=== PATIENT | male | born 1950 | race Caucasian/White ===

== ENCOUNTER 2016-12-17 18:33 | Emergency (ER) | payer MEDICARE, OTHER ==
[2016-12-17 18:46] VITALS: BP 200/93; PULSE 87; RESP 20
--- NOTE | 2016-12-17 19:12 | ED ---
General Adult HPI - General Chief complaint: Recheck/Abnormal Lab/Rx Stated complaint: Renew pain meds Time Seen by Provider: 12/17/16 18:51 Source: patient Mode of arrival: ambulatory Limitations: no limitations - History of Present Illness Initial comments: 66-year-old male patient presented requesting refill on his narcotic pain medication. Patient states that he has been treated with [place] for chronic low back pain for the last 5 years. He states that he was seeing Dr. Weir for pain specialty however missed a couple of appointments and was dropped from their service. He states that he does have a new appointment with Dr. Debi ozuna on January 09. He states that he is unable to get in to see his primary care doctor for refill on his medication. He states that the pain is in his lower back and radiates down both legs. He states he does have some mild tingling in his feet. He denies any new symptoms however. States that his current symptoms are consistent with his chronic pain. He denies any loss of bowel or bladder control. Denies any saddle anesthesia. Patient denies any recent rash, fever, chills, shortness breath, chest pain, abdominal pain, nausea , vomiting, diarrhea, constipation, dizziness, weakness, hematuria, dysuria, urinary urgency, urinary frequency, headache, visual changes, or any other complaints. - Related Data Home Medications Medication Instructions Recorded Confirmed Albuterol Inhaler [Ventolin Hfa 1 - 2 puff INHALATION RT-Q6H PRN 12/17/16 Inhaler] Aspirin EC [Ecotrin Low Dose] 81 mg PO DAILY 12/17/16 12/17/16 Beclomethasone Dipropionate [Qvar 1 puff INHALATION RT-BID 12/17/16 12/17/16 80 mcg] Citalopram Hydrobromide [CeleXA] 20 mg PO DAILY 12/17/16 12/17/16 Enalapril [Vasotec] 20 mg PO DAILY 12/17/16 12/17/16 Gabapentin 600 mg PO TID PRN 12/17/16 12/17/16 HYDROcodone/APAP 7.5-325MG [[place] 1 tab PO DAILY PRN 12/17/16 12/17/16 7.5-325] Omeprazole [PriLOSEC] 20 mg PO DAILY 12/17/16 12/17/16 Potassium Chloride ER [K-Dur 10] 10 meq PO DAILY 12/17/16 12/17/16 Simvastatin [Zocor] 40 mg PO HS 12/17/16 12/17/16 Terazosin [Hytrin] 2 mg PO TID 12/17/16 12/17/16 Testosterone Cypionate 200 mg IM Q21D 12/17/16 12/17/16 [Depo-Testosterone] Umeclidinium [place] [Incruse 1 puff INHALATION RT-DAILY 12/17/16 12/17/16 Ellipta] metFORMIN HCL [Glucophage] 500 mg PO DAILY 12/17/16 12/17/16 Previous Rx's Medication Instructions Recorded Hydrocodone/Acetaminophen [[place] 1 tab PO Q6HR PRN #20 tab 12/17/16 5-325] Allergies Allergy/AdvReac Type Severity Reaction Status Date / Time tetracycline [Tetracycline] Allergy Swelling Verified 12/17/16 19:14 Review of Systems ROS Statement: Those systems with pertinent positive or pertinent negative responses have been documented in the HPI. ROS Other: All systems not noted in ROS Statement are negative. Past Medical History Past Medical History: Asthma, COPD, Diabetes Mellitus, Hyperlipidemia, Hypertension Additional Past Medical History / Comment(s): back pain History of Any Multi-Drug Resistant Organisms: None Reported Past Surgical History: Adenoidectomy, Orthopedic Surgery, Tonsillectomy Past Psychological History: Anxiety Smoking Status: Current every day smoker Past Alcohol Use History: None Reported Past Drug Use History: None Reported General Exam Limitations: no limitations General appearance: alert, in no apparent distress, other (Physical well- developed, well-nourished adult male patient in no acute distress. Vital signs upon presentation were pulse 87, respirations 20, blood pressure 200/93, pulse ox 95% on room air.) Eye exam: Present: normal appearance, PERRL, EOMI. Absent: scleral icterus, conjunctival injection, periorbital swelling ENT exam: Present: normal exam, normal oropharynx, mucous membranes moist Neck exam: Present: normal inspection. Absent: tenderness, meningismus, lymphadenopathy Respiratory exam: Present: normal lung sounds bilaterally. Absent: respiratory distress, wheezes, rales, rhonchi, stridor Cardiovascular Exam: Present: regular rate, normal rhythm, normal heart sounds. Absent: systolic murmur, diastolic murmur, rubs, gallop, clicks Extremities exam: Present: normal inspection, full ROM, normal capillary refill , other (Skin to the lower extremities is pink, warm, and dry. Cap refill less than 3 seconds.). Absent: tenderness, pedal edema, joint swelling, calf tenderness Back exam: Present: normal inspection. Absent: tenderness Neurological exam: Present: alert, oriented X3, CN II-XII intact Psychiatric exam: Present: normal affect, normal mood Skin exam: Present: warm, dry, intact, normal color. Absent: rash Course Vital Signs 12/17/16 18:40 Pulse Rate 87 Respiratory 20 Rate Blood Pressure 200/93 O2 Sat by Pulse 95 Oximetry Medical Decision Making - Medical Decision Making 66-year-old pleasant male patient presented for refill of his narcotic pain medication. Patient has been taking [place] 7. 5/325 for the last 5 years. Did do a MAPs report patient has received prescriptions only from his primary care physician and his pain specialist over the last 2 years. Patient has not had any previous visits to the emergency department for chronic pain issues. I did have a long discussion with the patient and informed him that we generally do not treat chronic pain in the emergency department. I did inform him that we would do a one-time prescription for [place] however any further prescriptions would have to come from his primary care physician. I told him that if his symptoms change or worsen to return here immediately. I instructed him to try to get a sooner appointment with his pain specialist. He verbalizes understanding and agrees with this plan. Disposition Clinical Impression: Chronic back pain Disposition: HOME SELF-CARE Condition: Good Instructions: Chronic Back Pain (ED) Additional Instructions: Obtain any further pain medication prescriptions from her primary care doctor. Follow-up as scheduled with the pain specialist. Return immediately for any new , worsening, or concerning symptoms. Prescriptions: Hydrocodone/Acetaminophen [[place] 5-325] 1 tab PO Q6HR PRN #20 tab PRN Reason: Pain Referrals: Humberto Martinez MD [Primary Care Provider] - 1-2 days Isiah Carrera MD [STAFF PHYSICIAN] - 1-2 days Time of Disposition: 19:12
--- NOTE | 2016-12-18 04:22 | CDI ---
Documentation Clarification OP Dear Karina LEWIS, NPC, Please add addendum for HPI ,Physical examination and MDM. Thank you, Janie. Application Development Project Manager. If you have any questions please contact fixed income portfolio manager at [phone]. MTDD
== END 2016-12-17 19:20 | disposition home or self-care (01) ==
LOC: EC 18:33
DX: G89.29 Other chronic pain (principal); M54.5 Low back pain; J44.9 Chronic obstructive pulmonary disease, unspecified; E11.9 Type 2 diabetes mellitus without complications; E78.5 Hyperlipidemia, unspecified; I10 Essential (primary) hypertension; F17.200 Nicotine dependence, unspecified, uncomplicated; Z88.1 Allergy status to other antibiotic agents; Z79.82 Long term (current) use of aspirin; Z79.51 Long term (current) use of inhaled steroids; Z79.84 Long term (current) use of oral hypoglycemic drugs; Z79.899 Other long term (current) drug therapy
CPT/HCPCS: 99281

== ENCOUNTER → 2018-08-26 | Outpatient (CLI) | payer MEDICARE, OTHER ==
--- NOTE | 2018-08-26 09:45 | US ---
EXAMINATION TYPE: US kidneys/renal and bladder DATE OF EXAM: 08/26/2018 COMPARISON: NONE CLINICAL HISTORY: R31.9 Hematuria. Hematuria EXAM MEASUREMENTS: Right Kidney: 10.7 x 5.6 x 6.1 cm Left Kidney: 11.6 x 6.0 x 5.5 cm Right Kidney: stones, largest = 1.0cm, cystic areas noted with largest = 1.1 x 1.0 x 1.1cm Left Kidney: stone mid = 0.7cm, cystic area = 1.3 x 1.4 x 1.3cm Bladder: Irregularity of the urinary bladder wall is seen diffusely Bilateral Jets seen: no There is no evidence for hydronephrosis at this point in time. No nephrolithiasis is seen. No ahmet s are identified. The urinary bladder is anechoic with irregular samaniego throughout. Bilateral ureter al jets are not seen. IMPRESSION: 1. Diffuse irregularity of the urinary bladder wall could simply relate to incomplete distention or c ystitis with neoplasm much less likely given the diffuse nature of the irregularity. 2. Bilateral nonobstructing renal calculi and bilateral small renal cysts.
== END | disposition home or self-care (01) ==
LOC: RADUSWWP 06:36
PROVIDERS: ATTEND Family Medicine
DX: N20.0 Calculus of kidney (principal); N28.1 Cyst of kidney, acquired; N32.89 Other specified disorders of bladder; R31.9 Hematuria, unspecified
CPT/HCPCS: 76770

== ENCOUNTER → 2018-10-25 | Outpatient (CLI) | payer MEDICARE, OTHER ==
[2018-10-25 16:37] LABS: African American GFR (CKD) >90 (>60 ml/min/1.73 sqM); Blood Urea Nitrogen 15 mg/dL (9-20); Non-African American GFR(CKD) 86 (>60 ml/min/1.73 sqM)
--- NOTE | 2018-10-26 08:40 | CT ---
EXAMINATION TYPE: CT urogram wo/w con DATE OF EXAM: 10/25/2018 COMPARISON: None HISTORY: Hematuria. CT DLP: 3044 mGycm CONTRAST: Performed and without and with IV Contrast, patient injected with 100ml mL of Isovue 300. CT Urography was performed with unenhanced followed by enhanced images of the kidneys, ureters and ur inary bladder. Delayed images were obtained. 3d reconstruction was performed at a separate work sta tion. FINDINGS: KIDNEYS/BLADDER: Lateral nephrolithiasis is identified. The right kidney demonstrates mid to upper po le calculus measuring 1.9 cm additional mid pole calculi measure 7.7 mm and 4.0 mm. Large lower pole calculus measures 1.1 cm. The left kidney also demonstrates multiple calcifications mid pole calculus measures 5 mm. Several additional sub-3 mm calculi noted. Largest calculus is seen at the lower pole measuring 8.1 mm. There is no evidence for hydronephrosis. Several bilateral subcentimeter renal cys ts are noted. No solid renal lesions are detected. Small dependent calculi are seen within the urinar y bladder. Urinary bladder is otherwise unremarkable. LUNG BASES-: No visible nodule. No infiltrate. LIVER/GB: No calcified gallstones. No space occupying hepatic lesion. Biliary tree is of normal ca liber. PANCREAS: No inflammation. No distinct mass. SPLEEN: No splenic enlargement. No lesion seen. ADRENALS: No nodule. No thickening. BOWEL: Normal appendix. Normal bowel caliber. No inflammation. GENITAL ORGANS: Moderate enlargement of the prostate gland. LYMPH NODES: No greater than 1cm abdominal or pelvic lymph nodes are appreciated. AORTA: No significant abnormality. OSSEOUS STRUCTURES: No significant abnormality is seen. OTHER: No significant additional abnormality is seen. IMPRESSION: 1. Nonobstructing bilateral nephrolithiasis. 2. No solid lesions are detected. Several bilateral renal cysts are noted measuring less than 1 cm. 3. Small layering calculi within the dependent portion of the urinary bladder.
== END | disposition home or self-care (01) ==
LOC: RADCTMAIN 15:53
PROVIDERS: ATTEND Urology
DX: N20.0 Calculus of kidney (principal); N28.1 Cyst of kidney, acquired; Z88.1 Allergy status to other antibiotic agents
CPT/HCPCS: 82565; 84520; 74178; 36415; 74400; Q9967

== ENCOUNTER → 2018-11-17 | Outpatient (CLI) | payer MEDICARE, OTHER ==
[2018-11-17 10:27] LABS: Anisocytosis Slight; Basophils # (A) 0.2 k/uL (0-0.2); Basophils % (A) 3 %; Eosinophils # (A) 0.3 k/uL (0-0.7); Eosinophils % (A) 3 %; HCT 52.7 % (39.0-53.0); HGB 16.7 gm/dL (13.0-17.5); Lymphocytes # (A) 1.4 k/uL (1.0-4.8); Lymphocytes % (A) 17 %; MCH 29.8 pg (25.0-35.0); MCHC 31.6 g/dL (31.0-37.0); MCV 94.1 fL (80.0-100.0); Mean Platelet Volume 8.2; Monocytes # (A) 0.8 k/uL (0-1.0); Monocytes % (A) 9 %; Neutrophils # (A) 5.4 k/uL (1.3-7.7); Neutrophils % (A) 65 %; Platelet Count 184 k/uL (150-450); RDW 16.4 % (11.5-15.5); WBC 8.3 k/uL (3.8-10.6)
[2018-11-17 10:32] LABS: Amorphous Sediment,Urine Rare /hpf; Appearance,Urine Clear (Clear); Bacteria,Urine Occasional /hpf; Bilirubin,Urine Negative (Negative); Blood,Urine Small (Negative); Color,Urine Yellow; Glucose,Urine (UA) Negative (Negative); Ketones,Urine Negative (Negative); Leukocyte Esterase,Urine Moderate (Negative); Mucus,Urine Rare /hpf; Nitrite,Urine Negative (Negative); Protein,Urine Negative (Negative); RBC,Urine 18 /hpf (0-5); Specific Gravity,Urine 1.009 (1.001-1.035); Squamous Epithelial Cell,Urine <1 /hpf (0-4); WBC,Urine 13 /hpf (0-5)
[2018-11-17 11:07] LABS: ALT 25 U/L (21-72); AST 19 U/L (17-59); African American GFR (CKD) >90 (>60 ml/min/1.73 sqM); Alkaline Phosphatase 111 U/L (38-126); Anion Gap 6 mmol/L; Blood Urea Nitrogen 16 mg/dL (9-20); Carbon Dioxide 31 mmol/L (22-30); Chloride 105 mmol/L (98-107); Glucose 87 mg/dL (74-99); Potassium 5.1 mmol/L (3.5-5.1); Sodium 142 mmol/L (137-145); Total Bilirubin 0.8 mg/dL (0.2-1.3); Total Protein 6.6 g/dL (6.3-8.2)
== END | disposition home or self-care (01) ==
LOC: LABPAT 08:59
PROVIDERS: ATTEND Urology
DX: Z01.810 Encounter for preprocedural cardiovascular examination (principal); Z01.812 Encounter for preprocedural laboratory examination; N20.0 Calculus of kidney
CPT/HCPCS: 36415; 80053; 81001; 85025; 87086; 93005

== ENCOUNTER 2018-11-23 06:54 | Observation (INO) | payer MEDICARE, OTHER ==
[2018-11-16 15:19] VITALS: BMI 37.8
--- NOTE | 2018-11-22 20:08 | P.GSHP ---
History of Present Illness H&P Date: 11/22/18 68 yo male with gross hematuria that was identified to have bilateral renal stones and has large and a large volume of renal stones on the right. He was given a variety of treatment options He comes for a right pcnl The risks and complications have been discussed. - Constitutional Constitutional: Denies chills, Denies fever - EENT Eyes: denies blurred vision, denies pain Ears, nose, mouth and throat: Denies headache, Denies sore throat - Cardiovascular Cardiovascular: Denies chest pain, Denies shortness of breath - Respiratory Respiratory: Denies cough, Denies 7 - Gastrointestinal Gastrointestinal: Denies abdominal pain, Denies diarrhea, Denies nausea, Denies vomiting - Genitourinary (Female) Genitourinary: Denies dysuria, Denies hematuria - Genitourinary (Male) Genitourinary: Denies dysuria, Denies hematuria - Musculoskeletal Musculoskeletal: Denies myalgias - Integumentary Integumentary: Denies pruritus, Denies rash - Neurological Neurological: Denies numbness, Denies weakness - Psychiatric Psychiatric: Denies anxiety, Denies depression - Endocrine Endocrine: Denies fatigue, Denies weight change Past Medical History Past Medical History: Asthma, Blood Disorder, COPD, Dementia, Diabetes Mellitus, Deep Vein Thrombosis (DVT), Hyperlipidemia, Hypertension, Pneumonia, Prostate Disorder, Pulmonary Embolus (PE), Seizure Disorder, Sleep Apnea/CPAP/BIPAP Additional Past Medical History / Comment(s): back pain, pt states experienced fall less than a week ago and broke rib, bone spurs hips wears leg brace,back brace cane, has cpap, "Factor B", last seizure 10 years ago, History of Any Multi-Drug Resistant Organisms: None Reported Past Surgical History: Adenoidectomy, Orthopedic Surgery, Tonsillectomy Additional Past Surgical History / Comment(s): pilonidal cyst, top teeth removed Past Anesthesia/Blood Transfusion Reactions: Previous Problems w/ Anesthesia Additional Past Anesthesia/Blood Transfusion Reaction / Comment(s): "I have to have extra anesthesia" Smoking Status: Current every day smoker - Past Family History Father Family Medical History: Cancer Sister(s) Family Medical History: Blood Disorder Brother(s) Family Medical History: Blood Disorder Medications and Allergies Home Medications Medication Instructions Recorded Confirmed Type Albuterol Inhaler [Ventolin Hfa 1 - 2 puff INHALATION RT-Q6H PRN 12/17/16 11/16/18 History Inhaler] Beclomethasone Dipropionate [Qvar 1 puff INHALATION RT-BID PRN 12/17/16 11/16/18 History 80 mcg] Enalapril [Vasotec] 20 mg PO DAILY 12/17/16 11/16/18 History HYDROcodone/APAP 7.5-325MG [[place] 1 tab PO TID 12/17/16 11/16/18 History 7.5-325] Umeclidinium [place] [Incruse 1 puff INHALATION RT-DAILY 12/17/16 11/16/18 History Ellipta] metFORMIN HCL [Glucophage] 500 mg PO DAILY 12/17/16 11/16/18 History DULoxetine HCL [Cymbalta] 60 mg PO HS 11/16/18 11/16/18 History Donepezil [Aricept] 10 mg PO HS 11/16/18 11/16/18 History Ferrous Sulfate [Iron] 325 mg PO DAILY 11/16/18 11/16/18 History Meloxicam 15 mg PO DAILY PRN 11/16/18 11/16/18 History Pregabalin [Lyrica] 150 mg PO BID 11/16/18 11/16/18 History Rivaroxaban [Xarelto] 20 mg PO DAILY 11/16/18 11/16/18 History tiZANidine [Zanaflex] 4 mg PO Q8HR PRN 11/16/18 11/16/18 History Allergies Allergy/AdvReac Type Severity Reaction Status Date / Time tetracycline [Tetracycline] Allergy Swelling Verified 11/16/18 14:46 Surgical - Exam - General well developed, well nourished, no distress - Eyes PERRL - ENT no hearing loss - Neck no masses - Respiratory normal expansion, normal respiratory effort - Cardiovascular Rhythm: regular - Abdomen Abdomen: soft, non tender - Genitourinary normal penis with no external lesions, testicles present - Integumentary no rash, no growths - Neurologic normal coordination, normal sensation - Musculoskeletal normal gait - Psychiatric oriented to time, oriented to person, oriented to place, speech is normal, memory intact Results - Imaging CT scan - abdomen: report reviewed, image reviewed CT scan - pelvis: report reviewed, image reviewed Assessment and Plan Assessment: Impression: RIght renal stones, large Plan: PCNL right
[~2018-11-23 06:54] MED LIST: DEXAMETHASONE SOD PHOSPHATE 10 MG/ML 1 ML VIAL IV ONE; ONDANSETRON 4 MG/2 ML VIAL IVP ONE
--- NOTE | 2018-11-23 07:27 | XR ---
EXAMINATION TYPE: XR KUB DATE OF EXAM: 11/23/2018 COMPARISON: None INDICATION: Preop right side kidney stone TECHNIQUE: Single view abdomen frontal projection FINDINGS: There is a normal bowel gas pattern. Air and fecal debris is within the colon. Psoas margins are normal. No organomegaly is present. Note is made of moderate degenerative changes at the left hip. There are multiple right-sided calcifications overlying the right renal shadow. The larger calcificat ions include a 0.9 cm calcification in the mid to inferior pole is 0.7 cm calcification at the inferi or pole and 1.4 cm calcification in the mid to superior pole. Couple smaller calcifications are also present on the right as well as on the left. On the left the largest calcification measures 0.6 cm an d is in the mid to inferior pole. Overlying the right sacroiliac joint is a 0.7 cm calcification. This could be within fecal debris or a calcification within the ureter. IMPRESSION: 1. Multiple bilateral renal stones. 2. 0.7 cm mid right ureteral stone is not excluded.
[2018-11-23] MEDS ORDERED: LIDOCAINE 1% 20 ML VIAL (10MG/ML) FOR IV START INTRADERMA ONE (07:40)
[2018-11-23] MEDS: LACTATED RINGERS 1,000 ML IV SCH (07:40)
[2018-11-23] MEDS ORDERED: fentaNYL (PF) 50 MCG/ML 2 ML AMP ONE (07:49)
[2018-11-23] MEDS ORDERED: GLYCOPYRROLATE 0.2 MG/ML 2 ML VIAL ONE (07:49)
[2018-11-23] MEDS ORDERED: LIDOCAINE 1% INJ 10MG/ML (20 ML MDV) ONE (07:49)
[2018-11-23] MEDS ORDERED: NEOSTIGMINE 1 MG/ML 10 ML VIAL ONE (07:49)
[2018-11-23] MEDS ORDERED: ROCURONIUM BROMIDE 10 MG/ML 10 ML VIAL IV ONE (07:49)
[2018-11-23] MEDS ORDERED: SUCCINYLCHOLINE CHLORIDE 100 MG/5 ML SYR IV ONE (07:49)
[2018-11-23] MEDS ORDERED: MIDAZOLAM 2 MG/2 ML VIAL ONE (07:49)
[2018-11-23] MEDS ORDERED: PROPOFOL 10 MG/ML 20 ML VIAL IV ONE (07:49)
[2018-11-23] MEDS ORDERED: HYDROmorphone (PF) 1 MG/ML ONE (07:49)
[2018-11-23 08:01] LABS: Glucose,Whole Blood 90 mg/dL (75-99)
[2018-11-23] MEDS ORDERED: IOPAMIDOL-370 50ML BTL MISCELLANE ONE (08:37)
[2018-11-23] MEDS ORDERED: LACTATED RINGERS 1,000 ML IV ONE (09:53)
[2018-11-23] MEDS ORDERED: FLUTICASONE 110 MCG INHALER INHALATION PRN (10:06)
[2018-11-23] MEDS ORDERED: tiZANidine 4 MG TAB PO PRN (10:06)
[2018-11-23] MEDS ORDERED: ACETAMINOPHEN TAB 325 MG TAB PO PRN (10:08)
[2018-11-23] MEDS ORDERED: MAG HYDROX/AL HYDROX/SIMETH 30 ML CUP PO PRN (10:08)
[2018-11-23] MEDS ORDERED: ONDANSETRON 4 MG/2 ML VIAL IVP PRN (10:08)
[2018-11-23] MEDS ORDERED: NALOXONE 0.4 MG/ML 1 ML VIAL IV PRN (10:10)
[2018-11-23] MEDS ORDERED: HYDROmorphone PCA 10 MG/50 ML BAG IV PRN (10:10)
--- NOTE | 2018-11-23 10:15 | P.OP ---
Date of Procedure: 11/23/18 Preoperative Diagnosis: Right renal stone large Postoperative Diagnosis: Same Procedure(s) Performed: Cystoscopy, placement of occluding balloon catheter right, percutaneous nephrostomy (Dr. Denton) percutaneous nephrostolithotomy with laser. 10-Canadian J nephrostomy Anesthesia: GETA Surgeon: Paul Manriquez Estimated Blood Loss (ml): 100 Pathology: other Condition: stable (Stone) Disposition: PACU Indications for Procedure: The patient is 68. Gross hematuria. Evaluation identified a large stones in the right kidney. There are multiple and a complex calyceal system. We discussed treatment options. He comes for percutaneous nephrostolithotomy. Description of Procedure: Patient brought to the operating suite. He is given a successful general endotracheal anesthesia on the transport gurney. He's placed in a frog position with a sterile prep and drape. Cystoscopy Foroblique lens and 19-Canadian sheath identifies normal urethra. The prostate is not obstructing. The right ureteral orifice is identified and intubated with a 5-Canadian occluding balloon catheter which is passed up into the renal pelvis. The cystoscope was removed. The a 16-Canadian Ramirez catheters placed and secured to the ureteral catheter The patient is placed in a prone position with care to airways and extremities. Dr. Denton of radiology performed percutaneous access to a right middle pole calyx. We then dilate the tract to 30-Canadian. I passed the rigid scope and remove clot. There is a stone in the renal pelvis which is grasped and removed. I then pass a flexible nephroscope throughout the collecting system as the stone are all in minor calyces. I passed into each calyx ,upper, middle and lower pole calyx. There are several stones that are broken that are basketed or broken with laser lithotripsy and subsequently basketed. At the end of the procedure I perform an intraoperative nephrostogram to make sure there is no remaining stone. I then identify each calyx as outlined by the nephrostogram and see no remaining stone other than debris. There are calcifications in the renal tubules that are not accessible to the nephroscope. At this point in time I elected terminate the procedure. A 10 J nephrostomy tube was placed. It is secured the skin with 2-0 silk. The patient's awake and returned recovery in good condition. Blood loss is approximately 100 mL. He tolerated procedure well and would be placed in the hospital postoperatively.
[2018-11-23] MEDS: HYDROmorphone 0.5 MG/0.5 ML SYRINGE IVP PRN ×4 (10:22→11:09)
[2018-11-23 10:37] LABS: Glucose,Whole Blood 99 mg/dL (75-99)
--- NOTE | 2018-11-23 10:41 | FL ---
EXAMINATION TYPE: FL Perc Nephrostomy New Access DATE OF EXAM: 11/23/2018 COMPARISON: CT 10/25/2018 HISTORY: Nephrolithiasis PROCEDURE: Maximal barrier technique was utilized. The skin overlying the right kidney was localized using fluo roscopy and the overlying skin prepped and draped. Skin mary was made with a scalpel. Access was gai gera under fluoroscopy, following placement of a ureteral occlusion balloon by the referring clinician and instillation of air in the renal collecting system with a 21-gauge needle to the kidney. A suit able posterior calyx was chosen. A 0.018 inch wire was advanced. The access site was dilated and s ubsequently a sheath was advanced into the renal pelvis following dilation with balloon along the tra ct. Urine returned in the hub of the catheter. The patient underwent nephrolithotomy by the referring clinician. The patient remained in stable condition without complication. The patient was dischar ged to observation. 15.12 minutes fluoroscopy time supplied, 5 intraoperative C-arm images document the procedure IMPRESSION: STATUS POST NEPHROSTOMY PLACEMENT FOR NEPHROLITHOTOMY WITH FLUOROSCOPIC GUIDANCE. THIS PROCEDURE PER FORMED BY THE UNDERSIGNED.
[2018-11-23] MEDS ORDERED: MEPERIDINE 50 MG/ML SYRINGE IVP ONE (11:20)
[2018-11-23] MEDS: hydrALAZINE HCL 20 MG/ML 1 ML VIAL IV ONE ×2 (11:31→11:40)
[2018-11-23] MEDS: SODIUM CHLORIDE 0.45% 1,000 ML IV SCH ×2 (15:34→21:19)
[2018-11-23] MEDS: HYDROcodone/APAP 7.5-325MG 1 EACH TAB PO SCH ×2 (16:19→21:18)
[2018-11-23 17:45] LABS: Glucose,Whole Blood 123 mg/dL (75-99)
[2018-11-23] MEDS ORDERED: DULoxetine HCL 60 MG CAPSULE.DR PO SCH (21:00)
[2018-11-23] MEDS ORDERED: DONEPEZIL 10 MG TAB PO SCH (21:00)
[2018-11-23] MEDS: PREGABALIN 50 MG CAP PO SCH (21:08)
[2018-11-23] MEDS: NICOTINE 21MG/24HR PATCH TRANSDERM SCH (21:08)
[2018-11-24] MEDS: LACTATED RINGERS 1,000 ML IV SCH (04:23)
[2018-11-24] MEDS: SODIUM CHLORIDE 0.45% 1,000 ML IV SCH (05:24)
--- NOTE | 2018-11-24 06:47 | P.DS ---
Providers Date of admission: 11/23/18 21:56 Attending physician: Paul Manriquez Primary care physician: [facility] Course: The patient was admitted to the hospital 11/23/2018 for a right percutaneous nephrostolithotomy. He did well with this. Postoperatively his pain was controlled with a CONTINUING EDUCATION DIRECTOR. His urine is clearing appropriately. The catheter will be removed this morning. He will ambulate. If he tolerates the catheter out and ambulation then he'll be discharged home with a nephrostomy tube. He'll follow-up in the office Wednesday for nephrostomy tube removal. He's been given a small prescription of [place]. His diet is regular his activities Limited. His condition is good. 71 given. He's been instructed to contact us with any problems. Patient Condition at Discharge: Good Plan - Discharge Summary Discharge Rx Participant: No New Discharge Prescriptions: New HYDROcodone/APAP 5-325MG [[place] 5-325] 1 tab PO Q4HR PRN #14 tab PRN Reason: Pain No Action Albuterol Inhaler [Ventolin Hfa Inhaler] 1 - 2 puff INHALATION RT-Q6H PRN PRN Reason: Shortness Of Breath Beclomethasone Dipropionate [Qvar 80 mcg] 1 puff INHALATION RT-BID PRN PRN Reason: Dyspnea metFORMIN HCL [Glucophage] 500 mg PO DAILY Umeclidinium [place] [Incruse Ellipta] 1 puff INHALATION RT-DAILY Enalapril [Vasotec] 20 mg PO DAILY HYDROcodone/APAP 7.5-325MG [[place] 7.5-325] 1 tab PO TID tiZANidine [Zanaflex] 4 mg PO Q8HR PRN PRN Reason: Pain Donepezil [Aricept] 10 mg PO HS Rivaroxaban [Xarelto] 20 mg PO DAILY Pregabalin [Lyrica] 150 mg PO BID Meloxicam 15 mg PO DAILY PRN PRN Reason: Pain Ferrous Sulfate [Iron] 325 mg PO DAILY DULoxetine HCL [Cymbalta] 60 mg PO HS Discharge Medication List Albuterol Inhaler [Ventolin Hfa Inhaler] 1 - 2 puff INHALATION RT-Q6H PRN 12/17/16 [History] Beclomethasone Dipropionate [Qvar 80 mcg] 1 puff INHALATION RT-BID PRN 12/17/16 [History] Enalapril [Vasotec] 20 mg PO DAILY 12/17/16 [History] HYDROcodone/APAP 7.5-325MG [[place] 7.5-325] 1 tab PO TID 12/17/16 [History] Umeclidinium [place] [Incruse Ellipta] 1 puff INHALATION RT-DAILY 12/17/16 [History] metFORMIN HCL [Glucophage] 500 mg PO DAILY 12/17/16 [History] DULoxetine HCL [Cymbalta] 60 mg PO HS 11/16/18 [History] Donepezil [Aricept] 10 mg PO HS 11/16/18 [History] Ferrous Sulfate [Iron] 325 mg PO DAILY 11/16/18 [History] Meloxicam 15 mg PO DAILY PRN 11/16/18 [History] Pregabalin [Lyrica] 150 mg PO BID 11/16/18 [History] Rivaroxaban [Xarelto] 20 mg PO DAILY 11/16/18 [History] tiZANidine [Zanaflex] 4 mg PO Q8HR PRN 11/16/18 [History] HYDROcodone/APAP 5-325MG [[place] 5-325] 1 tab PO Q4HR PRN #14 tab 11/24/18 [Rx] Follow up Appointment(s)/Referral(s): Paul Manriquez MD [STAFF PHYSICIAN] - 11/28/18 Discharge Disposition: HOME SELF-CARE
[2018-11-24 07:23] LABS: Glucose,Whole Blood 128 mg/dL (75-99)
[2018-11-24] MEDS ORDERED: metFORMIN 500 MG TAB PO SCH (07:30)
[2018-11-24] MEDS: NICOTINE 21MG/24HR PATCH TRANSDERM SCH (08:08)
[2018-11-24] MEDS: HYDROcodone/APAP 7.5-325MG 1 EACH TAB PO SCH (08:16)
[2018-11-24] MEDS: PREGABALIN 50 MG CAP PO SCH (08:16)
[2018-11-24 08:50] VITALS: BP 206/106; PULSE 76; RESP 16; TEMP 98.2
[2018-11-24] MEDS ORDERED: MELOXICAM 7.5 MG TAB PO PRN (09:00)
[2018-11-24] MEDS ORDERED: LISINOPRIL 20 MG TAB PO SCH (09:00)
[2018-11-24] MEDS ORDERED: IPRATROPIUM 0.5 MG/2.5 ML NEBU INHALATION SCH (16:00)
== END 2018-11-24 09:00 | disposition home or self-care (01) ==
LOC: OR 06:54 → 4SSUR 11:54 → OR 23:05
PROVIDERS: ADMIT Urology; ATTEND Urology
DX: N20.0 Calculus of kidney (principal); J44.9 Chronic obstructive pulmonary disease, unspecified; I10 Essential (primary) hypertension; F41.9 Anxiety disorder, unspecified; G47.33 Obstructive sleep apnea (adult) (pediatric); G40.909 Epilepsy, unspecified, not intractable, without status epilepticus; F03.90 Unspecified dementia, unspecified severity, without behavioral disturbance, psychotic disturbance, mood disturbance, and anxiety; E78.5 Hyperlipidemia, unspecified; E11.9 Type 2 diabetes mellitus without complications; R21 Rash and other nonspecific skin eruption; M77.9 Enthesopathy, unspecified; N42.9 Disorder of prostate, unspecified; Z99.89 Dependence on other enabling machines and devices; F17.200 Nicotine dependence, unspecified, uncomplicated; Z79.01 Long term (current) use of anticoagulants; Z79.1 Long term (current) use of non-steroidal anti-inflammatories (NSAID); Z79.84 Long term (current) use of oral hypoglycemic drugs; Z79.51 Long term (current) use of inhaled steroids; Z79.891 Long term (current) use of opiate analgesic; Z87.01 Personal history of pneumonia (recurrent); Z79.899 Other long term (current) drug therapy; Z88.1 Allergy status to other antibiotic agents; Z86.711 Personal history of pulmonary embolism; Z91.81 History of falling; Z87.81 Personal history of (healed) traumatic fracture; Z86.718 Personal history of other venous thrombosis and embolism; Z80.9 Family history of malignant neoplasm, unspecified
CPT/HCPCS: 50080; 94640; 94762; 86900; 86901; 86850; 82365; 50432; 74018; G0378 ×2; C1769 ×2; C1894; C1729; S4990; J2250; J0360; J1100; J2710; J2175; J0690; J2405; J2001; J3010; J1170 ×2; J0330; J2704; Q9967

== ENCOUNTER → 2019-07-28 | Outpatient (CLI) | payer MEDICARE, OTHER | END | disposition home or self-care (01) | LOC: LABWHC1 12:35 | PROVIDERS: ATTEND Internal Medicine Interventional Cardiology | DX: Z11.59 Encounter for screening for other viral diseases (principal) | CPT/HCPCS: 87635 ==

== ENCOUNTER 2019-08-02 09:05 | Day surgery (SDC) | payer MEDICARE, OTHER ==
[2019-08-01 12:54] VITALS: BMI 39.4
[~2019-08-02 09:05] MED LIST changes: +ALPRAZolam 0.25 MG TAB PO PRN; +ASPIRIN 325 MG TAB PO ONE; -DEXAMETHASONE SOD PHOSPHATE 10 MG/ML 1 ML VIAL IV ONE; -ONDANSETRON 4 MG/2 ML VIAL IVP ONE; +SODIUM CHLORIDE 0.9% 1,000 ML in EMPTY BAG 1 BAG IV ONE
[2019-08-02 09:38] LABS: Glucose,Whole Blood 105 mg/dL (75-99)
[2019-08-02 09:40] VITALS: RESP 18
[2019-08-02 09:54] LABS: Basophils # (A) 0.1 k/uL (0-0.2); Basophils % (A) 1 %; Eosinophils # (A) 0.3 k/uL (0-0.7); Eosinophils % (A) 3 %; HGB 12.9 gm/dL (13.0-17.5); Hypochromasia Slight; Lymphocytes # (A) 1.4 k/uL (1.0-4.8); Lymphocytes % (A) 16 %; MCH 28.9 pg (25.0-35.0); MCHC 32.2 g/dL (31.0-37.0); MCV 89.8 fL (80.0-100.0); Mean Platelet Volume 8.1; Monocytes # (A) 0.5 k/uL (0-1.0); Monocytes % (A) 6 %; Neutrophils # (A) 6.2 k/uL (1.3-7.7); Neutrophils % (A) 72 %; Platelet Count 212 k/uL (150-450); RBC 4.45 m/uL (4.30-5.90); RDW 14.3 % (11.5-15.5); WBC 8.6 k/uL (3.8-10.6)
[2019-08-02 10:03] LABS: African American GFR (CKD) >90 (>60 ml/min/1.73 sqM); Anion Gap 7 mmol/L; Blood Urea Nitrogen 14 mg/dL (9-20); Calcium 9.3 mg/dL (8.4-10.2); Carbon Dioxide 25 mmol/L (22-30); Chloride 104 mmol/L (98-107); Glucose 96 mg/dL (74-99); Non-African American GFR(CKD) >90 (>60 ml/min/1.73 sqM); Potassium 3.9 mmol/L (3.5-5.1); Sodium 136 mmol/L (137-145)
[2019-08-02] MEDS ORDERED: HYDROmorphone 1 MG/ML 1 ML SYRINGE IVP ONE (10:20)
[2019-08-02] MEDS ORDERED: MIDAZOLAM 2 MG/2 ML VIAL IVP ONE (10:20)
[2019-08-02] MEDS ORDERED: LIDOCAINE 1% INJ 10MG/ML (20 ML MDV) SQ ONE (10:21)
[2019-08-02] MEDS: MIDAZOLAM 2 MG/2 ML VIAL IVP ONE ×2 (10:27→10:35)
[2019-08-02] MEDS ORDERED: fentaNYL (PF) 50 MCG/ML 2 ML AMP IVP ONE (10:29)
[2019-08-02] MEDS: HYDROmorphone 1 MG/ML 1 ML SYRINGE IVP ONE ×2 (10:35→10:37)
[2019-08-02] MEDS ORDERED: HEPARIN SODIUM 1,000 UN/ML (10ML VL) IV ONE (10:44)
[2019-08-02] MEDS ORDERED: SODIUM CHLORIDE 0.9% 500 ML 500 ML with niCARdipine 6.25 MG, NITROGLYCERIN-D5W PMX 0.05... IV ONE ×4 (10:45)
[2019-08-02] MEDS ORDERED: CLOPIDOGREL 75 MG TAB PO ONE (10:48)
[2019-08-02] MEDS ORDERED: IOPAMIDOL-250 100ML BTL INTRAARTER ONE (11:24)
[2019-08-02] MEDS ORDERED: FLUTICASONE 110 MCG INHALER INHALATION PRN (11:29)
[2019-08-02] MEDS ORDERED: tiZANidine 4 MG TAB PO PRN (11:29)
[2019-08-02] MEDS ORDERED: MELOXICAM 7.5 MG TAB PO PRN (11:29)
[2019-08-02] MEDS ORDERED: SODIUM CHLORIDE 0.9% 1,000 ML in EMPTY BAG 1 BAG IV SCH (11:30)
--- NOTE | 2019-08-02 12:02 | AN ---
ANGIOGRAPHY REPORT DATE OF SERVICE: 08/02/2019 PERFORMING PHYSICIAN: Jatinder Nina MD. PROCEDURE PERFORMED: 1. Successful atherectomy of the right SFA using the orbital atherectomy device from [employer]. 2. Successful stenting of the right SFA using 8.0 x 100 mm Zilver PTX drug-coated stent with an excellent angiographic results. 3. Balloon angioplasty of the right SFA. 4. Intravascular ultrasound IVUS of the right SFA. 5. Selective right SFA angiogram. INDICATION: This is a 69-year-old gentleman who was experiencing severe right foot discomfort and right toe discomfort. He was diagnosed with critical limb ischemia with an angiogram was performed and revealed critical right SFA disease. He was brought today to undergo an intervention. APPROACH: Right anterior tibial artery. COMPLICATION: None. LEVEL OF SEDATION: Moderate with sedation length of 66 minutes. PROCEDURE DESCRIPTION: After obtaining an informed consent, the patient was brought to the cardiac catheter finisher and inspector. The right dorsalis pedis artery was cannulated using micropuncture technique and a micropuncture wire passed easily, then I placed 5/6 slender sheath. After that, anticoagulation was initiated using heparin and continuous infusion of heparin, verapamil and nitroglycerin was initiated. After that, I did do selective right SFA angiogram as well as intravascular ultrasound IVUS of the right SFA which revealed a diameter artery of about 6 to 7 mm. Successful atherectomy was performed using the CSI device under low, medium, and high speed. After that balloon angioplasty was performed using 6 x 80 mm balloon with inadequate angiographic results. Because of that, I decided to stent the right SFA which I deployed 8 x 100 mm Zilver PTX drug-coated stent where the stent was positioned under fluoroscopy guidance and deployed under fluoroscopy guidance. Post-dilatation was performed using 7 mm balloon. The final angiogram showed excellent angiographic results and the procedure was completed without any complication. POSTPROCEDURE MANAGEMENT: 1. Dual anti-platelet therapy. 2. Risk factors modifications. 3. Follow up with the patient. MMODL / IJN: [id number] /
[2019-08-02] MEDS: HYDROcodone/APAP 10-325MG 1 EACH TAB PO PRN ×2 (15:00→21:14)
[2019-08-02 20:51] LABS: Glucose,Whole Blood 101 mg/dL (75-99)
[2019-08-02] MEDS ORDERED: DULoxetine HCL 60 MG CAPSULE.DR PO SCH (21:00)
[2019-08-02] MEDS ORDERED: DONEPEZIL 10 MG TAB PO SCH (21:00)
[2019-08-03] MEDS: HYDROcodone/APAP 10-325MG 1 EACH TAB PO PRN ×2 (05:27→10:19)
[2019-08-03 06:51] LABS: Glucose,Whole Blood 90 mg/dL (75-99)
--- NOTE | 2019-08-03 07:38 | P.DS ---
Providers Date of admission: August [id number] Attending physician: Jatinder Nina Primary care physician: [facility] Course: This is a 69-year-old gentleman who underwent yesterday successful atherectomy, balloon angioplasty, and stenting of the right SFA. He was seen this morning. The procedure was performed from the right anterior tibial artery. The patient pain overall is better and he feels that the foot is warmer. I felt very diminished dorsalis pedis pulse. I'm going to discharge the patient on Plavix in addition to oral anticoagulation which he was receiving for hypercoagulopathy. He is intolerant to aspirin. I will follow-up with the patient next week in the office Plan - Discharge Summary Discharge Rx Participant: No New Discharge Prescriptions: New Clopidogrel Bisulfate [Plavix] 75 mg PO DAILY #90 tab Continue Albuterol Inhaler (Mhu) [Ventolin Hfa Inhaler (Mhu)] 1 - 2 puff INHALATION RT-Q6H PRN PRN Reason: Shortness Of Breath Beclomethasone Dipropionate [Qvar 80 mcg] 1 puff INHALATION RT-BID PRN PRN Reason: Dyspnea metFORMIN HCL [Glucophage] 500 mg PO DAILY Umeclidinium [place] [Incruse Ellipta] 1 puff INHALATION RT-DAILY Enalapril [Vasotec] 20 mg PO DAILY tiZANidine [Zanaflex] 4 mg PO Q8HR PRN PRN Reason: Pain Donepezil [Aricept] 10 mg PO HS Rivaroxaban [Xarelto] 20 mg PO DAILY Meloxicam 15 mg PO DAILY PRN PRN Reason: Pain DULoxetine HCL [Cymbalta] 60 mg PO HS Atorvastatin [Lipitor] 20 mg PO DAILY HYDROcodone/APAP 10-325MG [[place] 10-325] 1 tab PO Q4HR PRN PRN Reason: Pain Rosuvastatin Calcium 40 mg PO DAILY Discharge Medication List Albuterol Inhaler (Mhu) [Ventolin Hfa Inhaler (Mhu)] 1 - 2 puff INHALATION RT- Q6H PRN 12/17/16 [History] Beclomethasone Dipropionate [Qvar 80 mcg] 1 puff INHALATION RT-BID PRN 12/17/16 [History] Enalapril [Vasotec] 20 mg PO DAILY 10/12/17 [History] Umeclidinium [place] [Incruse Ellipta] 1 puff INHALATION RT-DAILY 12/17/16 [History] metFORMIN HCL [Glucophage] 500 mg PO DAILY 12/17/16 [History] DULoxetine HCL [Cymbalta] 60 mg PO HS 11/16/18 [History] Donepezil [Aricept] 10 mg PO HS 11/16/18 [History] Meloxicam 15 mg PO DAILY PRN 11/16/18 [History] Rivaroxaban [Xarelto] 20 mg PO DAILY 11/16/18 [History] tiZANidine [Zanaflex] 4 mg PO Q8HR PRN 11/16/18 [History] Atorvastatin [Lipitor] 20 mg PO DAILY 08/01/19 [History] HYDROcodone/APAP 10-325MG [[place] 10-325] 1 tab PO Q4HR PRN 08/01/19 [History] Rosuvastatin Calcium 40 mg PO DAILY 08/01/19 [History] Clopidogrel Bisulfate [Plavix] 75 mg PO DAILY #90 tab 08/03/19 [Rx] Follow up Appointment(s)/Referral(s): Jatinder Nina MD [STAFF PHYSICIAN] - 1 Week
[2019-08-03 07:57] VITALS: BP 135/78; TEMP 97.5
[2019-08-03] MEDS ORDERED: IPRATROPIUM 0.5 MG/2.5 ML NEBU INHALATION SCH (08:00)
[2019-08-03 08:37] LABS: Basophils % (A) 1 %; Eosinophils # (A) 0.3 k/uL (0-0.7); Eosinophils % (A) 4 %; HCT 38.6 % (39.0-53.0); HGB 12.6 gm/dL (13.0-17.5); Hypochromasia Moderate; Lymphocytes # (A) 1.5 k/uL (1.0-4.8); Lymphocytes % (A) 21 %; MCH 29.4 pg (25.0-35.0); MCHC 32.6 g/dL (31.0-37.0); MCV 90.2 fL (80.0-100.0); Mean Platelet Volume 8.4; Monocytes # (A) 0.4 k/uL (0-1.0); Monocytes % (A) 5 %; Neutrophils % (A) 68 %; Platelet Count 191 k/uL (150-450); RBC 4.28 m/uL (4.30-5.90); RDW 14.3 % (11.5-15.5); WBC 7.4 k/uL (3.8-10.6)
[2019-08-03 08:46] LABS: African American GFR (CKD) >90 (>60 ml/min/1.73 sqM); Anion Gap 5 mmol/L; Blood Urea Nitrogen 11 mg/dL (9-20); Calcium 8.9 mg/dL (8.4-10.2); Carbon Dioxide 28 mmol/L (22-30); Chloride 104 mmol/L (98-107); Glucose 118 mg/dL (74-99); Non-African American GFR(CKD) >90 (>60 ml/min/1.73 sqM); Potassium 4.2 mmol/L (3.5-5.1); Sodium 137 mmol/L (137-145)
[2019-08-03] MEDS ORDERED: ATORVASTATIN 20 MG TAB PO SCH (09:00)
[2019-08-03] MEDS ORDERED: LISINOPRIL 20 MG TAB PO SCH (09:00)
[2019-08-03] MEDS ORDERED: ATORVASTATIN 80 MG TAB PO SCH (09:00)
[2019-08-03 10:51] VITALS: PULSE 78
--- NOTE | 2019-08-03 12:02 | IR ---
Fluoroscopy HISTORY: Peripheral vascular disease 10.8 minutes fluoroscopy time supplied to the referring clinician. 273 intraoperative C-arm images d ocument the procedure. See dictated report from cardiology.
== END 2019-08-03 10:47 | disposition home or self-care (01) ==
LOC: CATHCVL 09:05 → 4SSUR 11:24 → CATHCVL 08-03 10:47
PROVIDERS: ATTEND Internal Medicine Interventional Cardiology
DX: I70.201 Unspecified atherosclerosis of native arteries of extremities, right leg (principal); I10 Essential (primary) hypertension; E78.5 Hyperlipidemia, unspecified; E11.51 Type 2 diabetes mellitus with diabetic peripheral angiopathy without gangrene; J44.9 Chronic obstructive pulmonary disease, unspecified; F17.210 Nicotine dependence, cigarettes, uncomplicated; Z79.01 Long term (current) use of anticoagulants; Z79.84 Long term (current) use of oral hypoglycemic drugs; Z79.899 Other long term (current) drug therapy; Z88.1 Allergy status to other antibiotic agents; D68.59 Other primary thrombophilia
CPT/HCPCS: 94640; 37227; 85347; 37252; 80048 ×2; 85025 ×2; C1894; C1714; C1769 ×5; C1753; C1874; C1725; J2250; J1644 ×2; J2001; J3010; J1170; Q9966

== ENCOUNTER → 2019-08-17 | Outpatient (CLI) | payer MEDICARE, OTHER ==
--- NOTE | 2019-08-17 20:45 | XR ---
EXAMINATION TYPE: XR toes RT DATE OF EXAM: 08/17/2019 COMPARISON: 05/25/2019 HISTORY: 69-year-old male cutaneous abscess of right foot TECHNIQUE: 3 views coned-down right great toe FINDINGS: Soft tissue swelling of the great toe. No focal osteal lysis or periostitis. Degenerative spurring an d mild joint space narrowing at the first MTP joint. IMPRESSION: Soft tissue swelling. No osseous destruction to suggest osteomyelitis.
== END | disposition home or self-care (01) ==
LOC: RADXRMAIN 16:34
PROVIDERS: ATTEND Nurse Practitioner Family
DX: M79.89 Other specified soft tissue disorders (principal); E11.621 Type 2 diabetes mellitus with foot ulcer

== ENCOUNTER 2019-09-05 17:27 | Inpatient (IN) | payer MEDICARE, OTHER ==
[2019-09-05 18:47] LABS: Basophils # (A) 0.1 k/uL (0-0.2); Basophils % (A) 1 %; Eosinophils # (A) 0.3 k/uL (0-0.7); Eosinophils % (A) 3 %; HCT 37.2 % (39.0-53.0); Hypochromasia Moderate; Lymphocytes # (A) 1.5 k/uL (1.0-4.8); Lymphocytes % (A) 14 %; MCH 28.7 pg (25.0-35.0); MCHC 32.3 g/dL (31.0-37.0); MCV 88.9 fL (80.0-100.0); Mean Platelet Volume 8.4; Monocytes # (A) 0.7 k/uL (0-1.0); Monocytes % (A) 6 %; Neutrophils # (A) 8.3 k/uL (1.3-7.7); Neutrophils % (A) 76 %; Platelet Count 210 k/uL (150-450); RBC 4.18 m/uL (4.30-5.90); RDW 15.5 % (11.5-15.5)
[2019-09-05 18:57] LABS: INR 1.3 (<1.2); Partial Thromboplastin Time 35.3 sec (22.0-30.0); Prothrombin Time 13.4 sec (9.0-12.0)
--- NOTE | 2019-09-05 19:07 | XR ---
EXAMINATION TYPE: XR foot complete RT DATE OF EXAM: 09/05/2019 COMPARISON: NONE HISTORY: Big toe infection TECHNIQUE: 3 views FINDINGS: Metatarsals are intact. I see no fracture nor dislocation. Joint spaces are fairly normal. There is minor spurring at the first MP joint. There is plantar calcaneal spurring. IMPRESSION: Mild spurring. No fracture. No evidence of osteomyelitis of the big toe.
--- NOTE | 2019-09-05 19:09 | XR ---
EXAMINATION TYPE: XR KUB DATE OF EXAM: 09/05/2019 COMPARISON: 11/23/2018 HISTORY: Preop TECHNIQUE: 2 views FINDINGS: 2 views supine show no sign of intestinal obstruction or pneumoperitoneum. Fecal pattern is normal. There are large calcifications over the lower pole right kidney. There is 6 mm calculus over lower pole left kidney. IMPRESSION: Nonacute abdomen. Bilateral renal calculi similar to old exam.
[2019-09-05] MEDS ORDERED: HYDROcodone/APAP 7.5-325MG 1 EACH TAB PO ONE (19:16)
--- NOTE | 2019-09-05 19:18 | ED ---
General Adult HPI - General Chief complaint: Urogenital Stated complaint: withdrawals Time Seen by Provider: 09/05/19 17:38 Source: patient Mode of arrival: ambulatory Limitations: no limitations - History of Present Illness Initial comments: The patient is a 69-year-old male with past history of peripheral vascular disease, chronic pain with opiate dependence and chronic right foot wound who presents to the emergency department with reported opiate withdrawal. The patient states he has had intractable nausea and diarrhea secondary to not being on his [place]. States he's been out for approximately 1 week. He was in a pain contract. He was hospitalized and had surgery approximately one month ago by Dr. Boucher to put a graft in his right lower extremity. States that during his hospitalization he was given narcotic pain medication. His pain contract doctor found that he had fentanyl in his system and stopped giving him [place]. Patient also reports that his foot wound appears to be getting worse. Yesterday the patient also started having dark clotted blood in his urine. States it previously happened before with his previous kidney stones. He does admit to some generalized abdominal pain. Patient is on Xarelto and plavix. Patient d enies any fevers or chills. There are no other alleviating, precipitating or modifying factors - Related Data Home Medications Medication Instructions Recorded Confirmed Enalapril [Vasotec] 20 mg PO DAILY 12/17/16 09/05/19 Umeclidinium [place] [Incruse 1 puff INHALATION RT-DAILY 12/17/16 09/05/19 Ellipta] metFORMIN HCL [Glucophage] 500 mg PO W/BRKFST 12/17/16 09/05/19 DULoxetine HCL [Cymbalta] 60 mg PO HS 11/16/18 09/05/19 Donepezil [Aricept] 10 mg PO HS 11/16/18 09/05/19 Rivaroxaban [Xarelto] 20 mg PO DAILY 11/16/18 09/05/19 Rosuvastatin Calcium 40 mg PO DAILY 08/01/19 09/05/19 Albuterol Sulfate [Ventolin HFA] 2 puff INHALATION RT-Q4H PRN 09/05/19 09/05/19 Aspirin 81 mg PO DAILY 09/05/19 09/05/19 Pregabalin [Lyrica] 150 mg PO BID 09/05/19 09/05/19 Tamsulosin HCl [Flomax] 0.4 mg PO BID 09/05/19 09/05/19 amLODIPine [Norvasc] 5 mg PO DAILY 09/05/19 09/05/19 Previous Rx's Medication Instructions Recorded Clopidogrel Bisulfate [Plavix] 75 mg PO DAILY #90 tab 08/03/19 Budesonide-Formot 160-4.5 Mcg 2 puff INHALATION RT-BID #1 puff 09/08/19 [Symbicort 160-4.5 Mcg Inhaler] Ipratropium-Albuterol Nebulize 3 ml INHALATION RT-QID PRN #120 ml 09/08/19 [Duoneb 0.5 mg-3 mg/3 ml Soln] Nicotine 14Mg/24Hr Patch [Habitrol] 1 patch TRANSDERM DAILY #30 patch 09/08/19 Sulfamethoxazole/Trimethoprim 1 each PO PC-BID 7 Days #14 tablet 09/08/19 [Bactrim DS 800-160 mg] Allergies Allergy/AdvReac Type Severity Reaction Status Date / Time tetracycline [Tetracycline] Allergy Swelling Verified 09/05/19 21:38 Review of Systems ROS Statement: Those systems with pertinent positive or pertinent negative responses have been documented in the HPI. ROS Other: All systems not noted in ROS Statement are negative. Past Medical History Past Medical History: Asthma, Coronary Artery Disease (CAD), COPD, Dementia, Diabetes Mellitus, Hyperlipidemia, Hypertension Additional Past Medical History / Comment(s): back pain, DDD, LT GREAT TOE WOUND History of Any Multi-Drug Resistant Organisms: None Reported Past Surgical History: Adenoidectomy, Orthopedic Surgery, Tonsillectomy Additional Past Surgical History / Comment(s): pilonidal cyst, top teeth removed Past Anesthesia/Blood Transfusion Reactions: Previous Problems w/ Anesthesia Additional Past Anesthesia/Blood Transfusion Reaction / Comment(s): "I have to have extra anesthesia" Past Psychological History: Anxiety Smoking Status: Current every day smoker Past Alcohol Use History: None Reported Past Drug Use History: None Reported - Past Family History Father Family Medical History: Cancer Sister(s) Family Medical History: Blood Disorder Brother(s) Family Medical History: Blood Disorder General Exam Limitations: no limitations General appearance: alert, in no apparent distress Head exam: Present: atraumatic, normocephalic, normal inspection Eye exam: Present: normal appearance, PERRL, EOMI. Absent: scleral icterus, conjunctival injection, periorbital swelling ENT exam: Present: normal exam, mucous membranes moist Neck exam: Present: normal inspection. Absent: tenderness, meningismus, lymphadenopathy Respiratory exam: Present: wheezes, decreased breath sounds. Absent: respiratory distress, rales, rhonchi, stridor Cardiovascular Exam: Present: regular rate, normal rhythm, normal heart sounds. Absent: systolic murmur, diastolic murmur, rubs, gallop, clicks GI/Abdominal exam: Present: soft, tenderness (suprapubic), normal bowel sounds. Absent: distended, guarding, rebound, rigid Extremities exam: Present: full ROM, normal capillary refill, other (2+ DP and PT pulses. great toe ulceration measuring 2.0 x 1.5 cm with some surrounding erythema. No pustular drainage). Absent: tenderness, pedal edema, joint swelling, calf tenderness Back exam: Present: normal inspection Neurological exam: Present: alert, oriented X3, CN II-XII intact Psychiatric exam: Present: normal affect, normal mood Skin exam: Present: warm, dry, intact, normal color. Absent: rash Course Vital Signs 09/05/19 09/05/19 17:28 20:51 Temperature 98.0 F 98.1 F Pulse Rate 85 74 Respiratory 18 18 Rate Blood Pressure 99/66 107/68 O2 Sat by Pulse 98 98 Oximetry Medical Decision Making - Medical Decision Making Upon arrival the patient is placed into room 12. A thorough history and physical exam was performed. I did perform an x-ray of the patient's great toe which does not demonstrate any signs ostium myelitis. The patient is failing outpatient therapy and therefore I did recommend laboratory studies. White blood cell count is 11. Lipase 89. Urinalysis is positive for large blood, greater than 182 red blood cells, greater than 182 white blood cells and many white blood cell clumps. The patient was given [place] for pain. Cultures were obtained and the patient was started on Rocephin and Vanco for his urinary tract infection and cellulitis which is failing outpatient therapy. I did recommend hospital admission. Patient does make comment to the nurse that he was so hopeless at home without his pain medication that he didn't want to live any longer. Because of this I will admit the patient to [facility] with psychiatryvand wound care consult. Patient agreed to this. I discussed the case with Dr. Ochoa - Lab Data Result diagrams: 09/06/19 08:05 09/08/19 08:19 Lab Results 09/05/19 09/05/19 09/05/19 Range/Units 18:33 18:33 18:33 WBC 11.0 H (3.8-10.6) k/uL RBC 4.18 L (4.30-5.90) m/uL Hgb 12.0 L (13.0-17.5) gm/dL Hct 37.2 L (39.0-53.0) % MCV 88.9 (80.0-100.0) fL MCH 28.7 (25.0-35.0) pg MCHC 32.3 (31.0-37.0) g/dL RDW 15.5 (11.5-15.5) % Plt Count 210 (150-450) k/uL Neutrophils % 76 % Lymphocytes % 14 % Monocytes % 6 % Eosinophils % 3 % Basophils % 1 % Neutrophils # 8.3 H (1.3-7.7) k/uL Lymphocytes # 1.5 (1.0-4.8) k/uL Monocytes # 0.7 (0-1.0) k/uL Eosinophils # 0.3 (0-0.7) k/uL Basophils # 0.1 (0-0.2) k/uL Hypochromasia Moderate ESR 11 (0-15) mm/hr PT 13.4 H (9.0-12.0) sec INR 1.3 H (<1.2) APTT 35.3 H (22.0-30.0) sec Sodium 137 (137-145) mmol/L Potassium 4.2 (3.5-5.1) mmol/L Chloride 106 (98-107) mmol/L Carbon Dioxide 24 (22-30) mmol/L Anion Gap 7 mmol/L BUN 19 (9-20) mg/dL Creatinine 0.72 (0.66-1.25) mg/dL Est GFR (CKD-EPI)AfAm >90 (>60 ml/min/1.73 sqM) Est GFR (CKD-EPI)NonAf >90 (>60 ml/min/1.73 sqM) Glucose 111 H (74-99) mg/dL Plasma Lactic Acid Jose (0.7-2.0) mmol/L Calcium 9.6 (8.4-10.2) mg/dL Total Bilirubin 0.5 (0.2-1.3) mg/dL AST 22 (17-59) U/L ALT 20 (4-49) U/L Alkaline Phosphatase 71 (38-126) U/L C-Reactive Protein <5.0 (<10.0) mg/L Total Protein 6.1 L (6.3-8.2) g/dL Albumin 3.7 (3.5-5.0) g/dL Lipase 889 H (23-300) U/L Urine Color Urine Appearance (Clear) Urine pH (5.0-8.0) Ur Specific [place] (1.001-1.035) Urine Protein (Negative) Urine Glucose (UA) (Negative) Urine Ketones (Negative) Urine Blood (Negative) Urine Nitrite (Negative) Urine Bilirubin (Negative) Urine Urobilinogen (<2.0) mg/dL Ur Leukocyte Esterase (Negative) Urine RBC (0-5) /hpf Urine WBC (0-5) /hpf Urine WBC Clumps (None) /hpf Urine Opiates Screen (NotDetected) Ur Oxycodone Screen (NotDetected) Urine Methadone Screen (NotDetected) Ur Propoxyphene Screen (NotDetected) Ur Barbiturates Screen (NotDetected) U Tricyclic Antidepress (NotDetected) Ur Phencyclidine Scrn (NotDetected) Ur Amphetamines Screen (NotDetected) U Methamphetamines Scrn (NotDetected) U Benzodiazepines Scrn (NotDetected) Urine Cocaine Screen (NotDetected) U Marijuana (THC) Screen (NotDetected) 09/05/19 09/05/19 Range/Units 18:33 19:11 WBC (3.8-10.6) k/uL RBC (4.30-5.90) m/uL Hgb (13.0-17.5) gm/dL Hct (39.0-53.0) % MCV (80.0-100.0) fL MCH (25.0-35.0) pg MCHC (31.0-37.0) g/dL RDW (11.5-15.5) % Plt Count (150-450) k/uL Neutrophils % % Lymphocytes % % Monocytes % % Eosinophils % % Basophils % % Neutrophils # (1.3-7.7) k/uL Lymphocytes # (1.0-4.8) k/uL Monocytes # (0-1.0) k/uL Eosinophils # (0-0.7) k/uL Basophils # (0-0.2) k/uL Hypochromasia ESR (0-15) mm/hr PT (9.0-12.0) sec INR (<1.2) APTT (22.0-30.0) sec Sodium (137-145) mmol/L Potassium (3.5-5.1) mmol/L Chloride (98-107) mmol/L Carbon Dioxide (22-30) mmol/L Anion Gap mmol/L BUN (9-20) mg/dL Creatinine (0.66-1.25) mg/dL Est GFR (CKD-EPI)AfAm (>60 ml/min/1.73 sqM) Est GFR (CKD-EPI)NonAf (>60 ml/min/1.73 sqM) Glucose (74-99) mg/dL Plasma Lactic Acid Jose 2.0 (0.7-2.0) mmol/L Calcium (8.4-10.2) mg/dL Total Bilirubin (0.2-1.3) mg/dL AST (17-59) U/L ALT (4-49) U/L Alkaline Phosphatase (38-126) U/L C-Reactive Protein (<10.0) mg/L Total Protein (6.3-8.2) g/dL Albumin (3.5-5.0) g/dL Lipase (23-300) U/L Urine Color Dark Red Urine Appearance Turbid (Clear) Urine pH 6.0 (5.0-8.0) Ur Specific [place] 1.017 (1.001-1.035) Urine Protein 2+ H (Negative) Urine Glucose (UA) Negative (Negative) Urine Ketones Trace H (Negative) Urine Blood Large H (Negative) Urine Nitrite Negative (Negative) Urine Bilirubin Negative (Negative) Urine Urobilinogen <2.0 (<2.0) mg/dL Ur Leukocyte Esterase Moderate H (Negative) Urine RBC >182 H (0-5) /hpf Urine WBC >182 H (0-5) /hpf Urine WBC Clumps Many H (None) /hpf Urine Opiates Screen Not Detected (NotDetected) Ur Oxycodone Screen Not Detected (NotDetected) Urine Methadone Screen Not Detected (NotDetected) Ur Propoxyphene Screen Not Detected (NotDetected) Ur Barbiturates Screen Not Detected (NotDetected) U Tricyclic Antidepress Not Detected (NotDetected) Ur Phencyclidine Scrn Not Detected (NotDetected) Ur Amphetamines Screen Not Detected (NotDetected) U Methamphetamines Scrn Not Detected (NotDetected) U Benzodiazepines Scrn Not Detected (NotDetected) Urine Cocaine Screen Not Detected (NotDetected) U Marijuana (THC) Screen Not Detected (NotDetected) Disposition Clinical Impression: Cellulitis of great toe, right, Nausea and vomiting, Hematuria, Urinary tract infection, Depression, Opiate withdrawal Disposition: ADMITTED IP TO THIS [facility] Condition: Stable Is patient prescribed a controlled substance at d/c from ED?: No Decision to Admit Reason: Admit from EC Decision Date: 09/05/19 Decision Time: 20:25
[2019-09-05 19:32] LABS: Appearance,Urine Turbid (Clear); Bilirubin,Urine Negative (Negative); Blood,Urine Large (Negative); Color,Urine Dark Red; Glucose,Urine (UA) Negative (Negative); Ketones,Urine Trace (Negative); Leukocyte Esterase,Urine Moderate (Negative); Nitrite,Urine Negative (Negative); Protein,Urine 2+ (Negative); RBC,Urine >182 /hpf (0-5); Urobilinogen,Urine <2.0 mg/dL (<2.0); WBC,Urine >182 /hpf (0-5)
[2019-09-05 19:34] LABS: Specific Gravity,Urine 1.017 (1.001-1.035)
[2019-09-05 19:37] LABS: Erythrocyte Sedimentation Rate 11 mm/hr (0-15)
[2019-09-05 19:39] LABS: ALT 20 U/L (4-49); AST 22 U/L (17-59); African American GFR (CKD) >90 (>60 ml/min/1.73 sqM); Albumin 3.7 g/dL (3.5-5.0); Alkaline Phosphatase 71 U/L (38-126); Anion Gap 7 mmol/L; Blood Urea Nitrogen 19 mg/dL (9-20); C Reactive Protein <5.0 mg/L (<10.0); Calcium 9.6 mg/dL (8.4-10.2); Carbon Dioxide 24 mmol/L (22-30); Chloride 106 mmol/L (98-107); Glucose 111 mg/dL (74-99); Non-African American GFR(CKD) >90 (>60 ml/min/1.73 sqM); Potassium 4.2 mmol/L (3.5-5.1); Sodium 137 mmol/L (137-145); Total Bilirubin 0.5 mg/dL (0.2-1.3); Total Protein 6.1 g/dL (6.3-8.2)
[2019-09-05 19:39] LABS: Amphetamine Screen,Urine Not Detected (NotDetected); Barbiturate Screen,Urine Not Detected (NotDetected); Benzodiazepines Screen,Urine Not Detected (NotDetected); Cocaine Screen,Urine Not Detected (NotDetected); Methadone Screen, Urine Not Detected (NotDetected); Opiate Screen,Urine Not Detected (NotDetected); Oxycodone Screen, Urine Not Detected (NotDetected); Phencyclidine Screen,Urine Not Detected (NotDetected); Tricyclic Antidepressant,Urine Not Detected (NotDetected); Urn Cannabinoid Scrn Not Detected (NotDetected)
[2019-09-05] MEDS ORDERED: VANCOMYCIN IV PER PHARMACY 1 EACH MISC MISCELLANE PRN (19:54)
[2019-09-05] MEDS ORDERED: VANCOMYCIN 1,750 MG in SODIUM CHLORIDE 0.9% 500 ML 500 ML IVPB ONE (20:15)
[2019-09-05] MEDS ORDERED: LIDOCAINE 4% CREAM 5 GM TUBE TOPICAL ONE (20:23)
[2019-09-05] MEDS ORDERED: NALOXONE 0.4 MG/ML 1 ML VIAL IV PRN (20:32)
[2019-09-05 22:25] LABS: Glucose,Whole Blood 94 mg/dL (75-99)
[2019-09-06] MEDS: NICOTINE 14MG/24HR PATCH TRANSDERM SCH ×2 (01:39→08:12)
[2019-09-06] MEDS: HYDROcodone/APAP 5-325MG 1 EACH TAB PO PRN ×5 (01:39→20:45)
[2019-09-06 07:21] LABS: Glucose,Whole Blood 86 mg/dL (75-99)
[2019-09-06] MEDS: amLODIPine 5 MG TAB PO SCH ×2 (08:11→08:14)
[2019-09-06] MEDS: metFORMIN 500 MG TAB PO SCH (08:11)
[2019-09-06] MEDS: TAMSULOSIN 0.4 MG CAP.ER.24H PO SCH ×2 (08:11→19:45)
[2019-09-06] MEDS: lisinopriL 20 MG TAB PO SCH ×2 (08:11→08:14)
[2019-09-06] MEDS: ASPIRIN 81 MG PO SCH (08:11)
[2019-09-06] MEDS: ATORVASTATIN 80 MG TAB PO SCH (08:11)
[2019-09-06] MEDS: VANCOMYCIN 1,500 MG in SODIUM CHLORIDE 0.9% 250 ML IVPB SCH ×2 (08:11→19:44)
[2019-09-06] MEDS: PREGABALIN 75 MG CAP PO SCH ×2 (08:11→19:45)
[2019-09-06] MEDS ORDERED: ALBUTEROL HFA INHALER INHALATION PRN ×2 (08:13→08:16)
[2019-09-06 08:21] LABS: Basophils % (A) 1 %; Eosinophils # (A) 0.4 k/uL (0-0.7); Eosinophils % (A) 5 %; HCT 36.5 % (39.0-53.0); HGB 11.6 gm/dL (13.0-17.5); Hypochromasia Marked; Lymphocytes # (A) 1.9 k/uL (1.0-4.8); Lymphocytes % (A) 24 %; MCH 28.7 pg (25.0-35.0); MCHC 31.7 g/dL (31.0-37.0); MCV 90.5 fL (80.0-100.0); Mean Platelet Volume 8.1; Monocytes # (A) 0.5 k/uL (0-1.0); Monocytes % (A) 6 %; Neutrophils # (A) 4.9 k/uL (1.3-7.7); Neutrophils % (A) 62 %; Platelet Count 209 k/uL (150-450); RBC 4.03 m/uL (4.30-5.90); RDW 15.3 % (11.5-15.5); WBC 7.9 k/uL (3.8-10.6)
[2019-09-06 08:36] LABS: African American GFR (CKD) >90 (>60 ml/min/1.73 sqM); Anion Gap 6 mmol/L; Blood Urea Nitrogen 18 mg/dL (9-20); Calcium 8.8 mg/dL (8.4-10.2); Carbon Dioxide 25 mmol/L (22-30); Chloride 106 mmol/L (98-107); Glucose 132 mg/dL (74-99); Non-African American GFR(CKD) >90 (>60 ml/min/1.73 sqM); Potassium 4.2 mmol/L (3.5-5.1); Sodium 137 mmol/L (137-145)
[2019-09-06] MEDS: IPRATROPIUM-ALBUTEROL 3 ML NEB INHALATION PRN ×3 (08:51→19:09)
--- NOTE | 2019-09-06 11:21 | P.CONS ---
History of Present Illness - Reason for Consult Consult date: 09/06/19 Wound care - History of Present Illness This is a 69-year-old gentleman who is known to the wound care center with a nonhealing ulceration to the right great toe dorsal aspect. Patient had a surgical procedure done by physiatry resulting in avulsion of the nail to the right great toe. Patient developed an ulcer post intervention. He has been treated with honey alginate which causes discomfort. Patient has been utilizing triad and foam. Patient does not consistently come to the wound care center. And oftentimes does not follow recommendations for wound care. Review of Systems Review Of Systems: Constitutional: No fever, no chills, no night sweats. No weight change. No weakness, fatigue or lethargy. No daytime sleepiness. Integumentary:reports wounds, no lesions. No rash or pruritus. No unusual bruising. No change in hair or nails. Past Medical History Past Medical History: Asthma, Coronary Artery Disease (CAD), COPD, Dementia, Diabetes Mellitus, Hyperlipidemia, Hypertension Additional Past Medical History / Comment(s): back pain, DDD, LT GREAT TOE WOUND History of Any Multi-Drug Resistant Organisms: None Reported Past Surgical History: Adenoidectomy, Orthopedic Surgery, Tonsillectomy Additional Past Surgical History / Comment(s): pilonidal cyst, top teeth removed Past Anesthesia/Blood Transfusion Reactions: Previous Problems w/ Anesthesia Additional Past Anesthesia/Blood Transfusion Reaction / Comm: "I have to have extra anesthesia" Past Psychological History: Anxiety Smoking Status: Current every day smoker Past Alcohol Use History: None Reported Past Drug Use History: None Reported - Past Family History Father Family Medical History: Cancer Sister(s) Family Medical History: Blood Disorder Brother(s) Family Medical History: Blood Disorder Medications and Allergies Home Medications Medication Instructions Recorded Confirmed Type Enalapril [Vasotec] 20 mg PO DAILY 12/17/16 09/05/19 History Umeclidinium [place] [Incruse 1 puff INHALATION RT-DAILY 12/17/16 09/05/19 History Ellipta] metFORMIN HCL [Glucophage] 500 mg PO W/BRKFST 12/17/16 09/05/19 History DULoxetine HCL [Cymbalta] 60 mg PO HS 11/16/18 09/05/19 History Donepezil [Aricept] 10 mg PO HS 11/16/18 09/05/19 History Rivaroxaban [Xarelto] 20 mg PO DAILY 11/16/18 09/05/19 History Rosuvastatin Calcium 40 mg PO DAILY 08/01/19 09/05/19 History Clopidogrel Bisulfate [Plavix] 75 mg PO DAILY #90 tab 08/03/19 09/05/19 Rx Albuterol Sulfate [Ventolin HFA] 2 puff INHALATION RT-Q4H PRN 09/05/19 09/05/19 History Aspirin 81 mg PO DAILY 09/05/19 09/05/19 History Levofloxacin [Levaquin] 500 mg PO DAILY 09/05/19 09/05/19 History Pregabalin [Lyrica] 150 mg PO BID 09/05/19 09/05/19 History Tamsulosin HCl [Flomax] 0.4 mg PO BID 09/05/19 09/05/19 History amLODIPine [Norvasc] 5 mg PO DAILY 09/05/19 09/05/19 History Allergies Allergy/AdvReac Type Severity Reaction Status Date / Time tetracycline [Tetracycline] Allergy Swelling Verified 09/05/19 21:38 Physical Exam Vitals: Vital Signs Temp Pulse Pulse Resp BP BP Pulse Ox 09/06/19 09:06 76 09/06/19 08:52 72 09/06/19 07:18 98.1 F 73 17 106/70 93 L 09/06/19 01:50 99.0 F 65 14 117/73 96 09/05/19 22:15 98.3 F 66 11 L 103/70 97 09/05/19 20:51 98.1 F 74 18 107/68 98 09/05/19 17:28 98.0 F 85 18 99/66 98 Intake and Output 09/05/19 09/06/19 09/06/19 22:59 06:59 14:59 Intake Total 300 Output Total 250 Balance 50 Intake: Oral 300 Output: Urine 250 Other: Voiding Method Toilet # Voids 1 2 Weight 99.79 kg Physical exam: General Appearance: Alert, cooperative, no distress, appears stated age. Skin: Grade 2 diabetic foot ulcer to the right great toe dorsal aspect measuring approximately 0.9 x 1.7 x 0.2 cm fat layer exposed. There is no tunneling or undermining. Immediate amount of serous drainage noted. Wound margins are distinct is not visible. There is no granulation within the wound bed. There is a large amount of necrotic tissue including eschar and slough. The periwound Exhibits callus scarring or maceration. all other Skin color, texture, tugor normal, no rashes or lesions. Neurologic: Alert oriented x3 Results CBC & Chem 7: 09/06/19 08:05 09/06/19 08:05 Labs: Abnormal Lab Results - Last 24 Hours (Table) 09/05/19 09/05/19 09/05/19 Range/Units 18:33 18:33 18:33 WBC 11.0 H (3.8-10.6) k/uL RBC 4.18 L (4.30-5.90) m/uL Hgb 12.0 L (13.0-17.5) gm/dL Hct 37.2 L (39.0-53.0) % Neutrophils # 8.3 H (1.3-7.7) k/uL PT 13.4 H (9.0-12.0) sec INR 1.3 H (<1.2) APTT 35.3 H (22.0-30.0) sec Glucose 111 H (74-99) mg/dL Total Protein 6.1 L (6.3-8.2) g/dL Lipase 889 H (23-300) U/L Urine Protein (Negative) Urine Ketones (Negative) Urine Blood (Negative) Ur Leukocyte Esterase (Negative) Urine RBC (0-5) /hpf Urine WBC (0-5) /hpf Urine WBC Clumps (None) /hpf 09/05/19 09/06/19 09/06/19 Range/Units 19:11 08:05 08:05 WBC (3.8-10.6) k/uL RBC 4.03 L (4.30-5.90) m/uL Hgb 11.6 L (13.0-17.5) gm/dL Hct 36.5 L (39.0-53.0) % Neutrophils # (1.3-7.7) k/uL PT (9.0-12.0) sec INR (<1.2) APTT (22.0-30.0) sec Glucose 132 H (74-99) mg/dL Total Protein (6.3-8.2) g/dL Lipase (23-300) U/L Urine Protein 2+ H (Negative) Urine Ketones Trace H (Negative) Urine Blood Large H (Negative) Ur Leukocyte Esterase Moderate H (Negative) Urine RBC >182 H (0-5) /hpf Urine WBC >182 H (0-5) /hpf Urine WBC Clumps Many H (None) /hpf Microbiology - Last 24 Hours (Table) 09/05/19 19:11 Urine Culture - Preliminary Urine,Voided Assessment and Plan (1) Type 2 diabetes mellitus with foot ulcer Current Visit: Yes Status: Acute Code(s): E11.621 - TYPE 2 DIABETES MELLITUS WITH FOOT ULCER; L97.509 - NON-PRESSURE CHRONIC ULCER OTH PRT UNSP FOOT W UNSP SEVERITY SNOMED Code(s): 413684362 (2) Non-healing ulcer of right foot with fat layer exposed Current Visit: Yes Status: Acute Code(s): L97.512 - NON-PRS CHRONIC ULCER OTH PRT RIGHT FOOT W FAT LAYER EXPOSED SNOMED Code(s): 072739176 Plan: Apply Santyl, saline moistened gauze, foam, rolled gauze and secured paper tape. Change daily. Patient is discharged please call the wound care center to set up an appointment for next for wound care visit. Patient will utilize triad and foam dressing at home. Thank you for the consultation any questions please contact the wound care center DNP note has been reviewed and discussed with Dr. Araujo and the impression and plan of care has been directed as dictated.
[2019-09-06 11:41] LABS: Glucose,Whole Blood 112 mg/dL (75-99)
[2019-09-06] MEDS: COLLAGENASE 250 UNIT/GM OINTMENT 30 GM TUBE TOPICAL SCH ×2 (11:41→19:46)
--- NOTE | 2019-09-06 13:13 | P.HPIM ---
History of Present Illness 69-year-old male with history of cerebrovascular disease came in with the complaints of right foot wound secondary to intervention from previous surgery and possible cellulitis of that area. Patient was also complaining of hematuri a, patient did anticoagulation probably secondary to pleurisy or professor disease as well as amount Plavix and patient is comparing of hematuria. Patient has multiple kidney stones in the past. Patient diarrhea denied any dysuria this time. Patient has degenerative joint disease in multiple joints. Patient had issues with shipyard painter because of which she is unable to get any prescriptions for his pain. Please refer to ER physician's documentation regarding that. Patient evidently complained that he wants to try to commit suicide to control his pain because of which patient is a sitter and psychiatry was consulted Review of Systems REVIEW OF SYSTEMS: CONSTITUTIONAL: No fever, no malaise, no fatigue. HEENT: No recent visual problems or hearing problems. Denied any sore throat. CARDIOVASCULAR: No chest pain, orthopnea, PND, no palpitations, no syncope. PULMONARY: No shortness of breath, no cough, no hemoptysis. GASTROINTESTINAL: No diarrhea, no nausea, no vomiting, no abdominal pain. NEUROLOGICAL: No headaches, no weakness, no numbness. HEMATOLOGICAL: Denies any bleeding or petechiae. GENITOURINARY: As mentioned in HPI MUSCULOSKELETAL/RHEUMATOLOGICAL: As mentioned in HPI ENDOCRINE: Denies any polyuria or polydipsia. The rest of the 14-point review of systems is negative. Past Medical History Past Medical History: Asthma, Coronary Artery Disease (CAD), COPD, Dementia, Diabetes Mellitus, Hyperlipidemia, Hypertension Additional Past Medical History / Comment(s): back pain, DDD, LT GREAT TOE WOUND History of Any Multi-Drug Resistant Organisms: None Reported Past Surgical History: Adenoidectomy, Orthopedic Surgery, Tonsillectomy Additional Past Surgical History / Comment(s): pilonidal cyst, top teeth removed Past Anesthesia/Blood Transfusion Reactions: Previous Problems w/ Anesthesia Additional Past Anesthesia/Blood Transfusion Reaction / Comment(s): "I have to have extra anesthesia" Past Psychological History: Anxiety Smoking Status: Current every day smoker Past Alcohol Use History: None Reported Past Drug Use History: None Reported - Past Family History Father Family Medical History: Cancer Sister(s) Family Medical History: Blood Disorder Brother(s) Family Medical History: Blood Disorder Medications and Allergies Home Medications Medication Instructions Recorded Confirmed Type Enalapril [Vasotec] 20 mg PO DAILY 12/17/16 09/05/19 History Umeclidinium Aldie [Incruse 1 puff INHALATION RT-DAILY 12/17/16 09/05/19 History Ellipta] metFORMIN HCL [Glucophage] 500 mg PO W/BRKFST 12/17/16 09/05/19 History DULoxetine HCL [Cymbalta] 60 mg PO HS 11/16/18 09/05/19 History Donepezil [Aricept] 10 mg PO HS 11/16/18 09/05/19 History Rivaroxaban [Xarelto] 20 mg PO DAILY 11/16/18 09/05/19 History Rosuvastatin Calcium 40 mg PO DAILY 08/01/19 09/05/19 History Clopidogrel Bisulfate [Plavix] 75 mg PO DAILY #90 tab 08/03/19 09/05/19 Rx Albuterol Sulfate [Ventolin HFA] 2 puff INHALATION RT-Q4H PRN 09/05/19 09/05/19 History Aspirin 81 mg PO DAILY 09/05/19 09/05/19 History Levofloxacin [Levaquin] 500 mg PO DAILY 09/05/19 09/05/19 History Pregabalin [Lyrica] 150 mg PO BID 09/05/19 09/05/19 History Tamsulosin HCl [Flomax] 0.4 mg PO BID 09/05/19 09/05/19 History amLODIPine [Norvasc] 5 mg PO DAILY 09/05/19 09/05/19 History Allergies Allergy/AdvReac Type Severity Reaction Status Date / Time tetracycline [Tetracycline] Allergy Swelling Verified 09/05/19 21:38 Physical Exam Vitals: Vital Signs Temp Pulse Pulse Resp BP BP Pulse Ox 09/06/19 09:06 76 09/06/19 08:52 72 09/06/19 07:18 98.1 F 73 17 106/70 93 L 09/06/19 01:50 99.0 F 65 14 117/73 96 09/05/19 22:15 98.3 F 66 11 L 103/70 97 09/05/19 20:51 98.1 F 74 18 107/68 98 09/05/19 17:28 98.0 F 85 18 99/66 98 Intake and Output 09/05/19 09/06/19 09/06/19 22:59 06:59 14:59 Intake Total 300 Output Total 250 Balance 50 Intake: Oral 300 Output: Urine 250 Other: Voiding Method Toilet # Voids 1 2 Weight 99.79 kg PHYSICAL EXAMINATION: GENERAL: The patient is alert and oriented x3, not in any acute distress. Well developed, well nourished. HEENT: Pupils are round and equally reacting to light. EOMI. No scleral icterus. No conjunctival pallor. Normocephalic, atraumatic. No pharyngeal erythema. No thyromegaly. CARDIOVASCULAR: S1 and S2 present. No murmurs, rubs, or gallops. PULMONARY: Mild expiratory wheezing on exam ABDOMEN: Soft, nontender, nondistended, normoactive bowel sounds. No palpable organomegaly. MUSCULOSKELETAL: No joint swelling or deformity. EXTREMITIES: No cyanosis, clubbing, or pedal edema. NEUROLOGICAL: Gross neurological examination did not reveal any focal deficits. SKIN: Patient has an avulsion of the right great toe nail with some redness and they're possible infection Results CBC & Chem 7: 09/06/19 08:05 09/06/19 08:05 Labs: Abnormal Lab Results - Last 24 Hours (Table) 09/05/19 09/05/19 09/05/19 Range/Units 18:33 18:33 18:33 WBC 11.0 H (3.8-10.6) k/uL RBC 4.18 L (4.30-5.90) m/uL Hgb 12.0 L (13.0-17.5) gm/dL Hct 37.2 L (39.0-53.0) % Neutrophils # 8.3 H (1.3-7.7) k/uL PT 13.4 H (9.0-12.0) sec INR 1.3 H (<1.2) APTT 35.3 H (22.0-30.0) sec Glucose 111 H (74-99) mg/dL POC Glucose (mg/dL) (75-99) mg/dL Total Protein 6.1 L (6.3-8.2) g/dL Lipase 889 H (23-300) U/L Urine Protein (Negative) Urine Ketones (Negative) Urine Blood (Negative) Ur Leukocyte Esterase (Negative) Urine RBC (0-5) /hpf Urine WBC (0-5) /hpf Urine WBC Clumps (None) /hpf 09/05/19 09/06/19 09/06/19 Range/Units 19:11 08:05 08:05 WBC (3.8-10.6) k/uL RBC 4.03 L (4.30-5.90) m/uL Hgb 11.6 L (13.0-17.5) gm/dL Hct 36.5 L (39.0-53.0) % Neutrophils # (1.3-7.7) k/uL PT (9.0-12.0) sec INR (<1.2) APTT (22.0-30.0) sec Glucose 132 H (74-99) mg/dL POC Glucose (mg/dL) (75-99) mg/dL Total Protein (6.3-8.2) g/dL Lipase (23-300) U/L Urine Protein 2+ H (Negative) Urine Ketones Trace H (Negative) Urine Blood Large H (Negative) Ur Leukocyte Esterase Moderate H (Negative) Urine RBC >182 H (0-5) /hpf Urine WBC >182 H (0-5) /hpf Urine WBC Clumps Many H (None) /hpf 09/06/19 Range/Units 11:39 WBC (3.8-10.6) k/uL RBC (4.30-5.90) m/uL Hgb (13.0-17.5) gm/dL Hct (39.0-53.0) % Neutrophils # (1.3-7.7) k/uL PT (9.0-12.0) sec INR (<1.2) APTT (22.0-30.0) sec Glucose (74-99) mg/dL POC Glucose (mg/dL) 112 H (75-99) mg/dL Total Protein (6.3-8.2) g/dL Lipase (23-300) U/L Urine Protein (Negative) Urine Ketones (Negative) Urine Blood (Negative) Ur Leukocyte Esterase (Negative) Urine RBC (0-5) /hpf Urine WBC (0-5) /hpf Urine WBC Clumps (None) /hpf Microbiology - Last 24 Hours (Table) 09/05/19 19:11 Urine Culture - Preliminary Urine,Voided Thrombosis Risk Factor Assmnt - Choose All That Apply Each Factor Represents 1 point: Obesity (BMI >25) Each Risk Factor Represents 2 Points: Age 61-74 years Thrombosis Risk Factor Assessment Total Risk Factor Score: 3 Thrombosis Risk Factor Assessment Level: Moderate Risk Assessment and Plan Plan: Possible right toe infection: Patient on vancomycin I consulted infectious disease. Patient need local wound care -Hematuria secondary to antiplatelet therapy in the is also visible with tempora l he held and if it continues to have hematuria then urology will be consulted. -COPD with mild acute exacerbation, patient can use to smoke at this time in spite of extensive counseling patient is not willing to quit smoking -Severe professor disease with stents in the right lower limb. -Type 2 diabetes mellitus patient is on metformin well-controlled blood sugars -Hyperlipidemia -Hypertension #Coronary artery disease next and-severe peripheral vascular disease -Continued nicotine use next and-degenerative joint disease -Depression
--- NOTE | 2019-09-06 13:37 | P.CN ---
Psychiatric Consult - . Consult date: 09/06/19 Consult:: IDENTIFYING DATA: He is a 69-year-old male admitted to medicine for evaluation and treatment of opiate withdrawal, hematuria and increased foot pain. HISTORY OF PRESENT ILLNESS: I reviewed the medical record and interviewed the patient. During the suicide risk assessment in the ED he told the nurse that he would rather "shoot himself" then continue to experience his current level of pain. After I introduced myself he stated that he knew "why you're here." He regrets making the above statement. He alleged that he felt overwhelmed by his pain and withdrawal from Gustavus. H described a level of distress that he could not tolerate. He complained that his pain specialists abruptly discharged him from clinic 2 weeks ago because his urine drug screen was positive for fentanyl. He was surprised by the decision because he alleged he told the pecialists knew that a surgeon had prescribed a fentanyl after the stenting of the right superficial femoral artery. He described signs and symptoms of opiate with drawal including increasing depression, nausea and vomiting, muscle aches, diarrhea and insomnia. He also complained of increasing pain from the chronic nonhealing wound of his right foot. He denied a history of suicide attempts, suicide gestures or wishes. He alleged that he was "doing well" while he was prescribed Gustavus to control his pain. He denied that he abused pain medications although over the years that he has required increasing doses of opiate pain medications suggesting increased tolerance. Level his distress has diminished with decreasing pain since the hospital restarted [facility]. His current dose is 5-325 every 4 hours when necessary. He denies current opiate withdrawal symptoms or opiate craving. He continues to complain of foot pain and talked quite extensively about the impairment in functioning that the foot pain has caused him. He denied feeling depressed and denied symptoms of depression including hopelessness, helplessness or worthlessness. He denied experiencing persistent uncontrolled anxiety. He denied panic attacks, obsessions or compulsions. He denied use of alcohol or drugs. His UDS was negative for drugs of abuse including opiates. PAST PSYCHIATRIC HISTORY: He denied a history of psychiatric hospitalizations. He denied a history of suicide attempts or gestures. He met with a psychologist through the pain clinic. He also talked about beginning with a counselor throughout elementary and high school. His primary care provider prescribes Aricept 10 mg at bedtime and Cymbalta 60 mg at bedtime we will treatment diagnoses of pain, depression and dementia. PAST MEDICAL HISTORY: He has a complicated medical history with a diagnosis of asthma, coronary artery disease, COPD, diabetes mellitus, hyperlipidemia, hypertension, degenerative joint disease, chronic infection of his great toe and the dementia. ALLERGIES: Tetracycline SUBSTANCE USE HISTORY: He denied history of alcohol or drug use with the exception of marijuana. He is never participated in a substance abuse treatment program FAMILY PSYCHIATRIC/SUBSTANCE USE HISTORY: He is unaware of family history of mental illness SOCIAL HISTORY: Is and twice. He graduated high school and is a few credits short of a associates degree. 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 He is been twice and is currently living with his second and her . He alleged that he only receives approximately $225 per month from his Social Security disability. MENTAL STATUS EXAM: He presented as a casually groomed elderly male who is laying comfortably in bed. He made eye contact and attended the interview. He had no distinguishing features or prominent physical abnormalities. He had a blunted but bright facial expression. He is alert and oriented to person, place and time. He has slight psychomotor retardation deviation but no abnormal involuntary movements. His affect was blunted but stable and appropriate. He denied suicidal ideation and wishes. Homicidal ideation. He denied feeling hopeless, helpless or worthless. He ruminated about pain, his medical problems and the treatment of his pain complaints. He did not express ideas reference, paranoid ideation or delusions. His thinking was abstract and associations were coherent and logical. He denied hallucinations and responding to internal stimuli. IMPRESSIONS: He is a 69-year-old male who presented to the [facility] with complaints of increasing pain, gross hematuria and opiate withdrawal symptoms. He has a history of chronic back pain as well as peripheral vascular disease for which she has been treated chronically with oral opiate pain medications. His pain specialist discharge from the clinic after he violated the terms of the narcotic treatment agreement. He alleged that the discharge was unfair because the patient specialists was aware that he been prescribed fentanyl after stenting procedure of his leg. He described classic symptoms of opiate withdrawal as well as increasing pain. The pain symptoms have diminished since he was restarted on Gustavus. He remains concerned about his physical disability and medical problems. He admitted to the suicidal statement but denied intent, plan or history of wishes. DIAGNOSIS: Opiate withdrawal, chronic pain disorder RECOMMENDATION: There is no indication for transfer the psychiatric unit. Discontinue one-to-one. Continue current dose of duloxetine and Aricept. Thank you for this consult. Psychiatry will sign off the case. 09/06/19 09:59 09/06/19 13:22
[2019-09-06 17:24] LABS: Glucose,Whole Blood 120 mg/dL (75-99)
[2019-09-06] MEDS: SYMBICORT 160-4.5 MCG INHALER INHALATION SCH (19:08)
[2019-09-06] MEDS: DONEPEZIL 10 MG TAB PO SCH (19:45)
[2019-09-06] MEDS: DULoxetine HCL 60 MG CAPSULE.DR PO SCH (19:45)
[2019-09-06 21:55] LABS: Glucose,Whole Blood 104 mg/dL (75-99)
[2019-09-07] MEDS: HYDROcodone/APAP 5-325MG 1 EACH TAB PO PRN ×6 (02:30→22:30)
[2019-09-07 06:45] LABS: Glucose,Whole Blood 98 mg/dL (75-99)
[2019-09-07] MEDS: ASPIRIN 81 MG PO SCH (07:41)
[2019-09-07] MEDS: metFORMIN 500 MG TAB PO SCH (07:42)
[2019-09-07] MEDS: ATORVASTATIN 80 MG TAB PO SCH (07:42)
[2019-09-07] MEDS: PREGABALIN 75 MG CAP PO SCH ×2 (07:42→21:49)
[2019-09-07] MEDS: TAMSULOSIN 0.4 MG CAP.ER.24H PO SCH ×2 (07:42→21:49)
[2019-09-07] MEDS: lisinopriL 10 MG TAB PO SCH (07:42)
--- NOTE | 2019-09-07 07:42 | P.CONS ---
History of Present Illness - Reason for Consult Consult date: 09/06/19 Right big toe wound and cellulitis Requesting physician: Shivam Barrientos - Chief Complaint Right big toe wound nonhealing and redness x few days - History of Present Illness Patient is a 69-year-old male with a past medical history significant for chronic pain syndrome on chronic narcotic in the outpatient setting apparently recently has been fired by his pain specialist as the patient was noticed to have fentanyl in his system with the patient attributed receiving pain medication and the hospital when he did have a right leg intervention by Dr. Boucher, patient to be complaining of feeling nauseated and vomiting and concern for opiate withdrawal could not be saved his pain medication also been complaining of dark concentrated urine he did have a chronic nonhealing wound to his right big toe after his toenail was removed by inside steward/stewardess and apparently the patient been following at [facility]. The patient has been treated with the medahoney patient be complaining of pain into the right big toe more of a dull aching pain 5 to 6 out of 10 and no radiation denies any foul- smelling drainage, patient has been afebrile on presentation to the hospital his white count has been normal he did have x-rays of the right foot which did not show any bony changes patient was started on vancomycin and infectious disease was consulted for further management of antibiotic therapy Review of Systems Positive point has been mentioned in the HPI rest of the systems are negative Past Medical History Past Medical History: Asthma, Coronary Artery Disease (CAD), COPD, Dementia, Di abetes Mellitus, Hyperlipidemia, Hypertension Additional Past Medical History / Comment(s): back pain, DDD, LT GREAT TOE WOUND History of Any Multi-Drug Resistant Organisms: None Reported Past Surgical History: Adenoidectomy, Orthopedic Surgery, Tonsillectomy Additional Past Surgical History / Comment(s): pilonidal cyst, top teeth removed Past Anesthesia/Blood Transfusion Reactions: Previous Problems w/ Anesthesia Additional Past Anesthesia/Blood Transfusion Reaction / Comm: "I have to have extra anesthesia" Past Psychological History: Anxiety Smoking Status: Current every day smoker Past Alcohol Use History: None Reported Past Drug Use History: None Reported - Past Family History Father Family Medical History: Cancer Sister(s) Family Medical History: Blood Disorder Brother(s) Family Medical History: Blood Disorder Medications and Allergies Home Medications Medication Instructions Recorded Confirmed Type Enalapril [Vasotec] 20 mg PO DAILY 12/17/16 09/05/19 History Umeclidinium Varney [Incruse 1 puff INHALATION RT-DAILY 12/17/16 09/05/19 History Ellipta] metFORMIN HCL [Glucophage] 500 mg PO W/BRKFST 12/17/16 09/05/19 History DULoxetine HCL [Cymbalta] 60 mg PO HS 11/16/18 09/05/19 History Donepezil [Aricept] 10 mg PO HS 11/16/18 09/05/19 History Rivaroxaban [Xarelto] 20 mg PO DAILY 11/16/18 09/05/19 History Rosuvastatin Calcium 40 mg PO DAILY 08/01/19 09/05/19 History Clopidogrel Bisulfate [Plavix] 75 mg PO DAILY #90 tab 08/03/19 09/05/19 Rx Albuterol Sulfate [Ventolin HFA] 2 puff INHALATION RT-Q4H PRN 09/05/19 09/05/19 History Aspirin 81 mg PO DAILY 09/05/19 09/05/19 History Levofloxacin [Levaquin] 500 mg PO DAILY 09/05/19 09/05/19 History Pregabalin [Lyrica] 150 mg PO BID 09/05/19 09/05/19 History Tamsulosin HCl [Flomax] 0.4 mg PO BID 09/05/19 09/05/19 History amLODIPine [Norvasc] 5 mg PO DAILY 09/05/19 09/05/19 History Allergies Allergy/AdvReac Type Severity Reaction Status Date / Time tetracycline [Tetracycline] Allergy Swelling Verified 09/05/19 21:38 Physical Exam Vitals: Vital Signs Temp Pulse Pulse Resp BP BP Pulse Ox 09/06/19 09:06 76 09/06/19 08:52 72 09/06/19 07:18 98.1 F 73 17 106/70 93 L 09/06/19 01:50 99.0 F 65 14 117/73 96 09/05/19 22:15 98.3 F 66 11 L 103/70 97 09/05/19 20:51 98.1 F 74 18 107/68 98 09/05/19 17:28 98.0 F 85 18 99/66 98 Intake and Output 09/05/19 09/06/19 09/06/19 22:59 06:59 14:59 Intake Total 300 Output Total 250 Balance 50 Intake: Oral 300 Output: Urine 250 Other: Voiding Method Toilet # Voids 1 2 2 Weight 99.79 kg GENERAL DESCRIPTION: An elderly male lying in bed, no distress. No tachypnea or accessory muscle of respiration use. HEENT: Shows Pallor , no scleral icterus. Oral mucous membrane is dry. No pharyngeal erythema or thrush NECK: Trachea central, no thyromegaly. LUNGS: Unlabored breathing. Clear to auscultation anteriorly. No wheeze or crackle. HEART: S1, S2, regular rate and rhythm. No loud murmur ABDOMEN: Soft, no tenderness , guarding or rigidity, no organomegaly EXTREMITIES: No edema of feet. Right big toe wound on the dorsum with minimal slough tissue minimal surrounding redness no foul-smelling drainage SKIN: No rash, no masses palpable. NEUROLOGICAL: The patient is awake, alert, oriented x3, mood and affect normal. Results CBC & Chem 7: 09/06/19 08:05 09/06/19 08:05 Labs: Abnormal Lab Results - Last 24 Hours (Table) 09/05/19 09/05/19 09/05/19 Range/Units 18:33 18:33 18:33 WBC 11.0 H (3.8-10.6) k/uL RBC 4.18 L (4.30-5.90) m/uL Hgb 12.0 L (13.0-17.5) gm/dL Hct 37.2 L (39.0-53.0) % Neutrophils # 8.3 H (1.3-7.7) k/uL PT 13.4 H (9.0-12.0) sec INR 1.3 H (<1.2) APTT 35.3 H (22.0-30.0) sec Glucose 111 H (74-99) mg/dL POC Glucose (mg/dL) (75-99) mg/dL Total Protein 6.1 L (6.3-8.2) g/dL Lipase 889 H (23-300) U/L Urine Protein (Negative) Urine Ketones (Negative) Urine Blood (Negative) Ur Leukocyte Esterase (Negative) Urine RBC (0-5) /hpf Urine WBC (0-5) /hpf Urine WBC Clumps (None) /hpf 09/05/19 09/06/19 09/06/19 Range/Units 19:11 08:05 08:05 WBC (3.8-10.6) k/uL RBC 4.03 L (4.30-5.90) m/uL Hgb 11.6 L (13.0-17.5) gm/dL Hct 36.5 L (39.0-53.0) % Neutrophils # (1.3-7.7) k/uL PT (9.0-12.0) sec INR (<1.2) APTT (22.0-30.0) sec Glucose 132 H (74-99) mg/dL POC Glucose (mg/dL) (75-99) mg/dL Total Protein (6.3-8.2) g/dL Lipase (23-300) U/L Urine Protein 2+ H (Negative) Urine Ketones Trace H (Negative) Urine Blood Large H (Negative) Ur Leukocyte Esterase Moderate H (Negative) Urine RBC >182 H (0-5) /hpf Urine WBC >182 H (0-5) /hpf Urine WBC Clumps Many H (None) /hpf 09/06/19 Range/Units 11:39 WBC (3.8-10.6) k/uL RBC (4.30-5.90) m/uL Hgb (13.0-17.5) gm/dL Hct (39.0-53.0) % Neutrophils # (1.3-7.7) k/uL PT (9.0-12.0) sec INR (<1.2) APTT (22.0-30.0) sec Glucose (74-99) mg/dL POC Glucose (mg/dL) 112 H (75-99) mg/dL Total Protein (6.3-8.2) g/dL Lipase (23-300) U/L Urine Protein (Negative) Urine Ketones (Negative) Urine Blood (Negative) Ur Leukocyte Esterase (Negative) Urine RBC (0-5) /hpf Urine WBC (0-5) /hpf Urine WBC Clumps (None) /hpf Microbiology - Last 24 Hours (Table) 09/05/19 19:11 Urine Culture - Preliminary Urine,Voided Assessment and Plan Assessment: 1- patient with her right big toe wound after removal of his toenails and inside steward/stewardess the subsequent nonhealing wound this wound for couple of weeks now and this patient admitted hospital predominantly with pain and possible opiate withdrawal in this patient who did have any fever or elevated white count x-rays were negative for any bony changes possible mild cellulitis of the right big toe from gram-positive skin marija (1) Cellulitis of great toe, right Current Visit: Yes Status: Acute Code(s): L03.031 - CELLULITIS OF RIGHT TOE SNOMED Code(s): 38284204 Plan: 1-local wound cultures to guide antibiotic therapy 2-Vancomycin pharmacy to dose target trough of 15 while watching his kidney function and Vanco trough closely 3-local wound care to continue per the wound care team We will follow on clinical condition and cultures to further adjust medication if needed Thank you for this consultation will follow this patient with you Time with Patient: Greater than 30
[2019-09-07] MEDS: NICOTINE 14MG/24HR PATCH TRANSDERM SCH (07:43)
[2019-09-07] MEDS: VANCOMYCIN 1,500 MG in SODIUM CHLORIDE 0.9% 250 ML IVPB SCH ×2 (07:43→22:32)
[2019-09-07] MEDS: SYMBICORT 160-4.5 MCG INHALER INHALATION SCH ×2 (08:29→21:17)
[2019-09-07] MEDS: IPRATROPIUM-ALBUTEROL 3 ML NEB INHALATION PRN ×4 (08:29→21:14)
[2019-09-07] MEDS: IPRATROPIUM 0.5 MG/2.5 ML NEBU INHALATION SCH ×4 (08:29→21:13)
[2019-09-07 09:09] LABS: African American GFR (CKD) >90 (>60 ml/min/1.73 sqM); C Reactive Protein <5.0 mg/L (<10.0); Non-African American GFR(CKD) >90 (>60 ml/min/1.73 sqM)
[2019-09-07 11:21] LABS: Glucose,Whole Blood 135 mg/dL (75-99)
--- NOTE | 2019-09-07 12:23 | P.PN ---
Subjective Progress Note Date: 09/07/19 Principal diagnosis: 69-year-old male with history of peripheral vascular disease came in with the complaints of right foot wound secondary to intervention from previous surgery and possible cellulitis of that area. Patient was also complaining of hematuria, patient did anticoagulation probably secondary to coronary artery disease as well as amount Plavix and patient is complaining of hematuria. Patient has multiple kidney stones in the past. Patient denies diarrhea and de nied any dysuria this time. Patient has degenerative joint disease in multiple joints. 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 Please refer to ER physician's documentation regarding that. Patient evidently complained that he wants to try to commit suicide to control his pain because of which patient is a sitter and psychiatry was consulted. 09/07/2019 Patient is seen and evaluated in follow-up today and continues to have right great toe pain and is being closely monitored. Patient does have some redness and swelling noted in nursing staff obtaining cultures at this time. Patient remains on vancomycin and will continue at this time. Infectious disease is following. Patient was having some hematuria although denies at this time and denies any dysuria retention at this time. Currently no reports of chest pain, shortness of breath, or palpitations. Patient is afebrile. No reports of nausea or vomiting and patient is tolerating diet. Patient was seen and evaluated by psychiatry as well after making some comments about wanting to commit suicide although denies any suicidal ideations and states he is just upset about the situation of his toe being infected and states that podiatry that he saw in [place] caused all of this. Patient states he has been dealing with this for over 8 weeks and is very frustrated and his pain is not being controlled. Objective - Vital Signs Vital signs: Vital Signs Temp 98.4 F 09/07/19 07:00 Pulse 76 09/07/19 12:08 Resp 16 09/07/19 07:00 BP 145/75 09/07/19 07:00 Pulse Ox 96 09/07/19 07:00 Intake & Output 09/06/19 09/07/19 09/07/19 18:59 06:59 18:59 Intake Total 240 Balance 240 Intake: Oral 240 Other: Voiding Method Toilet # Voids 2 2 - Exam GENERAL: The patient is alert and oriented x3, not in any acute distress. Well developed, well nourished. HEENT: Pupils are round and equally reacting to light. EOMI. No scleral icterus. No conjunctival pallor. Normocephalic, atraumatic. No pharyngeal erythema. No thyromegaly. CARDIOVASCULAR: S1 and S2 present. No murmurs, rubs, or gallops. PULMONARY: Diminished breath sounds at the bases with mild expiratory wheezing noted on exam ABDOMEN: Soft, nontender, nondistended, normoactive bowel sounds. No palpable organomegaly. MUSCULOSKELETAL: No joint swelling or deformity. EXTREMITIES: No cyanosis, clubbing, or pedal edema. NEUROLOGICAL: Gross neurological examination did not reveal any focal deficits. SKIN: Patient has an avulsion of the right great toe nail with some redness and possible mild surrounding cellulitis noted with extreme tenderness upon palpation - Labs CBC & Chem 7: 09/06/19 08:05 09/07/19 08:27 Labs: Abnormal Lab Results - Last 24 Hours (Table) 09/06/19 09/06/19 09/07/19 Range/Units 17:22 21:54 08:27 Creatinine 0.64 L (0.66-1.25) mg/dL POC Glucose (mg/dL) 120 H 104 H (75-99) mg/dL 09/07/19 Range/Units 11:20 Creatinine (0.66-1.25) mg/dL POC Glucose (mg/dL) 135 H (75-99) mg/dL Microbiology - Last 24 Hours (Table) 09/05/19 19:11 Urine Culture - Final Urine,Voided 09/05/19 20:04 Blood Culture - Preliminary Blood No Growth after 24 hours Assessment and Plan Assessment: -Possible right great toe infection: Infectious disease is following. Patient is maintained on IV vancomycin while awaiting wound cultures. Continue with local wound care -Hematuria secondary to antiplatelet therapy, Xarelto and Plavix currently on hold, improved -COPD with mild acute exacerbation, patient continues to smoke at this time, nicotine patch provided. Continue with breathing inhalational treatments -Severe peripheral vascular disease with stents in the right lower limb. -Type 2 diabetes mellitus patient is on metformin well-controlled blood sugars -Hyperlipidemia -Hypertension -Coronary artery disease -Continued nicotine use -degenerative joint disease -Depression Plan: Continue with current medications, management, and symptomatic treatment. awaiting wound cultures and will continue on IV vancomycin at this time. Infectious disease is following. Antiplatelet and anticoagulant currently on hold as patient was stating he was having some hematuria yesterday. Denies hematuria today. Will likely resume Xarelto and Plavix tomorrow. Will repeat a.m. labs. Continue to monitor blood sugars and treat accordingly with sliding scale as needed. Further recommendations to follow.
[2019-09-07] MEDS: RIVAROXABAN 20 MG TAB PO SCH (15:27)
[2019-09-07 17:01] LABS: Glucose,Whole Blood 125 mg/dL (75-99)
[2019-09-07] MEDS ORDERED: VANCOMYCIN TROUGH DUE 1 EACH MISC MISCELLANE ONE (20:00)
[2019-09-07] MEDS ORDERED: VANCOMYCIN 1,500 MG in SODIUM CHLORIDE 0.9% 250 ML IVPB SCH (21:00)
[2019-09-07 21:07] LABS: Glucose,Whole Blood 135 mg/dL (75-99)
[2019-09-07] MEDS: DULoxetine HCL 60 MG CAPSULE.DR PO SCH (21:49)
[2019-09-07] MEDS: DONEPEZIL 10 MG TAB PO SCH (21:49)
[2019-09-07] MEDS: COLLAGENASE 250 UNIT/GM OINTMENT 30 GM TUBE TOPICAL SCH (21:50)
[2019-09-08] MEDS: VANCOMYCIN 1,500 MG in SODIUM CHLORIDE 0.9% 250 ML IVPB SCH ×2 (00:25→05:22)
[2019-09-08 01:20] VITALS: RESP 16
[2019-09-08] MEDS: HYDROcodone/APAP 5-325MG 1 EACH TAB PO PRN ×3 (03:32→13:19)
--- NOTE | 2019-09-08 06:33 | PN ---
PROGRESS NOTE DATE OF SERVICE: 09/07/2019 REASON FOR FOLLOW UP: Right big toe wound and cellulitis. INTERVAL HISTORY: Patient is currently afebrile, has been breathing comfortably. The patient is currently complaining of pain in his back area. No chest pain, no shortness of breath or cough. No diarrhea. PHYSICAL EXAMINATION: Blood pressure 124/76, pulse of 74, temperature 98.2. He is 95% on room air. General description is an elderly male lying in bed in no distress. Respiratory system: Unlabored breathing, clear to auscultation anteriorly. Heart: S1, S2. Regular rate and rhythm. Abdomen soft, no tenderness. Right big toe is dressed, no obvious drainage on the dressing. LABS: Creatinine 0.64. CRP is normal. Sedimentation rate is normal as well. DIAGNOSTIC IMPRESSION AND PLAN: Patient with right big toe wound with concern for secondary cellulitis. Culture so far negative and no significant acute inflammatory markers. He is on vancomycin with discharge med depending upon the cultures, more likely oral. Continue supportive care. MMODL / IJN: [id number] /
[2019-09-08 07:52] LABS: Glucose,Whole Blood 91 mg/dL (75-99)
[2019-09-08] MEDS: IPRATROPIUM-ALBUTEROL 3 ML NEB INHALATION PRN ×2 (08:43→12:00)
[2019-09-08] MEDS: IPRATROPIUM 0.5 MG/2.5 ML NEBU INHALATION SCH ×2 (08:43→12:01)
[2019-09-08] MEDS: SYMBICORT 160-4.5 MCG INHALER INHALATION SCH (08:43)
[2019-09-08 08:45] VITALS: BP 107/82; TEMP 98
[2019-09-08] MEDS: ASPIRIN 81 MG PO SCH (08:50)
[2019-09-08] MEDS: NICOTINE 14MG/24HR PATCH TRANSDERM SCH (08:50)
[2019-09-08] MEDS: ATORVASTATIN 80 MG TAB PO SCH (08:50)
[2019-09-08] MEDS: PREGABALIN 75 MG CAP PO SCH (08:50)
[2019-09-08] MEDS: TAMSULOSIN 0.4 MG CAP.ER.24H PO SCH (08:50)
[2019-09-08] MEDS: metFORMIN 500 MG TAB PO SCH (08:50)
[2019-09-08 09:30] LABS: African American GFR (CKD) >90 (>60 ml/min/1.73 sqM); Anion Gap 8 mmol/L; Blood Urea Nitrogen 14 mg/dL (9-20); Calcium 9.3 mg/dL (8.4-10.2); Carbon Dioxide 23 mmol/L (22-30); Chloride 103 mmol/L (98-107); Glucose 112 mg/dL (74-99); Non-African American GFR(CKD) >90 (>60 ml/min/1.73 sqM); Potassium 4.6 mmol/L (3.5-5.1); Sodium 134 mmol/L (137-145)
[2019-09-08] MEDS: RIVAROXABAN 20 MG TAB PO SCH (10:47)
[2019-09-08] MEDS: lisinopriL 10 MG TAB PO SCH (10:49)
[2019-09-08 11:34] LABS: Glucose,Whole Blood 92 mg/dL (75-99)
[2019-09-08 12:14] VITALS: PULSE 72
--- NOTE | 2019-09-08 12:40 | P.DS ---
Providers Date of admission: 09/05/19 20:32 Expected date of discharge: 09/08/19 Attending physician: Shivam Barrientos Consults: 09/05/19 23:37 Consult Physician Urgent Consulting Provider: Lex Roldan Consult Reason/Comments: suicidal statements Do you want consulting provider notified?: Yes, Notify in am 09/06/19 13:02 Consult Physician Routine Consulting Provider: Malik Ryan Consult Reason/Comments: toe infection Do you want consulting provider notified?: Yes Primary care physician: Mayela Mckeon [facility] Course: Final diagnosis -Possible right great toe infection with possible mild cellulitis secondary to recent treatment at the podiatry clinic with removal of some of the toenail and surrounding skin, failure of outpatient therapy -Hematuria secondary to antiplatelet therapy, improved -COPD with mild acute exacerbation -Severe peripheral vascular disease with stents in the right lower limb. -Type 2 diabetes mellitus patient -Hyperlipidemia -Hypertension -Coronary artery disease -Continued nicotine use -degenerative joint disease -Depression Discharge disposition Patient is being discharged in a stable condition with guarded prognosis to [facility]. Patient will follow-up with Dr. Mayela Mckeon upon discharge. Patient will continue with a short course of oral antibiotics in the form of Bactrim DS twice daily for the next 7 days. Patient also instructed to follow-up with urology in the outpatient setting along with the wound care center in 1-2 weeks. Total time taken is 35 minutes. History of present illness This is an 69-year-old male who was recently admitted with right great toe infection with surrounding mild cellulitis and was being closely monitored. Patient was evaluated by infectious disease and initiated on vancomycin. Cultures were obtained and are currently pending. Patient will continue on oral antibiotics in the form of Bactrim DS twice daily for the next 7 days. Patient instructed to follow-up with primary care provider along with the wound center in the outpatient setting. Patient was also having some mild hematuria and is currently on Xarelto and Plavix. Patient does follow-up with urology in the outpatient setting for history of stones although denies any dysuria or retention at this time. Patient will follow-up with urology in the outpatient setting upon discharge. Currently no reports of chest pain, shortness of breath, or palpitations. Patient is afebrile. No reports of nausea or vomiting and patient is tolerating diet. On exam vital signs are stable. Temp is 98.7F, pulse is 77, respirations are 16, blood pressure is 110/58, oxygen saturation is 100% on room air. Cardio S1, S2 are present. Respiratory shows clear to auscultation. Abdomen is soft and non-tender. Nervous system shows no focal deficits. Please refer to medication reconciliation sheet for a list of medications. Patient Condition at Discharge: Stable Plan - Discharge Summary Discharge Rx Participant: No New Discharge Prescriptions: New Ipratropium-Albuterol Nebulize [Duoneb 0.5 mg-3 mg/3 ml Soln] 3 ml INHALATION RT-QID PRN #120 ml PRN Reason: Shortness Of Breath Or Wheezing Nicotine 14Mg/24Hr Patch [Habitrol] 1 patch TRANSDERM DAILY #30 patch Budesonide-Formot 160-4.5 Mcg [Symbicort 160-4.5 Mcg Inhaler] 2 puff INHALATION RT-BID #1 puff Sulfamethoxazole/Trimethoprim [Bactrim DS 800-160 mg] 1 each PO PC-BID 7 Days #14 tablet Continue metFORMIN HCL [Glucophage] 500 mg PO W/BRKFST Umeclidinium Mena [Incruse Ellipta] 1 puff INHALATION RT-DAILY Enalapril [Vasotec] 20 mg PO DAILY Donepezil [Aricept] 10 mg PO HS Rivaroxaban [Xarelto] 20 mg PO DAILY DULoxetine HCL [Cymbalta] 60 mg PO HS Rosuvastatin Calcium 40 mg PO DAILY Clopidogrel Bisulfate [Plavix] 75 mg PO DAILY #90 tab Albuterol Sulfate [Ventolin HFA] 2 puff INHALATION RT-Q4H PRN PRN Reason: Shortness Of Breath amLODIPine [Norvasc] 5 mg PO DAILY Aspirin 81 mg PO DAILY Pregabalin [Lyrica] 150 mg PO BID Tamsulosin HCl [Flomax] 0.4 mg PO BID Discontinued Levofloxacin [Levaquin] 500 mg PO DAILY Discharge Medication List Enalapril [Vasotec] 20 mg PO DAILY 12/17/16 [History] Umeclidinium Mena [Incruse Ellipta] 1 puff INHALATION RT-DAILY 12/17/16 [History] metFORMIN HCL [Glucophage] 500 mg PO W/BRKFST 10/12/17 [History] DULoxetine HCL [Cymbalta] 60 mg PO HS 11/16/18 [History] Donepezil [Aricept] 10 mg PO HS 11/16/18 [History] Rivaroxaban [Xarelto] 20 mg PO DAILY 11/16/18 [History] Rosuvastatin Calcium 40 mg PO DAILY 08/01/19 [History] Clopidogrel Bisulfate [Plavix] 75 mg PO DAILY #90 tab 08/03/19 [Rx] Albuterol Sulfate [Ventolin HFA] 2 puff INHALATION RT-Q4H PRN 09/05/19 [History] Aspirin 81 mg PO DAILY 09/05/19 [History] Pregabalin [Lyrica] 150 mg PO BID 09/05/19 [History] Tamsulosin HCl [Flomax] 0.4 mg PO BID 09/05/19 [History] amLODIPine [Norvasc] 5 mg PO DAILY 09/05/19 [History] Budesonide-Formot 160-4.5 Mcg [Symbicort 160-4.5 Mcg Inhaler] 2 puff INHALATION RT-BID #1 puff 09/08/19 [Rx] Ipratropium-Albuterol Nebulize [Duoneb 0.5 mg-3 mg/3 ml Soln] 3 ml INHALATION RT-QID PRN #120 ml 09/08/19 [Rx] Nicotine 14Mg/24Hr Patch [Habitrol] 1 patch TRANSDERM DAILY #30 patch 09/08/19 [Rx] Sulfamethoxazole/Trimethoprim [Bactrim DS 800-160 mg] 1 each PO PC-BID 7 Days #14 tablet 09/08/19 [Rx] Follow up Appointment(s)/Referral(s): Mayela Mckeon MD [Primary Care Provider] - 1-2 days (Office closed at time of discharge please call WednesdaySeptember 10 to set up a follow up appointment) Malik Ryan MD [STAFF PHYSICIAN] - 10 Days Activity/Diet/Wound Care/Special Instructions: Activity Limited until follow-up Follow-up with primary care provider upon discharge Continue with antibiotics until finished Follow-up with wound center in the outpatient setting Continue to keep the area clean and dry and elevate while at rest Discharge Disposition: HOME SELF-CARE
--- NOTE | 2019-09-08 16:36 | PN ---
PROGRESS NOTE DATE OF SERVICE: 09/08/2019 REASON FOR FOLLOWUP: Right big toe infection. INTERVAL HISTORY: Patient is currently afebrile. Patient is breathing comfortably. Patient denies having any chest pain. No shortness of breath or cough. No nausea, vomiting. No abdominal pain. Pain to the right big toe. The patient wants to go home. He has to feed his katty. On examination, blood pressure 107/82 with a pulse of 72, temperature 98. He is 95% on room air. General description is an elderly male up in the chair in no distress. Respiratory system: Unlabored breathing, clear to auscultation anteriorly. Heart S1, S2. Regular rate and rhythm, abdomen soft, no tenderness. Right big toe is currently dressed up. No obvious drainage on the dressing. LABS: Creatinine 0.62. Wound culture pending. Blood culture so far negative. DIAGNOSTIC IMPRESSION AND PLAN: Patient with right big toe wound with secondary cellulitis. Plan at this time is to finish the oral Bactrim DS one twice a day for about 7 days. Local wound care to continue per the wound care team. Discussed with the nurse practitioner working on discharge. MMODL / IJN: [id number] /
[2019-09-09] MEDS ORDERED: VANCOMYCIN TROUGH DUE 1 EACH MISC MISCELLANE ONE (04:00)
== END 2019-09-08 14:22 | disposition home or self-care (01) | DRG 863 ==
LOC: EC 17:27 → 4SSUR 20:32
PROVIDERS: ADMIT Internal Medicine; ATTEND Internal Medicine
DX: T81.49XA Infection following a procedure, other surgical site, initial encounter (principal); J44.1 Chronic obstructive pulmonary disease with (acute) exacerbation; F11.23 Opioid dependence with withdrawal; N39.0 Urinary tract infection, site not specified; L97.512 Non-pressure chronic ulcer of other part of right foot with fat layer exposed; E11.621 Type 2 diabetes mellitus with foot ulcer; E11.51 Type 2 diabetes mellitus with diabetic peripheral angiopathy without gangrene; L03.031 Cellulitis of right toe; F03.90 Unspecified dementia, unspecified severity, without behavioral disturbance, psychotic disturbance, mood disturbance, and anxiety; Z11.59 Encounter for screening for other viral diseases; R31.0 Gross hematuria; G89.4 Chronic pain syndrome; M54.9 Dorsalgia, unspecified; F32.9 Major depressive disorder, single episode, unspecified; I67.9 Cerebrovascular disease, unspecified; I10 Essential (primary) hypertension; E78.5 Hyperlipidemia, unspecified; I25.10 Atherosclerotic heart disease of native coronary artery without angina pectoris; F41.9 Anxiety disorder, unspecified; M19.90 Unspecified osteoarthritis, unspecified site; F17.210 Nicotine dependence, cigarettes, uncomplicated; Z71.6 Tobacco abuse counseling; Z79.82 Long term (current) use of aspirin; Z79.02 Long term (current) use of antithrombotics/antiplatelets; Z79.84 Long term (current) use of oral hypoglycemic drugs; Z79.01 Long term (current) use of anticoagulants; Z79.899 Other long term (current) drug therapy; Z95.820 Peripheral vascular angioplasty status with implants and grafts; Z87.442 Personal history of urinary calculi; Z90.89 Acquired absence of other organs; Z98.890 Other specified postprocedural states; Z98.818 Other dental procedure status; Z88.1 Allergy status to other antibiotic agents; Z80.9 Family history of malignant neoplasm, unspecified; Z83.2 Family history of diseases of the blood and blood-forming organs and certain disorders involving the immune mechanism
CPT/HCPCS: 36415; 74018; 80048; 80053; 80202; 80306; 81001; 82075; 82565; 83605; 83690; 85025; 85610; 85652; 85730; 86140; 87040; 87070; 87075; 87086; 87205; 94640; 94660; 96365; 96367; 99285

== ENCOUNTER 2019-09-11 14:35 | Emergency (ER) | payer MEDICARE, OTHER ==
[2019-09-11 14:56] VITALS: BP 109/63; PULSE 89; TEMP 99.1
--- NOTE | 2019-09-11 15:20 | ED ---
General Adult HPI - General Chief complaint: Recheck/Abnormal Lab/Rx Stated complaint: Revisit Withdrawal Time Seen by Provider: 09/11/19 15:01 Source: patient Mode of arrival: wheelchair Limitations: no limitations - History of Present Illness Initial comments: Patient is 69-year-old male presenting to emergency Department with multiple chief complaints. Patient states he signed out AMA after he was admitted for IV antibiotics. Patient states now he would like to return back to the hospital. Patient states the infection is still is still persistent and has not been able to take his outpatient antibiotics. Patient states that he is also withdrawing from narcotic medication.the spine center is not giving him any refills of the [place] because he tested positive for narcotic's after having a fentanyl patch placed in the ED following a vascular procedure in the right lower extremity. Patient denies any skin discoloration in the right lower extremity, whenever the infection and the big toe is still persistent. Patient denies any ulcerations. Patient is also complaining of diarrhea secondary to opiate withdrawal. Denies any night sweats or chills. - Related Data Home Medications Medication Instructions Recorded Confirmed Enalapril [Vasotec] 20 mg PO DAILY 12/17/16 09/05/19 Umeclidinium [place] [Incruse 1 puff INHALATION RT-DAILY 12/17/16 09/05/19 Ellipta] metFORMIN HCL [Glucophage] 500 mg PO W/BRKFST 12/17/16 09/05/19 DULoxetine HCL [Cymbalta] 60 mg PO HS 11/16/18 09/05/19 Donepezil [Aricept] 10 mg PO HS 11/16/18 09/05/19 Rivaroxaban [Xarelto] 20 mg PO DAILY 11/16/18 09/05/19 Rosuvastatin Calcium 40 mg PO DAILY 08/01/19 09/05/19 Albuterol Sulfate [Ventolin HFA] 2 puff INHALATION RT-Q4H PRN 09/05/19 09/05/19 Aspirin 81 mg PO DAILY 09/05/19 09/05/19 Pregabalin [Lyrica] 150 mg PO BID 09/05/19 09/05/19 Tamsulosin HCl [Flomax] 0.4 mg PO BID 09/05/19 09/05/19 amLODIPine [Norvasc] 5 mg PO DAILY 09/05/19 09/05/19 Previous Rx's Medication Instructions Recorded Clopidogrel Bisulfate [Plavix] 75 mg PO DAILY #90 tab 08/03/19 Budesonide-Formot 160-4.5 Mcg 2 puff INHALATION RT-BID #1 puff 09/08/19 [Symbicort 160-4.5 Mcg Inhaler] Ipratropium-Albuterol Nebulize 3 ml INHALATION RT-QID PRN #120 ml 09/08/19 [Duoneb 0.5 mg-3 mg/3 ml Soln] Nicotine 14Mg/24Hr Patch [Habitrol] 1 patch TRANSDERM DAILY #30 patch 09/08/19 Sulfamethoxazole/Trimethoprim 1 each PO PC-BID 7 Days #14 tablet 09/08/19 [Bactrim DS 800-160 mg] Sulfamethox-Tmp 800-160Mg [Bactrim 1 each PO Q12HR #20 tab 09/11/19 Ds] Allergies Allergy/AdvReac Type Severity Reaction Status Date / Time tetracycline [Tetracycline] Allergy Swelling Verified 09/11/19 14:53 Review of Systems ROS Statement: Those systems with pertinent positive or pertinent negative responses have been documented in the HPI. ROS Other: All systems not noted in ROS Statement are negative. Past Medical History Past Medical History: Asthma, Coronary Artery Disease (CAD), COPD, Dementia, Diabetes Mellitus, Hyperlipidemia, Hypertension Additional Past Medical History / Comment(s): back pain, DDD, LT GREAT TOE WOUND History of Any Multi-Drug Resistant Organisms: None Reported Past Surgical History: Adenoidectomy, Orthopedic Surgery, Tonsillectomy Additional Past Surgical History / Comment(s): pilonidal cyst, top teeth removed Past Anesthesia/Blood Transfusion Reactions: Previous Problems w/ Anesthesia Additional Past Anesthesia/Blood Transfusion Reaction / Comment(s): "I have to have extra anesthesia" Past Psychological History: Anxiety Smoking Status: Current every day smoker Past Alcohol Use History: None Reported Past Drug Use History: None Reported - Past Family History Father Family Medical History: Cancer Sister(s) Family Medical History: Blood Disorder Brother(s) Family Medical History: Blood Disorder General Exam Limitations: no limitations General appearance: alert, in no apparent distress, obese Head exam: Present: atraumatic, normocephalic, normal inspection Eye exam: Present: normal appearance, PERRL, EOMI Pupils: Present: normal accommodation ENT exam: Present: normal exam, normal oropharynx, mucous membranes moist, TM's normal bilaterally Neck exam: Present: normal inspection, full ROM Respiratory exam: Present: normal lung sounds bilaterally. Absent: respiratory distress Cardiovascular Exam: Present: regular rate, normal rhythm, normal heart sounds Extremities exam: Present: full ROM, tenderness (+2 dorsalis pedis and posterior tibialis bilaterally.), normal capillary refill, other. Absent: normal inspection (Small region of cellulitis noted on the right big toe. The nail on her right big toe is partially removed. No signs of an abscess. No warmth co mpared to the other leg.), pedal edema, joint swelling, calf tenderness Back exam: Present: normal inspection, full ROM. Absent: tenderness Neurological exam: Present: alert, oriented X3, normal gait Psychiatric exam: Present: normal affect, normal mood Skin exam: Present: warm, dry, intact, normal color Course Vital Signs 09/11/19 09/11/19 09/11/19 14:53 16:06 17:14 Temperature 99.1 F Pulse Rate 89 Respiratory 16 18 16 Rate Blood Pressure 109/63 O2 Sat by Pulse 95 Oximetry Medical Decision Making - Medical Decision Making Patient is 69-year-old male presenting to the emergency department with a multiple chief complaints. On exam patient appears to have some cellulitis in the right toe with no signs of an abscess or ulceration at this time. X-ray reveals no signs of osteomyelitis. CBC reveals no leukocytosis. Patient does not appear to be septic. Patient was given analgesia in the ED. Patient discharged with a Tylenol 3 starter pack. Patient also started on Bactrim in the emergency department and will be discharged with a 10 day course of Bactrim. Patient was concerned for urinary tract infection which will be covered with the Bactrim. Return parameters were thoroughly discussed the patient was in a standing and agreeable. Case discussed with physician. - Lab Data Result diagrams: 09/11/19 15:55 09/11/19 15:58 Lab Results 09/11/19 09/11/19 09/11/19 Range/Units 15:55 15:58 15:58 WBC 9.4 (3.8-10.6) k/uL RBC 4.07 L (4.30-5.90) m/uL Hgb 11.4 L (13.0-17.5) gm/dL Hct 36.4 L (39.0-53.0) % MCV 89.4 (80.0-100.0) fL MCH 28.0 (25.0-35.0) pg MCHC 31.3 (31.0-37.0) g/dL RDW 15.4 (11.5-15.5) % Plt Count 203 (150-450) k/uL Neutrophils % 69 % Lymphocytes % 17 % Monocytes % 6 % Eosinophils % 4 % Basophils % 1 % Neutrophils # 6.6 (1.3-7.7) k/uL Lymphocytes # 1.6 (1.0-4.8) k/uL Monocytes # 0.6 (0-1.0) k/uL Eosinophils # 0.4 (0-0.7) k/uL Basophils # 0.1 (0-0.2) k/uL Hypochromasia Moderate PT 14.7 H (9.0-12.0) sec INR 1.5 H (<1.2) APTT 37.1 H (22.0-30.0) sec Sodium 137 (137-145) mmol/L Potassium 4.7 (3.5-5.1) mmol/L Chloride 105 (98-107) mmol/L Carbon Dioxide 24 (22-30) mmol/L Anion Gap 8 mmol/L BUN 16 (9-20) mg/dL Creatinine 0.57 L (0.66-1.25) mg/dL Est GFR (CKD-EPI)AfAm >90 (>60 ml/min/1.73 sqM) Est GFR (CKD-EPI)NonAf >90 (>60 ml/min/1.73 sqM) Glucose 95 (74-99) mg/dL Calcium 9.2 (8.4-10.2) mg/dL Total Bilirubin 0.6 (0.2-1.3) mg/dL AST 26 (17-59) U/L ALT 20 (4-49) U/L Alkaline Phosphatase 75 (38-126) U/L Total Protein 6.1 L (6.3-8.2) g/dL Albumin 3.9 (3.5-5.0) g/dL Disposition Clinical Impression: Toe infection, Toe pain, right, Diarrhea Disposition: HOME SELF-CARE Condition: Stable Additional Instructions: Take prescribed medication as directed. Follow with primary care. Return to emergency department if symptoms worsen. Follow with wound care. Prescriptions: Sulfamethox-Tmp 800-160Mg [Bactrim Ds] 1 each PO Q12HR #20 tab Is patient prescribed a controlled substance at d/c from ED?: No Referrals: Mayela Mckeon MD [Primary Care Provider] - 1-2 days Time of Disposition: 17:35
[2019-09-11] MEDS ORDERED: HYDROcodone/APAP 5-325MG 1 EACH TAB PO STA (15:28)
[2019-09-11 16:12] LABS: Basophils # (A) 0.1 k/uL (0-0.2); Basophils % (A) 1 %; Eosinophils # (A) 0.4 k/uL (0-0.7); Eosinophils % (A) 4 %; HCT 36.4 % (39.0-53.0); HGB 11.4 gm/dL (13.0-17.5); Hypochromasia Moderate; Lymphocytes # (A) 1.6 k/uL (1.0-4.8); Lymphocytes % (A) 17 %; MCHC 31.3 g/dL (31.0-37.0); MCV 89.4 fL (80.0-100.0); Mean Platelet Volume 8.4; Monocytes # (A) 0.6 k/uL (0-1.0); Monocytes % (A) 6 %; Neutrophils # (A) 6.6 k/uL (1.3-7.7); Neutrophils % (A) 69 %; Platelet Count 203 k/uL (150-450); RBC 4.07 m/uL (4.30-5.90); RDW 15.4 % (11.5-15.5); WBC 9.4 k/uL (3.8-10.6)
--- NOTE | 2019-09-11 16:18 | XR ---
Right foot HISTORY: Right toe infection great toe infection 2 views of the right foot, correlation prior exam 09/05/2019 First digit shows soft tissue swelling. Degenerative change at the metatarsophalangeal joint is stabl e. There is no radio opaque foreign body. No fracture or dislocation. There is a plantar calcaneal sp ur. Some spurring present at the tibiotalar joint. Bony excrescence at the dorsum of the foot is stab le. IMPRESSION: Soft tissue swelling. Additional findings above.
[2019-09-11 16:21] LABS: ALT 20 U/L (4-49); AST 26 U/L (17-59); African American GFR (CKD) >90 (>60 ml/min/1.73 sqM); Albumin 3.9 g/dL (3.5-5.0); Alkaline Phosphatase 75 U/L (38-126); Anion Gap 8 mmol/L; Blood Urea Nitrogen 16 mg/dL (9-20); Calcium 9.2 mg/dL (8.4-10.2); Carbon Dioxide 24 mmol/L (22-30); Chloride 105 mmol/L (98-107); Glucose 95 mg/dL (74-99); INR 1.5 (<1.2); Non-African American GFR(CKD) >90 (>60 ml/min/1.73 sqM); Partial Thromboplastin Time 37.1 sec (22.0-30.0); Potassium 4.7 mmol/L (3.5-5.1); Prothrombin Time 14.7 sec (9.0-12.0); Sodium 137 mmol/L (137-145); Total Bilirubin 0.6 mg/dL (0.2-1.3); Total Protein 6.1 g/dL (6.3-8.2)
[2019-09-11 17:15] VITALS: RESP 16
[2019-09-11] MEDS ORDERED: SULFAMETH-TMP DS STARTER PACK 2 TAB BTL PO STA (17:30)
[2019-09-11] MEDS ORDERED: ACET/COD 300 MG/30 MG STARTER PACK 6 TAB BTL PO STA (17:30)
[2019-09-11] MEDS ORDERED: HYDROcodone/APAP 10-325MG 1 EACH TAB PO ONE (17:30)
== END 2019-09-11 18:20 | disposition home or self-care (01) ==
LOC: EC 14:35
DX: L03.031 Cellulitis of right toe (principal); R19.7 Diarrhea, unspecified; J44.9 Chronic obstructive pulmonary disease, unspecified; E11.9 Type 2 diabetes mellitus without complications; I10 Essential (primary) hypertension; F41.9 Anxiety disorder, unspecified; F03.90 Unspecified dementia, unspecified severity, without behavioral disturbance, psychotic disturbance, mood disturbance, and anxiety; I25.10 Atherosclerotic heart disease of native coronary artery without angina pectoris; F17.200 Nicotine dependence, unspecified, uncomplicated; Z79.01 Long term (current) use of anticoagulants; Z79.82 Long term (current) use of aspirin; Z79.84 Long term (current) use of oral hypoglycemic drugs; Z79.899 Other long term (current) drug therapy; Z88.1 Allergy status to other antibiotic agents
CPT/HCPCS: 36415; 80053; 85025; 85610; 85730; 99283

== ENCOUNTER → 2019-11-03 | Outpatient (CLI) | payer MEDICARE, OTHER ==
--- NOTE | 2019-11-03 16:52 | US ---
EXAMINATION TYPE: US venous doppler duplex UE LT DATE OF EXAM: 11/03/2019 COMPARISON: NONE CLINICAL HISTORY: I82.629 Acute embolism and thrombosis of deep vein,D68.51. Patient has PICC line, u nable to put in medication. Patient is taking blood thinners SIDE PERFORMED: Left Left Arm: Positive for non-occluding DVT left axillary vein and brachial vein around the PICC line. Office called and left message as they did not answer the phone. IMPRESSION: 1. Deep venous thrombosis within the left upper extremity axillary vein and brachial vein adjacent to the PICC line. A [place] critical message alert has been initiated for Malik Ryan MD via the [employer] Critical Results System on 11/03/2019 4:49 PM. This message alert has been sent to Malik Ryan MD v ia the preferences provided by the clinician for the receipt of Radiology Critical Findings. Message ID [id number].
== END | disposition home or self-care (01) ==
LOC: RADUSWWP 15:49
PROVIDERS: ATTEND Internal Medicine Infectious Disease
DX: I82.622 Acute embolism and thrombosis of deep veins of left upper extremity (principal)

== ENCOUNTER 2019-11-05 16:10 | Inpatient (IN) | payer MEDICARE, OTHER ==
[2019-11-05] MEDS ORDERED: SODIUM CHLORIDE 0.9% 1,000 ML IV STA (16:42)
[2019-11-05] MEDS ORDERED: SODIUM CHLORIDE 0.9% 500 ML 500 ML IV STA (16:42)
[2019-11-05] MEDS ORDERED: ACETAMINOPHEN TAB 500 MG TAB PO STA (16:42)
[2019-11-05] MEDS ORDERED: MORPHINE SULFATE 4 MG/ML SYRINGE IVP STA (16:43)
[2019-11-05] MEDS ORDERED: PIPERACILLIN-TAZOBACTAM 3.375 GM in SODIUM CHLORIDE 0.9% 100 ML IVPB STA (17:07)
[2019-11-05] MEDS ORDERED: VANCOMYCIN IV PER PHARMACY 1 EACH MISC MISCELLANE PRN (17:07)
[2019-11-05 17:14] LABS: Anisocytosis Slight; Basophils # (A) 0.1 k/uL (0-0.2); Basophils % (A) 1 %; Eosinophils # (A) 0.1 k/uL (0-0.7); Eosinophils % (A) 1 %; HCT 34.9 % (39.0-53.0); HGB 10.8 gm/dL (13.0-17.5); Hypochromasia Marked; Lymphocytes # (A) 0.3 k/uL (1.0-4.8); Lymphocytes % (A) 4 %; MCHC 30.9 g/dL (31.0-37.0); MCV 80.8 fL (80.0-100.0); Mean Platelet Volume 8.1; Monocytes # (A) 0.2 k/uL (0-1.0); Monocytes % (A) 3 %; Neutrophils # (A) 7.2 k/uL (1.3-7.7); Neutrophils % (A) 91 %; Platelet Count 201 k/uL (150-450); Poikilocytosis Slight; RBC 4.32 m/uL (4.30-5.90); RDW 16.6 % (11.5-15.5); WBC 7.9 k/uL (3.8-10.6)
--- NOTE | 2019-11-05 17:25 | ED ---
General Adult HPI - General Chief complaint: Extremity Problem,Nontraumatic Stated complaint: rt foot pain Time Seen by Provider: 11/05/19 16:33 Source: patient, family, RN notes reviewed, old records reviewed Mode of arrival: wheelchair Limitations: no limitations - History of Present Illness Initial comments: 61-year-old male history of infected right great toe currently on antibiotics through a left upper extremity PICC line has presented for evaluation of worsening pain, fever and chills. He is uncertain what antibiotic he is currently on. He states he did have a dose this morning. He was discharged from outside facility within the past one week. He was seen by the infectious disease and had a debridement of the right great toe. - Related Data Home Medications Medication Instructions Recorded Confirmed Enalapril [Vasotec] 20 mg PO DAILY 12/17/16 09/05/19 Umeclidinium [place] [Incruse 1 puff INHALATION RT-DAILY 12/17/16 09/05/19 Ellipta] metFORMIN HCL [Glucophage] 500 mg PO W/BRKFST 12/17/16 09/05/19 DULoxetine HCL [Cymbalta] 60 mg PO HS 11/16/18 09/05/19 Donepezil [Aricept] 10 mg PO HS 11/16/18 09/05/19 Rivaroxaban [Xarelto] 20 mg PO DAILY 11/16/18 09/05/19 Rosuvastatin Calcium 40 mg PO DAILY 08/01/19 09/05/19 Albuterol Sulfate [Ventolin HFA] 2 puff INHALATION RT-Q4H PRN 09/05/19 09/05/19 Aspirin 81 mg PO DAILY 09/05/19 09/05/19 Pregabalin [Lyrica] 150 mg PO BID 09/05/19 09/05/19 Tamsulosin HCl [Flomax] 0.4 mg PO BID 09/05/19 09/05/19 amLODIPine [Norvasc] 5 mg PO DAILY 09/05/19 09/05/19 Previous Rx's Medication Instructions Recorded Clopidogrel Bisulfate [Plavix] 75 mg PO DAILY #90 tab 08/03/19 Budesonide-Formot 160-4.5 Mcg 2 puff INHALATION RT-BID #1 puff 09/08/19 [Symbicort 160-4.5 Mcg Inhaler] Ipratropium-Albuterol Nebulize 3 ml INHALATION RT-QID PRN #120 ml 09/08/19 [Duoneb 0.5 mg-3 mg/3 ml Soln] Nicotine 14Mg/24Hr Patch [Habitrol] 1 patch TRANSDERM DAILY #30 patch 09/08/19 Sulfamethoxazole/Trimethoprim 1 each PO PC-BID 7 Days #14 tablet 09/08/19 [Bactrim DS 800-160 mg] Sulfamethox-Tmp 800-160Mg [Bactrim 1 each PO Q12HR #20 tab 09/11/19 Ds] Allergies Allergy/AdvReac Type Severity Reaction Status Date / Time tetracycline [Tetracycline] Allergy Swelling Verified 11/05/19 16:18 Review of Systems ROS Statement: Those systems with pertinent positive or pertinent negative responses have been documented in the HPI. ROS Other: All systems not noted in ROS Statement are negative. Past Medical History Past Medical History: Asthma, Coronary Artery Disease (CAD), COPD, Dementia, Diabetes Mellitus, Hyperlipidemia, Hypertension Additional Past Medical History / Comment(s): back pain, DDD, LT GREAT TOE WOUND History of Any Multi-Drug Resistant Organisms: None Reported Past Surgical History: Adenoidectomy, Orthopedic Surgery, Tonsillectomy Additional Past Surgical History / Comment(s): pilonidal cyst, top teeth removed Past Anesthesia/Blood Transfusion Reactions: Previous Problems w/ Anesthesia Additional Past Anesthesia/Blood Transfusion Reaction / Comment(s): "I have to have extra anesthesia" Past Psychological History: Anxiety Past Alcohol Use History: None Reported Past Drug Use History: None Reported - Past Family History Father Family Medical History: Cancer Sister(s) Family Medical History: Blood Disorder Brother(s) Family Medical History: Blood Disorder General Exam Limitations: no limitations General appearance: alert, in no apparent distress Head exam: Present: atraumatic, normocephalic Eye exam: Present: normal appearance, PERRL ENT exam: Present: normal exam Neck exam: Present: normal inspection. Absent: tenderness, meningismus Respiratory exam: Present: normal lung sounds bilaterally Cardiovascular Exam: Present: normal rhythm, tachycardia GI/Abdominal exam: Present: soft. Absent: distended, tenderness, guarding Extremities exam: Present: other (Right great toe soft tissue swelling, erythema, Drainage.) Neurological exam: Present: alert, oriented X3, CN II-XII intact Skin exam: Present: warm, dry Course Vital Signs 11/05/19 11/05/19 16:11 17:36 Temperature 101.9 F H Pulse Rate 122 H 112 H Respiratory 20 Rate Blood Pressure 141/97 O2 Sat by Pulse 97 Oximetry Medical Decision Making - Medical Decision Making 69-year-old male presenting with infected great toe, fever, on antibiotics through left upper extremity PICC line. Laboratory testing reveals normal CBC, he has an elevated lactic acid at 2.5, he's given IV hydration, started on vancomycin and Zosyn. He will be admitted for continuous IV antibiotics. Case discussed with Dr. France who will admit, infectious disease will be placed on consult. - Lab Data Result diagrams: 11/05/19 16:51 11/05/19 16:51 Lab Results 11/05/19 11/05/19 11/05/19 Range/Units 16:51 16:51 16:51 WBC 7.9 (3.8-10.6) k/uL RBC 4.32 (4.30-5.90) m/uL Hgb 10.8 L (13.0-17.5) gm/dL Hct 34.9 L (39.0-53.0) % MCV 80.8 (80.0-100.0) fL MCH 25.0 (25.0-35.0) pg MCHC 30.9 L (31.0-37.0) g/dL RDW 16.6 H (11.5-15.5) % Plt Count 201 (150-450) k/uL Neutrophils % 91 % Lymphocytes % 4 % Monocytes % 3 % Eosinophils % 1 % Basophils % 1 % Neutrophils # 7.2 (1.3-7.7) k/uL Lymphocytes # 0.3 L (1.0-4.8) k/uL Monocytes # 0.2 (0-1.0) k/uL Eosinophils # 0.1 (0-0.7) k/uL Basophils # 0.1 (0-0.2) k/uL Hypochromasia Marked Poikilocytosis Slight Anisocytosis Slight Sodium 137 (137-145) mmol/L Potassium 4.2 (3.5-5.1) mmol/L Chloride 107 (98-107) mmol/L Carbon Dioxide 22 (22-30) mmol/L Anion Gap 8 mmol/L BUN 17 (9-20) mg/dL Creatinine 0.66 (0.66-1.25) mg/dL Est GFR (CKD-EPI)AfAm >90 (>60 ml/min/1.73 sqM) Est GFR (CKD-EPI)NonAf >90 (>60 ml/min/1.73 sqM) Glucose 98 (74-99) mg/dL Plasma Lactic Acid Jose 2.5 H* (0.7-2.0) mmol/L Calcium 9.5 (8.4-10.2) mg/dL Total Bilirubin 0.7 (0.2-1.3) mg/dL AST 27 (17-59) U/L ALT 19 (4-49) U/L Alkaline Phosphatase 88 (38-126) U/L C-Reactive Protein 44.4 H (<10.0) mg/L Total Protein 6.5 (6.3-8.2) g/dL Albumin 4.2 (3.5-5.0) g/dL Disposition Clinical Impression: Non-healing ulcer of right foot with fat layer exposed, Cellulitis of great toe, right, Sepsis Disposition: ADMITTED IP TO THIS [facility] Condition: Stable Is patient prescribed a controlled substance at d/c from ED?: No Referrals: Mayela Mckeon MD [Primary Care Provider] - 1-2 days Decision to Admit Reason: Admit from EC Decision Date: 11/05/19 Decision Time: 17:52
[2019-11-05 17:27] LABS: ALT 19 U/L (4-49); AST 27 U/L (17-59); African American GFR (CKD) >90 (>60 ml/min/1.73 sqM); Albumin 4.2 g/dL (3.5-5.0); Alkaline Phosphatase 88 U/L (38-126); Anion Gap 8 mmol/L; Blood Urea Nitrogen 17 mg/dL (9-20); C Reactive Protein 44.4 mg/L (<10.0); Calcium 9.5 mg/dL (8.4-10.2); Carbon Dioxide 22 mmol/L (22-30); Chloride 107 mmol/L (98-107); Glucose 98 mg/dL (74-99); Non-African American GFR(CKD) >90 (>60 ml/min/1.73 sqM); Potassium 4.2 mmol/L (3.5-5.1); Sodium 137 mmol/L (137-145); Total Bilirubin 0.7 mg/dL (0.2-1.3); Total Protein 6.5 g/dL (6.3-8.2)
[2019-11-05] MEDS ORDERED: IPRATROPIUM-ALBUTEROL 3 ML NEB INHALATION STA (17:29)
[2019-11-05] MEDS ORDERED: VANCOMYCIN 1,500 MG in SODIUM CHLORIDE 0.9% 250 ML IVPB ONE (17:30)
[2019-11-05] MEDS ORDERED: MORPHINE SULFATE 4 MG/ML SYRINGE IV PRN (17:52)
[2019-11-05] MEDS ORDERED: NALOXONE 0.4 MG/ML 1 ML VIAL IV PRN (17:52)
[2019-11-05] MEDS ORDERED: ALPRAZolam 0.25 MG TAB PO PRN (18:08)
[2019-11-05] MEDS ORDERED: TEMAZEPAM 15 MG CAP PO PRN (18:08)
[2019-11-05] MEDS ORDERED: HYDROcodone/APAP 5-325MG 1 EACH TAB PO PRN (18:08)
[2019-11-05] MEDS: KETOROLAC 15 MG/ML 1 ML VIAL IVP PRN (20:24)
[2019-11-05 20:25] LABS: Glucose,Whole Blood 121 mg/dL (75-99)
[2019-11-05] MEDS ORDERED: ALBUTEROL NEBULIZED 2.5 MG/3 ML INHALATION PRN (20:33)
[2019-11-05] MEDS ORDERED: ONDANSETRON 4 MG/2 ML VIAL IVP PRN (20:37)
[2019-11-05] MEDS: INSULIN ASPART (NovoLOG) 100 UNIT/ML VIAL SQ SCH (20:40)
[2019-11-05] MEDS ORDERED: HEPARIN SODIUM,PORCINE 5,000 UNIT/ML 1 ML VIAL SQ SCH (21:00)
[2019-11-05] MEDS: PREGABALIN 50 MG CAP PO SCH (21:03)
[2019-11-05] MEDS: DONEPEZIL 10 MG TAB PO SCH (21:03)
[2019-11-05] MEDS: DULoxetine HCL 60 MG CAPSULE.DR PO SCH (21:04)
[2019-11-05] MEDS: TAMSULOSIN 0.4 MG CAP.ER.24H PO SCH (21:04)
[2019-11-06] MEDS: PIPERACILLIN-TAZOBACTAM 3.375 GM in SODIUM CHLORIDE 0.9% 100 ML IVPB SCH ×3 (00:15→17:47)
--- NOTE | 2019-11-06 01:49 | HP ---
HISTORY AND PHYSICAL DATE OF SERVICE: 11/05/2019 CHIEF COMPLAINT: Pain and swelling of the right great toe. HISTORY OF PRESENT ILLNESS: This 69-year-old gentleman with a past medical history of asthma, CAD, COPD, dementia, diabetes, hypertension, hyperlipidemia, being followed by Dr. Mayela Mckeon in the outpatient setting is having right great toe infection for several weeks at this time. The patient initially had cellulitis after treatment from podiatry clinic and subsequently patient had antibiotics. Most recently the patient was admitted to [facility]. The detailed reports are not available. Coagulase-negative Staph was apparently grown. Patient had a PICC line on the left arm and the patient was given antibiotic daptomycin, vancomycin. The patient apparently had a blood clot in the left axillary area a few days ago which was tPA'd possibly. Currently the patient had significant weakness, shaking chills and fever up to 101 and the patient came to [facility] and was admitted with further evaluation and possible sepsis. Patient had elevated WBC and elevated lactic acid indicative of sepsis also. There is no history of headache, loss of consciousness. No history of chest pain, palpitations, hematochezia or melena at this time. The patient also had generalized joint pains also. PAST MEDICAL HISTORY: History of asthma, CAD, COPD, dementia, diabetes mellitus, hypertension, hyperlipidemia, history of back pain, DJD. MEDICATIONS: Medications prior to admission include home medications are: 1. Glucophage 500 mg with breakfast. 2. Norvasc. 3. Incruse Ellipta. 4. Flomax. 5. Bactrim. 6. Crestor. 7. Xarelto. 8. Lyrica. 9. Habitrol. 10.DuoNeb. 11.Vasotec. 12.Aricept. 13.Cymbalta. 14.Plavix. 15.Symbicort. 16.Aspirin. 17.Ventolin. Doses were reviewed. ALLERGIES: TETRACYCLINE. FAMILY HISTORY: History of cancer in the family. SOCIAL HISTORY: History of smoking. History of THC. REVIEW OF SYSTEMS: ENT: Diminished hearing and diminished vision. CARDIOVASCULAR SYSTEM: No angina. RESPIRATORY SYSTEM: As mentioned earlier. GI: No nausea. : No dysuria. NERVOUS SYSTEM: No numbness or weakness. ALLERGY/IMMUNOLOGY: Asthma. MUSCULOSKELETAL. As mentioned earlier. HEMATOLOGY: As mentioned earlier. ENDOCRINE: As mentioned earlier. CONSTITUTIONAL: As mentioned earlier. DERMATOLOGY: As mentioned earlier. RHEUMATOLOGY: Negative. PSYCHIATRY: As mentioned earlier. PHYSICAL EXAMINATION: The patient is alert and oriented x3. Pulse 122, blood pressure 141/97, respiration 20, temperature is 101.9, pulse ox 97% on room air. HEENT: Conjunctivae normal. Oral mucosa moist. NECK: No jugular venous distention. No carotid bruit. No lymph node enlargement. CARDIOVASCULAR: S1, S2 muffled. Tachycardia. No S3, no S4. RESPIRATORY: Breath sounds diminished at the bases. A few scattered rhonchi. No crackles. ABDOMEN: Soft, obese, nontender. No mass palpable. LEGS: Pulses are diminished. Otherwise, right great toe infection, severe, tender erythema, tenderness present. LYMPHATICS: No lymphadenopathy of the neck, axillae or groin. JOINTS: No active deforming arthropathy. LABS: WBC 7.9, hemoglobin 10.8. Plasma lactic acid 2.5. ASSESSMENT: 1. Right great toe infection with possible cellulitis, possible osteomyelitis with failure of outpatient treatment with sepsis, present on admission. 2. History of recent hospital admission with Staph epi. 3. Status post PICC line insertion recently on the left arm and as well as blockage and possible tPA. 4. Elevated lactic acid secondary to sepsis. 5. Anemia, normocytic anemia of chronic disease. 6. Continued ongoing nicotine dependence. 7. History of asthma, chronic obstructive pulmonary disease. 8. History of coronary artery disease. 9. Dementia. 10.History of diabetes mellitus type 2. 11.Hypertension. 12.Hyperlipidemia. 13.History of back pain. 14.History of degenerative joint disease. 15.History of anxiety. 16.FULL CODE. RECOMMENDATIONS AND DISCUSSION: This 69-year-old gentleman who presented with multiple complex medical issues, we will monitor the patient closely. Continue the current medications, continues symptomatic treatment. Will initiate broad-spectrum IV antibiotics, vancomycin and Zosyn will be initiated empirically. We will obtain the cultures from the toes and blood cultures. Consult Infectious Disease, Vascular Surgery. Otherwise, guarded prognosis because of the multiple complex medical issues. Further recommendations to follow. A copy of dictation forwarded to Dr. Mayela Mckeon, who is the primary physician. MMODL / IJN: [id number] /
[2019-11-06] MEDS: HYDROmorphone 0.5 MG/0.5 ML SYRINGE IVP PRN ×2 (02:51→05:06)
[2019-11-06] MEDS: IPRATROPIUM-ALBUTEROL 3 ML NEB INHALATION PRN ×2 (03:17→17:00)
[2019-11-06] MEDS: VANCOMYCIN 1,500 MG in SODIUM CHLORIDE 0.9% 250 ML IVPB SCH ×2 (05:07→17:53)
[2019-11-06] MEDS: IPRATROPIUM 0.5 MG/2.5 ML NEBU INHALATION SCH ×4 (07:51→21:10)
[2019-11-06] MEDS: SYMBICORT 160-4.5 MCG INHALER INHALATION SCH ×2 (07:51→21:10)
[2019-11-06] MEDS: metFORMIN 500 MG TAB PO SCH (08:32)
[2019-11-06] MEDS: INSULIN ASPART (NovoLOG) 100 UNIT/ML VIAL SQ SCH ×4 (08:42→22:08)
[2019-11-06] MEDS: PREGABALIN 50 MG CAP PO SCH ×2 (08:43→22:07)
[2019-11-06] MEDS: lisinopriL 20 MG TAB PO SCH (08:43)
[2019-11-06] MEDS: ASPIRIN 81 MG PO SCH (08:43)
[2019-11-06] MEDS: CLOPIDOGREL 75 MG TAB PO SCH (08:44)
[2019-11-06] MEDS: TAMSULOSIN 0.4 MG CAP.ER.24H PO SCH ×2 (08:44→22:07)
[2019-11-06] MEDS: ATORVASTATIN 40 MG TAB PO SCH (08:44)
[2019-11-06] MEDS: amLODIPine 5 MG TAB PO SCH (08:44)
[2019-11-06] MEDS: NICOTINE 14MG/24HR PATCH TRANSDERM SCH (08:44)
[2019-11-06] MEDS: PANTOPRAZOLE 40 MG TABLET PO SCH (08:44)
[2019-11-06] MEDS: RIVAROXABAN 20 MG TAB PO SCH (08:44)
[2019-11-06 10:54] VITALS: BMI 36.6
[2019-11-06 11:31] LABS: Glucose,Whole Blood 111 mg/dL (75-99)
[2019-11-06 12:33] LABS: African American GFR (CKD) >90 (>60 ml/min/1.73 sqM); Anion Gap 6 mmol/L; Blood Urea Nitrogen 13 mg/dL (9-20); Calcium 8.9 mg/dL (8.4-10.2); Carbon Dioxide 21 mmol/L (22-30); Chloride 108 mmol/L (98-107); Glucose 92 mg/dL (74-99); Non-African American GFR(CKD) >90 (>60 ml/min/1.73 sqM); Potassium 4.9 mmol/L (3.5-5.1); Sodium 135 mmol/L (137-145)
[2019-11-06 12:35] LABS: Anisocytosis Slight; Basophils % (A) 1 %; Eosinophils # (A) 0.1 k/uL (0-0.7); Eosinophils % (A) 2 %; HCT 32.7 % (39.0-53.0); HGB 9.7 gm/dL (13.0-17.5); Hypochromasia Marked; Lymphocytes # (A) 0.7 k/uL (1.0-4.8); Lymphocytes % (A) 13 %; MCH 25.3 pg (25.0-35.0); MCHC 29.8 g/dL (31.0-37.0); MCV 84.9 fL (80.0-100.0); Mean Platelet Volume 7.7; Monocytes # (A) 0.6 k/uL (0-1.0); Monocytes % (A) 11 %; Neutrophils # (A) 3.6 k/uL (1.3-7.7); Neutrophils % (A) 70 %; Platelet Count 156 k/uL (150-450); Poikilocytosis Slight; RBC 3.85 m/uL (4.30-5.90); WBC 5.2 k/uL (3.8-10.6)
[2019-11-06] MEDS ORDERED: FLUTICASONE 50MCG/SPRAY NASAL 16GM EA NOSTRIL PRN (12:49)
[2019-11-06] MEDS ORDERED: tiZANidine 4 MG TAB PO PRN (12:49)
--- NOTE | 2019-11-06 13:05 | P.GSHP ---
History of Present Illness 69-year-old diabetic male has been admitted to [facility] with the right foot big toe wound with history of fever and chills has been admitted patient is known to me from the past this patient has history of peripheral vascular disease patient had a intervention by Dr. Boucher in the past for peripheral vascular disease patient also has a popliteal artery aneurysm. On examination neck supple no bruit appreciated Chest clear first and second sound normal Abdomen soft nontender Vascular femorals are 1+ bilateral patient has a PTDP by the Doppler right foot big toe nail has been removed by mobile product manager and there is scab formation noted at this and the nailbed with mild redness of the big toe Plan is debridement of the right big toe and continue with IV antibiotic follow with you Past Medical History Past Medical History: Asthma, Coronary Artery Disease (CAD), COPD, Dementia, Diabetes Mellitus, Hyperlipidemia, Hypertension Additional Past Medical History / Comment(s): back pain, DDD, LT GREAT TOE WOUND History of Any Multi-Drug Resistant Organisms: None Reported Past Surgical History: Adenoidectomy, Orthopedic Surgery, Tonsillectomy Additional Past Surgical History / Comment(s): pilonidal cyst, top teeth removed Past Anesthesia/Blood Transfusion Reactions: Previous Problems w/ Anesthesia Additional Past Anesthesia/Blood Transfusion Reaction / Comment(s): "I have to have extra anesthesia" Past Psychological History: Anxiety Smoking Status: Current every day smoker Past Alcohol Use History: None Reported Additional Past Alcohol Use History / Comment(s): smoker since age 14; 1-2 ppd Past Drug Use History: None Reported Additional Drug Use History / Comment(s): hemp oil,cbd, procannibis,cdx,karma- advised not to use 24 hours prior to procedure - Past Family History Father Family Medical History: Cancer Sister(s) Family Medical History: Blood Disorder Brother(s) Family Medical History: Blood Disorder Medications and Allergies Home Medications Medication Instructions Recorded Confirmed Type Enalapril [Vasotec] 20 mg PO DAILY 12/17/16 11/06/19 History Umeclidinium [place] [Incruse 1 puff INHALATION RT-DAILY 12/17/16 11/06/19 History Ellipta] metFORMIN HCL [Glucophage] 500 mg PO W/BRKFST 12/17/16 11/06/19 History Donepezil [Aricept] 10 mg PO HS 11/16/18 11/06/19 History Rosuvastatin Calcium 40 mg PO DAILY 08/01/19 11/06/19 History Clopidogrel Bisulfate [Plavix] 75 mg PO DAILY #90 tab 08/03/19 11/06/19 Rx Albuterol Sulfate [Ventolin HFA] 2 puff INHALATION RT-Q4H PRN 09/05/19 11/06/19 History Aspirin 81 mg PO DAILY 09/05/19 11/06/19 History Tamsulosin HCl [Flomax] 0.4 mg PO BID 09/05/19 11/06/19 History amLODIPine [Norvasc] 5 mg PO DAILY 09/05/19 11/06/19 History Budesonide-Formot 160-4.5 Mcg 2 puff INHALATION RT-BID #1 puff 09/08/19 11/06/19 Rx [Symbicort 160-4.5 Mcg Inhaler] Atorvastatin Calcium [Lipitor] 20 mg PO HS 11/06/19 11/06/19 History Fluticasone Nasal [place] [Flonase 1 - 2 spr EA NOSTRIL DAILY PRN 11/06/19 11/06/19 History Nasal [place]] tiZANidine HCL [Zanaflex] 4 mg PO TID PRN 11/06/19 11/06/19 History Allergies Allergy/AdvReac Type Severity Reaction Status Date / Time tetracycline [Tetracycline] Allergy Swelling Verified 11/06/19 11:07 Surgical - Exam Vital Signs Temp Pulse Resp BP Pulse Ox 101.9 F H 122 H 20 141/97 97 11/05/19 16:11 11/05/19 16:11 11/05/19 16:11 11/05/19 16:11 11/05/19 16:11 Results - Labs 11/06/19 11:45 11/06/19 11:45 Abnormal Lab Results - Last 24 Hours (Table) 11/05/19 11/05/19 11/05/19 Range/Units 16:51 16:51 16:51 RBC (4.30-5.90) m/uL Hgb 10.8 L (13.0-17.5) gm/dL Hct 34.9 L (39.0-53.0) % MCHC 30.9 L (31.0-37.0) g/dL RDW 16.6 H (11.5-15.5) % Lymphocytes # 0.3 L (1.0-4.8) k/uL Sodium (137-145) mmol/L Chloride (98-107) mmol/L Carbon Dioxide (22-30) mmol/L Creatinine (0.66-1.25) mg/dL POC Glucose (mg/dL) (75-99) mg/dL Plasma Lactic Acid Jose 2.5 H* (0.7-2.0) mmol/L C-Reactive Protein 44.4 H (<10.0) mg/L 11/05/19 11/05/19 11/06/19 Range/Units 19:56 20:24 11:30 RBC (4.30-5.90) m/uL Hgb (13.0-17.5) gm/dL Hct (39.0-53.0) % MCHC (31.0-37.0) g/dL RDW (11.5-15.5) % Lymphocytes # (1.0-4.8) k/uL Sodium (137-145) mmol/L Chloride (98-107) mmol/L Carbon Dioxide (22-30) mmol/L Creatinine (0.66-1.25) mg/dL POC Glucose (mg/dL) 121 H 111 H (75-99) mg/dL Plasma Lactic Acid Jose 3.3 H* (0.7-2.0) mmol/L C-Reactive Protein (<10.0) mg/L 11/06/19 11/06/19 Range/Units 11:45 11:45 RBC 3.85 L (4.30-5.90) m/uL Hgb 9.7 L (13.0-17.5) gm/dL Hct 32.7 L (39.0-53.0) % MCHC 29.8 L (31.0-37.0) g/dL RDW 16.0 H (11.5-15.5) % Lymphocytes # 0.7 L (1.0-4.8) k/uL Sodium 135 L (137-145) mmol/L Chloride 108 H (98-107) mmol/L Carbon Dioxide 21 L (22-30) mmol/L Creatinine 0.61 L (0.66-1.25) mg/dL POC Glucose (mg/dL) (75-99) mg/dL Plasma Lactic Acid Jose (0.7-2.0) mmol/L C-Reactive Protein (<10.0) mg/L Microbiology - Last 24 Hours (Table) 11/06/19 04:00 Urine Culture - Preliminary Urine,Clean Catch 11/05/19 18:29 Gram Stain - Preliminary Foot - Right Wound Culture - Preliminary Diabetes panel 11/05/19 11/06/19 Range/Units 16:51 11:45 Sodium 137 135 L (137-145) mmol/L Potassium 4.2 4.9 (3.5-5.1) mmol/L Chloride 107 108 H (98-107) mmol/L Carbon Dioxide 22 21 L (22-30) mmol/L BUN 17 13 (9-20) mg/dL Creatinine 0.66 0.61 L (0.66-1.25) mg/dL Glucose 98 92 (74-99) mg/dL Calcium 9.5 8.9 (8.4-10.2) mg/dL AST 27 (17-59) U/L ALT 19 (4-49) U/L Alkaline Phosphatase 88 (38-126) U/L Total Protein 6.5 (6.3-8.2) g/dL Albumin 4.2 (3.5-5.0) g/dL Calcium panel 11/05/19 11/06/19 Range/Units 16:51 11:45 Calcium 9.5 8.9 (8.4-10.2) mg/dL Albumin 4.2 (3.5-5.0) g/dL Pituitary panel 11/05/19 11/06/19 Range/Units 16:51 11:45 Sodium 137 135 L (137-145) mmol/L Potassium 4.2 4.9 (3.5-5.1) mmol/L Chloride 107 108 H (98-107) mmol/L Carbon Dioxide 22 21 L (22-30) mmol/L BUN 17 13 (9-20) mg/dL Creatinine 0.66 0.61 L (0.66-1.25) mg/dL Glucose 98 92 (74-99) mg/dL Calcium 9.5 8.9 (8.4-10.2) mg/dL Adrenal panel 11/05/19 11/06/19 Range/Units 16:51 11:45 Sodium 137 135 L (137-145) mmol/L Potassium 4.2 4.9 (3.5-5.1) mmol/L Chloride 107 108 H (98-107) mmol/L Carbon Dioxide 22 21 L (22-30) mmol/L BUN 17 13 (9-20) mg/dL Creatinine 0.66 0.61 L (0.66-1.25) mg/dL Glucose 98 92 (74-99) mg/dL Calcium 9.5 8.9 (8.4-10.2) mg/dL Total Bilirubin 0.7 (0.2-1.3) mg/dL AST 27 (17-59) U/L ALT 19 (4-49) U/L Alkaline Phosphatase 88 (38-126) U/L Total Protein 6.5 (6.3-8.2) g/dL Albumin 4.2 (3.5-5.0) g/dL
--- NOTE | 2019-11-06 13:22 | XR ---
EXAMINATION TYPE: XR chest 1V portable DATE OF EXAM: 11/06/2019 COMPARISON: None INDICATION: Pneumonia TECHNIQUE: Single frontal view of the chest is obtained. FINDINGS: The heart size is normal. The pulmonary vasculature is normal. The lungs are clear. IMPRESSION: 1. No acute pulmonary process.
--- NOTE | 2019-11-06 15:55 | PN ---
PROGRESS NOTE DATE OF SERVICE: 11/06/2019 This is a 69-year-old gentleman who was admitted with pain and swelling of the right great toe. He is on empiric antibiotics. The patient is receiving outpatient antibiotics. Cultures are negative so far. Bone scan is noted to rule out possible osteomyelitis. PAST MEDICAL HISTORY: Reviewed. REVIEW OF SYSTEMS: CARDIOVASCULAR SYSTEM: No angina, palpitation. RESPIRATORY: As mentioned earlier. GI: As mentioned earlier. : No dysuria. CURRENT MEDICATIONS: Reviewed and include: 1. [place] 10 mg q.6 p.r.n. 2. Ventolin. 3. DuoNeb. 4. Xanax. 5. Norvasc. 6. Aspirin. 7. Lipitor. 8. Symbicort. 9. Plavix. 10.Aricept. 11.Dilaudid. 12.NovoLog. 13.Glucophage. 14.Narcan. 15.Zofran. 16.Zosyn. 17.Lyrica. 18.Xarelto. 19.Flomax. 20.Restoril. 21.Vancomycin. PHYSICAL EXAM: Patient is alert and oriented times 3, pulse is 76 blood, pressure 102/60, respiration 18, temperature 98.4, pulse ox 97% on room air. HEENT: Conjunctivae normal. NECK: No jugular venous distension. CARDIOVASCULAR SYSTEM: S1, S2, muffled. RESPIRATORY: Breath sounds diminished at the bases, a few scattered rhonchi, no crackles. ABDOMEN: Soft, nontender. LEGS: Right foot significant pain and swelling of the right great toe present. Some minimal discharge. Severely erythematous and tender. SKIN: No ulcers, rash. JOINTS: No active deformity. LABS: WBC is 5.1, hemoglobin is 9.7, sodium 135. ASSESSMENT: 1. Right great toe infection with possible cellulitis, possible osteomyelitis with failure of outpatient treatment, sepsis, present on admission, on empiric antibiotics. 2. History of recent hospital admission with Staph epi. 3. Status post PICC line insertion, recently on the left arm and as well as blockage and possible tPA recently. 4. Elevated lactic acid secondary to sepsis. 5. Anemia, normocytic anemia of chronic disease. 6. Continued ongoing nicotine dependence. 7. History of asthma, chronic obstructive pulmonary disease. 8. History of coronary artery disease. 9. Dementia. 10.History of diabetes type 2. 11.Hypertension. 12.Hyperlipidemia. 13.History of back pain. 14.History of degenerative joint disease. 15.History of anxiety. 16.FULL CODE: RECOMMENDATION: Recommend to continue current management and symptomatic treatment. Otherwise, bone scan has been ordered. I would also recommend a sed rate and CRP, serum uric acid and CT scan of the foot, also. Guarded prognosis. Further recommendation to follow. Portable chest x-ray and blood cultures. MMODL / IJN: [id number] /
[2019-11-06 16:47] LABS: Glucose,Whole Blood 109 mg/dL (75-99)
--- NOTE | 2019-11-06 17:02 | CT ---
EXAMINATION TYPE: CT foot RT wo con DATE OF EXAM: 11/06/2019 COMPARISON: Right foot limited radiograph 09/11/2019 HISTORY: Right foot pain and recent great toe surgery. CT DLP: 180.6 mGycm Automated exposure control for dose reduction was used. 3-dimensional images were generated and utilized on a separate workstation. FINDINGS: There is been interval amputation of the tuft of the great toe distal phalanx. There are tiny osseous fragments seen at the amputation site, likely postsurgical, and unlikely to be related to osseous er osion. There is no evidence of focal rim-enhancing fluid collection of the great toe. No evidence of acute fracture or dislocation. There is degenerative change of the midfoot and and hindfoot articulat ions. Plantar spur. Three-dimensional images consistent with the above findings. IMPRESSION: AMPUTATION OF THE GREAT TOE DISTAL PHALANGEAL TUFT. NO ABSCESS SEEN.
[2019-11-06] MEDS: HYDROcodone/APAP 10-325MG 1 EACH TAB PO PRN ×2 (17:46→23:49)
[2019-11-06] MEDS: COLLAGENASE 250 UNIT/GM OINTMENT 30 GM TUBE TOPICAL SCH (18:04)
[2019-11-06 21:52] LABS: Glucose,Whole Blood 167 mg/dL (75-99)
[2019-11-06] MEDS: DONEPEZIL 10 MG TAB PO SCH (22:07)
[2019-11-06] MEDS: DULoxetine HCL 60 MG CAPSULE.DR PO SCH (22:07)
--- NOTE | 2019-11-06 22:29 | P.CONS ---
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, patient previously has been admitted at [facility] and the patient did have debridement of the distal phalanx of the right big toe wound culture positive for staph epi and the patient has been treated with daptomycin in the outpatient setting through the left arm PICC line patient was noticed to have some swelling of the PICC line for the patient did have ultrasound done on Wednesday with evidence of nonoccluding DVT however the patient was already on Xer alto because of his factor V Leiden deficiency patient did have Cathflow to the PICC line and subsequently the patient PICC line was working patient presented to [facility] ER with fever that apparently started the day he presented to the hospital patient complaining of pain to his right big toe tip more of a throbbing dull aching almost 7-8 out of 10 and no radiation did have some swelling but no significant redness or any drainage from it denies having any headache no chest pain shortness with accompanying nausea no vomiting no abdominal pain or any diarrhea, patient undoubtedly had did have a fever of 101F however the patient did have normal white count no chest x-ray has been do ne, patient has been admitted to the hospital he was started on vancomycin and Zosyn infectious disease was consulted for further management of antibiotic therapy Review of Systems Positive point has been mentioned in the HPI rest of the systems are negative Past Medical History Past Medical History: Asthma, Coronary Artery Disease (CAD), COPD, Dementia, Diabetes Mellitus, Hyperlipidemia, Hypertension Additional Past Medical History / Comment(s): back pain, DDD, LT GREAT TOE WOUND History of Any Multi-Drug Resistant Organisms: None Reported Past Surgical History: Adenoidectomy, Orthopedic Surgery, Tonsillectomy Additional Past Surgical History / Comment(s): pilonidal cyst, top teeth removed Past Anesthesia/Blood Transfusion Reactions: Previous Problems w/ Anesthesia Additional Past Anesthesia/Blood Transfusion Reaction / Comm: "I have to have extra anesthesia" Past Psychological History: Anxiety Smoking Status: Current every day smoker Past Alcohol Use History: None Reported Additional Past Alcohol Use History / Comment(s): smoker since age 14; 1-2 ppd Past Drug Use History: None Reported Additional Drug Use History / Comment(s): hemp oil,cbd, procannibis,cdx,karma- advised not to use 24 hours prior to procedure - Past Family History Father Family Medical History: Cancer Sister(s) Family Medical History: Blood Disorder Brother(s) Family Medical History: Blood Disorder Medications and Allergies Home Medications Medication Instructions Recorded Confirmed Type Enalapril [Vasotec] 20 mg PO DAILY 12/17/16 11/06/19 History Umeclidinium [place] [Incruse 1 puff INHALATION RT-DAILY 12/17/16 11/06/19 History Ellipta] metFORMIN HCL [Glucophage] 500 mg PO W/BRKFST 12/17/16 11/06/19 History Donepezil [Aricept] 10 mg PO HS 11/16/18 11/06/19 History Rosuvastatin Calcium 40 mg PO DAILY 08/01/19 11/06/19 History Clopidogrel Bisulfate [Plavix] 75 mg PO DAILY #90 tab 08/03/19 11/06/19 Rx Albuterol Sulfate [Ventolin HFA] 2 puff INHALATION RT-Q4H PRN 09/05/19 11/06/19 History Aspirin 81 mg PO DAILY 09/05/19 11/06/19 History Tamsulosin HCl [Flomax] 0.4 mg PO BID 09/05/19 11/06/19 History amLODIPine [Norvasc] 5 mg PO DAILY 09/05/19 11/06/19 History Budesonide-Formot 160-4.5 Mcg 2 puff INHALATION RT-BID #1 puff 09/08/19 11/06/19 Rx [Symbicort 160-4.5 Mcg Inhaler] Atorvastatin Calcium [Lipitor] 20 mg PO HS 11/06/19 11/06/19 History Fluticasone Nasal [place] [Flonase 1 - 2 spr EA NOSTRIL DAILY PRN 11/06/19 History Nasal [place]] tiZANidine HCL [Zanaflex] 4 mg PO TID PRN 11/06/19 11/06/19 History Allergies Allergy/AdvReac Type Severity Reaction Status Date / Time tetracycline [Tetracycline] Allergy Swelling Verified 11/06/19 11:07 Physical Exam Vitals: Vital Signs Temp Pulse Pulse Resp BP Pulse Ox 11/06/19 21:11 80 11/06/19 17:11 76 11/06/19 17:00 76 11/06/19 14:58 97.9 F 62 18 101/63 97 11/06/19 11:43 80 11/06/19 11:29 76 11/06/19 08:03 80 11/06/19 07:51 80 11/06/19 07:00 98.5 F 76 18 103/64 97 11/06/19 03:31 80 11/06/19 03:17 76 11/06/19 00:00 74 18 Intake and Output 11/06/19 11/06/19 11/06/19 06:59 14:59 22:59 Intake Total 1390 Output Total 800 Balance 590 Intake: Intake, IV Titration 1390 Amount Piperacillin-Tazobactam 3 100 .375 gm In Sodium Chloride 0.9% 100 ml @ 200 mls/hr IVPB ONCE STA Rx#:[id number] Sodium Chloride 0.9% 1, 1040 000 ml @ 130 mls/hr IV . Q7H42M ST[facility] Rx#:[id number] Vancomycin 1,500 mg In 250 Sodium Chloride 0.9% 250 ml @ 125 mls/hr IVPB Q12H [facility] Rx#:[id number] Output: Urine 800 Other: Voiding Method Toilet Urinal # Voids 1 5 Weight 96.615 kg GENERAL DESCRIPTION: An elderly male lying in bed, no distress. No tachypnea or accessory muscle of respiration use. HEENT: Shows Pallor , no scleral icterus. Oral mucous membrane is dry. No pharyngeal erythema or thrush NECK: Trachea central, no thyromegaly. LUNGS: Unlabored breathing. Clear to auscultation anteriorly. No wheeze or crackle. HEART: S1, S2, regular rate and rhythm. No loud murmur ABDOMEN: Soft, no tenderness , guarding or rigidity, no organomegaly EXTREMITIES: No edema of feet. Right big toe tip did have some callus and dried up blood , minimal swelling no significant redness or any drainage SKIN: No rash, no masses palpable. NEUROLOGICAL: The patient is awake, alert, oriented x3, mood and affect normal. Results CBC & Chem 7: 11/06/19 11:45 11/06/19 11:45 Labs: Abnormal Lab Results - Last 24 Hours (Table) 11/06/19 11/06/19 11/06/19 Range/Units 11:30 11:45 11:45 RBC 3.85 L (4.30-5.90) m/uL Hgb 9.7 L (13.0-17.5) gm/dL Hct 32.7 L (39.0-53.0) % MCHC 29.8 L (31.0-37.0) g/dL RDW 16.0 H (11.5-15.5) % Lymphocytes # 0.7 L (1.0-4.8) k/uL Sodium 135 L (137-145) mmol/L Chloride 108 H (98-107) mmol/L Carbon Dioxide 21 L (22-30) mmol/L Creatinine 0.61 L (0.66-1.25) mg/dL POC Glucose (mg/dL) 111 H (75-99) mg/dL C-Reactive Protein (<10.0) mg/L 11/06/19 11/06/19 11/06/19 Range/Units 11:45 16:46 21:46 RBC (4.30-5.90) m/uL Hgb (13.0-17.5) gm/dL Hct (39.0-53.0) % MCHC (31.0-37.0) g/dL RDW (11.5-15.5) % Lymphocytes # (1.0-4.8) k/uL Sodium (137-145) mmol/L Chloride (98-107) mmol/L Carbon Dioxide (22-30) mmol/L Creatinine (0.66-1.25) mg/dL POC Glucose (mg/dL) 109 H 167 H (75-99) mg/dL C-Reactive Protein 68.5 H (<10.0) mg/L Microbiology - Last 24 Hours (Table) 11/05/19 16:51 Blood Culture - Preliminary Blood No Growth after 24 hours 11/05/19 18:29 Gram Stain - Preliminary Foot - Right Wound Culture - Preliminary 11/06/19 04:00 Urine Culture - Preliminary Urine,Clean Catch Assessment and Plan Assessment: 1- patient presented to hospital with fever which could be more likely to the left arm DVT from his PICC line currently the patient was noticed to have the PICC line slightly kinked Versus a PICC line infection though his right big toe tip that that have significant inflammatory changes clinically doubt any worsening infection of the right big toe and no evidence of infection at any other site of the body (1) Fever Current Visit: Yes Status: Acute Code(s): R50.9 - FEVER, UNSPECIFIED SNOMED Code(s): 629468947 (2) Cellulitis of great toe, right Current Visit: Yes Status: Acute Code(s): L03.031 - CELLULITIS OF RIGHT TOE SNOMED Code(s): 37226908 Plan: 1- PICC line will be discontinued and tip sent for the culture 2- Vancomycin pharmacy to dose target trough of 15 while watching his kidney function and Vanco trough closely 3- discontinue Zosyn 4- vascular surgery evaluation for possible debridement of the right big toe tip We will follow on clinical condition and cultures to further adjust medication if needed Thank you for this consultation will follow this patient with you Time with Patient: Greater than 30
[2019-11-07] MEDS ORDERED: VANCOMYCIN TROUGH DUE 1 EACH MISC MISCELLANE ONE (05:00)
[2019-11-07 06:05] LABS: African American GFR (CKD) >90 (>60 ml/min/1.73 sqM); Anion Gap 5 mmol/L; Blood Urea Nitrogen 10 mg/dL (9-20); Calcium 8.8 mg/dL (8.4-10.2); Carbon Dioxide 24 mmol/L (22-30); Chloride 106 mmol/L (98-107); Glucose 100 mg/dL (74-99); Non-African American GFR(CKD) >90 (>60 ml/min/1.73 sqM); Potassium 3.8 mmol/L (3.5-5.1); Sodium 135 mmol/L (137-145)
[2019-11-07] MEDS: HYDROcodone/APAP 10-325MG 1 EACH TAB PO PRN ×3 (06:07→19:58)
[2019-11-07] MEDS: VANCOMYCIN 1,500 MG in SODIUM CHLORIDE 0.9% 250 ML IVPB SCH (06:26)
[2019-11-07 06:35] LABS: Anisocytosis Slight; Basophils % (A) 1 %; Eosinophils # (A) 0.2 k/uL (0-0.7); Eosinophils % (A) 5 %; HCT 32.5 % (39.0-53.0); HGB 9.4 gm/dL (13.0-17.5); Hypochromasia Marked; Lymphocytes # (A) 1.1 k/uL (1.0-4.8); Lymphocytes % (A) 24 %; MCH 24.4 pg (25.0-35.0); MCHC 29.1 g/dL (31.0-37.0); MCV 83.9 fL (80.0-100.0); Mean Platelet Volume 7.9; Monocytes # (A) 0.4 k/uL (0-1.0); Monocytes % (A) 8 %; Neutrophils # (A) 2.8 k/uL (1.3-7.7); Neutrophils % (A) 59 %; Platelet Count 133 k/uL (150-450); Poikilocytosis Slight; RBC 3.87 m/uL (4.30-5.90); WBC 4.7 k/uL (3.8-10.6)
[2019-11-07] MEDS: INSULIN ASPART (NovoLOG) 100 UNIT/ML VIAL SQ SCH ×4 (07:49→22:05)
[2019-11-07] MEDS: ASPIRIN 81 MG PO SCH (08:01)
[2019-11-07] MEDS: amLODIPine 5 MG TAB PO SCH (08:01)
[2019-11-07] MEDS: PANTOPRAZOLE 40 MG TABLET PO SCH (08:01)
[2019-11-07] MEDS: ATORVASTATIN 40 MG TAB PO SCH (08:01)
[2019-11-07] MEDS: PREGABALIN 50 MG CAP PO SCH ×2 (08:01→22:05)
[2019-11-07] MEDS: CLOPIDOGREL 75 MG TAB PO SCH (08:01)
[2019-11-07] MEDS: NICOTINE 14MG/24HR PATCH TRANSDERM SCH (08:01)
[2019-11-07] MEDS: lisinopriL 20 MG TAB PO SCH (08:02)
[2019-11-07] MEDS: RIVAROXABAN 20 MG TAB PO SCH (08:02)
[2019-11-07] MEDS: COLLAGENASE 250 UNIT/GM OINTMENT 30 GM TUBE TOPICAL SCH (08:02)
[2019-11-07] MEDS: metFORMIN 500 MG TAB PO SCH (08:02)
[2019-11-07] MEDS: TAMSULOSIN 0.4 MG CAP.ER.24H PO SCH ×2 (08:02→22:05)
[2019-11-07 08:04] LABS: Glucose,Whole Blood 102 mg/dL (75-99)
[2019-11-07] MEDS: KETOROLAC 15 MG/ML 1 ML VIAL IVP PRN ×2 (08:06→14:20)
[2019-11-07] MEDS: SYMBICORT 160-4.5 MCG INHALER INHALATION SCH ×2 (09:17→20:15)
[2019-11-07] MEDS: IPRATROPIUM-ALBUTEROL 3 ML NEB INHALATION PRN ×4 (09:17→20:15)
[2019-11-07] MEDS: IPRATROPIUM 0.5 MG/2.5 ML NEBU INHALATION SCH ×4 (09:18→20:15)
[2019-11-07 12:09] LABS: Glucose,Whole Blood 100 mg/dL (75-99)
--- NOTE | 2019-11-07 13:43 | NM ---
EXAMINATION TYPE: NM bone 3 phase DATE OF EXAM: 11/07/2019 COMPARISON: CT right foot November 06, 2019. Right foot x-ray September 11, 2019. HISTORY: Recent first toe surgery with pain. Triple phase bone scintigraphy was performed following the injection of 22.7 mCi Tc 99m MDP. Immedia te images and 3.5 hours post injection images acquired. Imaging is performed of the bilateral ankles and feet. FINDINGS: Dynamic arterial and soft tissue phase images show no increased radiotracer uptake to the right ankle or foot with particular attention to first toe versus opposite left foot. Delayed phase images show no suspicious increased radiotracer uptake at this level. IMPRESSION: No scintigraphic evidence of abnormal radiotracer uptake to suggest acute soft tissue infection or os teomyelitis at area of clinical concern right first toe.
--- NOTE | 2019-11-07 15:05 | PN ---
PROGRESS NOTE DATE OF SERVICE: 11/07/2019 This is a 69-year-old gentleman with pain and swelling of the right great toe and significant infection. Bone scan is pending at this time. The CT scan showed no evidence of abscess. The patient apparently reports also significantly deplorable home condition including bedbugs and such as well. The bone scan showed no evidence of any osteomyelitis. PAST MEDICAL HISTORY: Reviewed. REVIEW OF SYSTEMS: CARDIOVASCULAR SYSTEM: No angina or palpitation RESPIRATORY: As mentioned earlier. GI: As mentioned earlier. : As mentioned earlier. NERVOUS SYSTEMS: No focal deficits. CURRENT MEDICATIONS: Reviewed and include: 1. [place]. 2. Ventolin. 3. Xanax. 4. Norvasc. 5. Aspirin. 6. Lipitor. 7. Symbicort. 8. Plavix. 9. Aricept. 10.Cymbalta. 11.Flonase. 12.Dilaudid. 13.NovoLog. 14.Ativan. 15.Zestril. 16.Glucophage. 17.Narcan. 18.Zofran. 19.Protonix. 20.Lyrica. 21.Xarelto. 22.Flomax. 23.Restoril. 24.Zanaflex. 25.Vancomycin. PHYSICAL EXAMINATION: Patient is alert, oriented x3. The pulse is 67, blood pressure 116/70, respirations 16, temperature 98.2, pulse ox 97% on room air. HEENT: Conjunctivae normal. NECK: No jugular venous distension. CARDIOVASCULAR SYSTEM: S1, S2, muffled. RESPIRATORY: Breath sounds diminished at the bases, a few scattered rhonchi, no crackles. ABDOMEN: Soft, obese, nontender. LEGS: Right big toe infection. NERVOUS SYSTEM: No focal deficits. LABS: WBC is 12.2, hemoglobin is 9.4, platelets 133. Sodium is 135. ASSESSMENT: 1. Right great toe infection with possible cellulitis, osteomyelitis ruled out with failure of outpatient treatment, sepsis, present on admission, on empiric antibiotics. 2. History of recent hospital admission with Staph epi. 3. Status post PICC line insertion recently of the left arm as well as blockage and tPA recently. 4. Elevated lactic acid secondary to sepsis presently. 5. Anemia, normocytic anemia of chronic disease. 6. Continued ongoing nicotine dependence. 7. History of asthma, COPD. 8. History of coronary artery disease. 9. Dementia. 10.Diabetes mellitus type 2. 11.Hypertension. 12.Uuxrjmnm2ermfap. 13.History of back pain. 14.History of DJD. 15.History of anxiety. 16.FULL CODE. RECOMMENDATION: Recommend to continue current management and symptomatic treatment. Otherwise at this time, I would recommend to continue the empiric antibiotics. Closely follow with Vascular Surgery and as well as Infectious Disease. Guarded prognosis. Further recommendations to follow. MMODL / IJN: [id number] /
[2019-11-07] MEDS: VANCOMYCIN 1,750 MG in SODIUM CHLORIDE 0.9% 500 ML 500 ML IVPB SCH (16:01)
[2019-11-07 17:05] LABS: Glucose,Whole Blood 141 mg/dL (75-99)
--- NOTE | 2019-11-07 18:02 | PN ---
PROGRESS NOTE DATE OF SERVICE: 11/07/2019 REASON FOR FOLLOWUP: 1. Right big toe cellulitis with concern for underlying osteomyelitis. 2. Fever, possibly PICC line-related. INTERVAL HISTORY: The patient is currently afebrile. The patient is breathing comfortably. He still complains of significant pain to the right big toe. Apparently it has been debrided by Surgery yesterday. Culture has been drawn which is currently pending. The patient denies having any chest pain or shortness of breath or cough. Has been complaining of infrequency of his pain medication and wants it to be every 4 hours instead of every 6 hours. PHYSICAL EXAMINATION: Blood pressure 98/60 with a pulse of 69, temperature 98.4. General description is an elderly male up in the chair in no distress. RESPIRATORY SYSTEM: Unlabored breathing. Clear to auscultation anteriorly. HEART: S1, S2. Regular rate and rhythm. ABDOMEN: Soft. No tenderness. LABS: Hemoglobin 9.4, white count 4.7. Vancomycin level is 7.7. Creatinine 0.58. Cultures so far negative. DIAGNOSTIC IMPRESSION AND PLAN: Patient admitted to hospital with fever with concern for possible left arm PICC line site infection versus a deep venous thrombosis. Also has a chronic nonhealing wound to the right big toe and cellulitis. The patient is covered with vancomycin. Fever resolved. To continue while waiting for the culture to finalize. Continue with supportive care. MMODL / IJN: [id number] /
[2019-11-07 20:52] LABS: Glucose,Whole Blood 116 mg/dL (75-99)
[2019-11-07] MEDS: DONEPEZIL 10 MG TAB PO SCH (22:05)
[2019-11-07] MEDS: DULoxetine HCL 60 MG CAPSULE.DR PO SCH (22:05)
[2019-11-08] MEDS: KETOROLAC 15 MG/ML 1 ML VIAL IVP PRN ×2 (00:35→11:32)
[2019-11-08] MEDS: VANCOMYCIN 1,750 MG in SODIUM CHLORIDE 0.9% 500 ML 500 ML IVPB SCH ×3 (02:09→22:18)
[2019-11-08] MEDS: HYDROcodone/APAP 10-325MG 1 EACH TAB PO PRN ×4 (02:10→22:19)
[2019-11-08 06:47] LABS: Glucose,Whole Blood 98 mg/dL (75-99)
[2019-11-08] MEDS: INSULIN ASPART (NovoLOG) 100 UNIT/ML VIAL SQ SCH ×4 (07:00→21:11)
[2019-11-08] MEDS: NICOTINE 14MG/24HR PATCH TRANSDERM SCH (07:45)
[2019-11-08] MEDS: PREGABALIN 50 MG CAP PO SCH ×2 (07:46→21:12)
[2019-11-08] MEDS: TAMSULOSIN 0.4 MG CAP.ER.24H PO SCH ×2 (07:46→21:12)
[2019-11-08] MEDS: lisinopriL 20 MG TAB PO SCH (07:46)
[2019-11-08] MEDS: PANTOPRAZOLE 40 MG TABLET PO SCH (07:46)
[2019-11-08] MEDS: RIVAROXABAN 20 MG TAB PO SCH (07:47)
[2019-11-08] MEDS: metFORMIN 500 MG TAB PO SCH (07:47)
[2019-11-08] MEDS: ASPIRIN 81 MG PO SCH (07:47)
[2019-11-08] MEDS: amLODIPine 5 MG TAB PO SCH (07:47)
[2019-11-08] MEDS: CLOPIDOGREL 75 MG TAB PO SCH (07:47)
[2019-11-08] MEDS: ATORVASTATIN 40 MG TAB PO SCH (07:47)
[2019-11-08] MEDS: IPRATROPIUM-ALBUTEROL 3 ML NEB INHALATION PRN ×3 (07:56→20:41)
[2019-11-08] MEDS: SYMBICORT 160-4.5 MCG INHALER INHALATION SCH ×2 (07:59→20:41)
[2019-11-08] MEDS: IPRATROPIUM 0.5 MG/2.5 ML NEBU INHALATION SCH ×4 (07:59→20:40)
[2019-11-08 10:23] LABS: African American GFR (CKD) >90 (>60 ml/min/1.73 sqM); Anion Gap 4 mmol/L; Blood Urea Nitrogen 13 mg/dL (9-20); Carbon Dioxide 26 mmol/L (22-30); Chloride 107 mmol/L (98-107); Glucose 99 mg/dL (74-99); Non-African American GFR(CKD) >90 (>60 ml/min/1.73 sqM); Potassium 4.2 mmol/L (3.5-5.1); Sodium 137 mmol/L (137-145); Uric Acid 3.4 mg/dL (3.5-8.5)
[2019-11-08 10:35] LABS: Anisocytosis Slight; Basophils % (A) 1 %; Eosinophils # (A) 0.4 k/uL (0-0.7); Eosinophils % (A) 7 %; HCT 29.3 % (39.0-53.0); HGB 8.8 gm/dL (13.0-17.5); Hypochromasia Marked; Lymphocytes # (A) 1.1 k/uL (1.0-4.8); Lymphocytes % (A) 24 %; MCH 24.6 pg (25.0-35.0); MCV 81.7 fL (80.0-100.0); Monocytes # (A) 0.3 k/uL (0-1.0); Monocytes % (A) 6 %; Neutrophils # (A) 2.8 k/uL (1.3-7.7); Neutrophils % (A) 58 %; Platelet Count 154 k/uL (150-450); Poikilocytosis Slight; RBC 3.59 m/uL (4.30-5.90); RDW 16.5 % (11.5-15.5); WBC 4.8 k/uL (3.8-10.6)
[2019-11-08 11:25] LABS: Glucose,Whole Blood 116 mg/dL (75-99)
[2019-11-08] MEDS: COLLAGENASE 250 UNIT/GM OINTMENT 30 GM TUBE TOPICAL SCH (11:30)
--- NOTE | 2019-11-08 15:24 | P.PN ---
Subjective Progress Note Date: 11/08/19 Principal diagnosis: This is a 69-year-old male who was recently admitted with pain and swelling of the right great toe with possible cellulitis and is being closely monitored. Co mputed tomography scan showed no evidence of any abscess. Patient underwent bone scan of the right lower extremity showing no evidence of osteomyelitis. Infectious disease and vascular surgery following closely. Patient is maintained on IV antibiotics in the form of vancomycin and will continue at this time. Wound, blood, and urine cultures have been negative. Patient had a recent PICC line removal and preliminary culture showing gram-negative bacilli isolated and will watch for finalization. Currently no reports of chest pain, shortness of breath, or palpitations. Patient is afebrile. No reports of nausea or vomiting and patient is tolerating diet. Objective - Vital Signs Vital signs: Vital Signs Temp 98.0 F 11/08/19 07:00 Pulse 79 11/08/19 11:02 Resp 18 11/08/19 08:00 BP 139/89 11/08/19 07:00 Pulse Ox 97 11/08/19 07:00 Intake & Output 11/07/19 11/08/19 11/08/19 18:59 06:59 18:59 Intake Total 520 500 Balance 520 500 Intake: Intake, IV Titration 500 Amount Vancomycin 1,750 mg In 500 Sodium Chloride 0.9% 500 ml 500 ml @ 166.667 mls/ hr IVPB Q10H [facility] Rx#: [id number] Oral 520 Other: Voiding Method Toilet Toilet Toilet # Voids 3 - Exam Gen: This is a 69-year-old male currently lying in bed, awake, alert and oriented 3, well-developed, well-nourished. HEENT: Head is atraumatic, normocephalic. Pupils equal, round. Sclerae is anicteric. NECK: Supple. No JVD. No lymphadenopathy. No thyromegaly. LUNGS: Sounds diminished bilaterally with a few scattered rhonchi noted. No intercostal retractions. HEART: S1, S2 are muffled ABDOMEN: Soft. Bowel sounds are present. No masses. No tenderness. EXTREMITIES: No pedal edema. No calf tenderness. Right big toe redness and sloughing of skin noted NEUROLOGICAL: Patient is awake, alert and oriented x3. Cranial nerves 2 through 12 are grossly intact. - Labs CBC & Chem 7: 11/08/19 09:51 11/08/19 09:51 Labs: Abnormal Lab Results - Last 24 Hours (Table) 11/07/19 11/07/19 11/08/19 Range/Units 17:00 20:50 09:51 RBC 3.59 L (4.30-5.90) m/uL Hgb 8.8 L (13.0-17.5) gm/dL Hct 29.3 L (39.0-53.0) % MCH 24.6 L (25.0-35.0) pg MCHC 30.0 L (31.0-37.0) g/dL RDW 16.5 H (11.5-15.5) % Creatinine (0.66-1.25) mg/dL POC Glucose (mg/dL) 141 H 116 H (75-99) mg/dL Uric Acid (3.5-8.5) mg/dL 11/08/19 11/08/19 Range/Units 09:51 11:24 RBC (4.30-5.90) m/uL Hgb (13.0-17.5) gm/dL Hct (39.0-53.0) % MCH (25.0-35.0) pg MCHC (31.0-37.0) g/dL RDW (11.5-15.5) % Creatinine 0.63 L (0.66-1.25) mg/dL POC Glucose (mg/dL) 116 H (75-99) mg/dL Uric Acid 3.4 L (3.5-8.5) mg/dL Microbiology - Last 24 Hours (Table) 11/06/19 16:50 Catheter Tip Culture - Preliminary Picc Line 11/05/19 16:51 Blood Culture - Preliminary Blood No Growth after 48 hours 11/05/19 18:29 Gram Stain - Final Foot - Right Wound Culture - Final 11/06/19 04:00 Urine Culture - Final Urine,Clean Catch Assessment and Plan Assessment: Right great toe infection with possible cellulitis, osteomyelitis ruled out with failure of outpatient treatment, sepsis, present on admission, on empiric antibiotics History of recent hospital admission with staph epidermidis Status post PICC line insertion recently of the left arm as well as blockage and TPA recently Elevated lactic acid secondary to sepsis presently Anemia, normocytic anemia of chronic disease Continued ongoing nicotine dependence History of coronary artery disease Dementia Diabetes mellitus type 2 Hypertension Hyperlipidemia history of back pain History of DJD history of anxiety Bedbug infestation Full code Plan: Continue current medications, management, and symptomatic treatment. Patient is maintained on IV antibiotics in the form of vancomycin and will continue at this time. Infectious disease and vascular surgery following. Guarded prognosis. Further recommendations to follow.
[2019-11-08 16:25] LABS: Glucose,Whole Blood 138 mg/dL (75-99)
--- NOTE | 2019-11-08 17:11 | PN ---
PROGRESS NOTE DATE OF SERVICE: 11/08/2019 REASON FOR FOLLOWUP: Right big toe wound and a question of osteomyelitis. INTERVAL HISTORY: The patient is currently afebrile. The patient is breathing comfortably. Denies having any chest pain or shortness of breath or cough. No nausea or vomiting. No abdominal pain or any worsening pain in the right big toe. PHYSICAL EXAMINATION: Blood pressure is 139/89 with a pulse of 58, temperature 98. He is 97% on room air. General description is an elderly male up in the chair in no distress. RESPIRATORY SYSTEM: Unlabored breathing. Clear to auscultation anteriorly. HEART: S1, S2. Regular rate and rhythm. ABDOMEN: Soft. No tenderness. Right big toe is currently dressed up. No obvious drainage on the dressing. LABS: Hemoglobin 8.8, white count 4.8. Sedimentation rate is 10. Creatinine 0.58. Blood culture negative. Catheter tip culture negative. DIAGNOSTIC IMPRESSION AND PLAN: Patient with right big toe wound debridement and has received a few weeks of IV antibiotic therapy, admitted to hospital with a fever with concern for possible PICC line-related, which has been discontinued. Catheter tip cultures are currently pending. Will keep the patient on vancomycin for now. However, if the culture remains negative, plan on oral antibiotic. Hence recommend no further PICC line insertion at this point. Continue with supportive care. MMODL / IJN: [id number] /
[2019-11-08 20:39] LABS: Glucose,Whole Blood 135 mg/dL (75-99)
[2019-11-08] MEDS: DONEPEZIL 10 MG TAB PO SCH (21:12)
[2019-11-08] MEDS: DULoxetine HCL 60 MG CAPSULE.DR PO SCH (21:12)
[2019-11-09] MEDS: HYDROcodone/APAP 10-325MG 1 EACH TAB PO PRN ×3 (03:48→20:40)
[2019-11-09] MEDS ORDERED: VANCOMYCIN TROUGH DUE 1 EACH MISC MISCELLANE ONE (07:00)
[2019-11-09 07:31] LABS: Glucose,Whole Blood 98 mg/dL (75-99)
[2019-11-09] MEDS: INSULIN ASPART (NovoLOG) 100 UNIT/ML VIAL SQ SCH ×4 (07:40→20:40)
[2019-11-09] MEDS: PANTOPRAZOLE 40 MG TABLET PO SCH (07:45)
[2019-11-09] MEDS: ATORVASTATIN 40 MG TAB PO SCH (07:45)
[2019-11-09] MEDS: metFORMIN 500 MG TAB PO SCH (07:45)
[2019-11-09] MEDS: CLOPIDOGREL 75 MG TAB PO SCH (07:46)
[2019-11-09] MEDS: amLODIPine 5 MG TAB PO SCH (07:46)
[2019-11-09] MEDS: TAMSULOSIN 0.4 MG CAP.ER.24H PO SCH ×2 (07:46→20:40)
[2019-11-09] MEDS: PREGABALIN 50 MG CAP PO SCH ×2 (07:46→20:40)
[2019-11-09] MEDS: lisinopriL 20 MG TAB PO SCH (07:46)
[2019-11-09] MEDS: ASPIRIN 81 MG PO SCH (07:47)
[2019-11-09] MEDS: VANCOMYCIN 1,750 MG in SODIUM CHLORIDE 0.9% 500 ML 500 ML IVPB SCH ×2 (07:47→20:40)
[2019-11-09] MEDS: NICOTINE 14MG/24HR PATCH TRANSDERM SCH (07:52)
[2019-11-09] MEDS: IPRATROPIUM-ALBUTEROL 3 ML NEB INHALATION PRN ×2 (08:00→11:14)
[2019-11-09] MEDS: IPRATROPIUM 0.5 MG/2.5 ML NEBU INHALATION SCH ×3 (08:00→20:47)
[2019-11-09] MEDS: SYMBICORT 160-4.5 MCG INHALER INHALATION SCH ×2 (08:01→20:46)
[2019-11-09] MEDS: RIVAROXABAN 20 MG TAB PO SCH (08:37)
[2019-11-09 11:55] LABS: Glucose,Whole Blood 103 mg/dL (75-99)
[2019-11-09] MEDS: COLLAGENASE 250 UNIT/GM OINTMENT 30 GM TUBE TOPICAL SCH (12:00)
--- NOTE | 2019-11-09 12:42 | P.PN ---
Subjective Progress Note Date: 11/09/19 Principal diagnosis: This is a 69-year-old male who was recently admitted with pain and swelling of the right great toe with possible cellulitis and is being closely monitored. Co mputed tomography scan showed no evidence of any abscess. Patient underwent bone scan of the right lower extremity showing no evidence of osteomyelitis. Infectious disease and vascular surgery following closely. Patient is maintained on IV antibiotics in the form of vancomycin and will continue at this time. Wound, blood, and urine cultures have been negative. Patient had a recent PICC line removal and preliminary culture showing gram-negative bacilli isolated and will watch for finalization. Currently no reports of chest pain, shortness of breath, or palpitations. Patient is afebrile. No reports of nausea or vomiting and patient is tolerating diet. 11/09/2019 Patient is seen and evaluated in follow-up currently sleeping but easily arousable. Patient continues to have some generalized pain and requesting an increase in pain medications. Infectious disease is following and patient is currently maintained on IV antibiotics in the form of vancomycin and will continue while awaiting for PICC line tip cultures to finalized. Wound, blood, and urine cultures have been negative. No acute overnight issues. Review of systems: Constitutional: No reports of fatigue, fever, or chills Cardiovascular: No reports of chest pain or palpitations Respiratory: No reports of shortness of breath or cough GI: No reports of nausea, vomiting, or diarrhea : No reports of dysuria or retention Neurovascular: No reports of weakness or numbness All medications have been reviewed Objective - Vital Signs Vital signs: Vital Signs Temp 97.9 F 11/09/19 07:00 Pulse 68 11/09/19 11:24 Resp 16 11/09/19 07:15 BP 113/62 11/09/19 07:00 Pulse Ox 97 11/09/19 07:00 Intake & Output 11/08/19 11/09/19 11/09/19 18:59 06:59 18:59 Intake Total 400 Balance 400 Intake: Oral 400 Other: Voiding Method Toilet Toilet Toilet # Voids 3 - Exam Gen: This is a 69-year-old male currently lying in bed, sleeping but easily arousable, alert and oriented 3, well-developed, well-nourished. HEENT: Head is atraumatic, normocephalic. Pupils equal, round. Sclerae is anicteric. NECK: Supple. No JVD. No lymphadenopathy. No thyromegaly. LUNGS: Sounds diminished bilaterally with a few scattered rhonchi noted. No intercostal retractions. HEART: S1, S2 are muffled ABDOMEN: Soft. Bowel sounds are present. No masses. No tenderness. EXTREMITIES: No pedal edema. No calf tenderness. Right big toe redness and sloughing of skin noted NEUROLOGICAL: Patient is awake, alert and oriented x3. Cranial nerves 2 through 12 are grossly intact. - Labs CBC & Chem 7: 11/08/19 09:51 11/08/19 09:51 Labs: Abnormal Lab Results - Last 24 Hours (Table) 11/08/19 11/08/19 11/09/19 Range/Units 16:24 20:37 11:54 POC Glucose (mg/dL) 138 H 135 H 103 H (75-99) mg/dL Microbiology - Last 24 Hours (Table) 11/05/19 16:51 Blood Culture - Preliminary Blood No Growth after 72 hours Assessment and Plan Assessment: Right great toe infection with possible cellulitis, osteomyelitis ruled out with failure of outpatient treatment, sepsis, present on admission, on empiric antibiotics History of recent hospital admission with staph epidermidis Status post PICC line insertion recently of the left arm as well as blockage and TPA recently Elevated lactic acid secondary to sepsis presently Anemia, normocytic anemia of chronic disease Continued ongoing nicotine dependence History of coronary artery disease Dementia Gait dysfunction Diabetes mellitus type 2 Hypertension Hyperlipidemia history of back pain History of DJD history of anxiety Bedbug infestation Full code Plan: Continue current medications, management, and symptomatic treatment. Patient is maintained on IV antibiotics in the form of vancomycin and will continue at this time. Awaiting for PICC line tip culture finalization to determine outpatient antibiotic coverage. Infectious disease and vascular surgery following. Guarded prognosis. Case management and social work following as patient would like to go to rehab as he is having some gait dysfunction and weakness along with very poor living conditions with reported bedbug infestation in the home. Further recommendations to follow.
[2019-11-09 17:31] LABS: Glucose,Whole Blood 113 mg/dL (75-99)
--- NOTE | 2019-11-09 17:34 | PN ---
PROGRESS NOTE DATE OF SERVICE: 11/09/2019 REASON FOR FOLLOWUP: 1. Right big toe diabetic foot infection. 2. Fever with a question of PICC line infection. INTERVAL HISTORY: The patient is currently afebrile. The patient is breathing comfortably. The patient denies having any chest pain or cough. No nausea or vomiting. No abdominal pain or pain to the right big toe. PHYSICAL EXAMINATION: Blood pressure 140/80 with a pulse of 90, temperature 98. He is 95% on room air. General description is an elderly male lying in bed in no distress. RESPIRATORY SYSTEM: Unlabored breathing. Clear to auscultation anteriorly. HEART: S1, S2. Regular rate and rhythm. ABDOMEN: Soft. No tenderness. Right big toe is currently dressed up. No drainage on the dressing. LABS: Vancomycin trough is 19. Blood culture negative. Catheter tip culture currently pending. Wound culture has been negative. DIAGNOSTIC IMPRESSION AND PLAN: Patient with a chronic nonhealing wound to the right big toe, for which the patient received more than 6 weeks of IV antibiotic therapy, admitted to the hospital with fever with concern for possible PICC line infection. That has been discontinued. PICC line tip culture is currently pending. Blood culture is negative. If the catheter tip cultures come back negative, plan to finish therapy with oral Bactrim DS one b.i.d. for about a week. Local care to continue per Vascular Surgery. Continue with supportive care. MMROSIOL / IJN: [id number] /
[2019-11-09 20:23] LABS: Glucose,Whole Blood 136 mg/dL (75-99)
[2019-11-09] MEDS: DULoxetine HCL 60 MG CAPSULE.DR PO SCH (20:40)
[2019-11-09] MEDS: DONEPEZIL 10 MG TAB PO SCH (20:40)
[2019-11-10] MEDS: HYDROcodone/APAP 10-325MG 1 EACH TAB PO PRN ×2 (05:54→13:44)
[2019-11-10 06:44] LABS: Glucose,Whole Blood 94 mg/dL (75-99)
[2019-11-10] MEDS: INSULIN ASPART (NovoLOG) 100 UNIT/ML VIAL SQ SCH ×2 (06:47→11:45)
[2019-11-10 06:59] VITALS: BP 138/82; RESP 17; TEMP 97.9
[2019-11-10] MEDS: PREGABALIN 50 MG CAP PO SCH (07:00)
[2019-11-10] MEDS: TAMSULOSIN 0.4 MG CAP.ER.24H PO SCH (07:00)
[2019-11-10] MEDS: metFORMIN 500 MG TAB PO SCH (07:01)
[2019-11-10] MEDS: ATORVASTATIN 40 MG TAB PO SCH (07:01)
[2019-11-10] MEDS: amLODIPine 5 MG TAB PO SCH (07:01)
[2019-11-10] MEDS: lisinopriL 20 MG TAB PO SCH (07:01)
[2019-11-10] MEDS: PANTOPRAZOLE 40 MG TABLET PO SCH (07:01)
[2019-11-10] MEDS: CLOPIDOGREL 75 MG TAB PO SCH (07:01)
[2019-11-10] MEDS: RIVAROXABAN 20 MG TAB PO SCH (07:02)
[2019-11-10] MEDS: ASPIRIN 81 MG PO SCH (07:02)
[2019-11-10] MEDS: HYDROmorphone 0.5 MG/0.5 ML SYRINGE IVP PRN (07:07)
[2019-11-10] MEDS: NICOTINE 14MG/24HR PATCH TRANSDERM SCH (07:07)
[2019-11-10] MEDS: COLLAGENASE 250 UNIT/GM OINTMENT 30 GM TUBE TOPICAL SCH (07:08)
[2019-11-10] MEDS: VANCOMYCIN 1,750 MG in SODIUM CHLORIDE 0.9% 500 ML 500 ML IVPB SCH (07:08)
[2019-11-10] MEDS: IPRATROPIUM 0.5 MG/2.5 ML NEBU INHALATION SCH ×2 (07:10→10:45)
[2019-11-10] MEDS: IPRATROPIUM-ALBUTEROL 3 ML NEB INHALATION PRN ×2 (07:10→10:45)
[2019-11-10] MEDS: SYMBICORT 160-4.5 MCG INHALER INHALATION SCH (07:11)
[2019-11-10 10:20] LABS: African American GFR (CKD) >90 (>60 ml/min/1.73 sqM); Non-African American GFR(CKD) >90 (>60 ml/min/1.73 sqM)
[2019-11-10 10:58] VITALS: PULSE 84
[2019-11-10 11:25] LABS: Glucose,Whole Blood 118 mg/dL (75-99)
--- NOTE | 2019-11-10 15:37 | PN ---
PROGRESS NOTE DATE OF SERVICE: 11/10/2019 REASON FOR FOLLOWUP: 1. Right big toe wound and cellulitis. 2. Positive catheter tip culture with a Gram-negative. INTERVAL HISTORY: The patient is currently afebrile, has been breathing comfortably. Denies having any chest pain or cough. No nausea. No vomiting or abdominal pain. Overall pain to the big toe is currently controlled. PHYSICAL EXAMINATION: Blood pressure 138/82 with a pulse of 64, temperature 97.9. He is 97% on room air. General description is an elderly male up in the room in no distress. RESPIRATORY SYSTEM: Unlabored breathing. Clear to auscultation anteriorly. HEART: S1, S2. Regular rate and rhythm. ABDOMEN: Soft. No tenderness. Right big toe is currently dressed. No obvious drainage on the dressing. LABS: Creatinine 0.73. Catheter tip positive culture with a Gram-negative. Blood cultures were negative, though. Local wound culture negative. CT was negative for any abscess and bone scan negative. DIAGNOSTIC IMPRESSION AND PLAN: 1. Patient with right big toe diabetic foot infection, previous culture positive for Staphylococcus epidermidis, for which the patient received more than 6 weeks of IV antibiotic therapy. Vancomycin will be discontinued. He will be given a short course of oral Bactrim DS. 2. Positive catheter tip culture with a Gram-negative. That has been discontinued. Blood cultures were negative. Clinically no evidence of any bacteremia or residual infection. Bactrim DS one b.i.d. for a week and close outpatient followup. MMODL / IJN: [id number] /
--- NOTE | 2019-11-13 09:00 | P.DS ---
Providers Date of admission: 11/05/19 17:53 Expected date of discharge: 11/10/19 Attending physician: Connie France Consults: 11/05/19 17:52 Consult Physician Routine Consulting Provider: Malik Ryan Consult Reason/Comments: Foot infection Do you want consulting provider notified?: Yes 11/06/19 11:25 Consult Physician Routine Consulting Provider: Pepe Baez Consult Reason/Comments: possible debridement of right foot great toe. Do you want consulting provider notified?: Yes [facility] Course: Final diagnosis Right great toe infection with possible cellulitis, osteomyelitis ruled out with failure of outpatient treatment, sepsis, present on admission, on empiric antibiotics History of recent hospital admission with staph epidermidis Status post PICC line insertion recently of the left arm as well as blockage and TPA recently Elevated lactic acid secondary to sepsis presently Anemia, normocytic anemia of chronic disease Continued ongoing nicotine dependence History of coronary artery disease Dementia Gait dysfunction Diabetes mellitus type 2 Hypertension Hyperlipidemia history of back pain History of DJD history of anxiety Bedbug infestation Full code Discharge disposition Patient is being discharged in a stable condition with guarded prognosis to home. Patient will continue with home care in the outpatient setting. Patient will follow-up with Dr. Mckeon along with vascular surgery Dr. Baez in the outpatient setting upon discharge. Patient is to continue with a short course of oral antibiotics in the form of Bactrim DS twice daily for the next 7 days to complete the course. Patient will also continue with local wound care of the right foot. Total time taken is greater than 35 minutes. History of present illness This is a 69-year-old male who was recently admitted with pain and swelling of the right great toe with possible cellulitis and was being closely monitored. Patient was being followed by infectious disease along with vascular surgery as he underwent debridement of the right great toe. Patient was initiated on IV antibiotics in the form of vancomycin. Patient recently had a PICC line with failure of outpatient therapy. PICC line was ultimately removed and cultures finalized showing Cedecea neteri which is sensitive to Bactrim and will continue with oral antibiotics in the form of Bactrim DS twice daily for the next one week to complete the course. Patient will follow-up with vascular surgery in one week to 10 days in the outpatient setting. Patient will continue with local wound care to the area and will be continuing with home care in the outpatient setting. Currently no reports of chest pain, shortness of breath, or palpitations. Patient is afebrile. No reports of nausea or vomiting and patient is tolerating diet. Patient will be discharged home today. Guarded prognosis. On exam vital signs are stable. Temp is 97.9F, pulse is 64, respirations are 17, blood pressure is 138/82, oxygen saturation is 96% on room air. Cardio S1, S2 are muffled. Respiratory system shows diminished breath sounds at the bases with no wheezing or rhonchi noted. Abdomen is soft and nontender. Nervous system shows no focal deficits. Please refer to medication reconciliation sheet for a list of medications. Patient Condition at Discharge: Stable Plan - Discharge Summary Discharge Rx Participant: Yes New Discharge Prescriptions: New Sulfamethox-Tmp 800-160Mg [Bactrim DS 800-160 mg] 1 tab PO Q12HR 7 Days #14 tab DULoxetine HCL [Cymbalta] 60 mg PO HS 30 Days #30 capsule. Pregabalin [Lyrica] 150 mg PO BID #30 cap HYDROcodone/APAP 10-325MG [[place] 10-325] 1 each PO Q6H PRN #12 tab PRN Reason: Pain Collagenase [Santyl] 1 applic TOPICAL DAILY 30 Days #1 applic Rivaroxaban [Xarelto] 20 mg PO DAILY 30 Days #30 tab Continue metFORMIN HCL [Glucophage] 500 mg PO W/BRKFST Umeclidinium [place] [Incruse Ellipta] 1 puff INHALATION RT-DAILY Enalapril [Vasotec] 20 mg PO DAILY Donepezil [Aricept] 10 mg PO HS Rosuvastatin Calcium 40 mg PO DAILY Clopidogrel Bisulfate [Plavix] 75 mg PO DAILY #90 tab Albuterol Sulfate [Ventolin HFA] 2 puff INHALATION RT-Q4H PRN PRN Reason: Shortness Of Breath amLODIPine [Norvasc] 5 mg PO DAILY Aspirin 81 mg PO DAILY Tamsulosin HCl [Flomax] 0.4 mg PO BID Budesonide-Formot 160-4.5 Mcg [Symbicort 160-4.5 Mcg Inhaler] 2 puff INHALATION RT-BID #1 puff tiZANidine HCL [Zanaflex] 4 mg PO TID PRN PRN Reason: Muscle Pain Fluticasone Nasal [place] [Flonase Nasal [place]] 1 - 2 spr EA NOSTRIL DAILY PRN PRN Reason: Allergy Symptoms Atorvastatin Calcium [Lipitor] 20 mg PO HS Discharge Medication List Enalapril [Vasotec] 20 mg PO DAILY 12/17/16 [History] Umeclidinium [place] [Incruse Ellipta] 1 puff INHALATION RT-DAILY 12/17/16 [History] metFORMIN HCL [Glucophage] 500 mg PO W/BRKFST 12/17/16 [History] Donepezil [Aricept] 10 mg PO HS 11/16/18 [History] Rosuvastatin Calcium 40 mg PO DAILY 08/01/19 [History] Clopidogrel Bisulfate [Plavix] 75 mg PO DAILY #90 tab 08/03/19 [Rx] Albuterol Sulfate [Ventolin HFA] 2 puff INHALATION RT-Q4H PRN 09/05/19 [History] Aspirin 81 mg PO DAILY 09/05/19 [History] Tamsulosin HCl [Flomax] 0.4 mg PO BID 09/05/19 [History] amLODIPine [Norvasc] 5 mg PO DAILY 09/05/19 [History] Budesonide-Formot 160-4.5 Mcg [Symbicort 160-4.5 Mcg Inhaler] 2 puff INHALATION RT-BID #1 puff 09/08/19 [Rx] Atorvastatin Calcium [Lipitor] 20 mg PO HS 11/06/19 [History] Fluticasone Nasal [place] [Flonase Nasal [place]] 1 - 2 spr EA NOSTRIL DAILY PRN 11/06/19 [History] tiZANidine HCL [Zanaflex] 4 mg PO TID PRN 11/06/19 [History] Collagenase [Santyl] 1 applic TOPICAL DAILY 30 Days #1 applic 11/10/19 [Rx] DULoxetine HCL [Cymbalta] 60 mg PO HS 30 Days #30 keri. 11/10/19 [Rx] HYDROcodone/APAP 10-325MG [[place] 10-325] 1 each PO Q6H PRN #12 tab 11/10/19 [Rx] Pregabalin [Lyrica] 150 mg PO BID #30 cap 11/10/19 [Rx] Rivaroxaban [Xarelto] 20 mg PO DAILY 30 Days #30 tab 11/10/19 [Rx] Sulfamethox-Tmp 800-160Mg [Bactrim DS 800-160 mg] 1 tab PO Q12HR 7 Days #14 tab 11/10/19 [Rx] Follow up Appointment(s)/Referral(s): Mayela Mckeon MD [Primary Care Provider] - 11/21/19 2:30 pm () Pepe Baez MD [STAFF PHYSICIAN] - 11/16/19 10:30 am [facility] Visiting Nurse, [NON-STAFF] - Patient Instructions/Handouts: Sepsis (GEN) Activity/Diet/Wound Care/Special Instructions: Activity Limited until follow-up Follow-up with primary care provider upon discharge Continue with antibiotics twice daily for the next 1 week until finished Continue with local wound care Follow up with Dr. Baez at the wound care center Continue current diet Continue with home care in the outpatient setting Discharge Disposition: HOME WITH HOME HEALTH SERVICES
--- NOTE | 2019-11-14 06:40 | CDI ---
Documentation Clarification Form Date: 11/14/19 From: Demi De La Torre Phone: If you have a question about this query, please contact Zamzam Joe, Insurance Agent at [phone] between 8am and 5pm. Admit Date: 11/05/19 Discharge Date: 11/10/19 Patient Name: ALMA TUBBS Visit Number: [id number] ATTENTION: The Clinical Documentation Specialists (CDI) and [facility] Coding Staff appreciate your assistance in clarifying documentation. Please respond to the clarification below the line at the bottom and electronically sign. The CDI & [facility] Coding staff will review the response and follow-up if needed. Please note: Queries are made part of the Legal Health Record. If you have any questions, please contact the author of this message via ITS. Dear Dr. Jh Kasper, The patient presented with right great toe infection, cellulitis. Elevated lactic acid secondary to sepsis. Currently with left PICC line. History/Risk Factors: Type 2 DM with PVD, cellulitis, foot ulcer, dementia, COPD, CAD, HTN, HLD Clinical Indicators: Neutrophils-91, Lactic AC Sepsis Rflx-Y, CRP-44.4 WBC; 7.9 Lactic acid: 2.5/3.3 PICC Blood cultures: Cedecea neteri-many Vitals signs on admission: T-101.9, P-122, R-20, BP-141/97, O2-97 ID Consult: DC PICC line and culture, change from Zosyn to Vanco Antibiotics: IV Zosyn to IV Vanco, IV Bolus: Y In your professional opinion, please clarify if these findings signify one of the following conditions, whether the condition is POA, and cause, if known: Condition Sepsis due to PICC line infection due to Cedecea neteri Sepsis due to right great toe cellulitis Severe Sepsis Septic Shock Other, please specify Unable to determine Sepsis due to right great toe cellulitis MTDD
--- NOTE | 2019-11-14 06:44 | CDI ---
Documentation Clarification Form Date: 11/14/19 From: Demi De La Torre Phone: If you have a question about this query, please contact Zamzam Joe, Coil Cutter at [phone] between 8am and 5pm. Admit Date: 11/05/19 Discharge Date: 11/10/19 Patient Name: ALMA TUBBS Visit Number: [id number] ATTENTION: The Clinical Documentation Specialists (CDI) and [facility] Coding Staff appreciate your assistance in clarifying documentation. Please respond to the clarification below the line at the bottom and electronically sign. The CDI & [facility] Coding staff will review the response and follow-up if needed. Please note: Queries are made part of the Legal Health Record. If you have any questions, please contact the author of this message via ITS. Dear Dr. Jh Kasper, Documentation states: Elevated lactic acid secondary to sepsis History/Risk Factors: sepsis, right great toe infection, cellulitisType 2 DM with PVD, cellulitis, foot ulcer, dementia, COPD, CAD, HTN, HLD Clinical indicators: lactic acid: 2.5/3.3/1.7 Treatment: sepsis treated with antibiotics Clinical significance of diagnostic testing and treatment CANNOT be assumed or coded without physician documentation of significance if any. Please clarify what abnormal laboratory signifies: Lactic acidosis Abnormal Lab Value Unable to determine Other, please specify Lactic acidosis MTDD
== END 2019-11-10 14:31 | disposition home health service (06) | DRG 872 ==
LOC: EC 16:10 → 4SSUR 17:53
PROVIDERS: ADMIT Hospitalist; ATTEND Hospitalist
DX: A41.9 Sepsis, unspecified organism (principal); I82.622 Acute embolism and thrombosis of deep veins of left upper extremity; E87.2 Acidosis; D68.51 Activated protein C resistance; D63.8 Anemia in other chronic diseases classified elsewhere; L97.512 Non-pressure chronic ulcer of other part of right foot with fat layer exposed; E11.51 Type 2 diabetes mellitus with diabetic peripheral angiopathy without gangrene; E11.628 Type 2 diabetes mellitus with other skin complications; E11.621 Type 2 diabetes mellitus with foot ulcer; F03.90 Unspecified dementia, unspecified severity, without behavioral disturbance, psychotic disturbance, mood disturbance, and anxiety; J44.9 Chronic obstructive pulmonary disease, unspecified; B88.8 Other specified infestations; I72.4 Aneurysm of artery of lower extremity; I25.10 Atherosclerotic heart disease of native coronary artery without angina pectoris; L03.031 Cellulitis of right toe; R26.9 Unspecified abnormalities of gait and mobility; E78.5 Hyperlipidemia, unspecified; I10 Essential (primary) hypertension; F41.9 Anxiety disorder, unspecified; H91.90 Unspecified hearing loss, unspecified ear; M54.9 Dorsalgia, unspecified; M19.90 Unspecified osteoarthritis, unspecified site; F17.210 Nicotine dependence, cigarettes, uncomplicated; Z71.6 Tobacco abuse counseling; Z79.82 Long term (current) use of aspirin; Z79.51 Long term (current) use of inhaled steroids; Z79.84 Long term (current) use of oral hypoglycemic drugs; Z79.02 Long term (current) use of antithrombotics/antiplatelets; Z79.01 Long term (current) use of anticoagulants; Z79.899 Other long term (current) drug therapy; Z90.89 Acquired absence of other organs; Z87.19 Personal history of other diseases of the digestive system; Z98.818 Other dental procedure status; Z98.890 Other specified postprocedural states; Z88.1 Allergy status to other antibiotic agents; Z80.9 Family history of malignant neoplasm, unspecified; Z83.2 Family history of diseases of the blood and blood-forming organs and certain disorders involving the immune mechanism
CPT/HCPCS: 36415; 71045; 78315; 80048; 80053; 80202; 82565; 83036; 83605; 84550; 85025; 85652; 86140; 87040; 87070; 87077; 87086; 87186; 87205; 94640; 94660; 96365; 96367; 96375; 99284

== ENCOUNTER 2019-11-15 18:14 | Emergency (ER) | payer MEDICARE, OTHER ==
[2019-11-15 18:28] VITALS: BP 144/72; PULSE 63; RESP 18; TEMP 98.1
[2019-11-15] MEDS ORDERED: SULFAMETH-TMP DS STARTER PACK 2 TAB BTL PO STA (19:31)
[2019-11-15] MEDS ORDERED: ACET/COD 300 MG/30 MG STARTER PACK 6 TAB BTL PO STA (19:31)
--- NOTE | 2019-11-15 19:40 | ED ---
General Adult HPI - General Chief complaint: Recheck/Abnormal Lab/Rx Stated complaint: Out of meds Time Seen by Provider: 11/15/19 19:01 Source: patient, RN notes reviewed, old records reviewed Mode of arrival: ambulatory Limitations: no limitations - History of Present Illness Initial comments: Patient is a 69-year-old male presents today with chief complaint of chronic back pain as well as pain in his right great toe. He was treated for infection and had consults infectious disease and vascular. Patient was treated with IV antibiotics and was discharged on oral Bactrim. He states he is not able to go to the pharmacy to get his antibiotic for the past week. Patient states that his redness around his toe is improving since when he was first admitted to the hospital. He states that he is here for stroke leg pain med refill and again his antibiotics. Patient reports that he lives at home for people also states that he has a known and the station bedbugs. He did not make nursing staff aware. - Related Data Home Medications Medication Instructions Recorded Confirmed Enalapril [Vasotec] 20 mg PO DAILY 12/17/16 11/06/19 Umeclidinium [place] [Incruse 1 puff INHALATION RT-DAILY 12/17/16 11/06/19 Ellipta] metFORMIN HCL [Glucophage] 500 mg PO W/BRKFST 12/17/16 11/06/19 Donepezil [Aricept] 10 mg PO HS 11/16/18 11/06/19 Rosuvastatin Calcium 40 mg PO DAILY 08/01/19 11/06/19 Albuterol Sulfate [Ventolin HFA] 2 puff INHALATION RT-Q4H PRN 09/05/19 11/06/19 Aspirin 81 mg PO DAILY 09/05/19 11/06/19 Tamsulosin HCl [Flomax] 0.4 mg PO BID 09/05/19 11/06/19 amLODIPine [Norvasc] 5 mg PO DAILY 09/05/19 11/06/19 Atorvastatin Calcium [Lipitor] 20 mg PO HS 11/06/19 11/06/19 Fluticasone Nasal [place] [Flonase 1 - 2 spr EA NOSTRIL DAILY PRN 11/06/19 11/06/19 Nasal [place]] tiZANidine HCL [Zanaflex] 4 mg PO TID PRN 11/06/19 11/06/19 Previous Rx's Medication Instructions Recorded Clopidogrel Bisulfate [Plavix] 75 mg PO DAILY #90 tab 08/03/19 Budesonide-Formot 160-4.5 Mcg 2 puff INHALATION RT-BID #1 puff 09/08/19 [Symbicort 160-4.5 Mcg Inhaler] Collagenase [Santyl] 1 applic TOPICAL DAILY 30 Days #1 11/10/19 applic DULoxetine HCL [Cymbalta] 60 mg PO HS 30 Days #30 capsule.dr 11/10/19 HYDROcodone/APAP 10-325MG [[place] 1 each PO Q6H PRN #12 tab 11/10/19 10-325] Pregabalin [Lyrica] 150 mg PO BID #30 cap 11/10/19 Rivaroxaban [Xarelto] 20 mg PO DAILY 30 Days #30 tab 11/10/19 Sulfamethox-Tmp 800-160Mg [Bactrim 1 tab PO Q12HR 7 Days #14 tab 11/10/19 DS 800-160 mg] Allergies Allergy/AdvReac Type Severity Reaction Status Date / Time tetracycline [Tetracycline] Allergy Swelling Verified 11/15/19 18:23 Review of Systems ROS Statement: Those systems with pertinent positive or pertinent negative responses have been documented in the HPI. ROS Other: All systems not noted in ROS Statement are negative. Past Medical History Past Medical History: Asthma, Coronary Artery Disease (CAD), COPD, Dementia, Diabetes Mellitus, Hyperlipidemia, Hypertension Additional Past Medical History / Comment(s): back pain, DDD, LT GREAT TOE WOUND History of Any Multi-Drug Resistant Organisms: None Reported Past Surgical History: Adenoidectomy, Orthopedic Surgery, Tonsillectomy Additional Past Surgical History / Comment(s): pilonidal cyst, top teeth removed, R great toe bone resection Past Anesthesia/Blood Transfusion Reactions: Previous Problems w/ Anesthesia Additional Past Anesthesia/Blood Transfusion Reaction / Comment(s): "I have to have extra anesthesia" Past Psychological History: Anxiety Smoking Status: Current every day smoker Past Alcohol Use History: None Reported Past Drug Use History: None Reported - Past Family History Father Family Medical History: Cancer Sister(s) Family Medical History: Blood Disorder Brother(s) Family Medical History: Blood Disorder General Exam - General Exam Comments Initial Comments: 69 year old male. Alert, oriented, no acute distress. Limitations: no limitations General appearance: alert, in no apparent distress Head exam: Present: atraumatic, normocephalic, normal inspection Eye exam: Present: normal appearance, PERRL, EOMI. Absent: scleral icterus, conjunctival injection, periorbital swelling ENT exam: Present: normal exam, mucous membranes moist Neck exam: Present: normal inspection. Absent: tenderness, meningismus, lymphadenopathy Respiratory exam: Present: normal lung sounds bilaterally. Absent: respiratory distress, wheezes, rales, rhonchi, stridor Cardiovascular Exam: Present: regular rate, normal rhythm, normal heart sounds. Absent: systolic murmur, diastolic murmur, rubs, gallop, clicks GI/Abdominal exam: Present: soft, normal bowel sounds. Absent: distended, tenderness, guarding, rebound, rigid Extremities exam: Present: normal inspection, full ROM, normal capillary refill, other (Patient has erythematous on over the right great toe. Patient has normal pulse.On Doppler. Patient reports pain with this is chronic. He also states his chronic back pain.). Absent: tenderness, pedal edema, joint swelling, calf tenderness Back exam: Present: normal inspection Neurological exam: Present: alert, oriented X3, CN II-XII intact Psychiatric exam: Present: normal affect, normal mood Course Vital Signs 11/15/19 18:23 Temperature 98.1 F Pulse Rate 63 Respiratory 18 Rate Blood Pressure 144/72 O2 Sat by Pulse 99 Oximetry Medical Decision Making - Medical Decision Making ACL male requests a refill of his [place] 12/08/2024's for chronic back pain and foot pain. 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 He has an appointment on November 20. He was given a starter pack for pain. Patient was also given a dose of the oral Bactrim that he is supposed to be on but has not been able to go to the pharmacy. His toe is improving as far as the redness and cellulitis goes. He states that he is not having drainage. Patient also was found have bedbugs and room and Patient were treated. Advised Patient to follow up with orthopedic and primary care physician for further pain medication and to finish his course of antibiotics. Disposition Clinical Impression: Chronic back pain, Medication refill, Foot infection, Infestation by bed bug Disposition: HOME SELF-CARE Condition: Good Instructions (If sedation given, give patient instructions): Chronic Back Pain (DC), Wound Infection (ED), Chronic Wound Care (ED) Additional Instructions: Patient advised to follow-up with primary care physician and home health. Return to emergency department if any alarming signs symptoms occur. Follow up with PCP in orthopedic for further pain med prescriptions. Take the antibiotics as prescribed. Is patient prescribed a controlled substance at d/c from ED?: No Referrals: Mayela Mckeon MD [Primary Care Provider] - 1-2 days Time of Disposition: 19:38
== END 2019-11-15 19:51 | disposition home or self-care (01) ==
LOC: EC 18:14
DX: G89.29 Other chronic pain (principal); M54.9 Dorsalgia, unspecified; Z76.0 Encounter for issue of repeat prescription; L08.9 Local infection of the skin and subcutaneous tissue, unspecified; B88.8 Other specified infestations
CPT/HCPCS: 99283

== ENCOUNTER → 2020-02-06 | Outpatient (CLI) | payer MEDICARE, OTHER ==
--- NOTE | 2020-02-07 07:23 | XR ---
EXAMINATION TYPE: XR chest 2V DATE OF EXAM: 02/06/2020 COMPARISON: Prior chest x-ray 11/06/2019 HISTORY: J 44.9, shortness of breath history of COPD TECHNIQUE: Frontal and lateral views of the chest are obtained. FINDINGS: There is no focal air space opacity, pleural effusion, or pneumothorax seen. The cardiac silhouette size is within normal limits. The osseous structures are intact, old healed anterior rib fractures suspected on the right. The aorta is dense. There are prominent lung volumes. IMPRESSION: No acute cardiopulmonary process.
== END | disposition home or self-care (01) ==
LOC: RAD 16:48
PROVIDERS: ATTEND Nurse Practitioner
DX: J44.9 Chronic obstructive pulmonary disease, unspecified (principal)
CPT/HCPCS: 71046

== ENCOUNTER 2020-02-08 17:52 | Observation (INO) | payer MEDICARE, OTHER ==
[2020-02-08] MEDS ORDERED: IPRATROPIUM-ALBUTEROL 3 ML NEB INHALATION STA (18:24)
[2020-02-08 19:08] LABS: INR 1.3 (<1.2); Partial Thromboplastin Time 31.2 sec (22.0-30.0); Prothrombin Time 13.2 sec (9.0-12.0)
[2020-02-08 19:15] LABS: ALT 20 U/L (4-49); AST 20 U/L (17-59); African American GFR (CKD) >90 (>60 ml/min/1.73 sqM); Albumin 4.1 g/dL (3.5-5.0); Alkaline Phosphatase 72 U/L (38-126); Anion Gap 8 mmol/L; Blood Urea Nitrogen 20 mg/dL (9-20); Calcium 9.4 mg/dL (8.4-10.2); Carbon Dioxide 20 mmol/L (22-30); Chloride 112 mmol/L (98-107); Glucose 144 mg/dL (74-99); Magnesium 1.8 mg/dL (1.6-2.3); Non-African American GFR(CKD) >90 (>60 ml/min/1.73 sqM); Potassium 3.8 mmol/L (3.5-5.1); Sodium 140 mmol/L (137-145); Total Bilirubin 0.5 mg/dL (0.2-1.3); Total Protein 6.7 g/dL (6.3-8.2)
[2020-02-08 19:19] LABS: Anisocytosis Slight; Basophils % (A) 0 %; Eosinophils % (A) 0 %; HCT 28.3 % (39.0-53.0); HGB 8.1 gm/dL (13.0-17.5); Hypochromasia Marked; Lymphocytes # (A) 1.2 k/uL (1.0-4.8); Lymphocytes % (A) 13 %; MCH 21.2 pg (25.0-35.0); MCHC 28.6 g/dL (31.0-37.0); MCV 73.9 fL (80.0-100.0); Mean Platelet Volume 8.3; Microcytosis Moderate; Monocytes # (A) 0.5 k/uL (0-1.0); Monocytes % (A) 5 %; Neutrophils # (A) 7.7 k/uL (1.3-7.7); Neutrophils % (A) 81 %; Platelet Count 170 k/uL (150-450); Poikilocytosis Slight; RBC 3.83 m/uL (4.30-5.90); RDW 18.3 % (11.5-15.5); WBC 9.5 k/uL (3.8-10.6)
--- NOTE | 2020-02-08 19:40 | XR ---
EXAMINATION TYPE: XR chest 2V DATE OF EXAM: 02/08/2020 COMPARISON: 02/06/2020 HISTORY: Chest pain There is no heart failure nor confluent pneumonic infiltrate. Costophrenic angles are clear. There is slight increased interstitial markings. Thoracic aorta is atheromatous. There are chest leads. Bony thorax is intact. IMPRESSION: Slight increased lung markings suggestive of mild pulmonary fibrosis. No heart failure. L jose markings increased compared to old exam.
--- NOTE | 2020-02-08 19:54 | ED ---
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 Patient states his doctor sent him in because his blood level was low and he is been feeling very short of breath especially with exertion. Patient denies any obvious loss of blood. Patient denies any black or bloody stools. Patient states his doctor just did a rectal exam prior to coming over here and he did not find any blood on the exam. Patient denies any abdominal pain. Patient denies chest pain difficult breathing shortness breath per patient denies any lightheadedness or dizziness. - Related Data Home Medications Medication Instructions Recorded Confirmed Enalapril [Vasotec] 20 mg PO DAILY 12/17/16 02/08/20 Umeclidinium [place] [Incruse 1 puff INHALATION RT-DAILY 12/17/16 02/08/20 Ellipta] metFORMIN HCL [Glucophage] 500 mg PO AC-BRKFST 12/17/16 02/08/20 Donepezil [Aricept] 10 mg PO DAILY 11/16/18 02/08/20 Rosuvastatin Calcium 40 mg PO DAILY 08/01/19 02/08/20 Albuterol Sulfate [Ventolin HFA] 2 puff INHALATION RT-Q4H PRN 09/05/19 02/08/20 Tamsulosin HCl [Flomax] 0.8 mg PO DAILY 09/05/19 02/08/20 Azithromycin [Zithromax Z-pack (6 See Taper PO DAILY 02/08/20 02/08/20 tabs)] Meloxicam 15 mg PO DAILY PRN 02/08/20 02/08/20 methylPREDNISolone Dose Pack See Taper PO DIRECTED 02/08/20 02/08/20 [Medrol Dose Pack] Previous Rx's Medication Instructions Recorded Clopidogrel Bisulfate [Plavix] 75 mg PO DAILY #90 tab 08/03/19 Rivaroxaban [Xarelto] 20 mg PO DAILY 30 Days #30 tab 11/10/19 Allergies Allergy/AdvReac Type Severity Reaction Status Date / Time tetracycline [Tetracycline] Allergy Swelling Verified 02/08/20 18:01 Review of Systems ROS Statement: Those systems with pertinent positive or pertinent negative responses have been documented in the HPI. ROS Other: All systems not noted in ROS Statement are negative. Past Medical History Past Medical History: Asthma, Coronary Artery Disease (CAD), COPD, Dementia, Diabetes Mellitus, Hyperlipidemia, Hypertension Additional Past Medical History / Comment(s): back pain, DDD, LT GREAT TOE WOUND History of Any Multi-Drug Resistant Organisms: None Reported Past Surgical History: Adenoidectomy, Orthopedic Surgery, Tonsillectomy Additional Past Surgical History / Comment(s): pilonidal cyst, top teeth removed, R great toe bone resection Past Anesthesia/Blood Transfusion Reactions: Previous Problems w/ Anesthesia Additional Past Anesthesia/Blood Transfusion Reaction / Comment(s): "I have to have extra anesthesia" Past Psychological History: Anxiety Smoking Status: Current every day smoker Past Alcohol Use History: None Reported Past Drug Use History: Marijuana - Past Family History Father Family Medical History: Cancer Sister(s) Family Medical History: Blood Disorder Brother(s) Family Medical History: Blood Disorder General Exam - General Exam Comments Initial Comments: GENERAL: Patient is well-developed and well-nourished. Patient is nontoxic and well- hydrated and is in mild distress. ENT: Neck is soft and supple. No significant lymphadenopathy is noted. Oropharynx is clear. Moist mucous membranes. Neck has full range of motion without eliciting any pain. EYES: The sclera were anicteric and conjunctiva were pink and moist. Extraocular mo vements were intact and pupils were equal round and reactive to light. Eyelids were unremarkable. PULMONARY: Unlabored respirations. Good breath sounds bilaterally. No audible rales rhonchi or wheezing was noted. CARDIOVASCULAR: There is a regular rate and rhythm without any murmurs gallops or rubs. ABDOMEN: Soft and nontender with normal bowel sounds. SKIN: Skin is clear with no lesions or rashes and otherwise unremarkable. NEUROLOGIC: Patient is alert and oriented x3. Cranial nerves II through XII are grossly intact. Motor and sensory are also intact. Normal speech, volume and content. Symmetrical smile. MUSCULOSKELETAL: Normal extremities with adequate strength and full range of motion. LYMPHATICS: No significant lymphadenopathy is noted PSYCHIATRIC: Normal psychiatric evaluation. Limitations: no limitations Course Vital Signs 02/08/20 02/08/20 02/08/20 17:57 19:42 19:51 Temperature 98.4 F Pulse Rate 84 56 L 60 Respiratory 18 Rate Blood Pressure 172/95 O2 Sat by Pulse 100 Oximetry Medical Decision Making - Medical Decision Making Patient's chest x-ray shows no acute abnormality. Patient got a breathing treatment but continued to wheeze I started the patient on steroids and admitted him for COPD exacerbation as well as anemia. I spoke with the [facility] hospitalist and they agreed to admit the patient. - Lab Data Result diagrams: 02/08/20 18:31 02/08/20 18:31 Lab Results 02/08/20 02/08/20 02/08/20 Range/Units 18:31 18:31 18:31 WBC 9.5 (3.8-10.6) k/uL RBC 3.83 L (4.30-5.90) m/uL Hgb 8.1 L (13.0-17.5) gm/dL Hct 28.3 L (39.0-53.0) % MCV 73.9 L (80.0-100.0) fL MCH 21.2 L (25.0-35.0) pg MCHC 28.6 L (31.0-37.0) g/dL RDW 18.3 H (11.5-15.5) % Plt Count 170 (150-450) k/uL MPV 8.3 Neutrophils % 81 % Lymphocytes % 13 % Monocytes % 5 % Eosinophils % 0 % Basophils % 0 % Neutrophils # 7.7 (1.3-7.7) k/uL Lymphocytes # 1.2 (1.0-4.8) k/uL Monocytes # 0.5 (0-1.0) k/uL Eosinophils # 0.0 (0-0.7) k/uL Basophils # 0.0 (0-0.2) k/uL Hypochromasia Marked Poikilocytosis Slight Anisocytosis Slight Microcytosis Moderate PT 13.2 H (9.0-12.0) sec INR 1.3 H (<1.2) APTT 31.2 H (22.0-30.0) sec Sodium 140 (137-145) mmol/L Potassium 3.8 (3.5-5.1) mmol/L Chloride 112 H (98-107) mmol/L Carbon Dioxide 20 L (22-30) mmol/L Anion Gap 8 mmol/L BUN 20 (9-20) mg/dL Creatinine 0.74 (0.66-1.25) mg/dL Est GFR (CKD-EPI)AfAm >90 (>60 ml/min/1.73 sqM) Est GFR (CKD-EPI)NonAf >90 (>60 ml/min/1.73 sqM) Glucose 144 H (74-99) mg/dL Calcium 9.4 (8.4-10.2) mg/dL Magnesium 1.8 (1.6-2.3) mg/dL Total Bilirubin 0.5 (0.2-1.3) mg/dL AST 20 (17-59) U/L ALT 20 (4-49) U/L Alkaline Phosphatase 72 (38-126) U/L Troponin I (0.000-0.034) ng/mL Total Protein 6.7 (6.3-8.2) g/dL Albumin 4.1 (3.5-5.0) g/dL Blood Type Blood Type Recheck Bld Type Recheck Status Antibody Screen Spec Expiration Date 02/08/20 02/08/20 Range/Units 18:31 18:31 WBC (3.8-10.6) k/uL RBC (4.30-5.90) m/uL Hgb (13.0-17.5) gm/dL Hct (39.0-53.0) % MCV (80.0-100.0) fL MCH (25.0-35.0) pg MCHC (31.0-37.0) g/dL RDW (11.5-15.5) % Plt Count (150-450) k/uL MPV Neutrophils % % Lymphocytes % % Monocytes % % Eosinophils % % Basophils % % Neutrophils # (1.3-7.7) k/uL Lymphocytes # (1.0-4.8) k/uL Monocytes # (0-1.0) k/uL Eosinophils # (0-0.7) k/uL Basophils # (0-0.2) k/uL Hypochromasia Poikilocytosis Anisocytosis Microcytosis PT (9.0-12.0) sec INR (<1.2) APTT (22.0-30.0) sec Sodium (137-145) mmol/L Potassium (3.5-5.1) mmol/L Chloride (98-107) mmol/L Carbon Dioxide (22-30) mmol/L Anion Gap mmol/L BUN (9-20) mg/dL Creatinine (0.66-1.25) mg/dL Est GFR (CKD-EPI)AfAm (>60 ml/min/1.73 sqM) Est GFR (CKD-EPI)NonAf (>60 ml/min/1.73 sqM) Glucose (74-99) mg/dL Calcium (8.4-10.2) mg/dL Magnesium (1.6-2.3) mg/dL Total Bilirubin (0.2-1.3) mg/dL AST (17-59) U/L ALT (4-49) U/L Alkaline Phosphatase (38-126) U/L Troponin I <0.012 (0.000-0.034) ng/mL Total Protein (6.3-8.2) g/dL Albumin (3.5-5.0) g/dL Blood Type O Negative Blood Type Recheck O Neg Bld Type Recheck Status No Antibody Screen NEGATIVE Spec Expiration Date 02/11/20202330 Disposition Clinical Impression: Anemia, Acute exacerbation of chronic obstructive pulmonary disease (COPD) Disposition: ADMITTED IP TO THIS HOSP Referrals: Jhonatan Melvin MD [Primary Care Provider] - 1-2 days Time of Disposition: 20:16
[2020-02-08] MEDS ORDERED: methylPREDNISolone SOD SUCCI 125 MG/2 ML VIAL IV STA (20:22)
[2020-02-08 23:25] LABS: Glucose,Whole Blood 126 mg/dL (75-99)
[2020-02-09] MEDS: methylPREDNISolone SOD SUCCI 125 MG/2 ML VIAL IV SCH ×4 (00:06→18:21)
[2020-02-09 01:26] LABS: Anisocytosis Slight; HCT 27.6 % (39.0-53.0); Hypochromasia Marked; MCH 21.3 pg (25.0-35.0); MCHC 28.9 g/dL (31.0-37.0); MCV 73.7 fL (80.0-100.0); Mean Platelet Volume 8.2; Microcytosis Moderate; Platelet Count 156 k/uL (150-450); Poikilocytosis Slight; RBC 3.74 m/uL (4.30-5.90); RDW 18.3 % (11.5-15.5); WBC 6.4 k/uL (3.8-10.6)
[2020-02-09 01:47] LABS: Large Platelets Present; Lymphocytes # (M) 0.51 k/uL (1.0-4.8); Monocytes # (M) 0.06 k/uL (0-1.0); Neutrophils # (M) 5.82 k/uL (1.3-7.7); Neutrophils % (M) 91 %; Nucleated Red Blood Cells 0 /100 WBC (0-0); Polychromasia Present; Total Cells Counted 100
[2020-02-09 06:13] LABS: Anisocytosis Slight; HCT 28.4 % (39.0-53.0); HGB 8.1 gm/dL (13.0-17.5); Hypochromasia Marked; MCH 21.4 pg (25.0-35.0); MCHC 28.7 g/dL (31.0-37.0); MCV 74.3 fL (80.0-100.0); Mean Platelet Volume 8.3; Microcytosis Moderate; Platelet Count 159 k/uL (150-450); Poikilocytosis Slight; RBC 3.81 m/uL (4.30-5.90); RDW 18.2 % (11.5-15.5); WBC 6.5 k/uL (3.8-10.6)
[2020-02-09] MEDS ORDERED: ALBUTEROL HFA INHALER INHALATION PRN (06:16)
[2020-02-09] MEDS ORDERED: ACETAMINOPHEN TAB 325 MG TAB PO PRN (06:28)
[2020-02-09 06:44] LABS: Large Platelets Present; Lymphocytes # (M) 0.39 k/uL (1.0-4.8); Neutrophils # (M) 6.11 k/uL (1.3-7.7); Neutrophils % (M) 94 %; Nucleated Red Blood Cells 0 /100 WBC (0-0); Total Cells Counted 100
[2020-02-09 06:45] LABS: Polychromasia Present
[2020-02-09 07:18] LABS: Glucose,Whole Blood 169 mg/dL (75-99)
[2020-02-09] MEDS ORDERED: metFORMIN 500 MG TAB PO SCH (07:30)
[2020-02-09] MEDS: IPRATROPIUM 0.5 MG/2.5 ML NEBU INHALATION SCH ×4 (07:38→19:56)
[2020-02-09] MEDS: INSULIN ASPART (NovoLOG) 100 UNIT/ML VIAL SQ SCH ×4 (08:34→21:33)
[2020-02-09 08:59] LABS: Reticulocyte % 2.8 % (0.5-2.0)
[2020-02-09] MEDS: TAMSULOSIN 0.4 MG CAP.ER.24H PO SCH (09:00)
[2020-02-09] MEDS: lisinopriL 20 MG TAB PO SCH (09:00)
[2020-02-09] MEDS: ATORVASTATIN 80 MG TAB PO SCH (09:00)
[2020-02-09] MEDS: DONEPEZIL 10 MG TAB PO SCH (09:00)
[2020-02-09] MEDS: HYDROmorphone 0.5 MG/0.5 ML SYRINGE IVP PRN ×3 (09:00→21:38)
--- NOTE | 2020-02-09 09:57 | P.HPIM ---
History of Present Illness H&P Date: 02/09/20 Chief Complaint: COPD exacerbation, anemia This 69 year old male is new to the practice, he presented to the office to establish with complaints of overall not feeling well, after assessment and lab values reviewed, he was brought back to the office for a hemoglobin of 7.7, hemoccult negative in the office, he had shortness, orthopnea, history of nicotine dependence with current use, Factor V with anticoagulation therapy, due to shortness of breath and low hemoglobin, he was sent to the hospital for an evaluation. He was admitted to the hospital with anemia and COPD exacerbation, medications reviewed. Review of Systems Constitutional: Reports as per HPI, Reports chronic pain (Back pain), Reports weakness Cardiovascular: Reports dyspnea on exertion, Reports orthopnea Respiratory: Reports dyspnea Endocrine: Reports fatigue Past Medical History Past Medical History: Asthma, Coronary Artery Disease (CAD), COPD, Dementia, Diabetes Mellitus, Hyperlipidemia, Hypertension Additional Past Medical History / Comment(s): back pain, DDD, LT GREAT TOE WOUND History of Any Multi-Drug Resistant Organisms: None Reported Past Surgical History: Adenoidectomy, Orthopedic Surgery, Tonsillectomy Additional Past Surgical History / Comment(s): pilonidal cyst, top teeth removed, R great toe bone resection Past Anesthesia/Blood Transfusion Reactions: Previous Problems w/ Anesthesia Additional Past Anesthesia/Blood Transfusion Reaction / Comment(s): "I have to have extra anesthesia" Past Psychological History: Anxiety Smoking Status: Current every day smoker Past Alcohol Use History: None Reported Additional Past Alcohol Use History / Comment(s): smoker since age 14; 1-2 ppd Past Drug Use History: Marijuana Additional Drug Use History / Comment(s): hemp oil,cbd, procannibis,cdx,karma- advised not to use 24 hours prior to procedure - Past Family History Father Family Medical History: Cancer Sister(s) Family Medical History: Blood Disorder Brother(s) Family Medical History: Blood Disorder Medications and Allergies Home Medications Medication Instructions Recorded Confirmed Type Enalapril [Vasotec] 20 mg PO DAILY 12/17/16 02/08/20 History Umeclidinium [place] [Incruse 1 puff INHALATION RT-DAILY 12/17/16 02/08/20 History Ellipta] metFORMIN HCL [Glucophage] 500 mg PO AC-BRKFST 12/17/16 02/08/20 History Donepezil [Aricept] 10 mg PO DAILY 11/16/18 02/08/20 History Rosuvastatin Calcium 40 mg PO DAILY 08/01/19 02/08/20 History Clopidogrel Bisulfate [Plavix] 75 mg PO DAILY #90 tab 08/03/19 02/08/20 Rx Albuterol Sulfate [Ventolin HFA] 2 puff INHALATION RT-Q4H PRN 09/05/19 02/08/20 History Tamsulosin HCl [Flomax] 0.8 mg PO DAILY 09/05/19 02/08/20 History Rivaroxaban [Xarelto] 20 mg PO DAILY 30 Days #30 tab 11/10/19 02/08/20 Rx Azithromycin [Zithromax Z-pack (6 See Taper PO DAILY 02/08/20 02/08/20 History tabs)] Meloxicam 15 mg PO DAILY PRN 02/08/20 02/08/20 History methylPREDNISolone Dose Pack See Taper PO DIRECTED 02/08/20 02/08/20 History [Medrol Dose Pack] Allergies Allergy/AdvReac Type Severity Reaction Status Date / Time tetracycline [Tetracycline] Allergy Swelling Verified 02/08/20 18:01 Physical Exam Vitals: Vital Signs Temp Pulse Pulse Resp BP BP Pulse Ox 02/09/20 08:00 97.8 F 45 L 17 182/94 100 02/09/20 07:47 60 02/09/20 07:38 60 02/09/20 01:12 98.1 F 76 18 126/69 98 02/08/20 23:30 19 02/08/20 22:55 98.1 F 49 L 19 144/74 100 02/08/20 22:16 57 L 20 129/87 97 02/08/20 20:45 58 L 18 100/57 100 02/08/20 19:51 60 02/08/20 19:42 56 L 02/08/20 17:57 98.4 F 84 18 172/95 100 Intake and Output 02/08/20 02/09/20 02/09/20 22:59 06:59 14:59 Other: Weight 101.151 kg - Constitutional General appearance: mild distress, obese - EENT ENT: hearing grossly normal Ears: bilateral: normal - Neck Neck: normal ROM - Respiratory Respiratory: bilateral: diminished, wheezing (end expiratory wheezing ) - Cardiovascular Rhythm: regular Heart sounds: normal: S1, S2 - Gastrointestinal General gastrointestinal: normal bowel sounds - Neurologic Neurologic: CNII-XII intact - Psychiatric Psychiatric: A&O x's 3, appropriate affect, intact judgment & insight Results CBC & Chem 7: 02/09/20 05:49 02/08/20 18:31 Labs: Abnormal Lab Results - Last 24 Hours (Table) 02/08/20 02/08/20 02/08/20 Range/Units 18:31 18:31 18:31 RBC 3.83 L (4.30-5.90) m/uL Hgb 8.1 L (13.0-17.5) gm/dL Hct 28.3 L (39.0-53.0) % MCV 73.9 L (80.0-100.0) fL MCH 21.2 L (25.0-35.0) pg MCHC 28.6 L (31.0-37.0) g/dL RDW 18.3 H (11.5-15.5) % Lymphocytes # (Manual) (1.0-4.8) k/uL Retic Count (0.5-2.0) % PT 13.2 H (9.0-12.0) sec INR 1.3 H (<1.2) APTT 31.2 H (22.0-30.0) sec Chloride 112 H (98-107) mmol/L Carbon Dioxide 20 L (22-30) mmol/L Glucose 144 H (74-99) mg/dL POC Glucose (mg/dL) (75-99) mg/dL 02/08/20 02/09/20 02/09/20 Range/Units 23:24 00:51 05:49 RBC 3.74 L 3.81 L (4.30-5.90) m/uL Hgb 8.0 L 8.1 L (13.0-17.5) gm/dL Hct 27.6 L 28.4 L (39.0-53.0) % MCV 73.7 L 74.3 L (80.0-100.0) fL MCH 21.3 L 21.4 L (25.0-35.0) pg MCHC 28.9 L 28.7 L (31.0-37.0) g/dL RDW 18.3 H 18.2 H (11.5-15.5) % Lymphocytes # (Manual) 0.51 L 0.39 L (1.0-4.8) k/uL Retic Count (0.5-2.0) % PT (9.0-12.0) sec INR (<1.2) APTT (22.0-30.0) sec Chloride (98-107) mmol/L Carbon Dioxide (22-30) mmol/L Glucose (74-99) mg/dL POC Glucose (mg/dL) 126 H (75-99) mg/dL 02/09/20 02/09/20 Range/Units 05:49 07:17 RBC (4.30-5.90) m/uL Hgb (13.0-17.5) gm/dL Hct (39.0-53.0) % MCV (80.0-100.0) fL MCH (25.0-35.0) pg MCHC (31.0-37.0) g/dL RDW (11.5-15.5) % Lymphocytes # (Manual) (1.0-4.8) k/uL Retic Count 2.8 H (0.5-2.0) % PT (9.0-12.0) sec INR (<1.2) APTT (22.0-30.0) sec Chloride (98-107) mmol/L Carbon Dioxide (22-30) mmol/L Glucose (74-99) mg/dL POC Glucose (mg/dL) 169 H (75-99) mg/dL Abdominal x-ray: report reviewed Thrombosis Risk Factor Assmnt - Choose All That Apply Any of the Below Risk Factors Present?: Yes Each Factor Represents 1 point: Abnormal pulmonary function (COPD), Obesity (BMI >25), Swollen legs (current) Each Risk Factor Represents 2 Points: Age 61-74 years Each Risk Factor Represents 3 Points: Positive Factor V Leiden Thrombosis Risk Factor Assessment Total Risk Factor Score: 8 Thrombosis Risk Factor Assessment Level: High Risk Assessment and Plan Assessment: COPD exacerbation Iron deficiency anemia Hypertension Hyperlipidemia Diabetes Mellitus Type II History of blood clotting disorder Factor V with anticoagulation therapy History of chronic back pain (1) Acute exacerbation of chronic obstructive pulmonary disease (COPD) Narrative/Plan: Continue Solumedrol 60mg IVP q 6 hours Continue nebulized treatments Current Visit: Yes Status: Acute Code(s): J44.1 - CHRONIC OBSTRUCTIVE PULMONARY DISEASE W (ACUTE) EXACERBATION SNOMED Code(s): 973637995 (2) Anemia Narrative/Plan: Consultation for GI for recommendations and treatment plan Start iron 325mg PO BID Current Visit: Yes Status: Acute Code(s): D64.9 - ANEMIA, UNSPECIFIED SNOMED Code(s): 761080185 Plan: GI consultation for recommendations and treatment plan NPO until GI consult Hematology consultation for recommendations and treatment plan Start iron supplementation twice daily Continue Solumedrol 60mg IVP q 6 hours
[2020-02-09 11:29] LABS: Glucose,Whole Blood 137 mg/dL (75-99)
[2020-02-09] MEDS: NICOTINE 21MG/24HR PATCH TRANSDERM SCH (11:41)
--- NOTE | 2020-02-09 16:06 | P.CONS ---
History of Present Illness - Reason for Consult Consult date: 02/09/20 Anemia on AC threapy/?Factor V leiden Requesting physician: Dennis Merchant - Chief Complaint weakness - History of Present Illness Mr. Paulino is a pleasant male patient who was diagonosed with bilateral massive Pulmonary embolism in apr 2016 after he presented to [facility] with SOB and chest pain. CTA revealed bilateral extensive PE. He was placed on Xarelto. Thrombolytic therapy was considered but was not given. PE unprovoked, although there is question of Factor V Leiden gene mutation per patient. Since lifetime anticoagulation was advised at the time of diagnosis a hypercoagulable work-up was not indicated as it would not change treatment plan. The patient stated his sister had "Blood clots" in her 60s and claim to personally have factor V leiden gene mutation. He now presents with new onset anemia. Prior to admission he takes melaxicam, plavix, and xarelto. These are currently on hold. Hemoglobin at time of evaluation is 8.1, Ferritin 4.5, Saturation 2%. It appears he hasobvious signs of iron deficiency anemia secondary to blood loss anemia, likely GI. Dr. Salomon has been consulted to further evaluate. Review of Systems All systems: negative Constitutional: Reports as per HPI Past Medical History Past Medical History: Asthma, Coronary Artery Disease (CAD), COPD, Dementia, Diabetes Mellitus, Hyperlipidemia, Hypertension Additional Past Medical History / Comment(s): back pain, DDD, LT GREAT TOE WOUND History of Any Multi-Drug Resistant Organisms: None Reported Past Surgical History: Adenoidectomy, Orthopedic Surgery, Tonsillectomy Additional Past Surgical History / Comment(s): pilonidal cyst, top teeth removed, R great toe bone resection Past Anesthesia/Blood Transfusion Reactions: Previous Problems w/ Anesthesia Additional Past Anesthesia/Blood Transfusion Reaction / Comm: "I have to have extra anesthesia" Past Psychological History: Anxiety Smoking Status: Current every day smoker Past Alcohol Use History: None Reported Additional Past Alcohol Use History / Comment(s): smoker since age 14; 1-2 ppd Past Drug Use History: Marijuana Additional Drug Use History / Comment(s): hemp oil,cbd, procannibis,cdx,karma- advised not to use 24 hours prior to procedure - Past Family History Father Family Medical History: Cancer Sister(s) Family Medical History: Blood Disorder Brother(s) Family Medical History: Blood Disorder Medications and Allergies Home Medications Medication Instructions Recorded Confirmed Type Enalapril [Vasotec] 20 mg PO DAILY 12/17/16 02/08/20 History Umeclidinium [place] [Incruse 1 puff INHALATION RT-DAILY 12/17/16 02/08/20 History Ellipta] metFORMIN HCL [Glucophage] 500 mg PO AC-BRKFST 12/17/16 02/08/20 History Donepezil [Aricept] 10 mg PO DAILY 11/16/18 02/08/20 History Rosuvastatin Calcium 40 mg PO DAILY 08/01/19 02/08/20 History Clopidogrel Bisulfate [Plavix] 75 mg PO DAILY #90 tab 08/03/19 02/08/20 Rx Albuterol Sulfate [Ventolin HFA] 2 puff INHALATION RT-Q4H PRN 09/05/19 02/08/20 History Tamsulosin HCl [Flomax] 0.8 mg PO DAILY 09/05/19 02/08/20 History Rivaroxaban [Xarelto] 20 mg PO DAILY 30 Days #30 tab 11/10/19 02/08/20 Rx Azithromycin [Zithromax Z-pack (6 See Taper PO DAILY 02/08/20 02/08/20 History tabs)] Meloxicam 15 mg PO DAILY PRN 02/08/20 02/08/20 History methylPREDNISolone Dose Pack See Taper PO DIRECTED 02/08/20 02/08/20 History [Medrol Dose Pack] Allergies Allergy/AdvReac Type Severity Reaction Status Date / Time tetracycline [Tetracycline] Allergy Swelling Verified 02/08/20 18:01 Physical Exam Vitals: Vital Signs Temp Pulse Pulse Resp BP BP Pulse Ox 02/09/20 14:00 98.1 F 80 20 153/80 98 02/09/20 13:29 62 02/09/20 13:18 60 02/09/20 08:00 97.8 F 45 L 17 182/94 100 02/09/20 07:47 60 02/09/20 07:38 60 02/09/20 01:12 98.1 F 76 18 126/69 98 02/08/20 23:30 19 02/08/20 22:55 98.1 F 49 L 19 144/74 100 02/08/20 22:16 57 L 20 129/87 97 02/08/20 20:45 58 L 18 100/57 100 02/08/20 19:51 60 02/08/20 19:42 56 L 02/08/20 17:57 98.4 F 84 18 172/95 100 - Constitutional General appearance: cooperative, no acute distress - EENT Eyes: EOMI, PERRLA ENT: NA/AT, normal oropharynx - Neck Neck: normal ROM - Respiratory Respiratory: bilateral: CTA, diminished - Cardiovascular Rhythm: regular - Gastrointestinal General gastrointestinal: normal bowel sounds, soft, tenderness - Integumentary Integumentary: pale - Neurologic Neurologic: CNII-XII intact - Musculoskeletal Musculoskeletal: generalized weakness, strength equal bilaterally - Psychiatric Psychiatric: A&O x's 3, appropriate affect, intact judgment & insight Results CBC & Chem 7: 02/09/20 05:49 02/08/20 18:31 Labs: Abnormal Lab Results - Last 24 Hours (Table) 02/08/20 02/08/20 02/08/20 Range/Units 18:31 18:31 18:31 RBC 3.83 L (4.30-5.90) m/uL Hgb 8.1 L (13.0-17.5) gm/dL Hct 28.3 L (39.0-53.0) % MCV 73.9 L (80.0-100.0) fL MCH 21.2 L (25.0-35.0) pg MCHC 28.6 L (31.0-37.0) g/dL RDW 18.3 H (11.5-15.5) % Lymphocytes # (Manual) (1.0-4.8) k/uL Retic Count (0.5-2.0) % PT 13.2 H (9.0-12.0) sec INR 1.3 H (<1.2) APTT 31.2 H (22.0-30.0) sec Chloride 112 H (98-107) mmol/L Carbon Dioxide 20 L (22-30) mmol/L Glucose 144 H (74-99) mg/dL POC Glucose (mg/dL) (75-99) mg/dL 02/08/20 02/09/20 02/09/20 Range/Units 23:24 00:51 05:49 RBC 3.74 L 3.81 L (4.30-5.90) m/uL Hgb 8.0 L 8.1 L (13.0-17.5) gm/dL Hct 27.6 L 28.4 L (39.0-53.0) % MCV 73.7 L 74.3 L (80.0-100.0) fL MCH 21.3 L 21.4 L (25.0-35.0) pg MCHC 28.9 L 28.7 L (31.0-37.0) g/dL RDW 18.3 H 18.2 H (11.5-15.5) % Lymphocytes # (Manual) 0.51 L 0.39 L (1.0-4.8) k/uL Retic Count (0.5-2.0) % PT (9.0-12.0) sec INR (<1.2) APTT (22.0-30.0) sec Chloride (98-107) mmol/L Carbon Dioxide (22-30) mmol/L Glucose (74-99) mg/dL POC Glucose (mg/dL) 126 H (75-99) mg/dL 02/09/20 02/09/20 02/09/20 Range/Units 05:49 07:17 11:28 RBC (4.30-5.90) m/uL Hgb (13.0-17.5) gm/dL Hct (39.0-53.0) % MCV (80.0-100.0) fL MCH (25.0-35.0) pg MCHC (31.0-37.0) g/dL RDW (11.5-15.5) % Lymphocytes # (Manual) (1.0-4.8) k/uL Retic Count 2.8 H (0.5-2.0) % PT (9.0-12.0) sec INR (<1.2) APTT (22.0-30.0) sec Chloride (98-107) mmol/L Carbon Dioxide (22-30) mmol/L Glucose (74-99) mg/dL POC Glucose (mg/dL) 169 H 137 H (75-99) mg/dL Chest x-ray: report reviewed Assessment and Plan (1) Microcytic anemia Current Visit: Yes Status: Acute Code(s): D50.9 - IRON DEFICIENCY ANEMIA, UNSPECIFIED SNOMED Code(s): 899472246 (2) History of pulmonary embolism Current Visit: Yes Status: Acute Code(s): Z86.711 - PERSONAL HISTORY OF PULMONARY EMBOLISM SNOMED Code(s): 375181847 Plan: Assessment and Recommendations: Microcytic Anemia: - COmponent of Iron Deficiency, likely GI blood loss while on anti-platelet and Anti-coagulation - Await full GI evaluation, Dr. Salomon is on consultation - Will order parental Iron as no signs of sepsis - Continue to hold Anticoagulation at this time - Transfuse less than 7 - Daily CBC HX: PE: - Will present options for ongoing anticoagulation after results of GI Eval Plan: - Await GI Evalu (planned for am, NPO after midnight) - Monitor serial CBC - Parental Iron Ordered Physician attest: I have completed full history and physical and agree with above dictation, dictated as a scribe
[2020-02-09 16:11] LABS: Glucose,Whole Blood 207 mg/dL (75-99)
[2020-02-09] MEDS: SODIUM FERRIC GLUCONAT-SUCROSE 125 MG in SODIUM CHLORIDE 0.9% 100 ML IVPB SCH (16:47)
[2020-02-09 17:13] LABS: % Iron Saturation 0.46 (15.00-50.00); Ferritin 39.1 ng/mL (22.0-322.0); Folate, Serum 14.3 ng/mL
[2020-02-09] MEDS: IPRATROPIUM-ALBUTEROL 3 ML NEB INHALATION PRN (19:56)
--- NOTE | 2020-02-09 20:50 | CONS ---
CONSULTATION DATE OF DICTATION: 02/09/2020 REASON FOR CONSULTATION: Microcytic hypochromic anemia. HISTORY OF PRESENT ILLNESS: The patient is a 69-year-old pleasant white male admitted to the hospital with not feeling well, some shortness of breath for the last few days' duration. He was subsequently diagnosed with exacerbation of COPD. While in the hospital he was noted to have a hemoglobin of 7.7 and decreased MCV consistent with microcytic anemia, possibly related to iron deficiency. The patient, however, denies any abdominal pain. No nausea, no vomiting. No rectal bleeding or melena. He was diagnosed with factor V Leiden deficiency when he was diagnosed with DVTs and PEs two years ago and has been on anticoagulation with Xarelto since then. He recalls having a colonoscopy about a year ago at [facility] and he was told he had 3 small polyps. Xarelto presently has been held for the last 2 days. PAST MEDICAL HISTORY: His past medical history is significant for coronary artery disease, DVT/PE, diabetes mellitus, hypertension, hyperlipidemia. PAST SURGICAL HISTORY: Adenoidectomy, tonsillectomy. Colonoscopy a year ago. SOCIAL HISTORY: Chronic smoker. No alcohol use. FAMILY HISTORY: Unremarkable. MEDICATIONS: Medications at home include Vasotec, Ellipta, Glucophage, Aricept, Plavix, Ventolin, Flomax, Xarelto, Zithromax, meloxicam and methylprednisone. ALLERGIES: TETRACYCLINE. REVIEW OF SYSTEMS: CARDIOPULMONARY: Some shortness of breath, but much better. No chest pain. NEUROLOGY: Unremarkable. PSYCHIATRY: Unremarkable. ENT/VISION: Unremarkable. CONSTITUTIONAL: No recent weight loss. No fever, chills, night sweats. HEMATOLOGY: Unremarkable other than microcytic anemia since July of this year. Hemoglobin in July was 12. PHYSICAL EXAMINATION: He appears comfortable. No apparent distress. Vital signs are stable. Blood pressure 182/94, pulse rate 45, temperature 97.8. HEENT EXAMINATION: Unremarkable. Conjunctivae pink. Sclerae anicteric. Oral cavity no lesions. NECK: No JVD or lymph node enlargement. CHEST: Clear to auscultation. HEART: Regular rate and rhythm. ABDOMEN: Soft. Bowel sounds are positive. No organomegaly. EXTREMITIES: No pedal edema. NEUROLOGIC: He is alert and oriented x3. No focal deficits. LABS: WBC 9.5, hemoglobin 7.7, MCV 73, platelets normal. Basic metabolic panel is within normal limits. PT/INR is 1.3. BUN and creatinine are 20 and 0.74, respectively. Iron studies are still pending. IMPRESSION: 1. Microcytic hypochromic anemia with a hemoglobin of 7.7 consistent with iron deficiency. Hemoglobin in July of this year was 12.0. Most likely we are dealing with occult GI blood loss. He states that he had a colonoscopy a year ago at [facility] and was noted to have 3 small polyps. The patient is presently taking meloxicam, and the possibility of peptic ulcer disease needs to be considered. Clinically no active bleeding. 2. Exacerbation of chronic obstructive pulmonary disease, gradually improving. 3. History of deep venous thrombosis/pulmonary embolism secondary to factor V Leiden deficiency, on Xarelto, currently on hold. RECOMMENDATIONS: 1. Hold Xarelto and Plavix. 2. Await iron studies. 3. Will proceed with an upper endoscopy tomorrow, and if negative proceed with small bowel capsule endoscopy also to evaluate for microcytic hypochromic anemia. The plan was discussed with the patient. He is agreeable to it. Thank you for this consultation. MMODL / IJN: [id number] /
[2020-02-09 21:01] LABS: Glucose,Whole Blood 175 mg/dL (75-99)
[2020-02-10] MEDS: methylPREDNISolone SOD SUCCI 125 MG/2 ML VIAL IV SCH ×4 (00:05→17:22)
[2020-02-10 06:52] LABS: Glucose,Whole Blood 152 mg/dL (75-99)
[2020-02-10] MEDS: IPRATROPIUM 0.5 MG/2.5 ML NEBU INHALATION SCH ×4 (07:19→19:01)
[2020-02-10] MEDS: INSULIN ASPART (NovoLOG) 100 UNIT/ML VIAL SQ SCH ×4 (07:43→21:49)
[2020-02-10] MEDS ORDERED: LIDOCAINE 1% INJ 10MG/ML (20 ML MDV) ONE (08:04)
[2020-02-10] MEDS ORDERED: PROPOFOL 10 MG/ML 20 ML VIAL IV ONE (08:04)
[2020-02-10] MEDS ORDERED: IV FLUID CONTINUATION 1,000 ML IV ONE (08:05)
--- NOTE | 2020-02-10 08:16 | P.PCN ---
Date of Procedure: 02/10/20 Procedure(s) Performed: BRIEF HISTORY: Patient is a 61-year-old, pleasant, male scheduled for an upper endoscopy as a part of evaluation of microcytic hyperchromic anemia. Deficiency. He denies any GI symptoms. He had a colonoscopy a year ago that showed small colon polyps and constipation. He scheduled for an upper endoscopy and if negative proceed with a small bowel capsule endoscopy today.. She has been on Plavix and Xarelto for history of DVT and the patient is currently on hold. PROCEDURE PERFORMED: Esophagogastroduodenoscopy with biopsy. PREOPERATIVE DIAGNOSIS: Microcytic hyperchromic anemia. IV sedation per anesthesia. PROCEDURE: After informed consent was obtained, the patient was brought into the endoscopy unit. IV sedation was administered by Anesthesia under continuous monitoring. Initially the Olympus GIF-140 video endoscope was inserted into the mouth. Esophagus intubated without any difficulty. It was gradually advanced into the stomach and duodenum and carefully examined. The bulb and the second part of the duodenum appeared normal. Biopsies were done from the duodenum to rule out celiac disease. The scope at this time was withdrawn to the stomach, adequately insufflated with air, and upon careful examination, mucosa of the antrum, body, cardia and the fundus appeared normal. The scope was then withdrawn into the esophagus. The GE junction was located at 39 cm from the incisors. The esophagus appeared normal. There were no erosions or ulcerations seen and the patient tolerated the procedure well. IMPRESSION: 1. Normal-appearing duodenum status post biopsy to rule out celiac disease. 2. No evidence of esophagitis, peptic ulcer disease or angiectasia. RECOMMENDATIONS: The findings of this examination were discussed with the patient . Await biopsy results. He will be scheduled for small bowel Endoscopy Today..
[2020-02-10 09:30] LABS: Anisocytosis Slight; HCT 27.6 % (39.0-53.0); HGB 7.9 gm/dL (13.0-17.5); Hypochromasia Marked; MCH 21.1 pg (25.0-35.0); MCHC 28.6 g/dL (31.0-37.0); MCV 73.7 fL (80.0-100.0); Mean Platelet Volume 8.2; Microcytosis Moderate; Platelet Count 158 k/uL (150-450); Poikilocytosis Slight; RBC 3.74 m/uL (4.30-5.90); RDW 18.3 % (11.5-15.5); WBC 8.6 k/uL (3.8-10.6)
[2020-02-10] MEDS ORDERED: SIMETHICONE 40 MG/0.6 ML DROPS 2,000 MG/30 ML BOTTLE PO ONE (10:01)
[2020-02-10] MEDS: SODIUM FERRIC GLUCONAT-SUCROSE 125 MG in SODIUM CHLORIDE 0.9% 100 ML IVPB SCH (10:11)
[2020-02-10] MEDS: NICOTINE 21MG/24HR PATCH TRANSDERM SCH (10:12)
[2020-02-10 10:21] LABS: Lymphocytes # (M) 0.77 k/uL (1.0-4.8); Monocytes # (M) 0.09 k/uL (0-1.0); Neutrophils # (M) 7.74 k/uL (1.3-7.7); Neutrophils % (M) 90 %; Nucleated Red Blood Cells 0 /100 WBC (0-0); Total Cells Counted 100
[2020-02-10 10:22] LABS: Polychromasia Present; Target Cells Present
[2020-02-10] MEDS: IPRATROPIUM-ALBUTEROL 3 ML NEB INHALATION PRN ×4 (11:45→19:01)
[2020-02-10 12:09] LABS: Glucose,Whole Blood 124 mg/dL (75-99)
[2020-02-10] MEDS: ATORVASTATIN 80 MG TAB PO SCH (13:19)
[2020-02-10] MEDS: DONEPEZIL 10 MG TAB PO SCH (13:20)
[2020-02-10] MEDS: HYDROmorphone 0.5 MG/0.5 ML SYRINGE IVP PRN ×3 (13:41→22:42)
[2020-02-10] MEDS: TAMSULOSIN 0.4 MG CAP.ER.24H PO SCH (13:47)
[2020-02-10] MEDS: lisinopriL 20 MG TAB PO SCH (13:48)
--- NOTE | 2020-02-10 15:05 | P.PN ---
Subjective Progress Note Date: 02/10/20 The patient is clinically stable. No obvious bleeding or change in bowel habits. No fever or chills. He completed EGD today. He is currently undergoing capsule endoscopy. Objective - Vital Signs Vital signs: Vital Signs Temp 98 F 02/10/20 04:59 Pulse 64 02/10/20 12:45 Resp 16 02/10/20 11:57 BP 160/67 02/10/20 12:45 Pulse Ox 100 02/10/20 08:39 Intake & Output 02/09/20 02/10/20 02/10/20 18:59 06:59 18:59 Intake Total 2620 100 Balance 2620 100 Intake: IV 100 Intake, IV Titration 100 Amount Sodium Ferric Gluconat- 100 Sucrose 125 mg In Sodium Chloride 0.9% 100 ml @ 100 mls/hr IVPB DAILY KEI Rx#:[id number] Oral 2520 Other: # Voids 3 - Constitutional General appearance: Present: no acute distress - EENT Eyes: Present: EOMI ENT: Present: hearing grossly normal, normal oropharynx - Respiratory Respiratory: bilateral: CTA - Cardiovascular Rhythm: regular Heart sounds: normal: S1, S2 - Gastrointestinal General gastrointestinal: Present: normal bowel sounds, soft - Integumentary Integumentary: Present: normal - Neurologic Neurologic: Present: CNII-XII intact - Musculoskeletal Musculoskeletal: Present: strength equal bilaterally - Psychiatric Psychiatric: Present: A&O x's 3, appropriate affect - Labs CBC & Chem 7: 02/10/20 09:04 02/08/20 18:31 Labs: Abnormal Lab Results - Last 24 Hours (Table) 02/09/20 02/09/20 02/09/20 Range/Units 05:49 16:09 21:00 RBC (4.30-5.90) m/uL Hgb (13.0-17.5) gm/dL Hct (39.0-53.0) % MCV (80.0-100.0) fL MCH (25.0-35.0) pg MCHC (31.0-37.0) g/dL RDW (11.5-15.5) % Neutrophils # (Manual) (1.3-7.7) k/uL Lymphocytes # (Manual) (1.0-4.8) k/uL POC Glucose (mg/dL) 207 H 175 H (75-99) mg/dL Iron 2 L (65-175) ug/dL % Saturation 0.46 L (15.00-50.00) Vitamin B12 189.0 L (200.0-944.0) pg/mL 02/10/20 02/10/20 02/10/20 Range/Units 06:51 09:04 12:07 RBC 3.74 L (4.30-5.90) m/uL Hgb 7.9 L (13.0-17.5) gm/dL Hct 27.6 L (39.0-53.0) % MCV 73.7 L (80.0-100.0) fL MCH 21.1 L (25.0-35.0) pg MCHC 28.6 L (31.0-37.0) g/dL RDW 18.3 H (11.5-15.5) % Neutrophils # (Manual) 7.74 H (1.3-7.7) k/uL Lymphocytes # (Manual) 0.77 L (1.0-4.8) k/uL POC Glucose (mg/dL) 152 H 124 H (75-99) mg/dL Iron (65-175) ug/dL % Saturation (15.00-50.00) Vitamin B12 (200.0-944.0) pg/mL Assessment and Plan (1) Anemia Narrative/Plan: Labs are consistent with iron deficiency. Therefore the patient most likely has anemia due to chronic low-volume blood loss. - Hemoglobin is currently stable - EGD report reviewed. No specific and apparently was found. Colonoscopy was also negative. He is currently undergoing capsule endoscopy. - The patient was advised that he most likely has low-volume, intermittent chronic losses from small bowel AVMs. This would be the diagnosis of exclusion even if capsule endoscopy were negative. - He was advised that in this situation the mainstay of treatment is essentially monitoring and iron supplementation - He is currently receiving IV iron. Additional IV iron will be ordered as an outpatient. He will then be placed on a regular follow-up and supplementation schedule. Current Visit: Yes Status: Acute Code(s): D64.9 - ANEMIA, UNSPECIFIED SNOMED Code(s): 835384229 (2) History of pulmonary embolism Narrative/Plan: The patient had a known history of major venous thromboembolism that was u nprovoked. He is also factor V Leiden positive according to him. Therefore for him, lifelong anticoagulation would be recommended. - He was advised that from our standpoint the plan would be to resume anticoagulation once capsule endoscopy is completed. As long as we are able to maintain his hemoglobin in an acceptable range with monitoring and iron supplementation, the plan would be to continue anticoagulation. - Risk-benefit aspect of this decision-making was discussed with him. He was in agreement. Current Visit: Yes Status: Acute Code(s): Z86.711 - PERSONAL HISTORY OF PULMONARY EMBOLISM SNOMED Code(s): 863271516
[2020-02-10 17:03] LABS: Glucose,Whole Blood 224 mg/dL (75-99)
[2020-02-10 20:30] LABS: Glucose,Whole Blood 168 mg/dL (75-99)
[2020-02-11] MEDS: methylPREDNISolone SOD SUCCI 125 MG/2 ML VIAL IV SCH ×2 (00:01→05:30)
[2020-02-11] MEDS: HYDROmorphone 0.5 MG/0.5 ML SYRINGE IVP PRN ×2 (05:37→17:12)
[2020-02-11 06:34] LABS: Anisocytosis Slight; HCT 28.9 % (39.0-53.0); HGB 8.1 gm/dL (13.0-17.5); Hypochromasia Marked; MCH 21.1 pg (25.0-35.0); MCV 75.2 fL (80.0-100.0); Mean Platelet Volume 9.6; Microcytosis Moderate; Platelet Count 166 k/uL (150-450); Poikilocytosis Slight; RBC 3.84 m/uL (4.30-5.90); RDW 18.6 % (11.5-15.5)
[2020-02-11 06:59] LABS: Band Neutrophils % 3 %; Lymphocytes # (M) 0.97 k/uL (1.0-4.8); Monocytes # (M) 0.32 k/uL (0-1.0); Myelocytes # (M) 0.11 k/uL (0); Myelocytes % 1 %; Neutrophils % (M) 85 %; Nucleated Red Blood Cells 3 /100 WBC (0-0); Total Cells Counted 200; WBC 10.8 k/uL (3.8-10.6)
[2020-02-11 07:00] LABS: Large Platelets Present; Polychromasia Present
[2020-02-11 07:03] LABS: Glucose,Whole Blood 152 mg/dL (75-99)
[2020-02-11] MEDS: IPRATROPIUM 0.5 MG/2.5 ML NEBU INHALATION SCH ×3 (07:11→16:18)
[2020-02-11 07:57] VITALS: RESP 18
[2020-02-11] MEDS: INSULIN ASPART (NovoLOG) 100 UNIT/ML VIAL SQ SCH ×3 (08:10→17:14)
[2020-02-11] MEDS: lisinopriL 20 MG TAB PO SCH (08:11)
[2020-02-11] MEDS: SODIUM FERRIC GLUCONAT-SUCROSE 125 MG in SODIUM CHLORIDE 0.9% 100 ML IVPB SCH (08:11)
[2020-02-11] MEDS: NICOTINE 21MG/24HR PATCH TRANSDERM SCH (08:11)
[2020-02-11] MEDS: TAMSULOSIN 0.4 MG CAP.ER.24H PO SCH (08:11)
[2020-02-11] MEDS: ATORVASTATIN 80 MG TAB PO SCH (08:11)
[2020-02-11] MEDS: DONEPEZIL 10 MG TAB PO SCH (08:11)
[2020-02-11 10:18] LABS: African American GFR (CKD) 112.4 (60.0-200.0); Anion Gap 6.7 mmol/L (4.00-12.00); Carbon Dioxide 22.3 mmol/L (21.6-31.8); Potassium 4.4 mmol/L (3.5-5.5)
--- NOTE | 2020-02-11 10:27 | PN ---
PROGRESS NOTE DATE OF SERVICE: 02/11/2020 Patient is a 69-year-old pleasant white male admitted to the hospital with exacerbation of COPD and severe symptomatic anemia and iron indices consistent with iron deficiency anemia. He underwent an upper endoscopy yesterday that was normal and subsequently a small bowel capsule endoscopy was performed. Results of which are not available at the time of this dictation. The patient is doing well. He denies any abdominal pain. No nausea, vomiting. No rectal bleeding or melena. PHYSICAL EXAMINATION: He appears comfortable. No apparent distress. Vital signs stable. Blood pressure is 163/84, pulse rate 52, temperature 98.4. HEENT examination unremarkable. Conjunctivae pink. Sclerae anicteric. Oral cavity no lesions. Neck no JVD or lymph node enlargement. CHEST was clear to auscultation. HEART: Regular rate and rhythm. ABDOMEN: Soft. Bowel sounds are positive. No organomegaly. EXTREMITIES: No pedal edema. NEURO: He is alert and oriented x3. No focal deficits. LABS: From today WBC 10.8, hemoglobin 8.1, platelets normal. IMPRESSION: 1. Iron deficiency anemia secondary to occult gastrointestinal blood loss. Clinically no active bleeding, status post EGD yesterday that was normal. Colonoscopy done a year ago according to the patient showed small polyps. He is status post small bowel capsule endoscopy yesterday, results of which are still pending at the time of this dictation. Clinically no active bleeding. 2. History of chronic obstructive pulmonary disease, improving. 3. History of factor 5 Leiden deficiency with prior history of deep vein thrombosis and pulmonary embolism on Plavix and Xarelto, currently on hold. RECOMMENDATIONS: 1. Since the patient has no further episodes of bleeding, anticoagulation can be resumed. 2. He can be discharged home today. He was advised to follow up in the office in a week from now and will discuss the small bowel capsule endoscopy results with him. Thank you for this consultation. MMODL / IJN: [id number] /
[2020-02-11] MEDS ORDERED: predniSONE 20 MG TAB PO SCH (11:45)
[2020-02-11] MEDS ORDERED: CLOPIDOGREL 75 MG TAB PO SCH (11:45)
[2020-02-11] MEDS ORDERED: RIVAROXABAN 20 MG TAB PO SCH (11:45)
[2020-02-11 12:08] LABS: Glucose,Whole Blood 149 mg/dL (75-99)
[2020-02-11 15:13] VITALS: BP 147/81; TEMP 97.9
[2020-02-11] MEDS: IPRATROPIUM-ALBUTEROL 3 ML NEB INHALATION PRN (16:17)
[2020-02-11 16:25] VITALS: PULSE 64
[2020-02-11 16:42] LABS: Glucose,Whole Blood 117 mg/dL (75-99)
== END 2020-02-11 19:29 | disposition left against medical advice (07) ==
LOC: EC 17:52 → 5NMEDONC 20:26
PROVIDERS: ADMIT Family Medicine; ATTEND Family Medicine
DX: D50.0 Iron deficiency anemia secondary to blood loss (chronic) (principal); J44.1 Chronic obstructive pulmonary disease with (acute) exacerbation; D68.51 Activated protein C resistance; I25.10 Atherosclerotic heart disease of native coronary artery without angina pectoris; I10 Essential (primary) hypertension; F03.90 Unspecified dementia, unspecified severity, without behavioral disturbance, psychotic disturbance, mood disturbance, and anxiety; F17.210 Nicotine dependence, cigarettes, uncomplicated; E11.9 Type 2 diabetes mellitus without complications; E78.5 Hyperlipidemia, unspecified; G89.29 Other chronic pain; M54.9 Dorsalgia, unspecified; Z98.890 Other specified postprocedural states; F41.9 Anxiety disorder, unspecified; Z86.711 Personal history of pulmonary embolism; Z86.718 Personal history of other venous thrombosis and embolism; Z80.9 Family history of malignant neoplasm, unspecified; Z83.2 Family history of diseases of the blood and blood-forming organs and certain disorders involving the immune mechanism; Z79.01 Long term (current) use of anticoagulants; Z79.1 Long term (current) use of non-steroidal anti-inflammatories (NSAID); Z79.02 Long term (current) use of antithrombotics/antiplatelets; Z79.84 Long term (current) use of oral hypoglycemic drugs; Z79.899 Other long term (current) drug therapy; Z88.1 Allergy status to other antibiotic agents; Z86.010 Personal history of colon polyps
CPT/HCPCS: 96376; 96375; 96374; 99285; 36415; 94640 ×6; 94760; 86900; 86901; 88305; 80053; 80048; 82607; 82728; 82746; 83540; 83550; 83735; 84484; 85025 ×4; 85610; 85045; 85730; 86850; 71046; 43239; 91110; G0378 ×4; S4990 ×3; J2930 ×4; J2001; J2916 ×3; J2704; J7512; J1170 ×3

== ENCOUNTER → 2020-02-26 | Outpatient (CLI) | payer MEDICARE, OTHER ==
[2020-02-27 00:40] LABS: T4, Free (Free Thyroxine) 1.2 ng/dL (0.80-1.80)
== END | disposition home or self-care (01) ==
LOC: LABWHC1 14:02
PROVIDERS: ATTEND Psychiatry & Neurology Neurology
DX: R41.3 Other amnesia (principal)
CPT/HCPCS: 36415; 82607; 84439; 84443; 84481

== ENCOUNTER 2020-03-20 06:51 | Day surgery (SDC) | payer MEDICARE, OTHER ==
[2020-02-28 15:54] VITALS: BMI 37.8
[~2020-03-20 06:51] MED LIST changes: -ALPRAZolam 0.25 MG TAB PO PRN; -ASPIRIN 325 MG TAB PO ONE; +LACTATED RINGERS 1,000 ML IV SCH; -SODIUM CHLORIDE 0.9% 1,000 ML in EMPTY BAG 1 BAG IV ONE
[2020-03-20 07:39] VITALS: RESP 16; TEMP 97.6
[2020-03-20] MEDS ORDERED: LIDOCAINE 1% (10MG/ML) FOR IV START INTRADERMA ONE (07:39)
[2020-03-20 07:47] LABS: Glucose,Whole Blood 99 mg/dL (75-99)
--- NOTE | 2020-03-20 08:02 | P.GSHP ---
History of Present Illness H&P Date: 03/20/20 CHIEF COMPLAINT: Colon screen HISTORY OF PRESENT ILLNESS: The patient is a 69-year-old male who presents for colon screen. Lower endoscopy was offered for further evaluation and management. PAST MEDICAL HISTORY: Please see list. PAST SURGICAL HISTORY: Please see list. MEDICATIONS: Please see list. ALLERGIES: Please see list. SOCIAL HISTORY: No illicit drug use FAMILY HISTORY: No reports of Crohn disease or ulcerative colitis. REVIEW OF ORGAN SYSTEMS: CONSTITUTIONAL: No reports of fevers or chills. PHYSICAL EXAM: VITAL SIGNS: Stable GENERAL: Well-developed pleasant in no acute distress. HEENT: No scleral icterus. Extraocular movements grossly intact. Moist buccal mucosa. NECK: Supple without lymphadenopathy. CHEST: Unlabored respirations. Equal bilateral excursions. CARDIOVASCULAR: Regular rate and rhythm. Distal 2+ pulses. ABDOMEN: Soft, nontender, nondistended. MUSCULOSKELETAL: No clubbing, cyanosis, or edema. ASSESSMENT: 1. Colon screen. PLAN: 1. Recommend proceeding with a lower endoscopy Past Medical History Past Medical History: Asthma, Blood Disorder, Coronary Artery Disease (CAD), COPD, Dementia, Diabetes Mellitus, Deep Vein Thrombosis (DVT), Hyperlipidemia, Hypertension, Memory Impairment, Pulmonary Embolus (PE) Additional Past Medical History / Comment(s): back pain, DDD, LT GREAT TOE WOUND. 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 and has had multipe blood clots to legs,lungs and arms History of Any Multi-Drug Resistant Organisms: None Reported Past Surgical History: Adenoidectomy, Orthopedic Surgery, Tonsillectomy Additional Past Surgical History / Comment(s): pilonidal cyst, top teeth removed, R great toe bone resection Past Anesthesia/Blood Transfusion Reactions: Previous Problems w/ Anesthesia Additional Past Anesthesia/Blood Transfusion Reaction / Comment(s): "I have to have extra anesthesia" Smoking Status: Current every day smoker - Past Family History Father Family Medical History: Cancer Sister(s) Family Medical History: Blood Disorder Brother(s) Family Medical History: Blood Disorder Medications and Allergies Home Medications Medication Instructions Recorded Confirmed Type Umeclidinium [place] [Incruse 1 puff INHALATION RT-DAILY 12/17/16 03/18/20 History Ellipta] metFORMIN HCL [Glucophage] 500 mg PO AC-BRKFST 12/17/16 03/18/20 History Donepezil [Aricept] 10 mg PO DAILY 11/16/18 03/18/20 History Clopidogrel Bisulfate [Plavix] 75 mg PO DAILY #90 tab 08/03/19 03/18/20 Rx Albuterol Sulfate [Ventolin HFA] 2 puff INHALATION RT-Q4H PRN 09/05/19 03/18/20 History Tamsulosin HCl [Flomax] 0.8 mg PO DAILY 09/05/19 03/18/20 History Rivaroxaban [Xarelto] 20 mg PO DAILY 30 Days #30 tab 11/10/19 03/18/20 Rx Cannabidiol (Cbd) [Epidiolex] 1 dose PO DAILY PRN 02/28/20 03/18/20 History Allergies Allergy/AdvReac Type Severity Reaction Status Date / Time tetracycline [Tetracycline] Allergy Swelling Verified 03/20/20 07:28 Surgical - Exam Vital Signs Temp Pulse Resp BP Pulse Ox 97.6 F 88 16 153/87 98 03/20/20 07:38 03/20/20 07:38 03/20/20 07:38 03/20/20 07:38 03/20/20 07:38
[2020-03-20] MEDS ORDERED: LIDOCAINE 1% INJ 10MG/ML (20 ML MDV) ONE (08:10)
[2020-03-20] MEDS ORDERED: PROPOFOL 10 MG/ML 20 ML VIAL IV ONE (08:10)
--- NOTE | 2020-03-20 08:30 | P.PCN ---
Date of Procedure: 03/20/20 Description of Procedure: PREOPERATIVE DIAGNOSIS: Personal history colon polyps POSTOPERATIVE DIAGNOSIS: Personal history colon polyps Poor prep OPERATION: Colonoscopy to the cecum SURGEON: Shawnee Bauer MD. ANESTHESIA: MAC. INDICATIONS: The patient is a 69-year-old male who presents for colonoscopy screening. Last colonoscopy 5 years ago. Benefits and risks were described and informed consent was obtained. DESCRIPTION OF PROCEDURE: The patient had undergone Suprep. He had been brought into the operating room and laid in the left lateral decubitus position. After adequate intravenous sedation, the rectum was examined with 2% lidocaine jelly. The prostate was full. No external hemorrhoids were encountered. The rectal tone was within normal limits. No lesions were palpated in the rectal vault. An Olympus colonoscope was advanced to the cecum. The prep was poor obscuring the mucosal view of the ascending colon, cecum, sigmoid colon. No large diverticulosis was encountered. No large colonic polyps were found. No evidence of focal colitis was found. Retroflexion of the scope demonstrated grade 2 internal hemorrhoids without active bleeding or inflammation. The colon was desufflated. The patient had tolerated the procedure well. Withdrawal time was over 6 minutes. FINDINGS: Aronchick preparation quality scale 3 (1-5) Internal hemorrhoids, grade 1 No external prolapsed hemorrhoids. No arteriovenous malformations. No large adenomatous polyps. No focal colitis. RECOMMENDATIONS: Lower endoscopy in 2 years, 2022. Recommend bowel prep at least 2 days Plan - Discharge Summary Discharge Rx Participant: No New Discharge Prescriptions: Continue metFORMIN HCL [Glucophage] 500 mg PO AC-BRKFST Umeclidinium [place] [Incruse Ellipta] 1 puff INHALATION RT-DAILY Donepezil [Aricept] 10 mg PO DAILY Clopidogrel Bisulfate [Plavix] 75 mg PO DAILY #90 tab Albuterol Sulfate [Ventolin HFA] 2 puff INHALATION RT-Q4H PRN PRN Reason: Shortness Of Breath Tamsulosin HCl [Flomax] 0.8 mg PO DAILY Rivaroxaban [Xarelto] 20 mg PO DAILY 30 Days #30 tab Cannabidiol (Cbd) [Epidiolex] 1 dose PO DAILY PRN PRN Reason: Pain Discharge Medication List Umeclidinium [place] [Incruse Ellipta] 1 puff INHALATION RT-DAILY 12/17/16 [History] metFORMIN HCL [Glucophage] 500 mg PO AC-BRKFST 12/17/16 [History] Donepezil [Aricept] 10 mg PO DAILY 11/16/18 [History] Clopidogrel Bisulfate [Plavix] 75 mg PO DAILY #90 tab 08/03/19 [Rx] Albuterol Sulfate [Ventolin HFA] 2 puff INHALATION RT-Q4H PRN 09/05/19 [History] Tamsulosin HCl [Flomax] 0.8 mg PO DAILY 09/05/19 [History] Rivaroxaban [Xarelto] 20 mg PO DAILY 30 Days #30 tab 11/10/19 [Rx] Cannabidiol (Cbd) [Epidiolex] 1 dose PO DAILY PRN 02/28/20 [History] Follow up Appointment(s)/Referral(s): Shawnee Bauer MD [STAFF PHYSICIAN] - As Needed Patient Instructions/Handouts: Constipation (DC), Colonoscopy (DC) Activity/Diet/Wound Care/Special Instructions: Repeat colonoscopy 2 years, 2022. We'll need two day bowel prep Discharge Disposition: HOME SELF-CARE
[2020-03-20 09:36] VITALS: BP 149/84; PULSE 74
== END 2020-03-20 10:25 | disposition home or self-care (01) ==
LOC: ORWHC2ENDO 06:51
PROVIDERS: ATTEND Surgery Plastic and Reconstructive Surgery
DX: Z12.11 Encounter for screening for malignant neoplasm of colon (principal); K64.1 Second degree hemorrhoids; Z86.010 Personal history of colon polyps; I25.10 Atherosclerotic heart disease of native coronary artery without angina pectoris; I11.0 Hypertensive heart disease with heart failure; I50.9 Heart failure, unspecified; E78.5 Hyperlipidemia, unspecified; I73.9 Peripheral vascular disease, unspecified; J44.9 Chronic obstructive pulmonary disease, unspecified; R41.3 Other amnesia; E11.9 Type 2 diabetes mellitus without complications; F03.90 Unspecified dementia, unspecified severity, without behavioral disturbance, psychotic disturbance, mood disturbance, and anxiety; Z79.84 Long term (current) use of oral hypoglycemic drugs; Z79.01 Long term (current) use of anticoagulants; Z79.02 Long term (current) use of antithrombotics/antiplatelets; Z79.899 Other long term (current) drug therapy; Z88.1 Allergy status to other antibiotic agents; Z90.89 Acquired absence of other organs; Z98.890 Other specified postprocedural states; Z86.718 Personal history of other venous thrombosis and embolism; Z86.711 Personal history of pulmonary embolism; F17.200 Nicotine dependence, unspecified, uncomplicated
CPT/HCPCS: G0105; J2001; J2704; 45378

== ENCOUNTER 2020-06-28 16:27 | Emergency (ER) | payer MEDICARE, OTHER ==
[2020-06-28 16:32] VITALS: TEMP 97.5
[2020-06-28 17:31] LABS: Anisocytosis Slight; Basophils # (A) 0.1 k/uL (0-0.2); Basophils % (A) 1 %; Eosinophils # (A) 0.2 k/uL (0-0.7); Eosinophils % (A) 2 %; HCT 28.3 % (39.0-53.0); HGB 8.6 gm/dL (13.0-17.5); Hypochromasia Marked; Lymphocytes # (A) 0.9 k/uL (1.0-4.8); Lymphocytes % (A) 10 %; MCH 21.7 pg (25.0-35.0); MCHC 30.4 g/dL (31.0-37.0); MCV 71.3 fL (80.0-100.0); Mean Platelet Volume 7.5; Microcytosis Marked; Monocytes # (A) 0.6 k/uL (0-1.0); Monocytes % (A) 6 %; Neutrophils # (A) 7.2 k/uL (1.3-7.7); Neutrophils % (A) 80 %; Platelet Count 159 k/uL (150-450); Poikilocytosis Slight; RBC 3.96 m/uL (4.30-5.90); RDW 17.9 % (11.5-15.5); WBC 9.1 k/uL (3.8-10.6)
[2020-06-28 17:42] LABS: ALT 12 U/L (4-49); AST 22 U/L (17-59); African American GFR (CKD) >90 (>60 ml/min/1.73 sqM); Alkaline Phosphatase 81 U/L (38-126); Anion Gap 8 mmol/L; Blood Urea Nitrogen 12 mg/dL (9-20); Calcium 9.2 mg/dL (8.4-10.2); Carbon Dioxide 24 mmol/L (22-30); Chloride 105 mmol/L (98-107); Glucose 86 mg/dL (74-99); Non-African American GFR(CKD) >90 (>60 ml/min/1.73 sqM); Sodium 137 mmol/L (137-145); Total Bilirubin 0.9 mg/dL (0.2-1.3); Total Protein 6.3 g/dL (6.3-8.2)
--- NOTE | 2020-06-28 17:53 | XR ---
EXAMINATION TYPE: XR chest 2V DATE OF EXAM: 06/28/2020 CLINICAL HISTORY: difficulty breathing. Shortness of breath and cough for 3 days. TECHNIQUE: Frontal and lateral view of the chest. COMPARISON: 02/08/2020. FINDINGS: Redemonstrated cardiomegaly. Pulmonary vasculature is normal. There is right mid and basila r lung mild patchy interstitial opacities. No pleural effusion. No pneumothorax seen. No acute displ aced osseous fracture. IMPRESSION: Increased patchy interstitial opacities of the right lung versus 02/08/2020. Findings may represent in creased chronic interstitial change versus acute atypical pneumonitis including Covid 19.
[2020-06-28 18:02] LABS: D-Dimer 0.4 mg/L FEU (<0.60); INR 1.3 (<1.2); Partial Thromboplastin Time 28.9 sec (22.0-30.0); Prothrombin Time 13.1 sec (9.0-12.0)
[2020-06-28] MEDS ORDERED: LEVOFLOXACIN 750 MG TAB PO STA (18:47)
[2020-06-28] MEDS ORDERED: methylPREDNISolone SOD SUCCI 125 MG/2 ML VIAL IV STA (18:50)
--- NOTE | 2020-06-28 18:53 | ED ---
General Adult HPI - General Chief complaint: Shortness of Breath Stated complaint: a fib sob Source: patient Mode of arrival: wheelchair Limitations: no limitations - History of Present Illness Initial comments: 61-year-old male past medical history of COPD, diabetes, DVT/PE presents emergency room with reported shortness of breath. Patient was sent in by Dr. Melvin for persistent cough and concern for pneumonia after treatment with antibiotic. Patient states he's been on a Z-Amanuel at home and he has one dose of his antibiotic left the taking continues to have shortness of breath. States he has a mildly been improving. He saw Dr. Melvin in office today and was found to be in new-onset A. fib. Patient is hard anticoagulated due to his history of DVT and PE. Heart rate was controlled however due to the persistent shortness of breath the primary recommended he come into the emergency room for evaluation. He denies any fevers or chills. No sick contacts. Nonproductive cough. No chest pain. Denies previous history of cardiac disease. 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 - Related Data Home Medications Medication Instructions Recorded Confirmed metFORMIN HCL [Glucophage] 500 mg PO BID 12/17/16 06/28/20 Albuterol Sulfate [Ventolin HFA] 2 puff INHALATION RT-Q4H PRN 09/05/19 06/28/20 Tamsulosin HCl [Flomax] 0.4 mg PO DAILY 09/05/19 06/28/20 Azithromycin [Zithromax Z-pack (6 See Taper PO DAILY 06/28/20 06/28/20 tabs)] Cefdinir 300 mg PO Q12H 06/28/20 06/28/20 HYDROcodone/APAP 7.5-325MG [[place] 1 tab PO TID PRN 06/28/20 06/28/20 7.5-325] Nitroglycerin Sl Tabs [Nitrostat] 0.4 mg SL Q5M PRN 06/28/20 06/28/20 Pregabalin [Lyrica] 150 mg PO BID 06/28/20 06/28/20 Sertraline [Zoloft] 50 mg PO DAILY 06/28/20 06/28/20 Umeclidinium Brm/Vilanterol Tr 1 puff INHALATION RT-DAILY 06/28/20 06/28/20 [Anoro Ellipta 62.5-25 Mcg INH] Previous Rx's Medication Instructions Recorded Clopidogrel Bisulfate [Plavix] 75 mg PO DAILY #90 tab 08/03/19 Rivaroxaban [Xarelto] 20 mg PO DAILY 30 Days #30 tab 11/10/19 Levofloxacin [Levaquin] 750 mg PO DAILY 1 Days #5 tab 06/28/20 predniSONE [Deltasone] 20 mg PO BID #10 tab 06/28/20 Allergies Allergy/AdvReac Type Severity Reaction Status Date / Time tetracycline [Tetracycline] Allergy Swelling Verified 06/28/20 18:30 Review of Systems ROS Statement: Those systems with pertinent positive or pertinent negative responses have been documented in the HPI. ROS Other: All systems not noted in ROS Statement are negative. Past Medical History Past Medical History: Asthma, Blood Disorder, Coronary Artery Disease (CAD), COPD, Dementia, Diabetes Mellitus, Deep Vein Thrombosis (DVT), Hyperlipidemia, Hypertension, Memory Impairment, Pulmonary Embolus (PE) Additional Past Medical History / Comment(s): back pain, DDD, LT GREAT TOE WOUND. 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 and has had multipe blood clots to legs,lungs and arms History of Any Multi-Drug Resistant Organisms: None Reported Past Surgical History: Adenoidectomy, Orthopedic Surgery, Tonsillectomy Additional Past Surgical History / Comment(s): pilonidal cyst, top teeth removed, R great toe bone resection Past Anesthesia/Blood Transfusion Reactions: Previous Problems w/ Anesthesia Additional Past Anesthesia/Blood Transfusion Reaction / Comment(s): "I have to h ave extra anesthesia" Past Psychological History: Anxiety Smoking Status: Current every day smoker Past Alcohol Use History: None Reported Past Drug Use History: None Reported - Past Family History Father Family Medical History: Cancer Sister(s) Family Medical History: Blood Disorder Brother(s) Family Medical History: Blood Disorder General Exam Limitations: no limitations Course Vital Signs 06/28/20 06/28/20 16:28 19:09 Temperature 97.5 F L Pulse Rate 87 62 Respiratory 24 18 Rate Blood Pressure 146/83 146/96 O2 Sat by Pulse 95 98 Oximetry EKG Findings - EKG Comments: EKG Findings:: EKG demonstrates A. fib with a rate of 86. QRS 90. QTC of 437. No acute ST segment elevations or depressions Medical Decision Making - Medical Decision Making The patient is placed into room 24. There are history and physical exam was performed. IV is established. Laboratory studies were conducted. Irises are reviewed. Hemoglobin 8.6 which is near the patient's baseline. D-dimer 0.4. Troponin is negative. Covid not tightly. Chest x-ray does demonstrate increased patchy interstitial opacities of the right lung. I discussed results with patient. Recommend admission due to new onset A. fib for cardiology consultation as well as IV antibiotics. The patient refused. Requesting to go home at this time. I did instruct him that I will change his antibiotic to Levaquin. Patient will be placed on a steroid course. Instructed to use his inhaler every 4 hours. He is already anticoagulated. I did recommend cardiology follow-up for his new onset A. fib. Return to the emergency room for any new or worsening symptoms. Patient agreed to this and was discharged home in stable condition - Lab Data Result diagrams: 06/28/20 17:21 06/28/20 17:21 Lab Results 06/28/20 06/28/20 06/28/20 Range/Units 17:21 17:21 17:21 WBC 9.1 (3.8-10.6) k/uL RBC 3.96 L (4.30-5.90) m/uL Hgb 8.6 L (13.0-17.5) gm/dL Hct 28.3 L (39.0-53.0) % MCV 71.3 L (80.0-100.0) fL MCH 21.7 L (25.0-35.0) pg MCHC 30.4 L (31.0-37.0) g/dL RDW 17.9 H (11.5-15.5) % Plt Count 159 (150-450) k/uL MPV 7.5 Neutrophils % 80 % Lymphocytes % 10 % Monocytes % 6 % Eosinophils % 2 % Basophils % 1 % Neutrophils # 7.2 (1.3-7.7) k/uL Lymphocytes # 0.9 L (1.0-4.8) k/uL Monocytes # 0.6 (0-1.0) k/uL Eosinophils # 0.2 (0-0.7) k/uL Basophils # 0.1 (0-0.2) k/uL Hypochromasia Marked Poikilocytosis Slight Anisocytosis Slight Microcytosis Marked PT 13.1 H (9.0-12.0) sec INR 1.3 H (<1.2) APTT 28.9 (22.0-30.0) sec D-Dimer 0.40 (<0.60) mg/L FEU Sodium (137-145) mmol/L Potassium (3.5-5.1) mmol/L Chloride (98-107) mmol/L Carbon Dioxide (22-30) mmol/L Anion Gap mmol/L BUN (9-20) mg/dL Creatinine (0.66-1.25) mg/dL Est GFR (CKD-EPI)AfAm (>60 ml/min/1.73 sqM) Est GFR (CKD-EPI)NonAf (>60 ml/min/1.73 sqM) Glucose (74-99) mg/dL Plasma Lactic Acid Jose (0.7-2.0) mmol/L Calcium (8.4-10.2) mg/dL Total Bilirubin (0.2-1.3) mg/dL AST (17-59) U/L ALT (4-49) U/L Alkaline Phosphatase (38-126) U/L Troponin I (0.000-0.034) ng/mL NT-Pro-B Natriuret Pep pg/mL Total Protein (6.3-8.2) g/dL Albumin (3.5-5.0) g/dL Coronavirus (PCR) Not Detected (Not Detectd) 06/28/20 06/28/20 06/28/20 Range/Units 17:21 17:21 17:21 WBC (3.8-10.6) k/uL RBC (4.30-5.90) m/uL Hgb (13.0-17.5) gm/dL Hct (39.0-53.0) % MCV (80.0-100.0) fL MCH (25.0-35.0) pg MCHC (31.0-37.0) g/dL RDW (11.5-15.5) % Plt Count (150-450) k/uL MPV Neutrophils % % Lymphocytes % % Monocytes % % Eosinophils % % Basophils % % Neutrophils # (1.3-7.7) k/uL Lymphocytes # (1.0-4.8) k/uL Monocytes # (0-1.0) k/uL Eosinophils # (0-0.7) k/uL Basophils # (0-0.2) k/uL Hypochromasia Poikilocytosis Anisocytosis Microcytosis PT (9.0-12.0) sec INR (<1.2) APTT (22.0-30.0) sec D-Dimer (<0.60) mg/L FEU Sodium 137 (137-145) mmol/L Potassium 4.0 (3.5-5.1) mmol/L Chloride 105 (98-107) mmol/L Carbon Dioxide 24 (22-30) mmol/L Anion Gap 8 mmol/L BUN 12 (9-20) mg/dL Creatinine 0.63 L (0.66-1.25) mg/dL Est GFR (CKD-EPI)AfAm >90 (>60 ml/min/1.73 sqM) Est GFR (CKD-EPI)NonAf >90 (>60 ml/min/1.73 sqM) Glucose 86 (74-99) mg/dL Plasma Lactic Acid Jose 1.4 (0.7-2.0) mmol/L Calcium 9.2 (8.4-10.2) mg/dL Total Bilirubin 0.9 (0.2-1.3) mg/dL AST 22 (17-59) U/L ALT 12 (4-49) U/L Alkaline Phosphatase 81 (38-126) U/L Troponin I <0.012 (0.000-0.034) ng/mL NT-Pro-B Natriuret Pep pg/mL Total Protein 6.3 (6.3-8.2) g/dL Albumin 4.0 (3.5-5.0) g/dL Coronavirus (PCR) (Not Detectd) 06/28/20 Range/Units 17:21 WBC (3.8-10.6) k/uL RBC (4.30-5.90) m/uL Hgb (13.0-17.5) gm/dL Hct (39.0-53.0) % MCV (80.0-100.0) fL MCH (25.0-35.0) pg MCHC (31.0-37.0) g/dL RDW (11.5-15.5) % Plt Count (150-450) k/uL MPV Neutrophils % % Lymphocytes % % Monocytes % % Eosinophils % % Basophils % % Neutrophils # (1.3-7.7) k/uL Lymphocytes # (1.0-4.8) k/uL Monocytes # (0-1.0) k/uL Eosinophils # (0-0.7) k/uL Basophils # (0-0.2) k/uL Hypochromasia Poikilocytosis Anisocytosis Microcytosis PT (9.0-12.0) sec INR (<1.2) APTT (22.0-30.0) sec D-Dimer (<0.60) mg/L FEU Sodium (137-145) mmol/L Potassium (3.5-5.1) mmol/L Chloride (98-107) mmol/L Carbon Dioxide (22-30) mmol/L Anion Gap mmol/L BUN (9-20) mg/dL Creatinine (0.66-1.25) mg/dL Est GFR (CKD-EPI)AfAm (>60 ml/min/1.73 sqM) Est GFR (CKD-EPI)NonAf (>60 ml/min/1.73 sqM) Glucose (74-99) mg/dL Plasma Lactic Acid Jose (0.7-2.0) mmol/L Calcium (8.4-10.2) mg/dL Total Bilirubin (0.2-1.3) mg/dL AST (17-59) U/L ALT (4-49) U/L Alkaline Phosphatase (38-126) U/L Troponin I (0.000-0.034) ng/mL NT-Pro-B Natriuret Pep 369 pg/mL Total Protein (6.3-8.2) g/dL Albumin (3.5-5.0) g/dL Coronavirus (PCR) (Not Detectd) Disposition Clinical Impression: Pneumonia, Respiratory insufficiency, COPD (chronic obstructive pulmonary disease), New onset a-fib Disposition: HOME SELF-CARE Condition: Stable Instructions (If sedation given, give patient instructions): Bacterial Pneumonia (ED) Additional Instructions: Please take the antibiotic and steroid as directed. Use your albuterol inhaler every 4 hours. Return to the emergency room for any new or worsening symptoms. Follow up with your PCP in 2-4 days. Prescriptions: predniSONE [Deltasone] 20 mg PO BID #10 tab Levofloxacin [Levaquin] 750 mg PO DAILY 1 Days #5 tab Is patient prescribed a controlled substance at d/c from ED?: No Referrals: Jhonatan Melvin MD [Primary Care Provider] - 1-2 days Time of Disposition: 18:53
[2020-06-28 19:10] VITALS: BP 146/96; PULSE 62; RESP 18
== END 2020-06-28 19:10 | disposition home or self-care (01) ==
LOC: EC 16:27
DX: J18.9 Pneumonia, unspecified organism (principal); J44.9 Chronic obstructive pulmonary disease, unspecified; I48.91 Unspecified atrial fibrillation; I25.10 Atherosclerotic heart disease of native coronary artery without angina pectoris; Z86.718 Personal history of other venous thrombosis and embolism; E78.5 Hyperlipidemia, unspecified; E11.9 Type 2 diabetes mellitus without complications; I10 Essential (primary) hypertension; F03.90 Unspecified dementia, unspecified severity, without behavioral disturbance, psychotic disturbance, mood disturbance, and anxiety; Z86.711 Personal history of pulmonary embolism; Z79.51 Long term (current) use of inhaled steroids; Z79.84 Long term (current) use of oral hypoglycemic drugs; Z20.822 Contact with and (suspected) exposure to COVID-19
CPT/HCPCS: 99285; 96374; 36415; 93005; 85379; 83880; 80053; 83605; 84484; 85025; 85610; 85730; 87635; 71046; J2930

== ENCOUNTER 2021-02-03 20:30 | Inpatient (IN) | payer MEDICARE, OTHER ==
[2021-02-03] MEDS ORDERED: SODIUM CHLORIDE 0.9% 1,000 ML IV STA (20:41)
[2021-02-03] MEDS ORDERED: MORPHINE SULFATE 4 MG/ML SYRINGE IVP STA (20:46)
[2021-02-03 21:25] LABS: Anisocytosis Slight; Basophils # (A) 0.1 k/uL (0-0.2); Basophils % (A) 1 %; Eosinophils # (A) 0.2 k/uL (0-0.7); Eosinophils % (A) 2 %; HCT 40.6 % (39.0-53.0); HGB 12.4 gm/dL (13.0-17.5); Hypochromasia Moderate; INR 1.2 (<1.2); Lymphocytes # (A) 1.7 k/uL (1.0-4.8); Lymphocytes % (A) 21 %; MCH 23.3 pg (25.0-35.0); MCHC 30.5 g/dL (31.0-37.0); MCV 76.3 fL (80.0-100.0); Microcytosis Slight; Monocytes # (A) 0.5 k/uL (0-1.0); Monocytes % (A) 6 %; Neutrophils # (A) 5.8 k/uL (1.3-7.7); Neutrophils % (A) 69 %; Partial Thromboplastin Time 24.7 sec (22.0-30.0); Platelet Count 191 k/uL (150-450); Poikilocytosis Slight; RBC 5.32 m/uL (4.30-5.90); RDW 16.9 % (11.5-15.5); WBC 8.4 k/uL (3.8-10.6)
[2021-02-03 21:25] LABS: Appearance,Urine Clear (Clear); Bilirubin,Urine Negative (Negative); Blood,Urine Negative (Negative); Color,Urine Yellow; Glucose,Urine (UA) Negative (Negative); Ketones,Urine Negative (Negative); Leukocyte Esterase,Urine Negative (Negative); Nitrite,Urine Negative (Negative); Protein,Urine Negative (Negative); Specific Gravity,Urine 1.017 (1.001-1.035); Urobilinogen,Urine <2.0 mg/dL (<2.0)
--- NOTE | 2021-02-03 21:27 | XR ---
EXAMINATION TYPE: XR chest 2V DATE OF EXAM: 02/03/2021 COMPARISON: Chest radiograph 06/08/2020 HISTORY: Chest pain TECHNIQUE: Frontal and lateral views of the chest are obtained. FINDINGS: There is no focal air space opacity, pleural effusion, or pneumothorax seen. The cardiac silhouette size is within normal limits. The osseous structures are intact. IMPRESSION: No acute cardiopulmonary process.
[2021-02-03 21:29] LABS: ALT 28 U/L (4-49); AST 27 U/L (17-59); African American GFR (CKD) >90 (>60 ml/min/1.73 sqM); Albumin 3.5 g/dL (3.5-5.0); Alkaline Phosphatase 76 U/L (38-126); Amylase 49 U/L (30-110); Anion Gap 9 mmol/L; Blood Urea Nitrogen 19 mg/dL (9-20); Calcium 9.3 mg/dL (8.4-10.2); Carbon Dioxide 21 mmol/L (22-30); Chloride 107 mmol/L (98-107); Glucose 90 mg/dL (74-99); Lipase 50 U/L (23-300); Magnesium 1.6 mg/dL (1.6-2.3); Non-African American GFR(CKD) >90 (>60 ml/min/1.73 sqM); Potassium 3.9 mmol/L (3.5-5.1); Sodium 137 mmol/L (137-145); Total Bilirubin 0.6 mg/dL (0.2-1.3); Total Protein 5.9 g/dL (6.3-8.2)
--- NOTE | 2021-02-03 22:08 | ED ---
Chest Pain HPI - General Chief Complaint: Chest Pain Stated Complaint: Chest Pain Time Seen by Provider: 02/03/21 20:41 Source: patient, EMS, RN notes reviewed Mode of arrival: EMS Limitations: no limitations - History of Present Illness Initial Comments: Patient is a 70-year-old male that presents to the emergency department complaining of chest pain on and off for the past week. Patient notes he does have a history of A. fib and he is on blood thinners. He notes that he also has a history of clots in his leg. Patient denied any chest pain or complaints of sitting up in bed during the exam interview. She was otherwise appearing comfortably resting in bed. He denied any shortness of breath headache nausea vomiting diarrhea constipation fever fatigue chills. - Related Data Home Medications Medication Instructions Recorded Confirmed Tamsulosin HCl [Flomax] 0.4 mg PO HS 09/05/19 02/03/21 Acetaminophen [Tylenol] 325 mg PO BID PRN 02/03/21 02/03/21 Albuterol Nebulized [Ventolin 2.5 mg INHALATION RT-TID 02/03/21 02/03/21 Nebulized] Albuterol Sulfate [Albuterol 2 puff PO RT-BID PRN 02/03/21 02/03/21 Sulfate Hfa] Atorvastatin Calcium [Lipitor] 40 mg PO HS 02/03/21 02/03/21 Ciclesonide [Alvesco] 1 puff INHALATION RT-BID 02/03/21 02/03/21 Donepezil [Aricept] 10 mg PO DAILY 02/03/21 02/03/21 Previous Rx's Medication Instructions Recorded Clopidogrel Bisulfate [Plavix] 75 mg PO DAILY #90 tab 08/03/19 Allergies Allergy/AdvReac Type Severity Reaction Status Date / Time tetracycline [Tetracycline] Allergy Swelling Verified 02/03/21 21:41 Review of Systems ROS Statement: Those systems with pertinent positive or pertinent negative responses have been documented in the HPI. ROS Other: All systems not noted in ROS Statement are negative. Past Medical History Past Medical History: Asthma, Blood Disorder, Coronary Artery Disease (CAD), COPD, Dementia, Diabetes Mellitus, Deep Vein Thrombosis (DVT), Hyperlipidemia, Hypertension, Memory Impairment, Pulmonary Embolus (PE) Additional Past Medical History / Comment(s): back pain, DDD, LT GREAT TOE WOUND. 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 and has had multipe blood clots to legs,lungs and arms History of Any Multi-Drug Resistant Organisms: None Reported Past Surgical History: Adenoidectomy, Orthopedic Surgery, Tonsillectomy Additional Past Surgical History / Comment(s): pilonidal cyst, top teeth removed, R great toe bone resection Past Anesthesia/Blood Transfusion Reactions: Previous Problems w/ Anesthesia Additional Past Anesthesia/Blood Transfusion Reaction / Comment(s): "I have to have extra anesthesia" Past Psychological History: Anxiety Smoking Status: Current every day smoker Past Alcohol Use History: None Reported Past Drug Use History: None Reported - Past Family History Father Family Medical History: Cancer Sister(s) Family Medical History: Blood Disorder Brother(s) Family Medical History: Blood Disorder General Exam Limitations: no limitations General appearance: alert, in no apparent distress, obese Head exam: Present: atraumatic, normocephalic, normal inspection Eye exam: Present: normal appearance, PERRL, EOMI. Absent: scleral icterus, conjunctival injection, periorbital swelling ENT exam: Present: normal exam, mucous membranes moist Neck exam: Present: normal inspection Respiratory exam: Present: normal lung sounds bilaterally. Absent: respiratory distress, wheezes, rales, rhonchi, stridor Cardiovascular Exam: Present: regular rate, normal rhythm, normal heart sounds. Absent: systolic murmur, diastolic murmur, rubs, gallop, clicks GI/Abdominal exam: Present: soft, normal bowel sounds. Absent: distended, tenderness, guarding, rebound, rigid Extremities exam: Present: normal inspection, full ROM, normal capillary refill. Absent: tenderness, pedal edema, joint swelling, calf tenderness Neurological exam: Present: alert, oriented X3 Psychiatric exam: Present: normal affect, normal mood Skin exam: Present: warm, dry, intact, normal color. Absent: rash Course Vital Signs 02/03/21 20:37 Temperature 97.6 F Pulse Rate 69 Respiratory 16 Rate Blood Pressure 130/96 O2 Sat by Pulse 98 Oximetry Chest Pain MDM - [facility] 70-year-old male complaining of chest pain, history of A. fib on anticoagulation. Labs, EKG, personalized living manager nurse, chest x-ray, 1 L normal saline, 4 monos morphine ordered. Labs unremarkable, INR 1.2. Troponin 0.018 EKG within normal limits. EKG: Ventricular rate 81 bpm QRS duration 88 ms, QTC 399 ms, PRT axes */61/77, atrial fibrillation, abnormal ECG. Case discussed with Dr. Wolff, patient will be admitted. Dr. bishop was consulted and will set the admit with cardiology on consult. Disposition Clinical Impression: Chest pain Disposition: ADMITTED IP TO THIS HOSP Condition: Stable Is patient prescribed a controlled substance at d/c from ED?: No Referrals: Heron Middleton MD [Primary Care Provider] - 1-2 days Time of Disposition: 22:30
[2021-02-03] MEDS ORDERED: NALOXONE 0.4 MG/ML 1 ML VIAL IV PRN (22:27)
[2021-02-03] MEDS ORDERED: MORPHINE SULFATE 4 MG/ML SYRINGE IV PRN (22:27)
[2021-02-04] MEDS: SODIUM CHLORIDE 0.9% 1,000 ML IV SCH ×3 (03:44→18:40)
[2021-02-04] MEDS: RIVAROXABAN 20 MG TAB PO SCH (10:17)
[2021-02-04] MEDS: METOPROLOL TARTRATE 25 MG TAB PO SCH ×3 (10:17→19:58)
[2021-02-04] MEDS: CLOPIDOGREL 75 MG TAB PO SCH (10:17)
[2021-02-04] MEDS: ALBUTEROL NEBULIZED 2.5 MG/3 ML INHALATION SCH ×3 (10:20→23:04)
--- NOTE | 2021-02-04 10:47 | P.CRDCN ---
History of Present Illness History of present illness: HISTORY OF PRESENTING ILLNESS This is a pleasant 70-year-old male past medical history significant for peripheral artery disease with stenting of the right SFA 07/2019, hypertension, type 2 diabetes, dyslipidemia, tobacco use, diagnosis of paroxysmal atrial fibrillation 06/2020, chronic nicotine dependence. He follows in the office with Dr. Nina. We have been asked to see in consultation for chest pain. Patient presents to the emergency department with complaints of chest discomfort. Lo cated in the center of his chest. States it is on and off over the past week. it is non-radiating, non-exertional. No specific alleviating or aggravating factors. He denies any associated palpitations, shortness of breath, lightheadedness, dizziness, nausea. He denies any syncope or near syncope. D enies history of coronary artery disease, ID, stroke. He is a current every day smoker. He states he was recently at [facility] and Did Have Cardiac Testing Performed. DIAGNOSTICS EKG reveals atrial fibrillation, heart rate 81. Prior EKG in June 2020 revealed atrial fibrillation with controlled ventricular rates No echocardiogram on file Chest xray no acute cardiopulmonary process. Laboratory reviewed, troponin negative 2, sodium 137, potassium 3.9, BUN 19, serum creatinine 0.7, magnesium 1.6, Coumadin 19 PCR negative, WBC 0.4, hemoglobin 12.4, platelets 191 Current home medications include Xarelto 20 mg daily, Plavix 75 mg daily, atorvastatin 40 mg nightly REVIEW OF SYSTEMS At the time of my exam: CONSTITUTIONAL: Denies fever or chills. CARDIOVASCULAR: +chest pain, Denies shortness of breath, orthopnea, PND or palpitations. RESPIRATORY: Denies cough. GASTROINTESTINAL: Denies abdominal pain, diarrhea, constipation, nausea or vomiting. MUSCULOSKELETAL: Denies myalgias. NEUROLOGIC: Denies numbness, tingling, headache or weakness. ENDOCRINE: Denies fatigue, weight change, polydipsia or polyurina. GENITOURINARY: Denies burning, hematuria or urgency with micturation. HEMATOLOGIC: Denies history of anemia or bleeding. PHYSICAL EXAMINATION Blood pressure 124/88, heart rate 80, afebrile, oxygen saturations greater than 92% on room air CONSTITUTIONAL: No apparent distress. HEENT: Head is normocephalic. Pupils are equal, round. Sclerae anicteric. Mucous membranes of the mouth are moist. No JVD. No carotid bruit. CHEST EXAMINATION: Lungs with bilateral wheezes to auscultation. No chest wall tenderness is noted on palpation or with deep breathing. HEART EXAMINATION: Regular rate and rhythm. S1, S2 heard. No murmurs, gallops or rub. ABDOMEN: Soft, nontender. Positive bowel sounds. EXTREMITIES: 2+ peripheral pulses, no lower extremity edema and no calf tenderness. SKIN: warm dry NEUROLOGIC EXAMINATION: Patient is awake, alert and oriented x3. ASSESSMENT Chest pain, atypical Peripheral artery disease with stenting of the right SFA 07/2019 Hypertension Type 2 diabetes Dyslipidemia Tobacco use Paroxysmal atrial fibrillation PLAN -Obtained records from [facility], no stress test was performed -An acute coronary event has been ruled out with no EKG evidence of ischemia and negative cardiac enzymes x2. -Obtain 2D echocardiogram and doppler study to assess cardiac structure and function. -Will obtain one more troponin -Continue Xarelto, Plavix and statin -Metoprolol tartrate 25mg BID -Start patient on Nebulizer treatments -If wheezing improved, will perform Lexiscan stress test to assess for stress induced cardiac ischemia tomorrow -Smoking cessation discussed and highly recommended. Thank you kindly for this consultation. Nurse Practitioner note has been reviewed, I agree with a documented findings and plan of care. Patient was seen and examined. Past Medical History Past Medical History: Asthma, Blood Disorder, Coronary Artery Disease (CAD), COPD, Dementia, Diabetes Mellitus, Deep Vein Thrombosis (DVT), Hyperlipidemia, Hypertension, Memory Impairment, Pulmonary Embolus (PE) Additional Past Medical History / Comment(s): back pain, DDD, LT GREAT TOE W OUND. 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 and has had multipe blood clots to legs,lungs and arms History of Any Multi-Drug Resistant Organisms: None Reported Past Surgical History: Adenoidectomy, Orthopedic Surgery, Tonsillectomy Additional Past Surgical History / Comment(s): pilonidal cyst, top teeth removed, R great toe bone resection Past Anesthesia/Blood Transfusion Reactions: Previous Problems w/ Anesthesia Additional Past Anesthesia/Blood Transfusion Reaction / Comment(s): "I have to have extra anesthesia" Past Psychological History: Anxiety Smoking Status: Current every day smoker Past Alcohol Use History: None Reported Past Drug Use History: None Reported - Past Family History Father Family Medical History: Cancer Sister(s) Family Medical History: Blood Disorder Brother(s) Family Medical History: Blood Disorder Medications and Allergies Home Medications Medication Instructions Recorded Confirmed Type Clopidogrel Bisulfate [Plavix] 75 mg PO DAILY #90 tab 08/03/19 02/03/21 Rx Tamsulosin HCl [Flomax] 0.4 mg PO HS 09/05/19 02/03/21 History Acetaminophen [Tylenol] 325 mg PO BID PRN 02/03/21 02/03/21 History Albuterol Nebulized [Ventolin 2.5 mg INHALATION RT-TID 02/03/21 02/03/21 History Nebulized] Albuterol Sulfate [Albuterol 2 puff PO RT-BID PRN 02/03/21 02/03/21 History Sulfate Hfa] Atorvastatin Calcium [Lipitor] 40 mg PO HS 02/03/21 02/03/21 History Ciclesonide [Alvesco] 1 puff INHALATION RT-BID 02/03/21 02/03/21 History Donepezil [Aricept] 10 mg PO DAILY 02/03/21 02/03/21 History Rivaroxaban [Xarelto] 20 mg PO DAILY 02/04/21 02/04/21 History Allergies Allergy/AdvReac Type Severity Reaction Status Date / Time tetracycline [Tetracycline] Allergy Swelling Verified 02/03/21 21:41 Physical Exam Vitals: Vital Signs Temp Pulse Resp BP Pulse Ox 02/04/21 05:24 81 16 124/86 98 02/04/21 01:23 98 F 72 16 121/98 96 02/03/21 23:17 65 16 140/72 98 02/03/21 20:37 97.6 F 69 16 130/96 98 Intake and Output 02/03/21 02/04/21 02/04/21 22:59 06:59 14:59 Other: Weight 96.615 kg Results 02/03/21 21:12 02/03/21 21:12 Cardiac Enzymes 02/03/21 02/03/21 Range/Units 21:12 21:12 AST 27 (17-59) U/L Troponin I 0.018 (0.000-0.034) ng/mL Coagulation 02/03/21 Range/Units 21:12 PT 12.0 (9.0-12.0) sec APTT 24.7 (22.0-30.0) sec CBC 02/03/21 Range/Units 21:12 WBC 8.4 (3.8-10.6) k/uL RBC 5.32 (4.30-5.90) m/uL Hgb 12.4 L (13.0-17.5) gm/dL Hct 40.6 (39.0-53.0) % Plt Count 191 (150-450) k/uL Comprehensive Metabolic Panel 02/03/21 Range/Units 21:12 Sodium 137 (137-145) mmol/L Potassium 3.9 (3.5-5.1) mmol/L Chloride 107 (98-107) mmol/L Carbon Dioxide 21 L (22-30) mmol/L BUN 19 (9-20) mg/dL Creatinine 0.71 (0.66-1.25) mg/dL Glucose 90 (74-99) mg/dL Calcium 9.3 (8.4-10.2) mg/dL AST 27 (17-59) U/L ALT 28 (4-49) U/L Alkaline Phosphatase 76 (38-126) U/L Total Protein 5.9 L (6.3-8.2) g/dL Albumin 3.5 (3.5-5.0) g/dL Current Medications Generic Name Dose Route Start Last Admin Trade Name Freq PRN Reason Stop Dose Admin Sodium Chloride 1,000 mls @ 130 mls/hr 02/03/21 22:30 02/04/21 03:44 Saline 0.9% IV 130 mls/hr .[id number] KEI Administration Morphine Sulfate 4 mg 02/03/21 22:27 Morphine Sulfate 4 Mg/Ml Syringe IV Q4HR PRN Severe Pain Naloxone HCl 0.2 mg 02/03/21 22:27 Naloxone 0.4 Mg/Ml 1 Ml Vial IV Q2M PRN Opioid Reversal Intake and Output 02/03/21 02/04/21 02/04/21 22:59 06:59 14:59 Other: Weight 96.615 kg 02/03/21 21:12 02/03/21 21:12
--- NOTE | 2021-02-04 11:59 | ECHOF ---
Referral Reason:chest pain, LV function MEASUREMENTS -------- HEIGHT: 162.6 cm WEIGHT: 96.6 kg BP: IVSd: 1.1 cm (0.6 - 1.1) LVIDd: 4.7 cm (3.9 - 5.3) LVPWd: 1.6 cm (0.6 - 1.1) IVSs: 1.7 cm LVIDs: 3.2 cm LVPWs: 1.9 cm Ao Diam: 4.1 cm (2.0 - 3.7) AV Cusp: 1.8 cm (1.5 - 2.6) LA Diam: 3.4 cm (2.7 - 3.8) MV EXCURSION: 14.056 mm (> 18.000) MV EF SLOPE: 85 mm/s (70 - 150) EPSS: 2.2 cm RAP: 5.00 mmHg RVSP: 16.53 mmHg FINDINGS -------- This was a technically difficult study with suboptimal views. The left ventricular size is normal. There is mild concentric left ventricular hypertrophy. Overa ll left ventricular systolic function is low-normal with, an EF between 50 - 55 %. The RV was not well visualized. The left atrial size is normal. The right atrium was not well visualized. Lumason used The aortic valve was not well visualized. The mitral valve was not well visualized. Mild mitral regurgitation is present. The tricuspid valve was not well visualized. Mild tricuspid regurgitation present. Right ventricu lar systolic pressure is normal at < 35 mmHg. The pulmonic valve was not well visualized. There is no pericardial effusion. CONCLUSIONS -------- 1. The left ventricular size is normal. 2. There is mild concentric left ventricular hypertrophy. 3. Overall left ventricular systolic function is low-normal with, an EF between 50 - 55 %. 4. Mild mitral regurgitation is present. 5. Mild tricuspid regurgitation present. 6. There is no pericardial effusion. COMPUTER HELP DESK REPRESENTATIVE: Martha Freeman RDCS
--- NOTE | 2021-02-04 12:52 | P.HPIM ---
History of Present Illness Patient the is a 70-year-old male for peripheral artery disease him in with complaints of chest pain and also back pain patient has chronic back pain and cervical spondylosis. Patient is comparing of chest discomfort nonradiating mo derate severity patient pain appears to be coming from the neck area. Patient denied any shortness of breath lightheadedness dizziness and nausea patient denied any syncope. Patient pain is constant. Patient is presently in present outside the present patient usually smokes a pack of cigarettes per day. REVIEW OF SYSTEMS: CONSTITUTIONAL: No fever, no malaise, no fatigue. HEENT: No recent visual problems or hearing problems. Denied any sore throat. CARDIOVASCULAR: No orthopnea, PND, no palpitations, no syncope. PULMONARY: No shortness of breath, no cough, no hemoptysis. GASTROINTESTINAL: No diarrhea, no nausea, no vomiting, no abdominal pain. NEUROLOGICAL: No headaches, no weakness, no numbness. HEMATOLOGICAL: Denies any bleeding or petechiae. GENITOURINARY: Denies any burning micturition, frequency, or urgency. MUSCULOSKELETAL/RHEUMATOLOGICAL: Denies any joint pain, swelling, or any muscle pain. ENDOCRINE: Denies any polyuria or polydipsia. The rest of the 14-point review of systems is negative. PHYSICAL EXAMINATION: GENERAL: The patient is alert and oriented x3, not in any acute distress. Well developed, well nourished. Obese HEENT: Pupils are round and equally reacting to light. EOMI. No scleral icterus. No conjunctival pallor. Normocephalic, atraumatic. No pharyngeal erythema. No thyromegaly. CARDIOVASCULAR: S1 and S2 present. No murmurs, rubs, or gallops. PULMONARY: Chest is clear to auscultation, no wheezing or crackles. ABDOMEN: Soft, nontender, nondistended, normoactive bowel sounds. No palpable organomegaly. MUSCULOSKELETAL: No joint swelling or deformity. EXTREMITIES: No cyanosis, clubbing, or pedal edema. NEUROLOGICAL: Gross neurological examination did not reveal any focal deficits. SKIN: No rashes. Assessment and plan -Chest pain we'll rule out coronary artery disease patient will undergo stress test tomorrow. Troponins are negative. -Peripheral artery disease -COPD without any acute exacerbation -History of PE in the past was do not any anticoagulation -Cervical degenerative disc disease and cervical spondylosis Past Medical History Past Medical History: Asthma, Blood Disorder, Coronary Artery Disease (CAD), COPD, Dementia, Diabetes Mellitus, Deep Vein Thrombosis (DVT), Hyperlipidemia, Hypertension, Memory Impairment, Pulmonary Embolus (PE) Additional Past Medical History / Comment(s): back pain, DDD, LT GREAT TOE WOUND. 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 and has had multipe blood clots to legs,lungs and arms History of Any Multi-Drug Resistant Organisms: None Reported Past Surgical History: Adenoidectomy, Orthopedic Surgery, Tonsillectomy Additional Past Surgical History / Comment(s): pilonidal cyst, top teeth removed, R great toe bone resection Past Anesthesia/Blood Transfusion Reactions: Previous Problems w/ Anesthesia Additional Past Anesthesia/Blood Transfusion Reaction / Comment(s): "I have to have extra anesthesia" Past Psychological History: Anxiety Smoking Status: Current every day smoker Past Alcohol Use History: None Reported Past Drug Use History: None Reported - Past Family History Father Family Medical History: Cancer Sister(s) Family Medical History: Blood Disorder Brother(s) Family Medical History: Blood Disorder Medications and Allergies Home Medications Medication Instructions Recorded Confirmed Type Clopidogrel Bisulfate [Plavix] 75 mg PO DAILY #90 tab 08/03/19 02/03/21 Rx Tamsulosin HCl [Flomax] 0.4 mg PO HS 09/05/19 02/03/21 History Acetaminophen [Tylenol] 325 mg PO BID PRN 02/03/21 02/03/21 History Albuterol Nebulized [Ventolin 2.5 mg INHALATION RT-TID 02/03/21 02/03/21 History Nebulized] Albuterol Sulfate [Albuterol 2 puff PO RT-BID PRN 02/03/21 02/03/21 History Sulfate Hfa] Atorvastatin Calcium [Lipitor] 40 mg PO HS 02/03/21 02/03/21 History Ciclesonide [Alvesco] 1 puff INHALATION RT-BID 02/03/21 02/03/21 History Donepezil [Aricept] 10 mg PO DAILY 02/03/21 02/03/21 History Rivaroxaban [Xarelto] 20 mg PO DAILY 02/04/21 02/04/21 History Allergies Allergy/AdvReac Type Severity Reaction Status Date / Time tetracycline [Tetracycline] Allergy Swelling Verified 02/03/21 21:41 Physical Exam Vitals: Vital Signs Temp Pulse Resp BP Pulse Ox 02/04/21 10:30 80 02/04/21 10:20 80 02/04/21 10:00 98.0 F 80 18 124/88 97 02/04/21 05:24 81 16 124/86 98 02/04/21 01:23 98 F 72 16 121/98 96 02/03/21 23:17 65 16 140/72 98 02/03/21 20:37 97.6 F 69 16 130/96 98 Intake and Output 02/03/21 02/04/21 02/04/21 22:59 06:59 14:59 Other: Weight 96.615 kg Results CBC & Chem 7: 02/03/21 21:12 02/03/21 21:12 Labs: Abnormal Lab Results - Last 24 Hours (Table) 02/03/21 02/03/21 02/03/21 Range/Units 21:12 21:12 21:12 Hgb 12.4 L (13.0-17.5) gm/dL MCV 76.3 L (80.0-100.0) fL MCH 23.3 L (25.0-35.0) pg MCHC 30.5 L (31.0-37.0) g/dL RDW 16.9 H (11.5-15.5) % INR 1.2 H (<1.2) Carbon Dioxide 21 L (22-30) mmol/L Total Protein 5.9 L (6.3-8.2) g/dL
[2021-02-04] MEDS: ATORVASTATIN 40 MG TAB PO SCH (19:58)
[2021-02-04] MEDS: HYDROcodone/APAP 7.5-325MG 1 EACH TAB PO PRN (20:03)
[2021-02-05] MEDS: SODIUM CHLORIDE 0.9% 1,000 ML IV SCH ×2 (04:15→17:45)
[2021-02-05] MEDS: HYDROcodone/APAP 7.5-325MG 1 EACH TAB PO PRN ×2 (07:43→19:59)
[2021-02-05] MEDS: ALBUTEROL NEBULIZED 2.5 MG/3 ML INHALATION SCH ×2 (08:53→12:19)
[2021-02-05] MEDS: RIVAROXABAN 20 MG TAB PO SCH (09:03)
[2021-02-05] MEDS: CLOPIDOGREL 75 MG TAB PO SCH (09:04)
[2021-02-05] MEDS: METOPROLOL TARTRATE 12.5 MG TAB PO SCH ×2 (10:23→19:59)
--- NOTE | 2021-02-05 11:15 | P.PN ---
Subjective This is a pleasant 70-year-old male past medical history significant for peripheral artery disease with stenting of the right SFA 07/2019, hypertension, type 2 diabetes, dyslipidemia, tobacco use, diagnosis of paroxysmal atrial fibrillation 06/2020, chronic nicotine dependence. He follows in the office with Dr. Nina. We have been asked to see in consultation for chest pain. Patient presents to the emergency department 02/03/21 with complaints of chest discomfort. Located in the center of his chest. States it is on and off over the past week. it is non-radiating, non-exertional. No specific alleviating or aggravating factors. He denies any associated palpitations, shortness of breath, lightheadedness, dizziness, nausea. He denies any syncope or near syncope. Denies history of coronary artery disease, [place], stroke. He is a current every da y smoker. 02/05/21: Patient seen and examined at bedside, no acute distress. He denies any further chest pain. He states that his breathing has improved with his albuterol treatment. All troponins came back negative. EKG this morning with no acute findings to suggest acute ischemia. Echocardiogram revealed EF of 5055 percent, mild mitral rotation, mild tricuspid regurgitation. Telemetry reviewed patient in atrial fibrillation, heart rates 5870s. He is currently maintained on atorvastatin 20 mg nightly, Plavix 70 mg daily, metoprolol titrate 25 mg twice a day, Xarelto 20 mg daily. PHYSICAL EXAMINATION Blood pressure 149/99, heart rate 70, afebrile, oxygen saturations greater than 92% on room air CONSTITUTIONAL: No apparent distress. HEENT:Neck Supple. No JVD CHEST EXAMINATION: Lungs with bilateral rhonci and wheezing to auscultation. HEART EXAMINATION: Regular rate and rhythm. S1, S2 heard. No murmurs, gallops or rub. ABDOMEN: Soft, nontender. Positive bowel sounds. EXTREMITIES: 2+ peripheral pulses, no lower extremity edema and no calf tenderness. NEUROLOGIC EXAMINATION: Patient is awake, alert and oriented x3. ASSESSMENT Chest pain, atypical, acute coronary syndrome has been ruled out Peripheral artery disease with stenting of the right SFA 07/2019 Hypertension Type 2 diabetes Dyslipidemia Tobacco use Paroxysmal atrial fibrillation PLAN -An acute coronary event has been ruled out with no EKG evidence of ischemia and negative cardiac enzymes x3 -Patient continues to have significant rhonchi on exam, recommend pulmonary consult for possible COPD exacerbation. -We will hold off on Lexiscan stress test at this time due to lung status and re-assess in the morning. -Continue Xarelto, Plavix and statin -Decrease Metoprolol tartrate 12.5mg BID -Smoking cessation discussed and highly recommended. -Further recommendations based on course Nurse Practitioner note has been reviewed, I agree with a documented findings and plan of care. Patient was seen and examined. Objective - Vital Signs Vital signs: Vital Signs Temp 97.9 F 02/05/21 07:00 Pulse 70 02/05/21 07:00 Resp 20 02/05/21 08:00 BP 149/99 02/05/21 07:00 Pulse Ox 98 02/05/21 07:00 Intake & Output 02/04/21 02/05/21 02/05/21 18:59 06:59 18:59 Intake Total 180 300 Balance 180 300 Weight 96.615 kg Intake: Oral 180 300 Other: # Voids 1 1 - Labs CBC & Chem 7: 02/03/21 21:12 02/03/21 21:12
--- NOTE | 2021-02-05 12:47 | P.CNPUL ---
History of Present Illness Consult date: 02/05/21 Requesting physician: Mitchell Roberson Reason for consult: dyspnea, COPD Chief complaint: Chest pain History of present illness: This is a pleasant 70-year-old male patient who is currently incarcerated [facility]. He was brought over to the emergency room after he was complaining of chest pain that had been occurring on and off for a week prior. He does have a history of atrial fibrillation, coronary artery disease, diabetes mellitus, hyperlipidemia, hypertension, chronic obstructive pulmonary disease with chronic and ongoing tobacco dependence, on obstructive sleep apnea on CPAP at 7 cm of water according to the patient. He is on bronchodilators in the outpatient setting. He was also having some complaints of shortness of breath and we are consulted for the same. He is seen today in consultation on the regular medical floor. He is currently sitting up in a chair at the bedside. Awake and alert in no acute distress. He has a dry nonproductive cough. No fev er or chills. He is currently maintained in good O2 saturations in the upper 90s on room air. White count 8.4. Hemoglobin 12.4. Sodium 137. Potassium 3.9. Bicarb 21. Creatinine 0.71. Troponins were negative 3. Urinalysis negative. Bravo virus by PCR negative. Echocardiogram reveals preserved left ventricular systolic function with ejection fraction 50-55%. No significant valvular heart disease. Stress test on hold due to pulmonary status. He does have some bilateral wheezes and few scattered rhonchi. He's been initiated on albuterol. X-ray revealed no acute pulmonary process Review of Systems REVIEW OF SYSTEMS: CONSTITUTIONAL: Denies any recent significant weight loss or weight gain. EYES: Denies change in vision. EARS, NOSE, MOUTH, THROAT: Denies headaches, denies sore throat. CARDIOVASCULAR: Positive for chest pain, no palpitations or syncopal episodes. RESPIRATORY: Positive for shortness of breath, cough, congestion no hemoptysis. GASTROINTESTINAL: Denies change in appetite, denies abdominal pain GENITOURINARY: Denies hematuria, denies infections. MUSKULOSKELETAL: Denies pain, denies swelling. INTEGUMENTARY: Denies rash, denies eczema. NEUROLOGICAL: Denies recent memory loss, no recent seizure activity. PSYCHIATRIC: Denies anxiety, denies depression. HEMATOLOGIC/LYMPHATIC: Denies anemia, denies enlarged lymph nodes. Past Medical History Past Medical History: Atrial Fibrillation, Asthma, Blood Disorder, Coronary Artery Disease (CAD), COPD, Dementia, Diabetes Mellitus, Deep Vein Thrombosis (DVT), Hyperlipidemia, Hypertension, Memory Impairment, Pneumonia, Pulmonary Embolus (PE), Seizure Disorder, Vascular Disorder Additional Past Medical History / Comment(s): Factor V, multiple DVTs to arms/legs/lungs, NIDDM type II, neuropathy bilateral feet, seizure disorder- states has not had a seizure in quit some time, PAD, gait dysfunction, pt uses back brace and bilateral leg braces, L great toe wound/cellulitis with sepsis, bronchitis, anemia. History of Any Multi-Drug Resistant Organisms: None Reported Past Surgical History: Adenoidectomy, Orthopedic Surgery, Tonsillectomy Additional Past Surgical History / Comment(s): pilonidal cyst, top teeth removed, R great toe bone resection, bilateral carpal tunnel releases, vascular surgery R leg (behind knee), colonoscopy/benign polypectomy Past Anesthesia/Blood Transfusion Reactions: No Reported Reaction Additional Past Anesthesia/Blood Transfusion Reaction / Comment(s): "I have to h ave extra anesthesia" Smoking Status: Current every day smoker - Past Family History Father Family Medical History: Cancer Additional Family Medical History / Comment(s): Pt does not recall type of cancer. Father is . Sister(s) Family Medical History: Blood Disorder Brother(s) Family Medical History: Blood Disorder Mother History Unknown: Yes Additional Family Medical History / Comment(s): Mother is . Medications and Allergies Home Medications Medication Instructions Recorded Confirmed Type Clopidogrel Bisulfate [Plavix] 75 mg PO DAILY #90 tab 08/03/19 02/03/21 Rx Tamsulosin HCl [Flomax] 0.4 mg PO HS 09/05/19 02/03/21 History Acetaminophen [Tylenol] 325 mg PO BID PRN 02/03/21 02/03/21 History Albuterol Nebulized [Ventolin 2.5 mg INHALATION RT-TID 02/03/21 02/03/21 History Nebulized] Albuterol Sulfate [Albuterol 2 puff PO RT-BID PRN 02/03/21 02/03/21 History Sulfate Hfa] Atorvastatin Calcium [Lipitor] 40 mg PO HS 02/03/21 02/03/21 History Ciclesonide [Alvesco] 1 puff INHALATION RT-BID 02/03/21 02/03/21 History Donepezil [Aricept] 10 mg PO DAILY 02/03/21 02/03/21 History Rivaroxaban [Xarelto] 20 mg PO DAILY 02/04/21 02/04/21 History Allergies Allergy/AdvReac Type Severity Reaction Status Date / Time tetracycline [Tetracycline] Allergy Swelling Verified 02/03/21 21:41 Physical Exam Vitals: Vital Signs Temp Pulse Pulse Resp BP BP BP 02/05/21 12:28 61 02/05/21 12:19 70 02/05/21 09:05 78 02/05/21 08:00 20 02/05/21 07:00 97.9 F 70 15 149/99 02/05/21 02:08 98.2 F 61 18 126/79 02/05/21 01:33 17 02/04/21 20:00 62 17 02/04/21 14:53 97.9 F 62 17 138/81 02/04/21 14:05 98.0 F 85 19 132/92 Pulse Ox 02/05/21 12:28 02/05/21 12:19 02/05/21 09:05 02/05/21 08:00 02/05/21 07:00 98 02/05/21 02:08 99 02/05/21 01:33 02/04/21 20:00 02/04/21 14:53 02/04/21 14:05 97 Intake and Output 02/04/21 02/05/21 02/05/21 22:59 06:59 14:59 Intake Total 480 0 Balance 480 0 Intake: Oral 480 0 Other: # Voids 1 1 GENERAL EXAM: Alert, pleasant 70-year-old male patient, on room air, comfortable in no apparent distress. HEAD: Normocephalic. EYES: Normal reaction of pupils, equal size. NOSE: Clear with pink turbinates. THROAT: No erythema or exudates. NECK: No masses, no JVD. CHEST: No chest wall deformity. LUNGS: Equal air entry with bilateral scattered rhonchi, end expiratory wheeze, diminished CVS: S1 and S2 normal with no audible murmur, regular rhythm. ABDOMEN: No hepatosplenomegaly, normal bowel sounds, no guarding or rigidity. SPINE: No scoliosis or deformity SKIN: No rashes CENTRAL NERVOUS SYSTEM: No focal deficits, tone is normal in all 4 extremities. EXTREMITIES: There is no peripheral edema. No clubbing, no cyanosis. Peripheral pulses are intact. Results - Laboratory Findings CBC and BMP: 02/03/21 21:12 02/03/21 21:12 PT/INR, D-dimer PT 12.0 sec (9.0-12.0) 02/03/21 21:12 INR 1.2 (<1.2) H 02/03/21 21:12 Abnormal lab findings: Abnormal Labs 02/03/21 02/03/21 02/03/21 21:12 21:12 21:12 Hgb 12.4 L MCV 76.3 L MCH 23.3 L MCHC 30.5 L RDW 16.9 H INR 1.2 H Carbon Dioxide 21 L Total Protein 5.9 L - Diagnostic Findings Chest x-ray: image reviewed (No acute pulmonary process) Assessment and Plan Assessment: 1 Chest pain and the patient ruled out for acute coronary syndrome, stress test pending 2 Acute exacerbation of chronic obstructive pulmonary disease 3 Chronic and ongoing tobacco dependence 4 Diabetes mellitus 5 Hyperlipidemia 6 Hypertension 7 Having Obstructive sleep apnea on CPAP in the outpatient setting 8 Currently incarcerated in the [facility] Plan: The patient was seen and evaluated Chest x-ray and labs reviewed Add DuoNeb inhalations, Pulmicort and Perforomist inhalations Add IV Solu-Medrol Utilize CPAP at night at 7 cm of water Educated regarding the importance of complete smoking cessation We will continue to follow and make further recommendations based on his clinical status I, the cosigning physician, performed a history & physical examination of the patient. Lungs sounds with end expiratory wheeze, scattered rhonchi. Maintaining good O2 saturations in the 90s on room air. I discussed the assessment and plan of care with my nurse practitioner, Earnestine Tompkins. I attest to the above consultation as dictated by her. Time with Patient: Greater than 30
[2021-02-05] MEDS: methylPREDNISolone SOD SUCCI 125 MG/2 ML VIAL IV SCH ×2 (15:08→17:42)
[2021-02-05 16:39] LABS: Glucose,Whole Blood 121 mg/dL (75-99)
[2021-02-05] MEDS: IPRATROPIUM-ALBUTEROL 3 ML NEB INHALATION SCH ×2 (17:33→20:45)
[2021-02-05] MEDS: ATORVASTATIN 40 MG TAB PO SCH (20:00)
[2021-02-05 20:43] LABS: Glucose,Whole Blood 194 mg/dL (75-99)
[2021-02-05] MEDS: SYMBICORT 160-4.5 MCG INHALER INHALATION SCH (20:45)
--- NOTE | 2021-02-05 21:45 | P.PN ---
Subjective Progress Note Date: 02/05/21 Patient the is a 70-year-old male for peripheral artery disease him in with complaints of chest pain and also back pain patient has chronic back pain and cervical spondylosis. Patient is comparing of chest discomfort nonradiating moderate severity patient pain appears to be coming from the neck area. Patient denied any shortness of breath lightheadedness dizziness and nausea patient denied any syncope. Patient pain is constant. Patient is presently in present outside the present patient usually smokes a pack of cigarettes per day. 02/05/2021 Patient evaluated today resting in bed. He denies any further episodes of chest pain or chest pressure. He does complain of left rib pain due to an old injury that he states is chronic, as well as chronic back pain today. Patient is receiving norco and morphine for pain. Patient was evaluated by pulmonary today who added duonebs and symbicort, and IV steroids. Patient continues with expiratory wheezing. Patient is currently incarcerated, he does not have access to his CPAP machine right now, however he states that his home is infested with bed bugs and his CPAP machine as well. He was requesting a CPAP tonight. Plan is for a lexiscan stress test tomorrow if respiratory status improves. Blood sugars are elevated today, this could be due to steroids, however patient does have a history of diabetes, initiated novolog coverage. ROS Constitutional: Denied any fatigue denied any fever. Cardio vascular: denied any chest pain, palpitations Gastrointestinal denied any nausea vomiting Pulmonary: Denied any shortness of breath cough Neurologic denied any new focal deficits All inpatient medications were reviewed and appropriate changes in these medications as dictated in the interval history and assessment and plan. PHYSICAL EXAMINATION: GENERAL: The patient is alert and oriented x3, not in any acute distress. Well developed, well nourished. Obese HEENT: Pupils are round and equally reacting to light. EOMI. No scleral icterus. No conjunctival pallor. Normocephalic, atraumatic. No pharyngeal erythema. No thyromegaly. CARDIOVASCULAR: S1 and S2 present. No murmurs, rubs, or gallops. PULMONARY: Chest is clear to auscultation, no wheezing or crackles. ABDOMEN: Soft, nontender, nondistended, normoactive bowel sounds. No palpable o rganomegaly. MUSCULOSKELETAL: No joint swelling or deformity. EXTREMITIES: No cyanosis, clubbing, or pedal edema. NEUROLOGICAL: Gross neurological examination did not reveal any focal deficits. SKIN: No rashes. Assessment and plan Assessment -Chest pain, atypical -COPD with acute exacerbation -History of obstructive sleep apnea, uses CPAP outpatient -History of atrial fibrillation -Diabetes mellitus type 2 with peripheral neuropathy -hypertension -hyperlipidemia -Peripheral artery disease s/p vascular surgery -History of Factor V -History of PE/multiple DVT's -Cervical degenerative disc disease and cervical spondylosis -Chronic nicotine dependence; currently 1 PPD DVT prophylaxis: Xarelto FULL CODE Plan Lexiscan in the morning Continue with IV solumedrol, duonebs Add novolog s/s AM labs Objective - Vital Signs Vital signs: Vital Signs Temp 97.7 F 02/05/21 14:26 Pulse 65 02/05/21 14:26 Resp 20 02/05/21 14:26 BP 129/83 02/05/21 14:26 Pulse Ox 99 02/05/21 14:26 Intake & Output 02/04/21 02/05/21 02/05/21 18:59 06:59 18:59 Intake Total 180 300 118 Balance 180 300 118 Weight 96.615 kg Intake: Oral 180 300 118 Other: # Voids 1 1 3 - Labs CBC & Chem 7: 02/03/21 21:12 02/03/21 21:12
[2021-02-06] MEDS: methylPREDNISolone SOD SUCCI 125 MG/2 ML VIAL IV SCH ×3 (00:39→12:11)
[2021-02-06] MEDS: SODIUM CHLORIDE 0.9% 1,000 ML IV SCH (06:19)
[2021-02-06 07:15] LABS: Glucose,Whole Blood 168 mg/dL (75-99)
[2021-02-06] MEDS: SYMBICORT 160-4.5 MCG INHALER INHALATION SCH (08:01)
[2021-02-06] MEDS: IPRATROPIUM-ALBUTEROL 3 ML NEB INHALATION SCH ×2 (08:01→11:28)
[2021-02-06 08:07] VITALS: BP 141/98; RESP 18; TEMP 97.7
[2021-02-06 08:11] VITALS: PULSE 72
[2021-02-06] MEDS: METOPROLOL TARTRATE 12.5 MG TAB PO SCH (08:53)
[2021-02-06] MEDS: INSULIN ASPART (NovoLOG) 100 UNIT/ML VIAL SQ SCH ×2 (08:53→13:00)
[2021-02-06] MEDS: RIVAROXABAN 20 MG TAB PO SCH (08:53)
[2021-02-06] MEDS: CLOPIDOGREL 75 MG TAB PO SCH (08:53)
[2021-02-06 09:57] LABS: African American GFR (CKD) 111.6 (60.0-200.0); Anion Gap 10.9 mmol/L (10.00-18.00); BUN/Creat Ratio 17.29 Ratio (12.00-20.00); Blood Urea Nitrogen 12.1 mg/dL (9.0-27.0); Calcium 9.5 mg/dL (8.7-10.3); Carbon Dioxide 22.1 mmol/L (20.0-27.5); Non-African American GFR(CKD) 96.3 (60.0-200.0); Potassium 4.7 mmol/L (3.5-5.5)
--- NOTE | 2021-02-06 10:10 | P.PN ---
Subjective This is a pleasant 70-year-old male past medical history significant for peripheral artery disease with stenting of the right SFA 07/2019, hypertension, type 2 diabetes, dyslipidemia, tobacco use, diagnosis of paroxysmal atrial fibrillation 06/2020, chronic nicotine dependence. He follows in the office with Dr. Nina. We have been asked to see in consultation for chest pain. Patient presents to the emergency department 02/03/21 with complaints of chest discomfort. Located in the center of his chest. States it is on and off over the past week. it is non-radiating, non-exertional. No specific alleviating or aggravating factors. He denies any associated palpitations, shortness of breath, lightheadedness, dizziness, nausea. He denies any syncope or near syncope. Denies history of coronary artery disease, ID, stroke. He is a current every da y smoker. 02/06/21: Patient seen and examined at bedside, no acute distress. He denies any further chest pain. He states that his breathing has improved with his duoneb treatments. All troponins came back negative. EKG this morning with no acute findings to suggest acute ischemia. Echocardiogram revealed EF of 5055 percent, mild mitral regurgitation, mild tricuspid regurgitation. Telemetry reviewed patient in atrial fibrillation, heart rates 60s-80s. He is currently maintained on atorvastatin 20 mg nightly, Plavix 70 mg daily, metoprolol tartrate 12.5 mg twice a day, Xarelto 20 mg daily. PHYSICAL EXAMINATION Blood pressure 141/98, heart rate 70, afebrile, saturations greater than 92 2% on room air CONSTITUTIONAL: No apparent distress. HEENT:Neck Supple. No JVD CHEST EXAMINATION: Lungs with bilateral rhonci and wheezing to auscultation. HEART EXAMINATION: Irregular rate and rhythm. S1, S2 heard. No murmurs, gallops or rub. ABDOMEN: Soft, nontender. Positive bowel sounds. EXTREMITIES: 2+ peripheral pulses, no lower extremity edema and no calf tenderness. NEUROLOGIC EXAMINATION: Patient is awake, alert and oriented x3. ASSESSMENT Chest pain, atypical, acute coronary syndrome has been ruled out COPD exacerbation Peripheral artery disease with stenting of the right SFA 07/2019 Hypertension Type 2 diabetes Dyslipidemia Tobacco use Paroxysmal atrial fibrillation PLAN -An acute coronary event has been ruled out with no EKG evidence of ischemia and negative cardiac enzymes x3 -We will hold off on Lexiscan stress test at this time due to lung status and re-assess as an outpatient. -Continue Xarelto, Plavix and statin -Continue Metoprolol tartrate 12.5mg BID -Smoking cessation discussed and highly recommended. -From a cardiology perspective, patient is stable. Recommend follow up with Dr. Nina in 1-2 weeks for outpatient testing. We will follow the patient as needed. Please reach out with any further questions or concerns. Nurse Practitioner note has been reviewed, I agree with a documented findings and plan of care. Patient was seen and examined. Objective - Vital Signs Vital signs: Vital Signs Temp 97.7 F 02/06/21 07:00 Pulse 72 02/06/21 08:11 Resp 18 02/06/21 08:00 BP 141/98 02/06/21 07:00 Pulse Ox 98 02/06/21 07:00 Intake & Output 02/05/21 02/06/21 02/06/21 18:59 06:59 18:59 Intake Total 118 500 Balance 118 500 Intake: Oral 118 500 Other: Voiding Method Toilet # Voids 3 2 - Labs CBC & Chem 7: 02/03/21 21:12 02/06/21 05:29 Labs: Abnormal Lab Results - Last 24 Hours (Table) 02/05/21 02/05/21 02/06/21 Range/Units 16:37 20:41 05:29 Glucose 148 H (70-110) mg/dL POC Glucose (mg/dL) 121 H 194 H (75-99) mg/dL 02/06/21 Range/Units 07:13 Glucose (70-110) mg/dL POC Glucose (mg/dL) 168 H (75-99) mg/dL
[2021-02-06 11:31] LABS: Glucose,Whole Blood 202 mg/dL (75-99)
--- NOTE | 2021-02-06 14:18 | P.PN ---
Subjective Progress Note Date: 02/06/21 Principal diagnosis: COPD exacerbation This is a pleasant 70-year-old male patient who is currently incarcerated at the [facility]. He was brought over to the emergency room after he was complaining of chest pain that had been occurring on and off for a week prior. He does have a history of atrial fibrillation, coronary artery disease, diabetes mellitus, hyperlipidemia, hypertension, chronic obstructive pulmonary disease with chronic and ongoing tobacco dependence, on obstructive sleep apnea on CPAP at 7 cm of water according to the patient. He is on bronchodilators in the outpatient setting. He was also having some complaints of shortness of breath and we are consulted for the same. He is seen today in consultation on the regular medical floor. He is currently sitting up in a chair at the bedside. Awake and alert in no acute distress. He has a dry nonproductive cough. No fever or chills. He is currently maintained in good O2 saturations in the upper 90s on room air. White count 8.4. Hemoglobin 12.4. Sodium 137. Potassium 3.9. Bicarb 21. Creatinine 0.71. Troponins were negative 3. Urinalysis negative. Bravo virus by PCR negative. Echocardiogram reveals preserved left ventricular systolic function with ejection fraction 50-55%. No significant valvular heart disease. Stress test on hold due to pulmonary status. He does have some bilateral wheezes and few scattered rhonchi. He's been initiated on albuterol. X-ray revealed no acute pulmonary process The patient is seen today 02/06/2021 in follow-up on the regular medical floor. He is currently resting comfortably in bed. Awake and alert in no acute distress. No worsening shortness of breath, cough or congestion. Feeling back to his baseline. sodium 138. Potassium 4.7. Creatinine 0.7. Glucose 148. He did utilize the hospital CPAP at 7 cm water last night.CPAP machine last night. He is continued on Symbicort, DuoNeb inhalations,IV Solu-Medrol. Anticoagulated with Xarelto. Objective - Vital Signs Vital signs: Vital Signs Temp 97.7 F 02/06/21 07:00 Pulse 72 02/06/21 11:28 Resp 18 02/06/21 08:00 BP 141/98 02/06/21 07:00 Pulse Ox 98 02/06/21 07:00 Intake & Output 02/05/21 02/06/21 02/06/21 18:59 06:59 18:59 Intake Total 118 500 Balance 118 500 Intake: Oral 118 500 Other: Voiding Method Toilet # Voids 3 2 - Exam GENERAL EXAM: Alert, pleasant 70-year-old male patient, on room air, comfortable in no apparent distress. HEAD: Normocephalic. EYES: Normal reaction of pupils, equal size. NOSE: Clear with pink turbinates. THROAT: No erythema or exudates. NECK: No masses, no JVD. CHEST: No chest wall deformity. LUNGS: Equal air entry with bilateral scattered rhonchi, end expiratory wheeze, diminished CVS: S1 and S2 normal with no audible murmur, regular rhythm. ABDOMEN: No hepatosplenomegaly, normal bowel sounds, no guarding or rigidity. SPINE: No scoliosis or deformity SKIN: No rashes CENTRAL NERVOUS SYSTEM: No focal deficits, tone is normal in all 4 extremities. EXTREMITIES: There is no peripheral edema. No clubbing, no cyanosis. Peripheral pulses are intact. - Labs CBC & Chem 7: 02/03/21 21:12 02/06/21 05:29 Labs: Abnormal Lab Results - Last 24 Hours (Table) 02/05/21 02/05/21 02/06/21 Range/Units 16:37 20:41 05:29 Glucose 148 H (70-110) mg/dL POC Glucose (mg/dL) 121 H 194 H (75-99) mg/dL 02/06/21 02/06/21 Range/Units 07:13 11:29 Glucose (70-110) mg/dL POC Glucose (mg/dL) 168 H 202 H (75-99) mg/dL Assessment and Plan Assessment: 1 Chest pain and the patient ruled out for acute coronary syndrome, stress test pending 2 Acute exacerbation of chronic obstructive pulmonary disease 3 Chronic and ongoing tobacco dependence 4 Diabetes mellitus 5 Hyperlipidemia 6 Hypertension 7 Having Obstructive sleep apnea on CPAP in the outpatient setting 8 Currently incarcerated in the [facility] Plan: The patient was seen and evaluated by Dr. Marie Cleared for discharge from the pulmonary standpoint Continue his home inhalers Complete prednisone taper started at 40 mg daily for 4 days Follow-up with his multi site leasing consultant in 1-2 weeks' I, the cosigning physician, performed a history & physical examination of the patient. Lungs sounds with end expiratory wheeze, scattered rhonchi. Maint aining good O2 saturations in the 90s on room air. I discussed the assessment and plan of care with my nurse practitioner, Earnestine Tompkins. I attest to the above note as dictated by her.
--- NOTE | 2021-02-06 15:22 | P.DS ---
Providers Date of admission: 02/04/21 11:22 Attending physician: Mitchell Roberson MD Consults: 02/03/21 22:27 Consult Physician Urgent Consulting Provider: Jatinder Nina Consult Reason/Comments: chest pain, elevated troponin Do you want consulting provider notified?: Yes 02/05/21 08:32 Consult Physician Routine Consulting Provider: Chantale Marie Consult Reason/Comments: COPD exacerbation Do you want consulting provider notified?: Yes Primary care physician: Heron Middleton Hospital Course: Final Diagnosis -Chest pain, atypical, ACS ruled out -COPD with acute exacerbation -History of obstructive sleep apnea, uses CPAP outpatient -History of atrial fibrillation -Diabetes mellitus type 2 with peripheral neuropathy -hypertension -hyperlipidemia -Peripheral artery disease s/p vascular surgery -History of Factor V -History of PE/multiple DVT's -Cervical degenerative disc disease and cervical spondylosis -Chronic nicotine dependence; currently 1 PPD DVT prophylaxis: Xarelto Discharge disposition Patient is discharged on beta michelle and cleared by cardiology was also also cleared by pulmonary today, we'll discharge on the oral steroid taper. Hospital Course This is a pleasant 70-year-old male who presents to the hospital for complaints of chest pain located in the center of his chest that was on and off for the past week, it is nonradiating and nonexertional. There is no shortness of breath, cough, lightheadedness, dizziness, nausea. Patient has a history of peripheral artery disease with SFA stent in July 2019, hypertension, diabetes type 2, dyslipidemia, chronic tobacco use 1 pack per day, paroxysmal A. fib diagnosed in June 2020. He follows with Dr. Nina in the office. There was possibility for a stress test however he was quite wheezy on examination and was started on duo nebs and was given a pulmonary consultation who started IV steroids. Troponin ischemic 3, EKG was negative for any acute findings suggesting acute ischemia. Echocardiogram revealed an EF of 50-55% with mild mitral regurgitation and mild tricuspid regurgitation. EKG reviewed patient is in atrial fibrillation, heart rate rate controlled. He is on Xarelto. Patient currently denies any more episodes of chest pain, reports chronic back pain. Labs show white count 8.4 from him. 0.4, INR 1.2, sodium 137, potassium 3.9, BUN 19, creatinine 0.71, AST ALT within normal limits, amylase lipase normal. Urinalysis is negative COVID PCR is not detected. Patient is afebrile, 98% on room air, blood pressure 141/98. 02/06/21 Cleared by pulmonary cardiology today. He denies chest pain, chest pressure, palpitations, cough or shortness of breath. Lungs are rhonchorous, there is no wheezing. He is a current 1 pack per day smoker he was counseled extensively on smoking cessation. He is currently incarcerated and [facility] accompanied by officer. Patient updated on plan of care and discharge instructions. Please see medication reconcilation for list of current medications. Thank you for allowing us to participate in the care of this patient. Patient Condition at Discharge: Stable Plan - Discharge Summary Discharge Rx Participant: No New Discharge Prescriptions: New methylPREDNISolone Dose Pack [Medrol Dose Pack] 4 mg PO DIRECTED #21 tab Metoprolol Tartrate [Lopressor] 12.5 mg PO BID #60 tab Continue Clopidogrel Bisulfate [Plavix] 75 mg PO DAILY #90 tab Tamsulosin HCl [Flomax] 0.4 mg PO HS Albuterol Sulfate [Albuterol Sulfate Hfa] 2 puff PO RT-BID PRN PRN Reason: Shortness Of Breath Donepezil [Aricept] 10 mg PO DAILY Acetaminophen [Tylenol] 325 mg PO BID PRN PRN Reason: Fever And/ Or Pain Atorvastatin Calcium [Lipitor] 40 mg PO HS Ciclesonide [Alvesco] 1 puff INHALATION RT-BID Albuterol Nebulized [Ventolin Nebulized] 2.5 mg INHALATION RT-TID Rivaroxaban [Xarelto] 20 mg PO DAILY Discharge Medication List Clopidogrel Bisulfate [Plavix] 75 mg PO DAILY #90 tab 08/03/19 [Rx] Tamsulosin HCl [Flomax] 0.4 mg PO HS 09/05/19 [History] Acetaminophen [Tylenol] 325 mg PO BID PRN 02/03/21 [History] Albuterol Nebulized [Ventolin Nebulized] 2.5 mg INHALATION RT-TID 02/03/21 [History] Albuterol Sulfate [Albuterol Sulfate Hfa] 2 puff PO RT-BID PRN 02/03/21 [History] Atorvastatin Calcium [Lipitor] 40 mg PO HS 02/03/21 [History] Ciclesonide [Alvesco] 1 puff INHALATION RT-BID 02/03/21 [History] Donepezil [Aricept] 10 mg PO DAILY 02/03/21 [History] Rivaroxaban [Xarelto] 20 mg PO DAILY 02/04/21 [History] Metoprolol Tartrate [Lopressor] 12.5 mg PO BID #60 tab 02/06/21 [Rx] methylPREDNISolone Dose Pack [Medrol Dose Pack] 4 mg PO DIRECTED #21 tab 02/06/21 [Rx] Follow up Appointment(s)/Referral(s): Jatinder Nina MD [STAFF PHYSICIAN] - 02/14/21 3:30 pm Heron Middleton MD [Primary Care Provider] - 1-2 days Chantale Marie MD [STAFF PHYSICIAN] - 02/20/21 3:30 pm Patient Instructions/Handouts: Chest Pain (GEN), COPD (Chronic Obstructive Pulmonary Disease) (GEN) Discharge Disposition: OTHER INSTITUTION NOT DEFINED
[2021-02-06] MEDS ORDERED: TAMSULOSIN 0.4 MG CAP.ER.24H PO SCH (21:00)
[2021-02-15] MEDS ORDERED: SOTROVIMAB (EUA) 500 MG in SODIUM CHLORIDE 0.9% 100 ML IVPB ONE (22:00)
== END 2021-02-06 13:50 | disposition other institution (70) | DRG 313 ==
LOC: EC 20:30 → 6NMEDSUR 22:28 → OBSVTOIN 02-04 11:22 → 6NMEDSUR 02-04 13:34
PROVIDERS: ADMIT Internal Medicine; ATTEND Internal Medicine
DX: R07.89 Other chest pain (principal); J44.1 Chronic obstructive pulmonary disease with (acute) exacerbation; E11.42 Type 2 diabetes mellitus with diabetic polyneuropathy; E11.51 Type 2 diabetes mellitus with diabetic peripheral angiopathy without gangrene; E78.5 Hyperlipidemia, unspecified; F03.90 Unspecified dementia, unspecified severity, without behavioral disturbance, psychotic disturbance, mood disturbance, and anxiety; F17.210 Nicotine dependence, cigarettes, uncomplicated; Z20.822 Contact with and (suspected) exposure to COVID-19; F41.9 Anxiety disorder, unspecified; G40.909 Epilepsy, unspecified, not intractable, without status epilepticus; G47.33 Obstructive sleep apnea (adult) (pediatric); G89.29 Other chronic pain; I10 Essential (primary) hypertension; I25.10 Atherosclerotic heart disease of native coronary artery without angina pectoris; I48.0 Paroxysmal atrial fibrillation; M47.812 Spondylosis without myelopathy or radiculopathy, cervical region; M50.30 Other cervical disc degeneration, unspecified cervical region; Z79.01 Long term (current) use of anticoagulants; Z79.02 Long term (current) use of antithrombotics/antiplatelets; Z79.899 Other long term (current) drug therapy; Z86.711 Personal history of pulmonary embolism; G62.9 Polyneuropathy, unspecified; Z79.84 Long term (current) use of oral hypoglycemic drugs; M54.9 Dorsalgia, unspecified; R77.8 Other specified abnormalities of plasma proteins
CPT/HCPCS: 36415; 71046; 80048; 80053; 81003; 82150; 83690; 83735; 84484; 85025; 85610; 85730; 87635; 93005; 93306; 94640; 94660; 96361; 96374; 99285

== ENCOUNTER → 2022-09-01 | Outpatient (CLI) | payer MEDICARE ==
--- NOTE | 2022-09-01 16:09 | CT ---
EXAMINATION TYPE: CT abdomen pelvis wo con DATE OF EXAM: 09/01/2022 HISTORY: epigastric pain CT DLP: 901.9 mGycm. Automated Exposure Control for Dose Reduction was Utilized. TECHNIQUE: CT scan of the abdomen and pelvis is performed without oral or IV contrast. COMPARISON: CT urogram October 25, 2018 FINDINGS: Within the limitations of a non-contrast study, the following observations are made. LUNG BASES: Coronary artery calcification and/or stents are redemonstrated. LIVER/GB: No significant abnormality is appreciated. PANCREAS: No significant abnormality is seen. SPLEEN: No significant abnormality is seen. ADRENALS: Low dense thickening to left adrenal gland favoring benign lipid rich hyperplasia is redemo nstrated. KIDNEYS: Linear calcific density mid to lower pole level posterior laterally right kidney axial image 40 is now seen where there was prior dominant 11 mm calculus on prior study. This appears to extend outside the renal parenchyma on coronal and sagittal images suggesting some sort of posttreatment olivia nge. Suspect 1.2 cm simple-appearing thin-walled cyst left kidney axial image 28 posteriorly slightly larger from prior study. No hydronephrosis or distinct renal calculi on current study. Central calci fications left kidney favor vascular etiology. There is now 1.5 cm dependent calculus in the bladder axial image 65. BOWEL: Normal-appearing appendix incidentally redemonstrated. Mild to moderate fecal prominence in th e right and transverse colon. No suspicious small or large bowel dilatation. GENITAL ORGANS: Enlarged prostate consistent with BPH is redemonstrated. LYMPH NODES: No greater than 1cm abdominal or pelvic lymph nodes are appreciated. OSSEOUS STRUCTURES: Facet arthropathy of the lower lumbar spine. Slight scoliotic curvature with mult ilevel spurring redemonstrated. Multilevel vacuum disc phenomenon redemonstrated. Multilevel disc spa ce narrowing greatest at L2-L3 and L5-S1 levels redemonstrated. Moderate to severe narrowing and spur ring in the left hip joint is again seen. OTHER: Small fat-containing right inguinal hernia. Moderate calcified plaque of the ectatic abdominal aorta extends into branch vessels similar to prior. IMPRESSION: 1. Mild to moderate proximal colonic fecal stasis. No bowel obstruction. 2. There is mild dependent 1.5 cm dominant calculus in the bladder. 3. Enlarged prostate consistent with BPH redemonstrated.
== END | disposition home or self-care (01) ==
LOC: RADCTMAIN 13:51
PROVIDERS: ATTEND Family Medicine
DX: N21.0 Calculus in bladder (principal); N40.0 Benign prostatic hyperplasia without lower urinary tract symptoms; K59.00 Constipation, unspecified
CPT/HCPCS: 74176

== ENCOUNTER → 2023-04-23 | Outpatient (CLI) | payer MEDICARE, OTHER ==
--- NOTE | 2023-04-23 21:21 | CTL ---
EXAMINATION TYPE: CT Low Dose Lung DATE OF EXAM: 04/23/2023 4:32 PM CLINICAL INDICATION:Male, 72 years old with history of Z12.2 lung ca screen F17.210 nicotine deendenc e; CURRENT SMOKER, 1 PACK DAILY X 50 YEARS, NO PRIORS , history of tobacco use. COMPARISON: 09/01/2022. TECHNIQUE: Multiple axial non-contrast scans were obtained from approximately the lung apices through the upper abdomen. Coronal and sagittal reformatted images were obtained. Low dose technique was uti lized. CT DLP: 96.20 mGycm, Automated exposure control for dose reduction was used. CT Contrast: Contrast used: None Oral contrast used: None FINDINGS: ======== Lack of intravenous contrast and low dose technique limits the evaluation of the vascular and soft ti ssue structures. LUNGS: No evidence of pulmonary fibrosis. No evidence of focal consolidation, pneumothorax or pleural effusion. Mild centrilobular emphysema changes. Streaky atelectasis within the lung bases. Nodules: RUL: None. RML: None. RLL: Right lower lobe nodule measuring 24 x 14 mm findings could represent opacified airway with the atelectasis. This extends somewhat towards the periphery. There is opacified airway on series 3 i mage 201. AYAKA: None. LLL: None. AIRWAY: Patent and unremarkable. HEART: Size within normal limits. Moderate coronary artery calcifications. MEDIASTINUM: No gross evidence of adenopathy. VASCULATURE: No aortic aneurysm. MUSCULOSKELETAL: No acute osseous abnormalities SOFT TISSUES/LYMPH NODES: Unremarkable. LOWER NECK: No significant findings. UPPER ABDOMEN: No significant findings. IMPRESSION: Right lower lobe opacified airway with postobstructive atelectasis suggested. Short-term follow-up re commended to ensure resolution in 3 months if finding persists consider pet/CT at that time. CT LUNG RAD AND CT CHEST RECOMMENDATION: Lung-Rad 4A Suspicious: Follow-up 3 month LDCT or PET/CT may be used when there is a > 8 mm solid component. S Modifier (other clinically significant findings): None Recommend smoking cessation (if current smoker), or continuation of smoking cessation (if prior smoke r). Annual screening for lung cancer with low-dose computed tomography is recommended in adults ages 55 to 77 years who have a 30 pack-year smoking history and currently smoke or have quit within the pa st 15 years. Screening should be discontinued once a person has not smoked for 15 years or develops a health problem that substantially limits life expectancy or the ability or willingness to have curat ghislaine lung surgery. Lung rads 2021 [email or web address]
== END | disposition home or self-care (01) ==
LOC: RADCTMAIN 16:02
PROVIDERS: ATTEND Family Medicine
DX: Z12.2 Encounter for screening for malignant neoplasm of respiratory organs (principal); F17.210 Nicotine dependence, cigarettes, uncomplicated; J98.11 Atelectasis
CPT/HCPCS: 71271

== ENCOUNTER → 2023-07-22 | Outpatient (CLI) | payer MEDICARE, OTHER ==
--- NOTE | 2023-07-23 10:14 | CTL ---
EXAMINATION TYPE: CT Low Dose Lung DATE OF EXAM ORDERED: 07/22/2023 HISTORY: . Low Dose CT Lung Screening CT DLP: 93.[address] CTDI: 2.6 mGy IV CONTRAST USED: None. SCREENING VISIT: #2 COMPARISON: 04/23/2023 TECHNIQUE: Low dose computed tomography scan was performed through the chest at 1 millimeter thick se ctions and reconstructed images in the coronal plane at [address] DIAGNOSTIC QUALITY: Satisfactory FINDINGS: LUNG NODULES: Persistent 3 cm solid nodule right lower lobe requires further evaluation with PET/CT. Malignancy is not excluded. Additional right hilar nodule measuring 2.3 cm. LUNGS: COPD: Severity: Mild Fibrosis: Severity:None Lymph nodes: None Other findings: None RIGHT PLEURAL SPACE: Effusion: None Calcification: None Thickening: None Pneumothorax: None LEFT PLEURAL SPACE: Effusion: None Calcification: None Thickening: None Pneumothorax: None HEART: Heart Size: Mildly enlarged Coronary calcification: Mild Pericardial effusion: None OTHER FINDINGS: Upper abdomen: No significant abnormality Bony thorax: Degenerative changes Supraclavicular region: No significant abnormalityOther: No significant abnormalityI IMPRESSION: 1. Solid right lower lobe pulmonary nodule persists. There appears to be an additional nodule about t he right hilar region which could reflect adenopathy versus second nodule. PET/CT is recommended for further evaluation. FOLLOW UP CT CHEST RECOMMENDATION: PET/CT recommended CT LUNG RAD: LUNG RAD CATEGORY 4A suspicious
== END | disposition home or self-care (01) ==
LOC: RADCTMAIN 15:28
PROVIDERS: ATTEND Family Medicine
DX: R91.1 Solitary pulmonary nodule (principal); R93.89 Abnormal findings on diagnostic imaging of other specified body structures
CPT/HCPCS: 71271

== ENCOUNTER → 2023-08-20 | Outpatient (CLI) | payer MEDICARE, OTHER ==
--- NOTE | 2023-08-29 11:05 | PE ---
EXAMINATION TYPE: PET CT fusion skull to thigh DATE OF EXAM: 08/20/2023 COMPARISON: Low-dose CT chest 07/22/2023 Prior PET/CT: None at this location HISTORY: Abnormal findings solitary pulmonary nodule TECHNIQUE: Following the intravenous administration of 9.32 mCi of F-18 FDG, whole body images are p erformed from the skull base to the midthigh. Images are reviewed on the computer in the coronal, ax ial, and sagittal planes. Reconstructed rotating images are created on independent workstation and r eviewed on the computer. A localization and attenuation correction CT is performed in conjunction w ith the PET scan. DLP: 1275.44 mGycm SCAN: Initial Blood glucose: 117 mg/dL Average Mediastinum SUV: 2.55 Average Liver SUV: 2.68 FINDINGS: NECK: No abnormal uptake THORAX: There is a prominent lymph node in the pretracheal space with elevated SUV 7.59, image 81 There is a prominent subcarinal lymph node with SUV 7.44, image 90. There is a prominent area of uptake within the posterior lower mediastinum, image 96, SUV 7.69. Right infrahilar uptake is present, image 93, SUV 6.78 and image 96, SUV 6.0 to There is a focus of radiotracer within the posterior lateral right lung with an SUV of 5.6, image 97. ABDOMEN: No abnormal uptake PELVIS: No abnormal uptake OSSEOUS STRUCTURES: No abnormal uptake LOCALIZATION CT: Lung nodule. Enlarged mediastinal is present COMPARISON: Lung nodule corresponds radiotracer uptake IMPRESSION: 1. Findings suspicious for primary lung cancer with mediastinal metastasis.
== END | disposition home or self-care (01) ==
LOC: RADPETMAIN 11:51
PROVIDERS: ATTEND Family Medicine
DX: R91.1 Solitary pulmonary nodule (principal)
CPT/HCPCS: 78815; A9552

== ENCOUNTER 2023-09-12 22:27 | Inpatient (IN) | payer MEDICARE, OTHER ==
[2023-09-13 00:28] LABS: Basophils # (A) 0.1 k/uL (0-0.2); Basophils % (A) 1 %; Eosinophils # (A) 0.1 k/uL (0-0.7); Eosinophils % (A) 1 %; HGB 18.2 gm/dL (13.0-17.5); Lymphocytes # (A) 1.3 k/uL (1.0-4.8); Lymphocytes % (A) 14 %; MCH 29.4 pg (25.0-35.0); MCHC 31.5 g/dL (31.0-37.0); MCV 93.3 fL (80.0-100.0); Mean Platelet Volume 8.8; Monocytes # (A) 0.7 k/uL (0-1.0); Monocytes % (A) 8 %; Neutrophils # (A) 7.2 k/uL (1.3-7.7); Neutrophils % (A) 75 %; Platelet Count 115 k/uL (150-450); RBC 6.18 m/uL (4.30-5.90); RDW 15.5 % (11.5-15.5); WBC 9.6 k/uL (3.8-10.6)
[2023-09-13 00:42] LABS: ALT 44 U/L (4-49); African American GFR (CKD) >90 (>60 ml/min/1.73 sqM); Anion Gap 12 mmol/L; Blood Urea Nitrogen 12 mg/dL (9-20); Calcium 9.5 mg/dL (8.4-10.2); Carbon Dioxide 18 mmol/L (22-30); Chloride 107 mmol/L (98-107); Glucose 116 mg/dL (74-99); Non-African American GFR(CKD) >90 (>60 ml/min/1.73 sqM); Sodium 137 mmol/L (137-145); Total Bilirubin 2.8 mg/dL (0.2-1.3)
[2023-09-13 00:43] LABS: HCT 57.7 % (39.0-53.0)
[2023-09-13 00:44] LABS: INR 1.2 (<1.2); Partial Thromboplastin Time 26.4 sec (22.0-30.0); Prothrombin Time 12.4 sec (10.0-12.5)
--- NOTE | 2023-09-13 01:15 | ED ---
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 Patient states that he started having excruciating pain to his right calf today. He is supposed to have a biopsy on his lungs on the . Reports that he was supposed to stop his Plavix 5 days prior and his Eliquis 2 days prior. He reports that he stopped both of these medications 5 days prior as he really wanted to make sure that he did not have any bleeding. Last dose was on the fifth. He has chronic shortness of breath due to COPD. Denies any worsening symptoms. Denies any trauma of the lower extremity. 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, precipitating modifying factors (Jeanne Mahmood) - Related Data Home Medications Medication Instructions Recorded Confirmed Tamsulosin HCl [Flomax] 0.4 mg PO DAILY 09/05/19 09/13/23 Albuterol Sulfate [Albuterol 2 puff PO RT-BID PRN 02/03/21 09/13/23 Sulfate Hfa] Rivaroxaban [Xarelto] 20 mg PO DAILY 02/04/21 09/13/23 HYDROcodone/APAP 10-325MG [Newell 1 tab PO TID 07/09/21 09/13/23 10-325] Fluticasone/Umeclidin/Vilanter 1 puff INHALATION RT-DAILY 09/13/23 09/13/23 [Trelegy Ellipta 100-62.5-25] Furosemide [Lasix] 20 mg PO DAILY 09/13/23 09/13/23 Ipratropium-Albuterol Nebulize 3 ml INHALATION RT-QID PRN 09/13/23 09/13/23 [Duoneb 0.5 mg-3 mg/3 ml Soln] Metoprolol Tartrate [Lopressor] 25 mg PO DAILY 09/13/23 09/13/23 Omeprazole [PriLOSEC] 20 mg PO DAILY 09/13/23 09/13/23 Rosuvastatin Calcium [Crestor] 40 mg PO DAILY 09/13/23 09/13/23 metFORMIN HCL [Glucophage] 500 mg PO DAILY 09/13/23 09/13/23 Previous Rx's Medication Instructions Recorded Clopidogrel Bisulfate [Plavix] 75 mg PO DAILY #90 tab 08/03/19 Allergies Allergy/AdvReac Type Severity Reaction Status Date / Time tetracycline [Tetracycline] Allergy Swelling Verified 09/13/23 08:13 Review of Systems ROS Other: All systems not noted in ROS Statement are negative. <Jose Richmond - Last Filed: 09/13/23 06:01> ROS Other: All systems not noted in ROS Statement are negative. <Jeanne Mahmood - Last Filed: 09/13/23 23:43> ROS Statement: Those systems with pertinent positive or pertinent negative responses have been documented in the HPI. Past Medical History Past Medical History: Atrial Fibrillation, Asthma, Blood Disorder, Coronary Artery Disease (CAD), COPD, Dementia, Diabetes Mellitus, Deep Vein Thrombosis (DVT), Hyperlipidemia, Hypertension, Memory Impairment, Pneumonia, Pulmonary Embolus (PE), Seizure Disorder, Vascular Disorder Additional Past Medical History / Comment(s): Factor V, multiple DVTs to arms/legs/lungs, NIDDM type II, neuropathy bilateral feet, seizure disorder- states has not had a seizure in quit some time, PAD, gait dysfunction, pt uses back brace and bilateral leg braces, bronchitis, anemia. History of Any Multi-Drug Resistant Organisms: None Reported Past Surgical History: Adenoidectomy, Orthopedic Surgery, Tonsillectomy Additional Past Surgical History / Comment(s): pilonidal cyst, top teeth removed, R great toe bone resection, bilateral carpal tunnel releases, vascular surgery R leg (behind knee), colonoscopy/benign polypectomy Past Anesthesia/Blood Transfusion Reactions: No Reported Reaction Additional Past Anesthesia/Blood Transfusion Reaction / Comment(s): "I have to have extra anesthesia" Past Psychological History: Anxiety, Depression Smoking Status: Current every day smoker Past Alcohol Use History: None Reported Past Drug Use History: None Reported - Past Family History Father Family Medical History: Cancer Additional Family Medical History / Comment(s): Pt does not recall type of cancer. Father is . Sister(s) Family Medical History: Blood Disorder Brother(s) Family Medical History: Blood Disorder Mother History Unknown: Yes Additional Family Medical History / Comment(s): Mother is . <Jeanne Mahmood - Last Filed: 09/13/23 23:43> General Exam Limitations: no limitations General appearance: alert, in no apparent distress Head exam: Present: atraumatic, normocephalic, normal inspection Eye exam: Present: normal appearance, PERRL, EOMI. Absent: scleral icterus, conjunctival injection, periorbital swelling ENT exam: Present: normal exam, mucous membranes moist Neck exam: Present: normal inspection. Absent: tenderness, meningismus, lymphadenopathy Respiratory exam: Present: normal lung sounds bilaterally. Absent: respiratory distress, wheezes, rales, rhonchi, stridor Cardiovascular Exam: Present: regular rate, normal rhythm, normal heart sounds. Absent: systolic murmur, diastolic murmur, rubs, gallop, clicks GI/Abdominal exam: Present: soft, normal bowel sounds. Absent: distended, tende rness, guarding, rebound, rigid Extremities exam: Present: full ROM, tenderness (To palpation of the right calf. Some purple discoloration to the toes which patient states this is his normal. Unable to palpate a DP or PT pulse. Very weak signal with Doppler), normal capillary refill, pedal edema. Absent: joint swelling, calf tenderness Back exam: Present: normal inspection Neurological exam: Present: alert, oriented X3, CN II-XII intact Psychiatric exam: Present: normal affect, normal mood Skin exam: Present: warm, dry, intact, normal color. Absent: rash <Jeanne Mahmood - Last Filed: 09/13/23 23:43> Course Vital Signs 09/12/23 09/12/23 09/13/23 23:03 23:25 00:58 Temperature 98.2 F Pulse Rate 80 108 H 98 Respiratory 20 20 19 Rate Blood Pressure 187/106 140/108 147/100 O2 Sat by Pulse 95 96 99 Oximetry 09/13/23 09/13/23 09/13/23 04:00 04:47 04:57 Temperature Pulse Rate 137 H 129 H Respiratory 22 24 20 Rate Blood Pressure 163/112 163/112 O2 Sat by Pulse 96 95 96 Oximetry 09/13/23 09/13/23 09/13/23 05:23 05:31 05:42 Temperature 98.7 F Pulse Rate 116 H 94 101 H Respiratory 20 Rate Blood Pressure 153/98 O2 Sat by Pulse 97 Oximetry 09/13/23 09/13/23 09/13/23 06:15 08:00 08:17 Temperature Pulse Rate 90 85 126 H Respiratory 19 24 Rate Blood Pressure 151/115 164/121 O2 Sat by Pulse 98 97 Oximetry 09/13/23 09/13/23 09/13/23 08:21 08:29 10:00 Temperature 98.1 F Pulse Rate 109 H 112 H Respiratory 24 Rate Blood Pressure 159/117 O2 Sat by Pulse 94 L 98 Oximetry 09/13/23 10:10 Temperature 98.1 F Pulse Rate 120 H Respiratory 20 Rate Blood Pressure 147/117 O2 Sat by Pulse 98 Oximetry Medical Decision Making - Lab Data Result diagrams: 09/13/23 03:35 09/12/23 23:59 <Jose Richmond - Last Filed: 09/13/23 06:01> - Lab Data Result diagrams: 09/13/23 20:22 09/13/23 20:22 <Jeanne Mahmood - Last Filed: 09/13/23 23:43> - Medical Decision Making Patient care was signed out at 2 AM awaiting ultrasound results and r eevaluation. The ultrasound was negative for DVT. I did evaluate the patient and the right foot was cold compared to the left. Patient had significant pain in this extremity. I did order high-dose heparin and CT angiography of the right lower extremity which is positive for arterial occlusion in the previously stented vessel. I contacted the convex grinder operator covering for Dr. Nina, Dr. Maurer. Patient admitted to internal medicine with acute limb ischemia and arterial occlusion. Discussed with Dr. Kasper who will admit (Jose Richmond) Was pt. sent in by a medical professional or institution (, PA, AIR EXPORT OPERATIONS AGENT, urgent care, hospital, or long term...) When possible be specific @ -No Did you speak to anyone other than the patient for history (EMS, parent, family, police, friend...)? What history was obtained from this source @ -No Did you review nursing and triage notes (agree or disagree)? Why? @ -I reviewed and agree with nursing and triage notes Were old charts reviewed (outside hosp., previous admission, EMS record, old EKG, old radiological studies, urgent care reports/EKG's, long term records)? Report findings @ -I reviewed previous chart from 2021 when patient had a popliteal stent placed Differential Diagnosis (chest pain, altered mental status, abdominal pain women, abdominal pain men, vaginal bleeding, weakness, fever, dyspnea, syncope, headache, dizziness, GI bleed, back pain, seizure, CVA, palpatations, mental health, musculoskeletal)? @ -DVT, arterial occlusion, osteomyelitis, cellulitis EKG interpreted by me (3pts min.). @ -Yes and demonstrates a flutter with a rate of 104. QRS 94. QTc of 390. No acute ST segment elevations or depressions X-rays interpreted by me (1pt min.). @ -None done CT interpreted by me (1pt min.). @ -None done U/S interpreted by me (1pt. min.). @ -Awaiting results at this time What testing was considered but not performed or refused? (CT, X-rays, U/S, labs)? Why? @ -CTA of leg, awaiting doppler results at this time as femoral stent was ultrasounded What meds were considered but not given or refused? Why? @ -None Did you discuss the management of the patient with other professionals (professionals i.e. , PA, AIR EXPORT OPERATIONS AGENT, lab, RT, psych nurse, social services designee, stagecraft teacher, teacher, financial aid officer, wrapper caser)? Give summary @ -Spoke with Dr. Richmond who will overtake care of the patient Was smoking cessation discussed for >3mins.? @ -No Was critical care preformed (if so, how long)? @ -No Were there social determinants of health that impacted care today? How? (Homelessness, low income, unemployed, alcoholism, drug addiction, transportation, low edu. Level, literacy, decrease access to med. care, skilled nursing, rehab)? @ -No Was there de-escalation of care discussed even if they declined (Discuss DNR or withdrawal of care, Hospice)? DNR status @ -No What co-morbidities impacted this encounter? (DM, HTN, Smoking, COPD, CAD, Cancer, CVA, ARF, Chemo, Hep., AIDS, mental health diagnosis, sleep apnea, morbid obesity)? @ -Arterial occlusion, factor V Leiden, DVT Was patient admitted / discharged? Hospital course, mention meds given and route, prescriptions, significant lab abnormalities, going to OR and other pertinent info. @ -On arrival patient seen and evaluated in room 10. Thorough history and physical exam was performed. Ultrasound is ordered. Laboratory studies are co nducted. Awaiting results at this time. Care will be signed out to Dr. Richmond ([facility] Josep) - Lab Data Lab Results 09/12/23 09/12/23 09/12/23 Range/Units 23:59 23:59 23:59 WBC 9.6 (3.8-10.6) k/uL RBC 6.18 H (4.30-5.90) m/uL Hgb 18.2 H (13.0-17.5) gm/dL Hct 57.7 H* (39.0-53.0) % MCV 93.3 (80.0-100.0) fL MCH 29.4 (25.0-35.0) pg MCHC 31.5 (31.0-37.0) g/dL RDW 15.5 (11.5-15.5) % Plt Count 115 L (150-450) k/uL MPV 8.8 Neutrophils % 75 % Lymphocytes % 14 % Monocytes % 8 % Eosinophils % 1 % Basophils % 1 % Neutrophils # 7.2 (1.3-7.7) k/uL Lymphocytes # 1.3 (1.0-4.8) k/uL Monocytes # 0.7 (0-1.0) k/uL Eosinophils # 0.1 (0-0.7) k/uL Basophils # 0.1 (0-0.2) k/uL PT 12.4 (10.0-12.5) sec INR 1.2 H (<1.2) APTT 26.4 (22.0-30.0) sec Sodium 137 (137-145) mmol/L Potassium 4.6 (3.5-5.1) mmol/L Chloride 107 (98-107) mmol/L Carbon Dioxide 18 L (22-30) mmol/L Anion Gap 12 mmol/L BUN 12 (9-20) mg/dL Creatinine 0.69 (0.66-1.25) mg/dL Est GFR (CKD-EPI)AfAm >90 (>60 ml/min/1.73 sqM) Est GFR (CKD-EPI)NonAf >90 (>60 ml/min/1.73 sqM) Glucose 116 H (74-99) mg/dL Plasma Lactic Acid Jose (0.7-2.0) mmol/L Calcium 9.5 (8.4-10.2) mg/dL Magnesium 1.8 (1.6-2.3) mg/dL Total Bilirubin 2.8 H (0.2-1.3) mg/dL AST 59 (17-59) U/L ALT 44 (4-49) U/L Alkaline Phosphatase 67 (38-126) U/L Troponin I (0.000-0.034) ng/mL Total Protein 6.5 (6.3-8.2) g/dL Albumin 4.2 (3.5-5.0) g/dL 09/12/23 09/13/23 09/13/23 Range/Units 23:59 03:35 03:35 WBC 9.5 (3.8-10.6) k/uL RBC 5.95 H (4.30-5.90) m/uL Hgb 18.1 H (13.0-17.5) gm/dL Hct 54.8 H (39.0-53.0) % MCV 92.1 (80.0-100.0) fL MCH 30.5 (25.0-35.0) pg MCHC 33.1 (31.0-37.0) g/dL RDW 15.6 H (11.5-15.5) % Plt Count 111 L (150-450) k/uL MPV 9.8 Neutrophils % 71 % Lymphocytes % 15 % Monocytes % 9 % Eosinophils % 2 % Basophils % 1 % Neutrophils # 6.7 (1.3-7.7) k/uL Lymphocytes # 1.4 (1.0-4.8) k/uL Monocytes # 0.9 (0-1.0) k/uL Eosinophils # 0.2 (0-0.7) k/uL Basophils # 0.1 (0-0.2) k/uL PT (10.0-12.5) sec INR (<1.2) APTT (22.0-30.0) sec Sodium (137-145) mmol/L Potassium (3.5-5.1) mmol/L Chloride (98-107) mmol/L Carbon Dioxide (22-30) mmol/L Anion Gap mmol/L BUN (9-20) mg/dL Creatinine (0.66-1.25) mg/dL Est GFR (CKD-EPI)AfAm (>60 ml/min/1.73 sqM) Est GFR (CKD-EPI)NonAf (>60 ml/min/1.73 sqM) Glucose (74-99) mg/dL Plasma Lactic Acid Jose 1.6 (0.7-2.0) mmol/L Calcium (8.4-10.2) mg/dL Magnesium (1.6-2.3) mg/dL Total Bilirubin (0.2-1.3) mg/dL AST (17-59) U/L ALT (4-49) U/L Alkaline Phosphatase (38-126) U/L Troponin I 0.014 (0.000-0.034) ng/mL Total Protein (6.3-8.2) g/dL Albumin (3.5-5.0) g/dL Critical Care Time Critical Care Time: Yes Total Critical Care Time: 35 <Jose Richmond - Last Filed: 09/13/23 06:01> Disposition Is patient prescribed a controlled substance at d/c from ED?: No Time of Disposition: 03:55 <Jose Richmond - Last Filed: 09/13/23 06:01> <Jeanne Mahmood - Last Filed: 09/13/23 23:43> Clinical Impression: Arterial occlusion, lower extremity Disposition: ADMITTED IP TO THIS [facility] Condition: Stable
[2023-09-13 01:20] LABS: AST 59 U/L (17-59); Albumin 4.2 g/dL (3.5-5.0); Alkaline Phosphatase 67 U/L (38-126); Magnesium 1.8 mg/dL (1.6-2.3); Potassium 4.6 mmol/L (3.5-5.1); Total Protein 6.5 g/dL (6.3-8.2)
--- NOTE | 2023-09-13 02:18 | US ---
EXAM: US Duplex Right Lower Extremity Veins CLINICAL HISTORY: ITS.REASON US Reason: dvt TECHNIQUE: Real-time duplex ultrasound scan of the right lower extremity veins integrating B-mode two-dimensional vascular structure, Doppler spectral analysis, color flow Doppler imaging and compression. COMPARISON: No relevant prior studies available. FINDINGS: Deep veins: Unremarkable. No DVT in the visualized common femoral, femoral, proximal deep femoral or popliteal veins. The veins demonstrate normal color flow, are normally compressible, with normal phasic flow and/or augmentation response. Superficial veins: Unremarkable. No thrombus in the visualized great saphenous vein. Soft tissues: No acute findings. No popliteal cyst. IMPRESSION: Normal right lower extremity duplex venous ultrasound.
[2023-09-13] MEDS ORDERED: RX INFO: IV CONTRAST WAS GIVEN 1 EACH MISC MISCELLANE PRN (02:30)
[2023-09-13] MEDS ORDERED: HEPARIN SODIUM 1,000 UN/ML (10ML VL) IV PRN (03:05)
[2023-09-13] MEDS: HEPARIN SOD,PORK IN 0.45% NACL 25,000 UNIT in 0.45% NACL 1 250ML.BAG IV SCH ×2 (03:24→21:01)
[2023-09-13] MEDS: HEPARIN SODIUM 1,000 UN/ML (10ML VL) IV ONE (03:25)
--- NOTE | 2023-09-13 03:31 | CT ---
EXAM: CT Angiography of the Right Lower Extremity With Intravenous Contrast CLINICAL HISTORY: ITS.REASON CT Reason: pain, pallor TECHNIQUE: Axial computed tomographic angiography images of the right lower extremity with intravenous contrast. CTDI is 41.9 mGy and DLP is 1282.2 mGy-cm. This CT exam was performed using one or more of the following dose reduction techniques: automated exposure control, adjustment of the mA and/or kV according to patient size, and/or use of iterative reconstruction technique. MIP reconstructed images were created and reviewed. COMPARISON: None FINDINGS: VASCULATURE: Aorta: Atherosclerotic changes of the vasculature. Probable mild ectasia of the visualized distal abdominal aorta. No dissection. Right iliac arteries: Mild aneurysmal dilatation in the proximal right internal iliac artery, measuring approximately 1.3 cm in diameter. Right femoral/popliteal arteries: Occluded right superficial femoral artery, including occluded stent in the distal right superficial femoral artery. Occluded stent in the right popliteal artery. Moderate focal stenosis at the origin of the right deep femoral artery. Right calf/foot arteries: Occluded right calf arteries. LOWER EXTREMITY: Bones/joints: Old fracture deformity of the lateral right patella. No dislocation. Soft tissues: Soft tissue swelling and fat stranding throughout the right foot, ankle, and right lower leg. Injection granulomas in the right gluteal soft tissues. Other findings: Normal appendix. IMPRESSION: 1. Occluded right superficial femoral artery, including occluded stent in the distal right superficial femoral artery. Occluded stent in the right popliteal artery. Occluded right calf arteries. 2. Moderate focal stenosis at the origin of the right deep femoral artery. 3. Soft tissue swelling and fat stranding throughout the right foot, ankle, and right lower leg. 4. Atherosclerotic changes of the vasculature. Probable mild ectasia of the visualized distal abdominal aorta. No dissection. Mild aneurysmal dilatation in the proximal right internal iliac artery, measuring approximately 1.3 cm in diameter.
[2023-09-13 03:51] LABS: Basophils # (A) 0.1 k/uL (0-0.2); Basophils % (A) 1 %; Eosinophils # (A) 0.2 k/uL (0-0.7); Eosinophils % (A) 2 %; HCT 54.8 % (39.0-53.0); HGB 18.1 gm/dL (13.0-17.5); Lymphocytes # (A) 1.4 k/uL (1.0-4.8); Lymphocytes % (A) 15 %; MCH 30.5 pg (25.0-35.0); MCHC 33.1 g/dL (31.0-37.0); MCV 92.1 fL (80.0-100.0); Mean Platelet Volume 9.8; Monocytes # (A) 0.9 k/uL (0-1.0); Monocytes % (A) 9 %; Neutrophils # (A) 6.7 k/uL (1.3-7.7); Neutrophils % (A) 71 %; Platelet Count 111 k/uL (150-450); RBC 5.95 m/uL (4.30-5.90); RDW 15.6 % (11.5-15.5); WBC 9.5 k/uL (3.8-10.6)
[2023-09-13] MEDS ORDERED: NALOXONE 0.4 MG/ML 1 ML VIAL IV PRN (03:52)
[2023-09-13] MEDS ORDERED: ACETAMINOPHEN TAB 325 MG TAB PO PRN (03:52)
[2023-09-13] MEDS ORDERED: ONDANSETRON 4 MG/2 ML VIAL IVP PRN (03:52)
[2023-09-13] MEDS: HYDROmorphone 1 MG/ML 1 ML SYRINGE IVP PRN (04:38)
[2023-09-13] MEDS: SODIUM CHLORIDE 0.9% 1,000 ML IV SCH (04:46)
[2023-09-13] MEDS: METOPROLOL TARTRATE 12.5 MG TAB PO SCH (05:04)
[2023-09-13] MEDS: NICOTINE 21MG/24HR PATCH TRANSDERM SCH (05:04)
[2023-09-13] MEDS: ALBUTEROL NEBULIZED 2.5 MG/3 ML INHALATION PRN (05:31)
[2023-09-13] MEDS ORDERED: ALBUTEROL NEBULIZED 2.5 MG/3 ML INHALATION SCH (08:00)
[2023-09-13] MEDS: ALBUTEROL NEBULIZED 2.5 MG/3 ML INHALATION SCH (08:17)
[2023-09-13] MEDS ORDERED: METOPROLOL TARTRATE 12.5 MG TAB PO SCH (09:00)
[2023-09-13 10:55] LABS: Glucose,Whole Blood 94 mg/dL (70-110)
--- NOTE | 2023-09-13 11:30 | P.CRDCN ---
History of Present Illness History of present illness: HISTORY OF PRESENT ILLNESS: This is a 73-year-old male with a past medical history significant for peripheral arterial disease, atrial fibrillation, hyperlipidemia, obesity, and nicotine dependence. Patient follows in the office with Dr. Nina. We have been asked to see the patient in consultation for right leg ischemia. Patient examined at the bedside in the emergency room. Patient presented to the hospital for chief complaint of right leg pain. He initially thought he had a blood clot in his leg which prompted him to come to the emergency room. The patient states that he does take Plavix and Xarelto on an outpatient basis. He states he is scheduled to have a lung biopsy performed on September 15 and was instructed to hold his Plavix for 5 days before the procedure and also to hold his Xarelto for 2 days before the procedure. The patient currently denies any chest pain or pressure. He denies any shortness of breath. The patient was started on IV heparin. The patient does report that he continues to smoke daily. DIAGNOSTICS: - EKG reveals atrial fibrillation with no signs of acute ischemia -Right lower extremity Doppler: Negative for DVT -Lower extremity CTA: Occluded right superficial femoral artery, including occluded stent in the distal right superficial femoral artery. Occluded stent in the right popliteal artery. Occluded right calf arteries. Moderate focal stenosis at the origin of the right deep femoral artery. Soft tissue swelling and fat stranding throughout the right foot ankle and right lower leg. Mild aneurysmal dilatation in the proximal right iliac artery measuring 1.3 cm in diameter. - Laboratory data: WBC 9.5. Hemoglobin 18.1. Platelet count 111. Sodium 137. Potassium 4.6. BUN 12. Creatinine 0.69. Lactic acid 1.6. Troponin negative x 1. - Current home cardiac medications include Plavix 75 mg daily, Xarelto 20 mg daily, metoprolol tartrate 25 mg daily, Lasix 20 mg daily, rosuvastatin 40 mg daily. REVIEW OF SYSTEMS: At the time of my exam: CONSTITUTIONAL: Denies fever or chills. HEENT: Denies blurred vision, vision changes, or eye pain. Denies hemoptysis CARDIOVASCULAR: Denies chest pain. Denies orthopnea. Denies PND. Denies palpitations RESPIRATORY: Denies shortness of breath. GASTROINTESTINAL: Denies abdominal pain. Denies nausea or vomiting. HEMATOLOGIC: Denies bleeding disorders. GENITOURINARY: Denies any blood in urine. SKIN: Denies pruitis. Denies rash. PHYSICAL EXAM: VITAL SIGNS: Reviewed. GENERAL: Well-developed in no acute distress. HEENT: Head is normocephalic. Pupils are equal, round. Sclerae anicteric. Mucous membranes of the mouth are moist. Neck supple. No JVD or thyromegaly LUNGS: Respirations even and unlabored. Lungs essentially clear to auscultation bilaterally. HEART: Regular rate and rhythm. S1 and S2 heard. ABDOMEN: Soft. Nondistended. Nontender. EXTREMITIES: Normal range of motion. No clubbing or cyanosis. Peripheral pulses absent in RLE. Right lower extremity cool to touch. NEUROLOGIC: Awake and alert. Oriented x 3. 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 Patient to be referred to [place] quit line upon discharge NPO Patient to undergo right lower extremity angiogram today with Dr. Nina Further recommendations pending patient course Nurse practitioner note has been reviewed by physician. Signing provider agrees with the documented findings, assessment, and plan of care documented by PASSENGER AGENT as a scribe. 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 History of Any Multi-Drug Resistant Organisms: None Reported Past Surgical History: Adenoidectomy, Orthopedic Surgery, Tonsillectomy Additional Past Surgical History / Comment(s): pilonidal cyst, top teeth removed, R great toe bone resection, bilateral carpal tunnel releases, vascular surgery R leg (behind knee), colonoscopy/benign polypectomy Past Anesthesia/Blood Transfusion Reactions: No Reported Reaction Additional Past Anesthesia/Blood Transfusion Reaction / Comment(s): "I have to have extra anesthesia" Past Psychological History: Anxiety, Depression Smoking Status: Current every day smoker Past Alcohol Use History: None Reported Past Drug Use History: None Reported - Past Family History Father Family Medical History: Cancer Additional Family Medical History / Comment(s): Pt does not recall type of cancer. Father is . Sister(s) Family Medical History: Blood Disorder Brother(s) Family Medical History: Blood Disorder Mother History Unknown: Yes Additional Family Medical History / Comment(s): Mother is . Medications and Allergies Home Medications Medication Instructions Recorded Confirmed Type Clopidogrel Bisulfate [Plavix] 75 mg PO DAILY #90 tab 08/03/19 09/13/23 Rx Tamsulosin HCl [Flomax] 0.4 mg PO DAILY 09/05/19 09/13/23 History Albuterol Sulfate [Albuterol 2 puff PO RT-BID PRN 02/03/21 09/13/23 History Sulfate Hfa] Rivaroxaban [Xarelto] 20 mg PO DAILY 02/04/21 09/13/23 History HYDROcodone/APAP 10-325MG [[place] 1 tab PO TID 07/09/21 09/13/23 History 10-325] Fluticasone/Umeclidin/Vilanter 1 puff INHALATION RT-DAILY 09/13/23 09/13/23 History [Trelegy Ellipta 100-62.5-25] Furosemide [Lasix] 20 mg PO DAILY 09/13/23 09/13/23 History Ipratropium-Albuterol Nebulize 3 ml INHALATION RT-QID PRN 09/13/23 09/13/23 History [Duoneb 0.5 mg-3 mg/3 ml Soln] Metoprolol Tartrate [Lopressor] 25 mg PO DAILY 09/13/23 09/13/23 History Omeprazole [PriLOSEC] 20 mg PO DAILY 09/13/23 09/13/23 History Rosuvastatin Calcium [Crestor] 40 mg PO DAILY 09/13/23 09/13/23 History metFORMIN HCL [Glucophage] 500 mg PO DAILY 09/13/23 09/13/23 History Allergies Allergy/AdvReac Type Severity Reaction Status Date / Time tetracycline [Tetracycline] Allergy Swelling Verified 07/08/24 08:13 Physical Exam Vitals: Vital Signs Temp Pulse Resp BP Pulse Ox 09/13/23 06:15 90 19 151/115 98 09/13/23 05:42 101 H 09/13/23 05:31 94 09/13/23 05:23 98.7 F 116 H 20 153/98 97 09/13/23 04:47 129 H 24 163/112 95 09/13/23 04:00 137 H 22 163/112 96 09/13/23 00:58 98 19 147/100 99 09/12/23 23:25 108 H 20 140/108 96 09/12/23 23:03 98.2 F 80 20 187/106 95 Intake and Output 09/12/23 09/13/23 09/13/23 22:59 06:59 14:59 Other: Weight 113.398 kg Results 09/13/23 03:35 09/12/23 23:59 Cardiac Enzymes 09/12/23 09/12/23 Range/Units 23:59 23:59 AST 59 (17-59) U/L Troponin I 0.014 (0.000-0.034) ng/mL Coagulation 09/12/23 Range/Units 23:59 PT 12.4 (10.0-12.5) sec APTT 26.4 (22.0-30.0) sec CBC 09/12/23 09/13/23 Range/Units 23:59 03:35 WBC 9.6 9.5 (3.8-10.6) k/uL RBC 6.18 H 5.95 H (4.30-5.90) m/uL Hgb 18.2 H 18.1 H (13.0-17.5) gm/dL Hct 57.7 H* 54.8 H (39.0-53.0) % Plt Count 115 L 111 L (150-450) k/uL Comprehensive Metabolic Panel 09/12/23 Range/Units 23:59 Sodium 137 (137-145) mmol/L Potassium 4.6 (3.5-5.1) mmol/L Chloride 107 (98-107) mmol/L Carbon Dioxide 18 L (22-30) mmol/L BUN 12 (9-20) mg/dL Creatinine 0.69 (0.66-1.25) mg/dL Glucose 116 H (74-99) mg/dL Calcium 9.5 (8.4-10.2) mg/dL AST 59 (17-59) U/L ALT 44 (4-49) U/L Alkaline Phosphatase 67 (38-126) U/L Total Protein 6.5 (6.3-8.2) g/dL Albumin 4.2 (3.5-5.0) g/dL Current Medications Generic Name Dose Route Start Last Admin Trade Name Freq PRN Reason Stop Dose Admin Acetaminophen 650 mg 09/13/23 03:52 Acetaminophen Tab 325 Mg Tab PO Q6HR PRN Mild Pain or Fever > 100.5 Albuterol Sulfate 2.5 mg 09/13/23 05:00 09/13/23 05:31 Albuterol Nebulized 2.5 Mg/3 Ml INHALATION 2.5 mg RT-TID PRN Administration Bronchodilation Albuterol Sulfate 2.5 mg 09/13/23 08:00 Albuterol Nebulized 2.5 Mg/3 Ml INHALATION RT-TID KEI Heparin Sodium (Porcine) 0 unit 09/13/23 03:05 Heparin Sodium 1,000 Un/Ml (10ml Vl) IV PER PROTOCOL PRN Low PTT Protocol Hydromorphone HCl 0.5 mg 09/13/23 03:52 Hydromorphone 0.5 Mg/0.5 Ml Syringe IVP Q3HR PRN Moderate Pain (Scale 4 to 6) Hydromorphone HCl 1 mg 09/13/23 03:52 09/13/23 04:38 Hydromorphone 1 Mg/Ml 1 Ml Syringe IVP 1 mg Q3HR PRN Administration Severe Pain (Scale 7 to 10) Heparin Sodium/Sodium Chloride 250 mls @ 20.412 mls/hr 09/13/23 03:15 03:24 25,000 unit/ Sodium Chloride IV 18 units/kg/hr .[id number] KEI 20.412 mls/hr Administration Protocol 18 UNITS/KG/HR Sodium Chloride 1,000 mls @ 75 mls/hr 09/13/23 04:00 09/13/23 04:46 Saline 0.9% IV 75 mls/hr .[id number] KEI Administration Metoprolol Tartrate 12.5 mg 09/13/23 04:55 09/13/23 05:04 Metoprolol Tartrate 12.5 Mg Tab PO 12.5 mg BID KEI Administration Miscellaneous Information 1 each 09/13/23 02:30 Rx Info: Iv Contrast Was Given 1 Each Misc MISCELLANE 09/15/23 02:31 DAILY PRN Per Protocol Naloxone HCl 0.2 mg 09/13/23 03:52 Naloxone 0.4 Mg/Ml 1 Ml Vial IV Q2M PRN Opioid Reversal Nicotine 1 patch 09/13/23 09:00 09/13/23 05:04 Nicotine 21mg/24hr Patch TRANSDERM 1 patch DAILY KEI Administration Ondansetron HCl 4 mg 09/13/23 03:52 Ondansetron 4 Mg/2 Ml Vial IVP Q8HR PRN Nausea And Vomiting Intake and Output 09/12/23 09/13/23 09/13/23 22:59 06:59 14:59 Other: Weight 113.398 kg 09/13/23 03:35 09/12/23 23:59
[2023-09-13] MEDS ORDERED: IPRATROPIUM-ALBUTEROL 3 ML NEB INHALATION PRN (13:27)
--- NOTE | 2023-09-13 14:19 | XR ---
EXAMINATION TYPE: XR chest 2V DATE OF EXAM: 09/13/2023 COMPARISON: 02/03/2021, PET CT 08/20/2023 INDICATION: Pneumonia patient states he has right lung cancer. TECHNIQUE: Frontal and lateral views of the chest are obtained. FINDINGS: The heart size is normal. The pulmonary vasculature is normal. There is a 1.4 to 1.8 cm nodular density at the right lung base. This could correlate with the patien t's reported lung cancer. Lung [place] otherwise appear clear. Old posterior right rib fractures are e vident. IMPRESSION: 1. No acute pulmonary process. 2. Suspected nodule right lower lobe corresponding to previous findings.
--- NOTE | 2023-09-13 15:11 | P.HPIM ---
History of Present Illness Patient is [id number] male admitted for peripheral arterial disease and patient will undergo intervention for this. Patient has severe pain in the right lower extremity, right lower extremity CTA showed occluded superficial femoral artery including the stent in the distal right superficial femoral artery occluded stent in the right popliteal occluded right calf artery arteries and moderate focal stenosis of origin of the right deep femoral artery. Patient is on 75 mg of Plavix and also Xarelto. Patient denies any chest pain was having shortness of breath and wheezing patient does have history of COPD continues to smoke. Patient was started on systemic steroids and additional treatments after which wheezing did improve. Vascular surgery evaluated the patient and planning on intervention for severe right lower extremity peripheral vascular disease. REVIEW OF SYSTEMS: CONSTITUTIONAL: No fever, no malaise, no fatigue. HEENT: No recent visual problems or hearing problems. Denied any sore throat. CARDIOVASCULAR: No chest pain, orthopnea, PND, no palpitations, no syncope. PULMONARY: , no hemoptysis. GASTROINTESTINAL: No diarrhea, no nausea, no vomiting, no abdominal pain. NEUROLOGICAL: No headaches, no weakness, no numbness. HEMATOLOGICAL: Denies any bleeding or petechiae. GENITOURINARY: Denies any burning micturition, frequency, or urgency. MUSCULOSKELETAL/RHEUMATOLOGICAL: Denies any joint pain, swelling, or any muscle pain. ENDOCRINE: Denies any polyuria or polydipsia. The rest of the 14-point review of systems is negative. PHYSICAL EXAMINATION: GENERAL: The patient is alert and oriented x3, not in any acute distress. Well developed, well nourished. HEENT: Pupils are round and equally reacting to light. EOMI. No scleral icterus. No conjunctival pallor. Normocephalic, atraumatic. No pharyngeal erythema. No thyromegaly. CARDIOVASCULAR: S1 and S2 present. No murmurs, rubs, or gallops. PULMONARY: Expiratory wheezing which improved fairly good air entry to bilateral lower lung [place] ABDOMEN: Soft, nontender, nondistended, normoactive bowel sounds. No palpable organomegaly. MUSCULOSKELETAL: No joint swelling or deformity. EXTREMITIES: As mentioned above NEUROLOGICAL: Gross neurological examination did not reveal any focal deficits. SKIN: No rashes. Assessment and plan -Severe progressive disease right lower extremity vascular surgery will evaluate the patient patient had occluded stents in the lower extremity which may need intervention. 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 Patient was started on systemic steroids and nasal treatments -lung cancer with mediastinal mets -Paroxysmal atrial fibrillation on anticoagulation which will be continued -Hyperlipidemia Type 2 diabetes mellitus on metformin which will be held as patient will undergo angiogram of the lower extremities patient will be on sliding scale insulin DVT prophylaxis: Patient is on IV heparin Past Medical History Past Medical History: Atrial Fibrillation, Asthma, Blood Disorder, Coronary Artery Disease (CAD), COPD, Dementia, Diabetes Mellitus, Deep Vein Thrombosis (DVT), Hyperlipidemia, Hypertension, Memory Impairment, Pneumonia, Pulmonary Embolus (PE), Seizure Disorder, Vascular Disorder Additional Past Medical History / Comment(s): Factor V, multiple DVTs to arms/legs/lungs, NIDDM type II, neuropathy bilateral feet, seizure disorder- states has not had a seizure in quit some time, PAD, gait dysfunction, pt uses back brace and bilateral leg braces, bronchitis, anemia. History of Any Multi-Drug Resistant Organisms: None Reported Past Surgical History: Adenoidectomy, Orthopedic Surgery, Tonsillectomy Additional Past Surgical History / Comment(s): pilonidal cyst, top teeth removed, R great toe bone resection, bilateral carpal tunnel releases, vascular surgery R leg (behind knee), colonoscopy/benign polypectomy Past Anesthesia/Blood Transfusion Reactions: No Reported Reaction Additional Past Anesthesia/Blood Transfusion Reaction / Comment(s): "I have to have extra anesthesia" Past Psychological History: Anxiety, Depression Smoking Status: Current every day smoker Past Alcohol Use History: None Reported Past Drug Use History: None Reported - Past Family History Father Family Medical History: Cancer Additional Family Medical History / Comment(s): Pt does not recall type of cancer. Father is . Sister(s) Family Medical History: Blood Disorder Brother(s) Family Medical History: Blood Disorder Mother History Unknown: Yes Additional Family Medical History / Comment(s): Mother is . Medications and Allergies Home Medications Medication Instructions Recorded Confirmed Type Clopidogrel Bisulfate [Plavix] 75 mg PO DAILY #90 tab 08/03/19 09/13/23 Rx Tamsulosin HCl [Flomax] 0.4 mg PO DAILY 09/05/19 09/13/23 History Albuterol Sulfate [Albuterol 2 puff PO RT-BID PRN 02/03/21 09/13/23 History Sulfate Hfa] Rivaroxaban [Xarelto] 20 mg PO DAILY 02/04/21 09/13/23 History HYDROcodone/APAP 10-325MG [[place] 1 tab PO TID 07/09/21 09/13/23 History 10-325] Fluticasone/Umeclidin/Vilanter 1 puff INHALATION RT-DAILY 09/13/23 09/13/23 History [Trelegy Ellipta 100-62.5-25] Furosemide [Lasix] 20 mg PO DAILY 09/13/23 09/13/23 History Ipratropium-Albuterol Nebulize 3 ml INHALATION RT-QID PRN 09/13/23 09/13/23 History [Duoneb 0.5 mg-3 mg/3 ml Soln] Metoprolol Tartrate [Lopressor] 25 mg PO DAILY 09/13/23 09/13/23 History Omeprazole [PriLOSEC] 20 mg PO DAILY 09/13/23 09/13/23 History Rosuvastatin Calcium [Crestor] 40 mg PO DAILY 09/13/23 09/13/23 History metFORMIN HCL [Glucophage] 500 mg PO DAILY 09/13/23 09/13/23 History Allergies Allergy/AdvReac Type Severity Reaction Status Date / Time tetracycline [Tetracycline] Allergy Swelling Verified 09/13/23 08:13 Physical Exam Vitals: Vital Signs Temp Pulse Pulse Resp BP Pulse Ox 09/13/23 12:00 96 87 13 93 L 09/13/23 11:50 98 09/13/23 10:10 98.1 F 120 H 20 147/117 98 09/13/23 10:00 98.1 F 112 H 24 159/117 98 09/13/23 08:29 109 H 09/13/23 08:21 94 L 09/13/23 08:17 126 H 09/13/23 08:00 85 24 164/121 97 09/13/23 06:15 90 19 151/115 98 09/13/23 05:42 101 H 09/13/23 05:31 94 09/13/23 05:23 98.7 F 116 H 20 153/98 97 09/13/23 04:57 20 96 09/13/23 04:47 129 H 24 163/112 95 09/13/23 04:00 137 H 22 163/112 96 09/13/23 00:58 98 19 147/100 99 09/12/23 23:25 108 H 20 140/108 96 09/12/23 23:03 98.2 F 80 20 187/106 95 Intake and Output 09/13/23 09/13/23 09/13/23 06:59 14:59 22:59 Intake Total 320.553 Output Total 175 Balance 145.553 Intake: Intake, IV Titration 320.553 Amount Heparin Sod,Pork in 0.45% 245.553 NaCl 25,000 unit In 0.45 % NaCl 1 250ml.bag @ 18 UNITS/KG/HR 20.412 mls/hr IV .[id number] KEI Rx#: [id number] Sodium Chloride 0.9% 1, 75 000 ml @ 75 mls/hr IV . [id number] [facility] Rx#:[id number] Output: Urine 175 Other: Weight 113.398 kg Results CBC & Chem 7: 09/13/23 03:35 09/12/23 23:59 Labs: Abnormal Lab Results - Last 24 Hours (Table) 09/12/23 09/12/23 09/12/23 Range/Units 23:59 23:59 23:59 RBC 6.18 H (4.30-5.90) m/uL Hgb 18.2 H (13.0-17.5) gm/dL Hct 57.7 H* (39.0-53.0) % RDW (11.5-15.5) % Plt Count 115 L (150-450) k/uL INR 1.2 H (<1.2) APTT (22.0-30.0) sec Carbon Dioxide 18 L (22-30) mmol/L Glucose 116 H (74-99) mg/dL Total Bilirubin 2.8 H (0.2-1.3) mg/dL 09/13/23 09/13/23 Range/Units 03:35 13:09 RBC 5.95 H (4.30-5.90) m/uL Hgb 18.1 H (13.0-17.5) gm/dL Hct 54.8 H (39.0-53.0) % RDW 15.6 H (11.5-15.5) % Plt Count 111 L (150-450) k/uL INR (<1.2) APTT 190.8 H* (22.0-30.0) sec Carbon Dioxide (22-30) mmol/L Glucose (74-99) mg/dL Total Bilirubin (0.2-1.3) mg/dL Thrombosis Risk Factor Assmnt - Choose All That Apply Any of the Below Risk Factors Present?: Yes Each Factor Represents 1 point: Abnormal pulmonary function (COPD) Each Risk Factor Represents 3 Points: Positive Factor V Leiden Thrombosis Risk Factor Assessment Total Risk Factor Score: 4 Thrombosis Risk Factor Assessment Level: Moderate Risk
[2023-09-13] MEDS: methylPREDNISolone SOD SUCCI 40 MG/ML 1 ML VIAL IV SCH (15:51)
[2023-09-13] MEDS: IPRATROPIUM-ALBUTEROL 3 ML NEB INHALATION SCH (15:54)
[2023-09-13] MEDS ORDERED: LIDOCAINE 1% INJ 10MG/ML (20 ML MDV) ONE (17:47)
[2023-09-13] MEDS ORDERED: HEPARIN SODIUM 1,000 UN/ML (10ML VL) ONE (17:57)
[2023-09-13] MEDS ORDERED: fentaNYL (PF) 50 MCG/ML 2 ML AMP ONE (17:57)
[2023-09-13] MEDS: MIDAZOLAM 2 MG/2 ML VIAL IVP ONE ×2 (18:05→18:42)
[2023-09-13] MEDS: fentaNYL (PF) 50 MCG/1 ML VIAL IVP ONE ×2 (18:05→18:27)
[2023-09-13] MEDS: LIDOCAINE 2% (PF) 20 MG/ML 10 ML AMP SQ ONE (18:05)
[2023-09-13] MEDS ORDERED: NALOXONE 0.4 MG/ML 1 ML VIAL IVP PRN (18:45)
--- NOTE | 2023-09-13 18:49 | P.PCN ---
Date of Procedure: 09/13/23 Operative Findings: Peripheral arterial procedure Performing physician Jatinder Nina MD Procedure performed Right lower extremity angiogram Successful placement of tPA infusion catheter in the right popliteal artery and right SFA Ultrasound-guided access of the left common femoral artery Indication Acute limb ischemia. Complication None Level of sedation Moderate with sedation length of 35 minutes Approach Left common femoral artery Procedure description After obtaining informed consent the patient was brought to the cardiac Real Estate Branch Manager. Right common femoral artery was cannulated using micropuncture technique under ultrasound guidance micropuncture wire passed easily then I placed a 6 [place] 70 cm sheath at the left common femoral artery after dilated the artery using 5 [place] sheath. Subsequently I did go up and over to the right common femoral artery using a 035 stiff Glidewire with the backup support of 5 [place] rim catheter and subsequently the sheath was advanced over the wire and the catheter to the right common femoral artery. Right lower extremity angiogram was performed and showed no flow below the knee with occluded anterior tibial and peroneal and occluded popliteal and occluded right SFA. I was able to cross the occlusion using a 035 stiff Glidewire with the backup support of CXI catheter which was 035 CXI catheter and subsequently I did advance or place an infusion catheter over the 035 wire and the artery 5 wire was pulled out. The infusion catheter was subsequently connected to tPA and the patient will be admitted to the intensive care unit for tPA infusion and second look tomorrow Postprocedure management tPA infusion overnight Monitor the hemoglobin and platelet and PT and PTT Obtain a second look angiogram tomorrow morning
[2023-09-13] MEDS: IOPAMIDOL-370 100ML BTL INTRATHECA ONE (19:06)
[2023-09-13] MEDS: HEPARIN SODIUM,PORCINE 10,000 UNIT in SODIUM CHLORIDE 0.9% 1,000 ML IRRIGATION ONE (19:07)
[2023-09-13] MEDS: HEPARIN SODIUM,PORCINE (1 ML) 2,500 UNIT in SODIUM CHLORIDE 0.9% 250 ML IRRIGATION ONE (19:07)
[2023-09-13] MEDS: SODIUM CHLORIDE 0.9% 1,000 ML IV ONE (19:07)
[2023-09-13] MEDS: HYDROmorphone 0.5 MG/0.5 ML SYRINGE IVP PRN (19:15)
[2023-09-13] MEDS: SODIUM CHLORIDE 0.9% 1,000 ML in EMPTY BAG 1 BAG IV SCH (20:24)
[2023-09-13 20:53] LABS: INR 1.3 (<1.2); Prothrombin Time 13.2 sec (10.0-12.5)
[2023-09-13] MEDS: ALTEPLASE 10 MG in SODIUM CHLORIDE 0.9% 90 ML IA ONE (20:59)
[2023-09-13 21:03] LABS: African American GFR (CKD) >90 (>60 ml/min/1.73 sqM); Basophils # (A) 0.1 k/uL (0-0.2); Basophils % (A) 1 %; Blood Urea Nitrogen 13 mg/dL (9-20); Eosinophils % (A) 0 %; HGB 16.7 gm/dL (13.0-17.5); Hypochromasia Slight; Lymphocytes # (A) 0.7 k/uL (1.0-4.8); Lymphocytes % (A) 8 %; MCH 28.6 pg (25.0-35.0); MCHC 30.3 g/dL (31.0-37.0); MCV 94.3 fL (80.0-100.0); Mean Platelet Volume 9.2; Monocytes # (A) 0.4 k/uL (0-1.0); Monocytes % (A) 4 %; Neutrophils # (A) 8.4 k/uL (1.3-7.7); Neutrophils % (A) 87 %; Non-African American GFR(CKD) >90 (>60 ml/min/1.73 sqM); Platelet Count 106 k/uL (150-450); RBC 5.84 m/uL (4.30-5.90); RDW 15.7 % (11.5-15.5); WBC 9.7 k/uL (3.8-10.6)
[2023-09-13] MEDS: MORPHINE SULFATE 2 MG/ML SYRINGE IVP PRN (22:32)
--- NOTE | 2023-09-14 05:09 | P.CNPUL ---
History of Present Illness Consult date: 09/14/23 Requesting physician: Connie France Reason for consult: COPD Chief complaint: Acute right leg pain History of present illness: Patient is a 74-year-old white male with past medical history significant for coronary artery disease, diabetes mellitus, hyperlipidemia, hypertension, COPD, chronic ongoing tobacco dependence, obstructive sleep apnea, lung nodules, atrial fibrillation, factor V, and severe peripheral peripheral vascular disease. Of note, patient has severe peripheral arterial disease and has underwent previous stenting of the right SFA, he is chronically maintained on dual antiplatelet therapy including Plavix. Also, chronically anticoagulated on Xarelto. 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 Recently, patient was being worked up for suspicious right lower lung nodule and mediastinal lymphadenopathy, he was supposedly going to have a lung biopsy on September 15, and was directed to hold his Plavix 5 days prior and Xarelto 2 days prior. Reportedly, stopped both of these medications 5 days prior. Subsequently, started to notice right leg pain starting 4 days ago. This progressively worsens, and became severe early yesterday morning. He could not use this extremity or walk. Finally, came to the emergency department for evaluation early yesterday morning. CT angiography of the right lower extremity demonstrated an occluded right SFA, including the previous stent to the distal right SFA, stent to the right popliteal artery, as well as, occluded right calf arteries. There is moderate focal stenosis at the right deep femoral artery. Soft tissue swelling and fat stranding throughout the right foot, ankle, and right lower extremity leg. Yesterday evening, patient did undergo right lower extremity angiogram with successful placement of a tPA infusion catheter in the right popliteal artery and right SFA. On my evaluation, right foot remains cold and pulseless even with Doppler. Foot appears dusky in color. Patient does report severe right lower extremity pain and reduced mobility. Catheter directed tPA at 1 mg/h continuous. heparin also infusing at 500 units/h for catheter patency. No oozing or hematoma noted at left femoral sheath insertion site. CBC is unremarkable and hemoglobin is stable at 16.7 g/dL. Fibrinogen 283. CMP on arrival was fairly unremarkable. LFTs not elevated. Troponin 0.014. Normal saline infusing at 75 mL/h. Pain is being managed with a combination of as needed Dilaudid. Blood pressure is normotensive. Heart rhythm appears atrial fibrillation with controlled ventricular response of 80 to 100 bpm. Patient is currently fairly comfortable on 2 L/min nasal cannula, no respiratory distress. Patient states his breathing is fairly baseline. He continues to smoke 2 packs/day. Denies any infectious symptoms like change in his chronic cough, sputum production, fevers. Denies sick contacts. He has been started on a combination of DuoNebs and IV Solu- Medrol. He does have history of right lower lobe 2.3 cm pulmonary nodule. Recent PET scan done 08/20/2023 redemonstrates a posterior right lateral lung nodule with an SUV of 5.6, as well as, SUV avid mediastinal lymphadenopathy suspicious for metastasis. His scheduled lung biopsy, which will likely have to be rescheduled. Reportedly, plan is for patient to return to [facility] later this morning. Review of Systems REVIEW OF SYSTEMS: CONSTITUTIONAL: Denies any recent significant weight loss or weight gain. EYES: Denies change in vision. EARS, NOSE, MOUTH, THROAT: Denies headaches, denies sore throat. CARDIOVASCULAR: Denies chest pain, palpitations or syncopal episodes. RESPIRATORY: Admits chronic shortness of breath. Denies any change in his chronic cough, sputum production, hemoptysis, chest pain. GASTROINTESTINAL: Denies change in appetite, abdominal pain, nausea and vomiting, or diarrhea GENITOURINARY: Denies hematuria, denies infections. MUSKULOSKELETAL: Admits severe right lower extremity leg pain and reduced mobility. INTEGUMENTARY: Denies rash, denies eczema. NEUROLOGICAL: Denies recent memory loss, no recent seizure activity. PSYCHIATRIC: Denies anxiety, denies depression. 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 History of Any Multi-Drug Resistant Organisms: None Reported Past Surgical History: Adenoidectomy, Orthopedic Surgery, Tonsillectomy Additional Past Surgical History / Comment(s): pilonidal cyst, top teeth removed, R great toe bone resection, bilateral carpal tunnel releases, vascular surgery R leg (behind knee), colonoscopy/benign polypectomy Past Anesthesia/Blood Transfusion Reactions: No Reported Reaction Additional Past Anesthesia/Blood Transfusion Reaction / Comment(s): "I have to have extra anesthesia" Past Psychological History: Anxiety, Depression Smoking Status: Current every day smoker Past Alcohol Use History: None Reported Past Drug Use History: None Reported - Past Family History Father Family Medical History: Cancer Additional Family Medical History / Comment(s): Pt does not recall type of cancer. Father is . Sister(s) Family Medical History: Blood Disorder Brother(s) Family Medical History: Blood Disorder Mother History Unknown: Yes Additional Family Medical History / Comment(s): Mother is . Medications and Allergies Home Medications Medication Instructions Recorded Confirmed Type Clopidogrel Bisulfate [Plavix] 75 mg PO DAILY #90 tab 08/03/19 09/13/23 Rx Tamsulosin HCl [Flomax] 0.4 mg PO DAILY 09/05/19 09/13/23 History Albuterol Sulfate [Albuterol 2 puff PO RT-BID PRN 02/03/21 09/13/23 History Sulfate Hfa] Rivaroxaban [Xarelto] 20 mg PO DAILY 02/04/21 09/13/23 History HYDROcodone/APAP 10-325MG [[place] 1 tab PO TID 07/09/21 09/13/23 History 10-325] Fluticasone/Umeclidin/Vilanter 1 puff INHALATION RT-DAILY 09/13/23 09/13/23 History [Trelegy Ellipta 100-62.5-25] Furosemide [Lasix] 20 mg PO DAILY 09/13/23 09/13/23 History Ipratropium-Albuterol Nebulize 3 ml INHALATION RT-QID PRN 09/13/23 09/13/23 History [Duoneb 0.5 mg-3 mg/3 ml Soln] Metoprolol Tartrate [Lopressor] 25 mg PO DAILY 09/13/23 09/13/23 History Omeprazole [PriLOSEC] 20 mg PO DAILY 09/13/23 09/13/23 History Rosuvastatin Calcium [Crestor] 40 mg PO DAILY 09/13/23 09/13/23 History metFORMIN HCL [Glucophage] 500 mg PO DAILY 09/13/23 09/13/23 History Allergies Allergy/AdvReac Type Severity Reaction Status Date / Time tetracycline [Tetracycline] Allergy Swelling Verified 09/13/23 08:13 Physical Exam Vitals: Vital Signs Temp Pulse Pulse Pulse Resp BP BP 09/14/23 01:00 98.1 F 80 15 156/99 09/14/23 00:28 98.1 F 94 15 156/99 09/14/23 00:00 98.1 F 80 15 156/99 09/13/23 23:28 98.1 F 94 15 156/99 09/13/23 23:00 98.1 F 105 H 27 H 176/110 09/13/23 22:30 98.1 F 100 27 H 176/110 09/13/23 22:28 98.1 F 105 H 27 H 176/110 09/13/23 22:20 93 09/13/23 22:05 100 09/13/23 22:00 98.1 F 100 25 H 162/129 09/13/23 21:30 98.1 F 105 H 25 H 162/129 09/13/23 21:28 98.1 F 97 25 H 162/129 09/13/23 18:43 98.1 F 15 170/105 09/13/23 16:05 92 09/13/23 16:00 97 F L 16 09/13/23 15:56 112 H 09/13/23 12:00 96 95 28 H 09/13/23 11:50 98 09/13/23 10:10 98.1 F 120 H 20 147/117 09/13/23 10:00 98.1 F 112 H 24 159/117 09/13/23 08:29 109 H 09/13/23 08:21 09/13/23 08:17 126 H 09/13/23 08:00 85 24 164/121 09/13/23 06:15 90 19 151/115 09/13/23 05:42 101 H 09/13/23 05:31 94 09/13/23 05:23 98.7 F 116 H 20 153/98 09/13/23 04:57 20 09/13/23 04:47 129 H 24 163/112 Pulse Ox FiO2 09/14/23 01:00 95 09/14/23 00:28 95 09/14/23 00:00 95 09/13/23 23:28 95 09/13/23 23:00 95 09/13/23 22:30 95 09/13/23 22:28 95 09/13/23 22:20 09/13/23 22:05 09/13/23 22:00 96 09/13/23 21:30 95 09/13/23 21:28 95 96 09/13/23 18:43 95 09/13/23 16:05 09/13/23 16:00 96 09/13/23 15:56 09/13/23 12:00 93 L 09/13/23 11:50 09/13/23 10:10 98 09/13/23 10:00 98 09/13/23 08:29 09/13/23 08:21 94 L 09/13/23 08:17 09/13/23 08:00 97 09/13/23 06:15 98 09/13/23 05:42 09/13/23 05:31 09/13/23 05:23 97 09/13/23 04:57 96 09/13/23 04:47 95 Intake and Output 09/13/23 09/13/23 09/14/23 14:59 22:59 06:59 Intake Total 320.553 829.447 Output Total 175 225 Balance 145.553 604.447 Intake: IV 400 Intake, IV Titration 320.553 99.447 Amount Heparin Sod,Pork in 0.45% 245.553 24.447 NaCl 25,000 unit In 0.45 % NaCl 1 250ml.bag @ 18 UNITS/KG/HR 20.412 mls/hr IV .[id number] [facility] Rx#: [id number] Sodium Chloride 0.9% 1, 75 000 ml @ 75 mls/hr IV . [id number] [facility] Rx#:[id number] Sodium Chloride 0.9% 1, 75 000 ml In Empty Bag 1 bag @ 75 mls/hr IV .[id number] [facility] Rx#:[id number] Oral 330 Output: Urine 175 225 Other: Voiding Method Urinal Urinal Urinal GENERAL EXAM: Alert, 73-year-old white male, comfortable in no apparent distress. HEAD: Normocephalic and atraumatic EYES: Normal reaction of pupils, equal size. NOSE: Clear with pink turbinates. THROAT: No erythema or exudates. NECK: No masses, no JVD. CHEST: No chest wall deformity. LUNGS: Equal air entry with diminished lung sounds bilaterally. No crackles, wheeze, rhonchi or dullness. On 3 L/min nasal cannula. No conversational dyspnea or accessory muscle use.. CVS: S1 and S2 normal with no audible murmur, irregular rhythm. No extra heart sounds ABDOMEN: No hepatosplenomegaly, active bowel sounds, no guarding or rigidity. SPINE: No scoliosis or deformity SKIN: No rashes CENTRAL NERVOUS SYSTEM: No focal deficits, tone is normal in all 4 extremities. EXTREMITIES: Right lower extremity is cold, pulseless even with Doppler, reduced mobility. Right foot appears dusky in color. Left femoral introducer sheath is in place, with tPA catheter infusing alteplase at 1 mg/h. No hematoma or oozing. Left lower extremity distal pulses found with Doppler. No peripheral edema. Results - Laboratory Findings CBC and BMP: 09/13/23 20:22 09/13/23 20:22 PT/INR, D-dimer PT 13.2 sec (10.0-12.5) H 09/13/23 20:22 INR 1.3 (<1.2) H 09/13/23 20:22 Abnormal lab findings: Abnormal Labs 09/12/23 09/12/23 09/12/23 23:59 23:59 23:59 RBC 6.18 H Hgb 18.2 H Hct 57.7 H* MCHC RDW Plt Count 115 L Neutrophils # Lymphocytes # PT INR 1.2 H APTT Carbon Dioxide 18 L Glucose 116 H Total Bilirubin 2.8 H 09/13/23 09/13/23 09/13/23 03:35 13:09 20:22 RBC 5.95 H Hgb 18.1 H Hct 54.8 H MCHC RDW 15.6 H Plt Count 111 L Neutrophils # Lymphocytes # PT 13.2 H INR 1.3 H APTT 190.8 H* Carbon Dioxide Glucose Total Bilirubin 09/13/23 20:22 RBC Hgb Hct 55.0 H MCHC 30.3 L RDW 15.7 H Plt Count 106 L Neutrophils # 8.4 H Lymphocytes # 0.7 L PT INR APTT Carbon Dioxide Glucose Total Bilirubin - Diagnostic Findings Chest x-ray: image reviewed Assessment and Plan Assessment: Acute critical limb ischemia, CT angiography of the right lower extremity, demonstrated an occluded right SFA, including the previous stent to the distal right SFA, stent to the right popliteal artery, as well as, occluded right calf arteries. Status/post lower extremity angiogram with successful placement of a tPA infusion catheter in the right popliteal artery and right SFA. I am told there is a plan for the patient to return to the [facility] later this morning History of severe peripheral arterial disease, with previous stenting the right SFA and stenting of a right popliteal arterial aneurysm Right lung nodule and associated mediastinal lymphadenopathy, suspicious for primary lung cancer and metastasis. Recent PET scan done 08/20/2023 redemonstrates a posterior right lateral lung nodule with an SUV of 5.6, as well as, SUV avid mediastinal lymphadenopathy suspicious for mediastinal metastasis. Was tentatively, scheduled lung biopsy, which will likely have to be rescheduled. Acute COPD exacerbation, chest x-ray does not show any acute cardiopulmonary process. No focal infiltrates or evidence of pneumonia. The previously mentioned right lower lung nodule redemonstrated. Acute hypoxemic respiratory failure, currently on 3 L/min nasal cannula, secondary to above Chronic ongoing tobacco dependence, up to 2 packs/day History of diabetes mellitus History of hyperlipidemia History of hypertension Chronic atrial fibrillation, chronically anticoagulated on Xarelto History of factor V deficiency History of DVT/PE Obstructive sleep apnea, maintained on CPAP at bedtime Morbid obesity, with a BMI of 42.9 kg/m Plan: Patient's medications, labs, imaging were review. Catheter directed tPA continues to be infusing at 1 mg/h Monitor for bleeding, continue to monitor fibrinogen levels. Monitor neurovascular status of right lower extremity per protocol Tentative plan to return to [facility] later this morning Bronchoscopy with transbronchial biopsy and EBUS will have to be rescheduled Smoking cessation counseling performed Continue supplemental oxygen to maintain oxygen saturation of 90% or greater Start patient on combination of DuoNebs [id number], Symbicort inhaler, and IV Solu-Medrol. May substitute Trelegy inhaler if available. Provide patient with CPAP at bedtime, with a pressure support of 8 Prognosis is guarded. We will continue to follow, and further recommendations to follow I have personally seen and examined the patient, performed the documentation and the assessment and plan as written. Number of minutes spent on the visit:20 Time with Patient: Greater than 30
[2023-09-14] MEDS: ALTEPLASE 10 MG in SODIUM CHLORIDE 0.9% 90 ML IA ONE (05:30)
[2023-09-14] MEDS: hydrALAZINE HCL 20 MG/ML 1 ML VIAL IV PRN (06:46)
[2023-09-14 06:51] LABS: INR 1.3 (<1.2); Prothrombin Time 13.7 sec (10.0-12.5)
[2023-09-14 07:17] LABS: Basophils % (A) 0 %; Eosinophils % (A) 0 %; HCT 54.6 % (39.0-53.0); HGB 16.6 gm/dL (13.0-17.5); Hypochromasia Slight; Lymphocytes # (A) 0.8 k/uL (1.0-4.8); Lymphocytes % (A) 8 %; MCH 28.6 pg (25.0-35.0); MCHC 30.4 g/dL (31.0-37.0); MCV 94.2 fL (80.0-100.0); Mean Platelet Volume 9.4; Monocytes # (A) 0.7 k/uL (0-1.0); Monocytes % (A) 6 %; Neutrophils # (A) 9.2 k/uL (1.3-7.7); Neutrophils % (A) 85 %; RBC 5.79 m/uL (4.30-5.90); RDW 15.8 % (11.5-15.5); WBC 10.9 k/uL (3.8-10.6)
[2023-09-14] MEDS: amLODIPine 10 MG TAB PO SCH (08:06)
[2023-09-14] MEDS: methylPREDNISolone SOD SUCCI 40 MG/ML 1 ML VIAL IV SCH (08:06)
[2023-09-14 08:09] LABS: Platelet Count 84 k/uL (150-450)
--- NOTE | 2023-09-14 08:37 | PN ---
PROGRESS NOTE SUBJECTIVE: This is a 73-year-old gentleman who is admitted to hospital with acute ischemic leg involving right lower extremity. He underwent emergent right lower extremity angiogram and placement of the tPA infusion catheter into the right popliteal artery and right superficial femoral artery. The patient is getting tPA infusion on heparin and is going to have second procedure today to see how things are. A venous Doppler study of the right lower extremity was negative for DVT. This morning, the patient complains of pain, both general musculoskeletal pain and discomfort in the right leg that he says is better today than it was yesterday. His right foot feels warm, but still has cyanotic right big toe. The pulses were diminished and the dorsalis pedis is palpable with Doppler. LABS: Show a hemoglobin of 16.6. I do not have a platelet count on him from this morning. His electrolytes are pending at this time. Blood pressure is poorly controlled. ASSESSMENT AND PLAN: 1. Acute ischemic right leg. 2. History of peripheral arterial disease, status post prior intervention. 3. History of persistent atrial fibrillation. 4. Uncontrolled hypertension. PLAN: I am going to add amlodipine 10 mg daily for better blood pressure control. MMODL / IJN: [id number] /
[2023-09-14] MEDS: SYMBICORT 160-4.5 MCG INHALER INHALATION SCH (08:53)
[2023-09-14 09:04] LABS: African American GFR (CKD) >90 (>60 ml/min/1.73 sqM); Anion Gap 8 mmol/L; Blood Urea Nitrogen 14 mg/dL (9-20); Calcium 8.9 mg/dL (8.4-10.2); Carbon Dioxide 20 mmol/L (22-30); Chloride 111 mmol/L (98-107); Glucose 111 mg/dL (74-99); Non-African American GFR(CKD) >90 (>60 ml/min/1.73 sqM); Sodium 139 mmol/L (137-145)
[2023-09-14 09:06] LABS: Potassium 4.5 mmol/L (3.5-5.1)
--- NOTE | 2023-09-14 09:34 | IR ---
EXAMINATION TYPE: IR angio extremity RT Intraoperative/procedural fluoroscopic services were provided . CLINICAL INDICATION:Male, 73 years old with history of RIGHT LOWER EXTREMITY ANGIO, 13.8MINS FLT, 168 MGY; , [facility] Total fluoroscopy time is 13.8 min. DAP: 18.3 Gycm2 Please see the operative/procedural note for further details.
--- NOTE | 2023-09-14 13:47 | P.PN ---
Subjective Progress Note Date: 09/14/23 Patient is [id number] male admitted for peripheral arterial disease and patient will undergo intervention for this. Patient has severe pain in the right lower extremity, right lower extremity CTA showed occluded superficial femoral artery including the stent in the distal right superficial femoral a rtery occluded stent in the right popliteal occluded right calf artery arteries and moderate focal stenosis of origin of the right deep femoral artery. Patient is on 75 mg of Plavix and also Xarelto. Patient denies any chest pain was having shortness of breath and wheezing patient does have history of COPD continues to smoke. Patient was started on systemic steroids and additional treatments after which wheezing did improve. Vascular surgery evaluated the patient and planning on intervention for severe right lower extremity peripheral vascular disease. 09/14/2023 Patient is evaluated in follow-up today in the intensive care unit. He is status post Right lower extremity angiography with successful placement of ATP infusion cath in right popliteal artery and right SFA. Patient continues to report significant pain to his right lower extremity and his foot remains cool to palpation. Nursing staff was having difficulty with a Doppler pulse today to the right dorsalis pedis. Patient is requiring IV Dilaudid in addition to IV morphine for pain control. We would recommend to add Lyrica at this point for the neuropathic pain. He does report feeling less short of breath today does still have some faint scattered wheezing. REVIEW OF SYSTEMS: CONSTITUTIONAL: No fever, no malaise, no fatigue. HEENT: No recent visual problems or hearing problems. Denied any sore throat. CARDIOVASCULAR: No chest pain, orthopnea, PND, no palpitations, no syncope. PULMONARY: , no hemoptysis. GASTROINTESTINAL: No diarrhea, no nausea, no vomiting, no abdominal pain. NEUROLOGICAL: No headaches, no weakness, no numbness. PHYSICAL EXAMINATION: GENERAL: The patient is alert and oriented x3, not in any acute distress. Well developed, well nourished. HEENT: Pupils are round and equally reacting to light. EOMI. No scleral icterus. No conjunctival pallor. Normocephalic, atraumatic. No pharyngeal erythema. No thyromegaly. CARDIOVASCULAR: S1 and S2 present. No murmurs, rubs, or gallops. PULMONARY: Expiratory wheezing which improved fairly good air entry to bilateral lower lung solis ABDOMEN: Soft, nontender, nondistended, normoactive bowel sounds. No palpable organomegaly. MUSCULOSKELETAL: No joint swelling or deformity. EXTREMITIES: As mentioned above NEUROLOGICAL: Gross neurological examination did not reveal any focal deficits. SKIN: No rashes. Assessment and plan -Severe peripheral artery disease with prior intervention of right lower extremity -Now with critical limb ischemia and is postoperative right lower extremity angiography and tPA infusion. Xarelto is being held and patient is on IV heparin at this time. Patient will be returning to the [facility] today for a second procedure. 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 Patient was started on systemic steroids and inhalation treatments -Lung cancer with mediastinal mets -Persistent atrial fibrillation on anticoagulation which will be continued -Hyperlipidemia -Hypertension continues on metoprolol amlodipine added and PRN hydralazine. -Type 2 diabetes mellitus on metformin which will be held as patient will undergo angiogram of the lower extremities patient will be on sliding scale insulin DVT prophylaxis: Patient is on IV heparin GI prophylaxis protonix Full Code The impression and plan of care has been dictated by Lila Elizondo, Nurse Practitioner as directed. Dr. Floyd MD I have performed a history and physical examination and medical decision making of this patient, discussed the same with the dictator, and agree with the dictators assessment and plan as written, documented as a scribe. Based on total visit time, I have performed more than 50% of this visit. Objective - Vital Signs Vital signs: Vital Signs Temp 98.8 F 09/14/23 08:00 Pulse 108 H 09/14/23 08:53 Resp 18 09/14/23 08:53 BP 157/109 09/14/23 08:00 Pulse Ox 93 L 09/14/23 08:53 FiO2 95 09/14/23 07:00 Intake & Output 09/13/23 09/14/23 09/14/23 18:59 06:59 18:59 Intake Total 345.000 880 Output Total 175 315 Balance 170.000 565 Weight 108.4 kg Intake: IV 400 Intake, IV Titration 345.000 150 Amount Heparin Sod,Pork in 0.45% 270.000 NaCl 25,000 unit In 0.45 % NaCl 1 250ml.bag @ 18 UNITS/KG/HR 20.412 mls/hr IV .[id number] [facility] Rx#: [id number] Sodium Chloride 0.9% 1, 75 75 000 ml @ 75 mls/hr IV . [id number] [facility] Rx#:[id number] Sodium Chloride 0.9% 1, 75 000 ml In Empty Bag 1 bag @ 75 mls/hr IV .[id number] [facility] Rx#:[id number] Oral 330 Output: Urine 175 315 Other: Voiding Method Urinal Urinal Urinal - Labs CBC & Chem 7: 09/14/23 05:40 09/14/23 05:40 Labs: Abnormal Lab Results - Last 24 Hours (Table) 09/13/23 09/13/23 09/13/23 Range/Units 13:09 20:22 20:22 WBC (3.8-10.6) k/uL Hct 55.0 H (39.0-53.0) % MCHC 30.3 L (31.0-37.0) g/dL RDW 15.7 H (11.5-15.5) % Plt Count 106 L (150-450) k/uL Neutrophils # 8.4 H (1.3-7.7) k/uL Lymphocytes # 0.7 L (1.0-4.8) k/uL PT 13.2 H (10.0-12.5) sec INR 1.3 H (<1.2) APTT 190.8 H* (22.0-30.0) sec Fibrinogen (200-500) mg/dL Chloride (98-107) mmol/L Carbon Dioxide (22-30) mmol/L Glucose (74-99) mg/dL 09/14/23 09/14/23 09/14/23 Range/Units 05:40 05:40 05:40 WBC 10.9 H (3.8-10.6) k/uL Hct 54.6 H (39.0-53.0) % MCHC 30.4 L (31.0-37.0) g/dL RDW 15.8 H (11.5-15.5) % Plt Count 84 L (150-450) k/uL Neutrophils # 9.2 H (1.3-7.7) k/uL Lymphocytes # 0.8 L (1.0-4.8) k/uL PT 13.7 H (10.0-12.5) sec INR 1.3 H (<1.2) APTT (22.0-30.0) sec Fibrinogen 154 L (200-500) mg/dL Chloride 111 H (98-107) mmol/L Carbon Dioxide 20 L (22-30) mmol/L Glucose 111 H (74-99) mg/dL Assessment and Plan Time with Patient: Less than 30
[2023-09-14] MEDS: IV FLUID CONTINUATION 700 ML IV ONE (14:30)
[2023-09-14] MEDS: MIDAZOLAM 2 MG/2 ML VIAL IVP ONE (14:35)
[2023-09-14] MEDS: HYDROmorphone 0.5 MG/0.5 ML SYRINGE IVP ONE (14:35)
[2023-09-14] MEDS: IOPAMIDOL-250 100ML BTL INTRAARTER ONE (15:00)
[2023-09-14] MEDS: ALTEPLASE 10 MG in SODIUM CHLORIDE 0.9% 90 ML IA SCH (15:37)
--- NOTE | 2023-09-14 16:21 | IR ---
EXAMINATION TYPE: IR angio lower extremity RT Intraoperative/procedural fluoroscopic services were pr ovided. CLINICAL INDICATION:Male, 73 years old with history of Rt leg pain, 3.4m/10.446DAP, lt gr sheath sutu red in; , [facility] Total fluoroscopy time is 3.5 min. DAP: 369.45 uGym2 Please see the operative/procedural note for further details.
[2023-09-14] MEDS: PREGABALIN 75 MG CAP PO SCH (20:25)
[2023-09-14 21:09] LABS: INR 1.5 (<1.2); Prothrombin Time 15.1 sec (10.0-12.5)
--- NOTE | 2023-09-14 22:08 | P.PCN ---
Date of Procedure: 09/14/23 Operative Findings: Percutaneous peripheral arterial intervention Performing physician Jatinder Nina MD Procedure performed Removal of tPA infusion catheter Second look angiogram after tPA infusion of the right lower extremity Replacement of tPA infusion catheter Indication Acute limb ischemia Complications None Level of sedation Moderate with sedation length of 24 minutes Procedure description The patient was brought to the cardiac Service Desk Team Lead. The patient was prepped in the usual sterile fashion. Sedation was performed Versed. Subsequently the infusion catheter was disconnected from the tPA bumper. Subsequently I did place an 035 stiff Glidewire inside the infusion catheter and the infusion catheter was removed. An angiogram was performed. Subsequently the infusion catheter was replaced again over 035 stiff Glidewire and connected back to the tPA follow-up. Right lower extremity angiogram I did perform right lower extremity angiogram with manual injections through the long 6 Uzbek sheath. The angiogram revealed large residual thrombus involving the right SFA and right popliteal and the arteries below the knee. There was mild improvement. For that reason we decided to leave the infusion catheter for additional 24 hours and consider another look tomorrow. The procedure was completed with no complication Conclusion Mild improvement in the right lower extremity large thrombus burden Postprocedure management Continue tPA infusion for additional 24 hours Follow-up with the patient
[2023-09-15 06:40] LABS: Basophils % (A) 0 %; Eosinophils % (A) 0 %; HCT 54.8 % (39.0-53.0); HGB 16.7 gm/dL (13.0-17.5); Hypochromasia Slight; Lymphocytes # (A) 0.7 k/uL (1.0-4.8); Lymphocytes % (A) 5 %; MCHC 30.4 g/dL (31.0-37.0); MCV 95.3 fL (80.0-100.0); Mean Platelet Volume 9.1; Monocytes # (A) 0.7 k/uL (0-1.0); Monocytes % (A) 5 %; Neutrophils # (A) 12.6 k/uL (1.3-7.7); Neutrophils % (A) 89 %; RBC 5.74 m/uL (4.30-5.90); RDW 15.6 % (11.5-15.5); WBC 14.1 k/uL (3.8-10.6)
[2023-09-15 06:51] LABS: Platelet Count 68 k/uL (150-450)
[2023-09-15 07:03] LABS: INR 1.3 (<1.2); Prothrombin Time 13.9 sec (10.0-12.5)
[2023-09-15 07:06] LABS: African American GFR (CKD) >90 (>60 ml/min/1.73 sqM); Anion Gap 6 mmol/L; Blood Urea Nitrogen 16 mg/dL (9-20); Calcium 8.9 mg/dL (8.4-10.2); Carbon Dioxide 20 mmol/L (22-30); Chloride 111 mmol/L (98-107); Glucose 127 mg/dL (74-99); Non-African American GFR(CKD) >90 (>60 ml/min/1.73 sqM); Potassium 4.4 mmol/L (3.5-5.1); Sodium 137 mmol/L (137-145)
[2023-09-15] MEDS: PANTOPRAZOLE 40 MG TABLET PO SCH (07:47)
[2023-09-15] MEDS: hydrALAZINE HCL 50 MG TAB PO SCH (08:31)
[2023-09-15] MEDS: BENZOCAINE/MENTHOL LOZENG 1 EACH LOZENGE MUCOUS MEM PRN (09:16)
--- NOTE | 2023-09-15 11:40 | PN ---
PROGRESS NOTE SUBJECTIVE: Cecilio is a 73-year-old gentleman who was admitted to hospital with acute and critical limb ischemia involving the right lower extremity. He underwent an aortogram with runoff and is receiving tPA and heparin infusion locally. He had a second-look angiogram yesterday and the tPA infusion catheter was replaced. The angiogram revealed large residual thrombus involving the right superficial femoral artery and right popliteal artery and the arteries below knee. Clinically, he has improved in some ways and the discomfort that he had in the right lower extremity has improved and he has better motility both in his toes and in his foot. However, foot continues to be cold and the Doppler palpable pulses that he had dorsalis pedis yesterday, we are not able to feel it today, but the patient in general is feeling better and is less symptomatic. OBJECTIVE: GENERAL: Comfortable at rest. VITAL SIGNS: Stable. CHEST: Reveals good air entry bilaterally. HEART: Reveals first and second heart sounds. No gallop. Has a systolic murmur at the apex. ABDOMEN: Soft. EXTREMITIES: Reveals ischemic right lower extremity with cold right foot and palpable pulses. ASSESSMENT AND PLAN: Acute limb ischemia involving right lower extremity. The patient is receiving TPN heparin infusion. We will continue with the same. MMODL / IJN: [id number] /
[2023-09-15] MEDS: MIDAZOLAM 2 MG/2 ML VIAL IVP ONE (13:50)
[2023-09-15] MEDS: fentaNYL (PF) 50 MCG/ML 2 ML AMP IVP ONE ×2 (13:50→14:13)
--- NOTE | 2023-09-15 13:53 | US ---
EXAMINATION TYPE: US vein mapping RT DATE OF EXAM: 09/15/2023 1:20 PM COMPARISON: NONE CLINICAL INDICATION: Male, 73 years old with history of RLE acute ischemia, possible bypass; ischemic right leg pending bypass SIDE PERFORMED: Right TECHNIQUE: Lower extremity saphenous vein is examined and measured utilizing real time linear array sonography. DUPLEX FINDINGS: Greater Saphenous: Color flow seen Measurements in mm: Right Greater Saphenous: Groin: 5.2 x 4.8 mm High Thigh: 3.6 x 4.0 mm Mid Thigh: 3.8 x 5.0 mm Above Knee: 2.7 x 3.4 mm Knee: 2.2 x 2.8 mm Below Knee: 2.3 x 2.7 mm Mid Calf: 1.7 x 3.0 mm At Ankle: 1.5 x 2.5 mm IMPRESSION: 1. Right GSV measurements listed above. 2. Performing surgeon to determine viability as conduit.
[2023-09-15] MEDS: FLUMAZENIL 0.1 MG/ML 5 ML VIAL IVP ONE (14:14)
[2023-09-15] MEDS: MORPHINE SULFATE 4 MG/ML SYRINGE IVP ONE (14:30)
--- NOTE | 2023-09-15 14:34 | P.GSCN ---
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 Pain was mostly in the right calf. Patient follows in the office with Dr. Nina and has had previous revascularization with him. We have been asked to see the patient in consultation for right leg ischemia. Patient examined at the bedside in the emergency room. The patient states that he does take Plavix and Xarelto on an outpatient basis. He states he is scheduled to have a lung biopsy performed on September 15 and was instructed to hold his Plavix for 5 days before the procedure and also to hold his Xarelto for 2 days before the procedure. He had a CT angiogram of the lower extremity and right SFA was noted to be in occluded. Cardiology was initially consulted for right lower extremity ischemia and he was seen by Dr. Nina and underwent right lower extremity angiogram with tPA to the right popliteal artery and right SFA he went back for recheck on 09/14/2023 there was some reported mild improvement of the right lower extremity large thrombus burden but tPA infusion was continued for another 24 hours. Patient was going back to [facility] this afternoon with Dr. Boucher and currently awaiting further findings and recommendations. DIAGNOSTICS: - EKG reveals atrial fibrillation with no signs of acute ischemia -Right lower extremity Doppler: Negative for DVT -Lower extremity CTA: Occluded right superficial femoral artery, including occluded stent in the distal right superficial femoral artery. Occluded stent in the right popliteal artery. Occluded right calf arteries. Moderate focal stenosis at the origin of the right deep femoral artery. Soft tissue swelling and fat stranding throughout the right foot ankle and right lower leg. Mild aneurysmal dilatation in the proximal right iliac artery measuring 1.3 cm in diameter. - Laboratory data: WBC 9.5. Hemoglobin 18.1. Platelet count 111. Sodium 137. Potassium 4.6. BUN 12. Creatinine 0.69. Lactic acid 1.6. Troponin negative x 1. - Current home cardiac medications include Plavix 75 mg daily, Xarelto 20 mg daily, metoprolol tartrate 25 mg daily, Lasix 20 mg daily, rosuvastatin 40 mg daily. Review of Systems A 14 point review systems was completed all pertinent positives and negatives as stated in the HPI. Past Medical History Past Medical History: Atrial Fibrillation, Asthma, Blood Disorder, Coronary Artery Disease (CAD), COPD, Dementia, Diabetes Mellitus, Deep Vein Thrombosis (DVT), Hyperlipidemia, Hypertension, Memory Impairment, Pneumonia, Pulmonary Embolus (PE), Seizure Disorder, Vascular Disorder Additional Past Medical History / Comment(s): Factor V, multiple DVTs to arms /legs/lungs, NIDDM type II, neuropathy bilateral feet, seizure disorder-states has not had a seizure in quit some time, PAD, gait dysfunction, pt uses back brace and bilateral leg braces, bronchitis, anemia. History of Any Multi-Drug Resistant Organisms: None Reported Past Surgical History: Adenoidectomy, Orthopedic Surgery, Tonsillectomy Additional Past Surgical History / Comment(s): pilonidal cyst, top teeth removed, R great toe bone resection, bilateral carpal tunnel releases, vascular surgery R leg (behind knee), colonoscopy/benign polypectomy Past Anesthesia/Blood Transfusion Reactions: No Reported Reaction Additional Past Anesthesia/Blood Transfusion Reaction / Comm: "I have to have extra anesthesia" Past Psychological History: Anxiety, Depression Smoking Status: Current every day smoker Past Alcohol Use History: None Reported Past Drug Use History: None Reported - Past Family History Father Family Medical History: Cancer Additional Family Medical History / Comment(s): Pt does not recall type of cancer. Father is . Sister(s) Family Medical History: Blood Disorder Brother(s) Family Medical History: Blood Disorder Mother History Unknown: Yes Additional Family Medical History / Comment(s): Mother is . Medications and Allergies Home Medications Medication Instructions Recorded Confirmed Type Clopidogrel Bisulfate [Plavix] 75 mg PO DAILY #90 tab 08/03/19 09/13/23 Rx Tamsulosin HCl [Flomax] 0.4 mg PO DAILY 09/05/19 09/13/23 History Albuterol Sulfate [Albuterol 2 puff PO RT-BID PRN 02/03/21 09/13/23 History Sulfate Hfa] Rivaroxaban [Xarelto] 20 mg PO DAILY 02/04/21 09/13/23 History HYDROcodone/APAP 10-325MG [Mary D 1 tab PO TID 07/09/21 09/13/23 History 10-325] Fluticasone/Umeclidin/Vilanter 1 puff INHALATION RT-DAILY 09/13/23 09/13/23 History [Trelegy Ellipta 100-62.5-25] Furosemide [Lasix] 20 mg PO DAILY 09/13/23 09/13/23 History Ipratropium-Albuterol Nebulize 3 ml INHALATION RT-QID PRN 09/13/23 09/13/23 History [Duoneb 0.5 mg-3 mg/3 ml Soln] Metoprolol Tartrate [Lopressor] 25 mg PO DAILY 09/13/23 09/13/23 History Omeprazole [PriLOSEC] 20 mg PO DAILY 09/13/23 09/13/23 History Rosuvastatin Calcium [Crestor] 40 mg PO DAILY 09/13/23 09/13/23 History metFORMIN HCL [Glucophage] 500 mg PO DAILY 09/13/23 09/13/23 History Allergies Allergy/AdvReac Type Severity Reaction Status Date / Time tetracycline [Tetracycline] Allergy Swelling Verified 09/13/23 08:13 Surgical - Exam Vital Signs Temp Pulse Resp BP Pulse Ox 98.2 F 80 20 187/106 95 09/12/23 23:03 09/12/23 23:03 09/12/23 23:03 09/12/23 23:03 09/12/23 23:03 General appearance: The patient is alert, oriented, appears in no acute distress. HET: Head is normocephalic and atraumatic. Pupils are equal and reactive. Neck: Supple. Heart: Regular. Lungs: Equal expansion, normal respiratory effort. Abdomen: Soft, nontender, nondistended. Extremities: tPA catheter left groin in place. Right lower extremity nonpalpable DP pulse. Neurological: No focal deficits. Strength and sensation are grossly intact. Results - Labs 09/15/23 06:01 09/15/23 06:01 Abnormal Lab Results - Last 24 Hours (Table) 09/14/23 09/15/23 09/15/23 Range/Units 19:59 06:01 06:01 WBC 14.1 H (3.8-10.6) k/uL Hct 54.8 H (39.0-53.0) % MCHC 30.4 L (31.0-37.0) g/dL RDW 15.6 H (11.5-15.5) % Plt Count 68 L (150-450) k/uL Neutrophils # 12.6 H (1.3-7.7) k/uL Lymphocytes # 0.7 L (1.0-4.8) k/uL PT 15.1 H 13.9 H (10.0-12.5) sec INR 1.5 H 1.3 H (<1.2) Fibrinogen 110 L 133 L (200-500) mg/dL Chloride (98-107) mmol/L Carbon Dioxide (22-30) mmol/L Creatinine (0.66-1.25) mg/dL Glucose (74-99) mg/dL 09/15/23 Range/Units 06:01 WBC (3.8-10.6) k/uL Hct (39.0-53.0) % MCHC (31.0-37.0) g/dL RDW (11.5-15.5) % Plt Count (150-450) k/uL Neutrophils # (1.3-7.7) k/uL Lymphocytes # (1.0-4.8) k/uL PT (10.0-12.5) sec INR (<1.2) Fibrinogen (200-500) mg/dL Chloride 111 H (98-107) mmol/L Carbon Dioxide 20 L (22-30) mmol/L Creatinine 0.62 L (0.66-1.25) mg/dL Glucose 127 H (74-99) mg/dL Microbiology - Last 24 Hours (Table) 09/13/23 05:00 Blood Culture - Preliminary Blood 09/13/23 05:00 Blood Culture - Preliminary Blood Diabetes panel 09/15/23 Range/Units 06:01 Sodium 137 (137-145) mmol/L Potassium 4.4 (3.5-5.1) mmol/L Chloride 111 H (98-107) mmol/L Carbon Dioxide 20 L (22-30) mmol/L BUN 16 (9-20) mg/dL Creatinine 0.62 L (0.66-1.25) mg/dL Glucose 127 H (74-99) mg/dL Calcium 8.9 (8.4-10.2) mg/dL Calcium panel 09/15/23 Range/Units 06:01 Calcium 8.9 (8.4-10.2) mg/dL Pituitary panel 09/15/23 Range/Units 06:01 Sodium 137 (137-145) mmol/L Potassium 4.4 (3.5-5.1) mmol/L Chloride 111 H (98-107) mmol/L Carbon Dioxide 20 L (22-30) mmol/L BUN 16 (9-20) mg/dL Creatinine 0.62 L (0.66-1.25) mg/dL Glucose 127 H (74-99) mg/dL Calcium 8.9 (8.4-10.2) mg/dL Adrenal panel 09/15/23 Range/Units 06:01 Sodium 137 (137-145) mmol/L Potassium 4.4 (3.5-5.1) mmol/L Chloride 111 H (98-107) mmol/L Carbon Dioxide 20 L (22-30) mmol/L BUN 16 (9-20) mg/dL Creatinine 0.62 L (0.66-1.25) mg/dL Glucose 127 H (74-99) mg/dL Calcium 8.9 (8.4-10.2) mg/dL - Imaging Comments: EKG reveals atrial fibrillation with no signs of acute ischemia -Right lower extremity Doppler: Negative for DVT -Lower extremity CTA: Occluded right superficial femoral artery, including occluded stent in the distal right superficial femoral artery. Occluded stent in the right popliteal artery. Occluded right calf arteries. Moderate focal stenosis at the origin of the right deep femoral artery. Soft tissue swelling and fat stranding throughout the right foot ankle and right lower leg. Mild aneurysmal dilatation in the proximal right iliac artery measuring 1.3 cm in diameter. Right lower extremity angiogram 09/13/2023 reported no flow below the knee with occluded anterior tibial and peroneal and occluded popliteal and occluded right SFA. Right lower extremity repeat/recheck angiogram 09/14/2023 revealed large residual thrombus involving the right SFA and right popliteal and arteries below the knee with Mild improvement Assessment and Plan Assessment: 1. Right lower extremity acute critical limb ischemia 2. Right SFA and popliteal artery occlusion 3. Status post tPA infusion 4. History of DVTs 5. History of popliteal artery stent 6. Factor V Leiden 7. Atrial fibrillation Plan: 1. Obtain vein mapping of right lower extremity 2. Await repeat angiogram with Dr. Nina 3. Further recommendations forthcoming per vascular surgeon based on clinical course Thank you for this consultation, we will continue to follow. The impression and plan of care has been dictated as directed. I performed a history and examination of this patient, discussed the same with the dictator. I agree with the dictator's note ,documented as a scribe. Any additional findings or plans will be noted. Patient seen and examined. Imaging reviewed. Imaging postsecondary takeback reviewed. Discussion had plan for interventional cardiology placement of stent. Appears to have adequate inflow to the level of the tibial trifurcation. Goal would be to see how he does with this and potentially go forward with a tibial thrombectomy versus bypass if there is not adequate inflow at that time.
[2023-09-15] MEDS: HYDROmorphone 0.5 MG/0.5 ML SYRINGE IVP ONE ×2 (14:35→16:57)
[2023-09-15] MEDS: HEPARIN SODIUM 1,000 UN/ML (10ML VL) IVP ONE ×2 (14:48→15:10)
--- NOTE | 2023-09-15 14:52 | P.PN ---
Subjective Progress Note Date: 09/15/23 Principal diagnosis: Acute critical limb ischemia, Patient is a 74-year-old white male with past medical history significant for coronary artery disease, diabetes mellitus, hyperlipidemia, hypertension, COPD, chronic ongoing tobacco dependence, obstructive sleep apnea, lung nodules, atrial fibrillation, factor V, and severe peripheral peripheral vascular disease. Of note, patient has severe peripheral arterial disease and has underwent previous stenting of the right SFA, he is chronically maintained on dual antiplatelet therapy including Plavix. Also, chronically anticoagulated on Xarelto. 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 Recently, patient was being worked up for suspicious right lower lung nodule and mediastinal lymphadenopathy, he was supposedly going to have a lung biopsy on September 15, and was directed to hold his Plavix 5 days prior and Xarelto 2 days prior. Reportedly, stopped both of these medications 5 days prior. Subsequently, started to notice right leg pain starting 4 days ago. This progressively worsens, and became severe early yesterday morning. He could not use this extremity or walk. Finally, came to the emergency department for evaluation early yesterday morning. CT angiography of the right lower extremity demonstrated an occluded right SFA, including the p revious stent to the distal right SFA, stent to the right popliteal artery, as well as, occluded right calf arteries. There is moderate focal stenosis at the right deep femoral artery. Soft tissue swelling and fat stranding throughout the right foot, ankle, and right lower extremity leg. Yesterday evening, patient did undergo right lower extremity angiogram with successful placement of a tPA infusion catheter in the right popliteal artery and right SFA. On my evaluation, right foot remains cold and pulseless even with Doppler. Foot appears dusky in color. Patient does report severe right lower extremity pain and reduced mobility. Catheter directed tPA at 1 mg/h continuous. heparin also infusing at 500 units/h for catheter patency. No oozing or hematoma noted at left femoral sheath insertion site. CBC is unremarkable and hemoglobin is stable at 16.7 g/dL. Fibrinogen 283. CMP on arrival was fairly unremarkable. LFTs not elevated. Troponin 0.014. Normal saline infusing at 75 mL/h. Pain is being managed with a combination of as needed Dilaudid. Blood pressure is normotensive. Heart rhythm appears atrial fibrillation with controlled ventricular response of 80 to 100 bpm. Patient is currently fairly comfortable on 2 L/min nasal cannula, no respiratory distress. Patient states his breathing is fairly baseline. He continues to smoke 2 packs/day. Denies any infectious symptoms like change in his chronic cough, sputum production, fevers. Denies sick contacts. He has been started on a combination of DuoNebs and IV Solu- Medrol. He does have history of right lower lobe 2.3 cm pulmonary nodule. Recent PET scan done 08/20/2023 redemonstrates a posterior right lateral lung nodule with an SUV of 5.6, as well as, SUV avid mediastinal lymphadenopathy suspicious for metastasis. His scheduled lung biopsy, which will likely have to be rescheduled. Reportedly, plan is for patient to return to [facility] later this morning. Patient evaluated today on 09/15/2023, patient is basically about the same. Continues to have poor circulation down to the right foot, patient is complaining of pain, the right foot feels cold, no palpable pulses, no pulses noted in the dorsalis pedis or posterior tibial even with Doppler. Patient is going back to catheterization lab today, and Dr. Boucher will assess his tPA catheter, in the meantime he is recommending a vascular surgery consultation. Pulmonary solis no cough no wheezing no shortness of breath. Patient seems to be comfortable. On 2 L nasal cannula, O2 saturation is 94%. Patient remains on heparin at 500 units/h he is also still receiving alteplase via tPA catheter. Patient is going back to [facility] at 11:30 AM today WBC count is 14.1 hemoglobin 16.7 INR is 1.3 electrolytes are normal and renal profile is normal Objective - Vital Signs Vital signs: Vital Signs Temp 98.1 F 09/15/23 12:00 Pulse 103 H 09/15/23 12:20 Resp 18 09/15/23 12:20 BP 151/100 09/15/23 12:00 Pulse Ox 94 L 09/15/23 12:00 FiO2 95 09/14/23 07:00 Intake & Output 09/14/23 09/15/23 09/15/23 18:59 06:59 18:59 Intake Total 775 982.5 620.667 Output Total 1050 370 700 Balance -275 612.5 -79.333 Weight 106 kg Intake: IV 775 900 525 Sodium Chloride 0.9% 1, 675 900 525 000 ml @ 75 mls/hr IV . [id number] [facility] Rx#:[id number] Intake, IV Titration 82.5 95.667 Amount Alteplase 10 mg In Sodium 82.5 95.667 Chloride 0.9% 90 ml @ 1 MG/HR 10 mls/hr IA .Q10H [facility] Rx#:[id number] Output: Urine 1050 370 700 Other: Voiding Method Urinal Urinal Urinal - Exam GENERAL EXAM: Alert, 73-year-old white male, on 2 L nasal cannula, not in distress HEAD: Normocephalic and atraumatic EYES: Normal reaction of pupils, equal size. NOSE: Clear with pink turbinates. THROAT: No erythema or exudates. NECK: No masses, no JVD. CHEST: No chest wall deformity. LUNGS: Diminished breath sound bilaterally no crackles rhonchi or wheezes CVS: S1 and S2 normal with no audible murmur, irregular rhythm. No extra heart sounds ABDOMEN: No hepatosplenomegaly, active bowel sounds, no guarding or rigidity. SPINE: No scoliosis or deformity SKIN: No rashes CENTRAL NERVOUS SYSTEM: No focal deficits, tone is normal in all 4 extremities. EXTREMITIES: Right lower extremity is cold, pulseless even with Doppler, reduced mobility. Right foot appears dusky in color. Left femoral introducer sheath is in place, with tPA catheter infusing alteplase at 1 mg/h. No hematoma or oozing. Left lower extremity distal pulses found with Doppler. No peripheral ed yesenia. - Labs CBC & Chem 7: 09/15/23 06:01 09/15/23 06:01 Labs: Abnormal Lab Results - Last 24 Hours (Table) 09/14/23 09/15/23 09/15/23 Range/Units 19:59 06:01 06:01 WBC 14.1 H (3.8-10.6) k/uL Hct 54.8 H (39.0-53.0) % MCHC 30.4 L (31.0-37.0) g/dL RDW 15.6 H (11.5-15.5) % Plt Count 68 L (150-450) k/uL Neutrophils # 12.6 H (1.3-7.7) k/uL Lymphocytes # 0.7 L (1.0-4.8) k/uL PT 15.1 H 13.9 H (10.0-12.5) sec INR 1.5 H 1.3 H (<1.2) Fibrinogen 110 L 133 L (200-500) mg/dL Chloride (98-107) mmol/L Carbon Dioxide (22-30) mmol/L Creatinine (0.66-1.25) mg/dL Glucose (74-99) mg/dL 09/15/23 Range/Units 06:01 WBC (3.8-10.6) k/uL Hct (39.0-53.0) % MCHC (31.0-37.0) g/dL RDW (11.5-15.5) % Plt Count (150-450) k/uL Neutrophils # (1.3-7.7) k/uL Lymphocytes # (1.0-4.8) k/uL PT (10.0-12.5) sec INR (<1.2) Fibrinogen (200-500) mg/dL Chloride 111 H (98-107) mmol/L Carbon Dioxide 20 L (22-30) mmol/L Creatinine 0.62 L (0.66-1.25) mg/dL Glucose 127 H (74-99) mg/dL Microbiology - Last 24 Hours (Table) 09/13/23 05:00 Blood Culture - Preliminary Blood 09/13/23 05:00 Blood Culture - Preliminary Blood Assessment and Plan Assessment: Impression: Acute critical limb ischemia, History of severe peripheral arterial disease, with previous stenting the right SFA and stenting of a right popliteal arterial aneurysm Right lung nodule and associated mediastinal lymphadenopathy, suspicious for primary lung cancer and metastasis. Highly suspicious for bronchogenic carcinoma with mediastinal metastasis Acute COPD exacerbation, chest x-ray does not show any acute cardiopulmonary process. No focal infiltrates or evidence of pneumonia. The previously mentioned right lower lung nodule redemonstrated. Acute hypoxemic respiratory failure, currently on 3 L/min nasal cannula, s econdary to above Chronic ongoing tobacco dependence, up to 2 packs/day History of diabetes mellitus History of hyperlipidemia History of hypertension Chronic atrial fibrillation, chronically anticoagulated on Xarelto History of factor V deficiency History of DVT/PE Obstructive sleep apnea, maintained on CPAP at bedtime Morbid obesity, with a BMI of 42.9 kg/m Recommendation: Continue to monitor in the ICU Patient is being followed by cardiology and by vascular surgery Patient is going back to [facility] today at 1130 In the meantime continue heparin and tPA His pulmonary issues will be addressed at a later date on outpatient basis Continue CPAP which he uses at home, same settings Will continue to Time with Patient: Less than 30
[2023-09-15] MEDS: IV FLUID CONTINUATION 1,000 ML IV ONE (15:37)
[2023-09-15] MEDS: IOPAMIDOL-370 100ML BTL INTRATHECA ONE ×2 (16:00→16:57)
--- NOTE | 2023-09-15 16:07 | P.PN ---
Subjective Progress Note Date: 09/15/23 Patient is [id number] male admitted for peripheral arterial disease and patient will undergo intervention for this. Patient has severe pain in the right lower extremity, right lower extremity CTA showed occluded superficial femoral artery including the stent in the distal right superficial femoral a rtery occluded stent in the right popliteal occluded right calf artery arteries and moderate focal stenosis of origin of the right deep femoral artery. Patient is on 75 mg of Plavix and also Xarelto. Patient denies any chest pain was having shortness of breath and wheezing patient does have history of COPD continues to smoke. Patient was started on systemic steroids and additional treatments after which wheezing did improve. Vascular surgery evaluated the patient and planning on intervention for severe right lower extremity peripheral vascular disease. 09/14/2023 Patient is evaluated in follow-up today in the intensive care unit. He is status post Right lower extremity angiography with successful placement of ATP infusion cath in right popliteal artery and right SFA. Patient continues to report significant pain to his right lower extremity and his foot remains cool to palpation. Nursing staff was having difficulty with a Doppler pulse today to the right dorsalis pedis. Patient is requiring IV Dilaudid in addition to IV morphine for pain control. We would recommend to add Lyrica at this point for the neuropathic pain. He does report feeling less short of breath today does still have some faint scattered wheezing. 09/15/2023 Patient is evaluated today in follow up in the ICU. 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 Awaiting repeat angiography. Vascular services was consulted for evaluation. Continues with pain management and patient reports some improvement with added lyrica. Blood pressure remains elevated 151/100, 94% on 2L. Heart rate 103. REVIEW OF SYSTEMS: CONSTITUTIONAL: No fever, no malaise, no fatigue. HEENT: No recent visual problems or hearing problems. Denied any sore throat. CARDIOVASCULAR: No chest pain, orthopnea, PND, no palpitations, no syncope. PULMONARY: , no hemoptysis. GASTROINTESTINAL: No diarrhea, no nausea, no vomiting, no abdominal pain. NEUROLOGICAL: No headaches, no weakness, no numbness. PHYSICAL EXAMINATION: GENERAL: The patient is alert and oriented x3, not in any acute distress. Well developed, well nourished. HEENT: Pupils are round and equally reacting to light. EOMI. No scleral icterus. No conjunctival pallor. Normocephalic, atraumatic. No pharyngeal erythema. No thyromegaly. CARDIOVASCULAR: S1 and S2 present. No murmurs, rubs, or gallops. PULMONARY: Expiratory wheezing which improved fairly good air entry to bilateral lower lung solis ABDOMEN: Soft, nontender, nondistended, normoactive bowel sounds. No palpable organomegaly. MUSCULOSKELETAL: No joint swelling or deformity. EXTREMITIES: As mentioned above NEUROLOGICAL: Gross neurological examination did not reveal any focal deficits. SKIN: No rashes. Assessment and plan -Severe peripheral artery disease with prior intervention of right lower extremity -Now with critical limb ischemia and is postoperative right lower extremity a ngiography and tPA infusion. Xarelto is being held and patient is on IV heparin at this time. 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 Patient was started on systemic steroids and inhalation treatments -Lung cancer with mediastinal mets -Persistent atrial fibrillation on anticoagulation which will be continued -Hyperlipidemia -Hypertension continues on metoprolol amlodipine added and PRN hydralazine. -Type 2 diabetes mellitus on metformin which will be held as patient will undergo angiogram of the lower extremities patient will be on sliding scale insulin DVT prophylaxis: Patient is on IV heparin GI prophylaxis protonix Full Code The impression and plan of care has been dictated by Lila Elizondo, Nurse Practitioner as directed. Dr. Floyd MD I have performed a history and physical examination and medical decision making of this patient, discussed the same with the dictator, and agree with the d ictators assessment and plan as written, documented as a scribe. Based on total visit time, I have performed more than 50% of this visit. Objective - Vital Signs Vital signs: Vital Signs Temp 98.1 F 09/15/23 12:00 Pulse 103 H 09/15/23 12:20 Resp 18 09/15/23 12:20 BP 151/100 09/15/23 12:00 Pulse Ox 94 L 09/15/23 12:00 FiO2 95 09/14/23 07:00 Intake & Output 09/14/23 09/15/23 09/15/23 18:59 06:59 18:59 Intake Total 775 982.5 620.667 Output Total 1050 370 700 Balance -275 612.5 -79.333 Weight 106 kg Intake: IV 775 900 525 Sodium Chloride 0.9% 1, 675 900 525 000 ml @ 75 mls/hr IV . [id number] [facility] Rx#:[id number] Intake, IV Titration 82.5 95.667 Amount Alteplase 10 mg In Sodium 82.5 95.667 Chloride 0.9% 90 ml @ 1 MG/HR 10 mls/hr IA .Q10H [facility] Rx#:[id number] Output: Urine 1050 370 700 Other: Voiding Method Urinal Urinal Urinal - Labs CBC & Chem 7: 09/15/23 06:01 09/15/23 06:01 Labs: Abnormal Lab Results - Last 24 Hours (Table) 09/14/23 09/15/23 09/15/23 Range/Units 19:59 06:01 06:01 WBC 14.1 H (3.8-10.6) k/uL Hct 54.8 H (39.0-53.0) % MCHC 30.4 L (31.0-37.0) g/dL RDW 15.6 H (11.5-15.5) % Plt Count 68 L (150-450) k/uL Neutrophils # 12.6 H (1.3-7.7) k/uL Lymphocytes # 0.7 L (1.0-4.8) k/uL PT 15.1 H 13.9 H (10.0-12.5) sec INR 1.5 H 1.3 H (<1.2) Fibrinogen 110 L 133 L (200-500) mg/dL Chloride (98-107) mmol/L Carbon Dioxide (22-30) mmol/L Creatinine (0.66-1.25) mg/dL Glucose (74-99) mg/dL 09/15/23 Range/Units 06:01 WBC (3.8-10.6) k/uL Hct (39.0-53.0) % MCHC (31.0-37.0) g/dL RDW (11.5-15.5) % Plt Count (150-450) k/uL Neutrophils # (1.3-7.7) k/uL Lymphocytes # (1.0-4.8) k/uL PT (10.0-12.5) sec INR (<1.2) Fibrinogen (200-500) mg/dL Chloride 111 H (98-107) mmol/L Carbon Dioxide 20 L (22-30) mmol/L Creatinine 0.62 L (0.66-1.25) mg/dL Glucose 127 H (74-99) mg/dL Microbiology - Last 24 Hours (Table) 09/13/23 05:00 Blood Culture - Preliminary Blood 09/13/23 05:00 Blood Culture - Preliminary Blood Assessment and Plan Time with Patient: Less than 30
[2023-09-15 16:30] LABS: HCT 48.4 % (39.0-53.0); HGB 15.4 gm/dL (13.0-17.5); Hypochromasia Slight; MCH 29.9 pg (25.0-35.0); MCHC 31.7 g/dL (31.0-37.0); MCV 94.1 fL (80.0-100.0); Mean Platelet Volume 9.4; RBC 5.14 m/uL (4.30-5.90); RDW 15.8 % (11.5-15.5); WBC 16.2 k/uL (3.8-10.6)
[2023-09-15] MEDS: CLOPIDOGREL 75 MG TAB PO ONE (16:34)
[2023-09-15 16:46] LABS: Platelet Count 72 k/uL (150-450)
[2023-09-15] MEDS ORDERED: NALOXONE 0.4 MG/ML 1 ML VIAL IVP PRN (17:02)
--- NOTE | 2023-09-15 17:02 | P.PCN ---
Date of Procedure: 09/15/23 Operative Findings: PERCUTANEOUS PERIPHERAL ARTERIAL INTERVENTION Performing physician Jatinder Nina M.D. Procedure performed 1. Post tPA infusion angiogram of the right lower extremity (third look) 2. Mechanical thrombectomy from the right SFA and right popliteal using the Penumbra device 3. Intravascular ultrasound of the right posterior tibial and right popliteal and right SFA 4. Successful stenting of the right popliteal/SFA using using 7.0 x 150 mm Viabahn self-expandable stent 5. Successful balloon angioplasty of the right anterior tibial and right posterior tibial artery 6. Right lower extremity angiogram and left common femoral artery angiogram Indication Acute limb ischemia of the right lower extremity. Please refer to previous medical records including the angiogram initially and second look angiogram. Approach Left common femoral artery Complications None Level of sedation Moderate with a sedation time of 3 hours Procedure description After obtaining informed consent the patient was brought to the cardiac Shower Enclosure Installer. The 70 cm 6 Italian sheath was exchanged over 035 stiff wire which was Amplatz wire into a 70 cm 7 Italian sheath to accommodate more efficient mechanical thrombectomy using the penumbra. That was performed under fluoroscopy guidance. Subsequently before anything was performed I did right lower extremity angiogram and that showed no flow in the right SFA nor the right lower extremity whatsoever. At that point I decided to pursue with mechanical thrombectomy using the penumbra. I did wire the right SFA and right popliteal using an [address] wire. Subsequently the penumbra was advanced over the wire to the right SFA and I did mechanical thrombectomy of the right SFA and right popliteal. I was able to extract large thrombus burden. An angiogram was performed after that and showed no flow. At that point I decided to do an intravascular ultrasound IVUS and that was performed over on 4 wire and showed residual large thrombus burden involving the right popliteal and right SFA but the wire was in the true lumen. After that I did decide to do balloon angioplasty of the right popliteal and right SFA hoping to improve the flow. I did perform that using 6 mm balloon. In spite of that the flow was slightly better but not complete. I suspected the problem to be related to outflow including occluded right anterior tibial and occluded right posterior tibial artery. I wired the right posterior tibial artery using a 014 wire and the wire was advanced all the way to the right ankle. I did balloon angioplasty using 3 mm balloon. After that I wired the right anterior tibial artery using a 014 wire as well and the wire was advanced all the way to the ankle as well. I did balloon the anterior tibial artery using again 3 mm balloon. Subsequently I did balloon angioplasty of the right popliteal using 6 mm balloon and for the right SFA using 7 mm balloon. The flow was overall better but not ideal. IVUS was performed again and showed a flap involving the Viabahn stent from before. The initial plan was to do medical treatment at this point and the patient to undergo surgery tomorrow but after reviewing the angiogram with Dr. Ramirez in the control room we decided to go ahead and cover this flap using another Viabahn c overed stent. The stent was advanced over 018 wire through the right popliteal/SFA where the stent was positioned under fluoroscopy guidance and deployed under fluoroscopy guidance. Subsequently the stent system was withdrawn out. Subsequently the 7 Italian long sheath was exchanged over 035 wire into Postprocedure management 1. Dual antiplatelet therapy 2. The patient to be seen by Dr. Ramirez tomorrow 3. Risk factors modification 4. Follow-up with the patient
--- NOTE | 2023-09-15 17:19 | IR ---
EXAMINATION TYPE: IR angio lower extremity RT Intraoperative/procedural fluoroscopic services were pr ovided. CLINICAL INDICATION:Male, 73 years old with history of RT LOWER ANGIOGRAM, 48.5 MINS FLT, .930 MGY; , [facility] Total fluoroscopy time is 48.5 min. DAP: [id number] uGym2 Please see the operative/procedural note for further details.
[2023-09-15] MEDS: SODIUM CHLORIDE 0.9% 1,000 ML in EMPTY BAG 1 BAG IV SCH (18:45)
[2023-09-15] MEDS: METOPROLOL TARTRATE 25 MG TAB PO SCH (19:54)
[2023-09-15 22:15] LABS: Glucose,Whole Blood 127 mg/dL (70-110)
[2023-09-15] MEDS: ATROPINE SULFATE 0.1 MG/ML 10ML SYRINGE ONE (23:15)
[2023-09-16] MEDS ORDERED: HEPARIN SODIUM 1,000 UN/ML (10ML VL) IV PRN ×2 (00:48→16:45)
[2023-09-16 02:03] LABS: ALT 53 U/L (4-49); AST 101 U/L (17-59); African American GFR (CKD) >90 (>60 ml/min/1.73 sqM); Albumin 2.6 g/dL (3.5-5.0); Alkaline Phosphatase 51 U/L (38-126); Anion Gap 3 mmol/L; Blood Urea Nitrogen 21 mg/dL (9-20); Calcium 8.5 mg/dL (8.4-10.2); Carbon Dioxide 21 mmol/L (22-30); Chloride 113 mmol/L (98-107); Glucose 174 mg/dL (74-99); Non-African American GFR(CKD) >90 (>60 ml/min/1.73 sqM); Potassium 4.5 mmol/L (3.5-5.1); Sodium 137 mmol/L (137-145); Total Bilirubin 1.4 mg/dL (0.2-1.3); Total Protein 4.6 g/dL (6.3-8.2)
[2023-09-16 02:07] LABS: HCT 39.7 % (39.0-53.0); HGB 12.6 gm/dL (13.0-17.5); Hypochromasia Slight; MCH 30.2 pg (25.0-35.0); MCHC 31.7 g/dL (31.0-37.0); MCV 95.3 fL (80.0-100.0); Mean Platelet Volume 9.7; RBC 4.17 m/uL (4.30-5.90); RDW 15.8 % (11.5-15.5); WBC 14.9 k/uL (3.8-10.6)
[2023-09-16 02:08] LABS: Platelet Count 68 k/uL (150-450)
--- NOTE | 2023-09-16 04:32 | CT ---
EXAM: CT Abdomen and Pelvis With Intravenous Contrast CLINICAL HISTORY: Hematoma formation TECHNIQUE: Axial computed tomography images of the abdomen and pelvis with intravenous contrast. CTDI is 42.4 mGy and DLP is 3049 mGy-cm. This CT exam was performed using one or more of the following dose reduction techniques: automated exposure control, adjustment of the mA and/or kV according to patient size, and/or use of iterative reconstruction technique. COMPARISON: CT September 01, 2022. FINDINGS: Lung bases: There are 2 heterogeneous nodular densities in the right lower lobe with an adjacent coarse calcification in the right lower lobe. These were not present on the prior study. These may be due to trauma. ABDOMEN: Liver: Fatty infiltration of the liver. No focal hepatic lesion. Gallbladder and bile ducts: Unremarkable. No calcified stones. No ductal dilation. Pancreas: Few scattered calcifications in the pancreas. No evidence of pancreatic mass. No peripancreatic edema or fluid. No ductal dilation. Spleen: Unremarkable. No splenomegaly. Adrenals: Unremarkable. No mass. Kidneys and ureters: Linear calcification in the posterior aspect of the right kidney is stable. No hydronephrosis. No urinary tract calculus. Stomach and bowel: Unremarkable. No obstruction. No mucosal thickening. PELVIS: Appendix: No findings to suggest acute appendicitis. Bladder: Stable large stone in the posterior midline of the bladder. No mass. ABDOMEN and PELVIS: Intraperitoneal space: Unremarkable. No free into peritoneal air or fluid. Retroperitoneal space: Unremarkable. No retroperitoneal hematoma. Bones/joints: Old, healed posterior right rib fractures. Soft tissues: There is a large area of subcutaneous infiltration along the lateral and anterior left pelvis. Superiorly, this starts lateral to the left iliac crest and extends inferiorly and medially into the anteromedial aspect of the proximal left thigh as well as the right aspect of the scrotum. The total area measures at least 18.3 x 28 x 12.2 cm. The hematoma does not extend into the deeper pelvis. Vasculature: Unremarkable. No abdominal aortic aneurysm. Lymph nodes: Unremarkable. No enlarged lymph nodes. IMPRESSION: Large infiltrating hematoma along the anterior and lateral aspects of the left pelvis as above.
[2023-09-16 05:12] LABS: African American GFR (CKD) >90 (>60 ml/min/1.73 sqM); Anion Gap 5 mmol/L; Blood Urea Nitrogen 21 mg/dL (9-20); Calcium 8.4 mg/dL (8.4-10.2); Carbon Dioxide 18 mmol/L (22-30); Chloride 113 mmol/L (98-107); Glucose 180 mg/dL (74-99); Non-African American GFR(CKD) >90 (>60 ml/min/1.73 sqM); Potassium 4.3 mmol/L (3.5-5.1); Sodium 136 mmol/L (137-145)
[2023-09-16] MEDS: HEPARIN SOD,PORK IN 0.45% NACL 25,000 UNIT in 0.45% NACL 1 250ML.BAG IV SCH ×2 (05:23→17:37)
[2023-09-16] MEDS: CLOPIDOGREL 75 MG TAB PO SCH (08:22)
--- NOTE | 2023-09-16 11:06 | P.PN ---
Subjective Progress Note Date: 09/16/23 Principal diagnosis: Right lower extremity ischemic leg Patient is seen and examined today as a follow-up. He is in the ICU. Currently on IV heparin drip. Yesterday he underwent repeat angiogram third look post tPA infusion, mechanical thrombectomy from right SFA and right popliteal, with stenting of the right popliteal/SFA and balloon angioplasty of right anterior tibial and right posterior tibial artery with Dr. Boucher. Apparently through the night the patient established a left groin hematoma from the access site and a CT abdomen pelvis with contrast was ordered that reported large infiltrating hematoma along the anterior and lateral aspects of the left pelvis measuring 18.3 x 28 x 12.2 cm. Patient currently denies any shortness of breath or chest pain. He has some pain down the right lower extremity states it is better than yesterday. He is not able to move his foot or toes. Hemoglobin 12.6. Objective - Vital Signs Vital signs: Vital Signs Temp 98.5 F 09/16/23 04:00 Pulse 103 H 09/16/23 06:29 Resp 23 09/16/23 06:29 BP 106/89 09/16/23 06:29 Pulse Ox 96 09/16/23 06:29 FiO2 95 09/14/23 07:00 Intake & Output 09/15/23 09/16/23 09/16/23 18:59 06:59 18:59 Intake Total 315.685 3379 Output Total 700 750 Balance 170.667 300 Weight 110.4 kg Intake: IV 775 900 Sodium Chloride 0.9% 1, 675 900 000 ml @ 75 mls/hr IV . [id number] [facility] Rx#:[id number] Intake, IV Titration 95.667 Amount Alteplase 10 mg In Sodium 95.667 Chloride 0.9% 90 ml @ 1 MG/HR 10 mls/hr IA .Q10H [facility] Rx#:[id number] Oral 150 Output: Urine 700 750 Other: Voiding Method Urinal Urinal - Exam General appearance: The patient is alert, oriented, appears in no acute distress. HET: Head is normocephalic and atraumatic. Pupils are equal and reactive. Neck: Supple. Heart: Regular. Lungs: Equal expansion, normal respiratory effort. Abdomen: Soft, nontender, nondistended. Extremities: Right lower extremity with nonpalpable pulses. Foot cool up to mid wong, sensorimotor diminished Patient unable to flex ankle or move his toes. Positive popliteal Doppler signal. Left groin large hematoma with ecchymosis into pelvic region lower abdominal and left upper thigh. Neurological: Alert and oriented x 3. - Labs CBC & Chem 7: 09/16/23 01:10 09/16/23 04:00 Labs: Abnormal Lab Results - Last 24 Hours (Table) 09/15/23 09/15/23 09/16/23 Range/Units 16:08 22:14 01:10 WBC 16.2 H 14.9 H (3.8-10.6) k/uL RBC 4.17 L (4.30-5.90) m/uL Hgb 12.6 L (13.0-17.5) gm/dL RDW 15.8 H 15.8 H (11.5-15.5) % Plt Count 72 L 68 L (150-450) k/uL Sodium (137-145) mmol/L Chloride (98-107) mmol/L Carbon Dioxide (22-30) mmol/L BUN (9-20) mg/dL Creatinine (0.66-1.25) mg/dL Glucose (74-99) mg/dL POC Glucose (mg/dL) 127 H (70-110) mg/dL Total Bilirubin (0.2-1.3) mg/dL AST (17-59) U/L ALT (4-49) U/L Total Protein (6.3-8.2) g/dL Albumin (3.5-5.0) g/dL 09/16/23 09/16/23 Range/Units 01:20 04:00 WBC (3.8-10.6) k/uL RBC (4.30-5.90) m/uL Hgb (13.0-17.5) gm/dL RDW (11.5-15.5) % Plt Count (150-450) k/uL Sodium 136 L (137-145) mmol/L Chloride 113 H 113 H (98-107) mmol/L Carbon Dioxide 21 L 18 L (22-30) mmol/L BUN 21 H 21 H (9-20) mg/dL Creatinine 0.63 L (0.66-1.25) mg/dL Glucose 174 H 180 H (74-99) mg/dL POC Glucose (mg/dL) (70-110) mg/dL Total Bilirubin 1.4 H (0.2-1.3) mg/dL AST 101 H (17-59) U/L ALT 53 H (4-49) U/L Total Protein 4.6 L (6.3-8.2) g/dL Albumin 2.6 L (3.5-5.0) g/dL Microbiology - Last 24 Hours (Table) 09/13/23 05:00 Blood Culture - Preliminary Blood 09/13/23 05:00 Blood Culture - Preliminary Blood Assessment and Plan Assessment: 1. Right lower extremity acute critical limb ischemia 2. Right SFA and popliteal artery occlusion 3. Status post tPA infusion, stenting of right popliteal/SFA and balloon angioplasty of right anterior tibial and right posterior tibial artery 4. Left groin hematoma 5. History of DVTs 6. History of popliteal artery stent 7. Factor V Leiden 8. Atrial fibrillation Plan: 1. Continue with pressure dressing to left groin 2. Patient scheduled for right lower extremity open thrombectomy and possible right lower extremity fasciotomy 3. Turn heparin drip off at 10 AM 4. Keep n.p.o. 5. Further recommendations forthcoming based on clinical course 6. Continue with recommendations from cardiology Thank you for this consultation, we will continue to follow. The impression and plan of care has been dictated as directed. I performed a history and examination of this patient, discussed the same with the dictator. I agree with the dictator's note ,documented as a scribe. Any additional findings or plans will be noted. Long discussion had with the patient regards to open thrombectomy and fasciotomy. Discussed that there is still a great likelihood of need for a mputation given the amount of ischemia and diminished motor or sensory at this point. He seemingly understands. Will go forward with attempted revascularization today.
[2023-09-16 11:46] LABS: Anisocytosis Slight; Basophils % (A) 0 %; Eosinophils # (A) 0.1 k/uL (0-0.7); Eosinophils % (A) 1 %; HCT 33.9 % (39.0-53.0); HGB 10.8 gm/dL (13.0-17.5); Hypochromasia Moderate; Lymphocytes # (A) 0.5 k/uL (1.0-4.8); Lymphocytes % (A) 4 %; MCH 30.6 pg (25.0-35.0); MCHC 31.8 g/dL (31.0-37.0); MCV 96.2 fL (80.0-100.0); Mean Platelet Volume 10.1; Monocytes # (A) 0.6 k/uL (0-1.0); Monocytes % (A) 5 %; Neutrophils # (A) 10.8 k/uL (1.3-7.7); Neutrophils % (A) 89 %; RBC 3.52 m/uL (4.30-5.90); RDW 16.2 % (11.5-15.5); WBC 12.1 k/uL (3.8-10.6)
[2023-09-16 11:50] LABS: Platelet Count 63 k/uL (150-450)
[2023-09-16] MEDS: LACTATED RINGERS 1,000 ML IV ONE ×2 (13:00→15:21)
[2023-09-16] MEDS: SODIUM CHLORIDE 0.9% 100 ML with ceFAZolin 2,000 MG IV ONE (13:00)
[2023-09-16] MEDS ORDERED: ePHEDrine 50 MG/ML 1 ML VIAL ONE (13:08)
[2023-09-16] MEDS ORDERED: SUCCINYLCHOLINE CHLORIDE 200 MG/10 ML VIAL IV ONE (13:08)
[2023-09-16] MEDS ORDERED: LIDOCAINE 1% INJ 10MG/ML (20 ML MDV) ONE (13:08)
[2023-09-16] MEDS ORDERED: fentaNYL (PF) 50 MCG/ML 2 ML AMP ONE (13:08)
[2023-09-16] MEDS ORDERED: PHENYLEPHRINE 10 MG/ML VIAL ONE (13:08)
[2023-09-16] MEDS ORDERED: PROPOFOL 10 MG/ML 20 ML VIAL IV ONE (13:08)
[2023-09-16] MEDS ORDERED: HEPARIN SODIUM,PORCINE 5,000 UNIT/ML 1 ML VIAL ONE (13:08)
[2023-09-16] MEDS ORDERED: ROCURONIUM 10 MG/ML (5 ML VIAL) IV ONE (13:08)
--- NOTE | 2023-09-16 13:37 | P.PN ---
Subjective Progress Note Date: 09/16/23 Principal diagnosis: Acute critical limb ischemia, Patient is a 74-year-old white male with past medical history significant for coronary artery disease, diabetes mellitus, hyperlipidemia, hypertension, COPD, chronic ongoing tobacco dependence, obstructive sleep apnea, lung nodules, atrial fibrillation, factor V, and severe peripheral peripheral vascular disease. Of note, patient has severe peripheral arterial disease and has underwent previous stenting of the right SFA, he is chronically maintained on dual antiplatelet therapy including Plavix. Also, chronically anticoagulated on Xarelto. 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 Recently, patient was being worked up for suspicious right lower lung nodule and mediastinal lymphadenopathy, he was supposedly going to have a lung biopsy on September 15, and was directed to hold his Plavix 5 days prior and Xarelto 2 days prior. Reportedly, stopped both of these medications 5 days prior. Subsequently, started to notice right leg pain starting 4 days ago. This progressively worsens, and became severe early yesterday morning. He could not use this extremity or walk. Finally, came to the emergency department for evaluation early yesterday morning. CT angiography of the right lower extremity demonstrated an occluded right SFA, including the p revious stent to the distal right SFA, stent to the right popliteal artery, as well as, occluded right calf arteries. There is moderate focal stenosis at the right deep femoral artery. Soft tissue swelling and fat stranding throughout the right foot, ankle, and right lower extremity leg. Yesterday evening, patient did undergo right lower extremity angiogram with successful placement of a tPA infusion catheter in the right popliteal artery and right SFA. On my evaluation, right foot remains cold and pulseless even with Doppler. Foot appears dusky in color. Patient does report severe right lower extremity pain and reduced mobility. Catheter directed tPA at 1 mg/h continuous. heparin also infusing at 500 units/h for catheter patency. No oozing or hematoma noted at left femoral sheath insertion site. CBC is unremarkable and hemoglobin is stable at 16.7 g/dL. Fibrinogen 283. CMP on arrival was fairly unremarkable. LFTs not elevated. Troponin 0.014. Normal saline infusing at 75 mL/h. Pain is being managed with a combination of as needed Dilaudid. Blood pressure is normotensive. Heart rhythm appears atrial fibrillation with controlled ventricular response of 80 to 100 bpm. Patient is currently fairly comfortable on 2 L/min nasal cannula, no respiratory distress. Patient states his breathing is fairly baseline. He continues to smoke 2 packs/day. Denies any infectious symptoms like change in his chronic cough, sputum production, fevers. Denies sick contacts. He has been started on a combination of DuoNebs and IV Solu- Medrol. He does have history of right lower lobe 2.3 cm pulmonary nodule. Recent PET scan done 08/20/2023 redemonstrates a posterior right lateral lung nodule with an SUV of 5.6, as well as, SUV avid mediastinal lymphadenopathy suspicious for metastasis. His scheduled lung biopsy, which will likely have to be rescheduled. Reportedly, plan is for patient to return to [facility] later this morning. Patient evaluated today on 09/15/2023, patient is basically about the same. Continues to have poor circulation down to the right foot, patient is complaining of pain, the right foot feels cold, no palpable pulses, no pulses noted in the dorsalis pedis or posterior tibial even with Doppler. Patient is going back to catheterization lab today, and Dr. Boucher will assess his tPA catheter, in the meantime he is recommending a vascular surgery consultation. Pulmonary solis no cough no wheezing no shortness of breath. Patient seems to be comfortable. On 2 L nasal cannula, O2 saturation is 94%. Patient remains on heparin at 500 units/h he is also still receiving alteplase via tPA catheter. Patient is going back to [facility] at 11:30 AM today WBC count is 14.1 hemoglobin 16.7 INR is 1.3 electrolytes are normal and renal profile is normal Patient was reevaluated today on 09/16/2023, remains in the ICU, remains on IV heparin, yesterday he underwent repeat angiogram, third look post tPA infusion he had mechanical thrombectomy from right SFA and right popliteal with stenting of the right popliteal/SFA and balloon angioplasty of the right anterior tibial and right posterior tibial artery by Dr. Boucher. Patient developed groin hematoma which is the access site, CT of the abdomen and pelvis reported large infiltrating hematoma along the anterior and lateral aspect of the left pelvis measuring 18.3 x 28 x 4.2. Continues to have pain and discomfort in the right lower extremity the foot is ischemic and cold to touch. Vascular surgery is planning right lower extremity open thrombectomy and possible right lower extremity fasciotomy. This will be likely done today. Pulmonary solis the patient has minimal shortness of breath, intermittent cough and wheezing, maintained on bronchodilators Objective - Vital Signs Vital signs: Vital Signs Temp 98.5 F 09/16/23 12:00 Pulse 104 H 09/16/23 12:00 Resp 14 09/16/23 12:00 BP 117/85 09/16/23 12:00 Pulse Ox 96 09/16/23 12:00 FiO2 95 09/14/23 07:00 Intake & Output 09/15/23 09/16/23 09/16/23 18:59 06:59 18:59 Intake Total 315.495 9270 421.167 Output Total 700 750 450 Balance 170.667 300 -28.833 Weight 110.4 kg Intake: IV 775 900 375 Sodium Chloride 0.9% 1, 675 900 375 000 ml @ 75 mls/hr IV . [id number] [facility] Rx#:[id number] Intake, IV Titration 95.667 46.167 Amount Alteplase 10 mg In Sodium 95.667 Chloride 0.9% 90 ml @ 1 MG/HR 10 mls/hr IA .Q10H [facility] Rx#:[id number] Heparin Sod,Pork in 0.45% 46.167 NaCl 25,000 unit In 0.45 % NaCl 1 250ml.bag @ 9. 434 UNITS/KG/HR 10 mls/hr IV .Q24H [facility] Rx#: [id number] Oral 150 Output: Urine 700 750 450 Other: Voiding Method Urinal Urinal Urinal - Exam GENERAL EXAM: Alert, 73-year-old white male, on 2 L nasal cannula, not in distress HEAD: Normocephalic and atraumatic EYES: Normal reaction of pupils, equal size. NOSE: Clear with pink turbinates. THROAT: No erythema or exudates. NECK: No masses, no JVD. CHEST: No chest wall deformity. LUNGS: Diminished breath sound bilaterally no crackles rhonchi or wheezes CVS: S1 and S2 normal with no audible murmur, irregular rhythm. No extra heart sounds ABDOMEN: No hepatosplenomegaly, active bowel sounds, no guarding or rigidity. SPINE: No scoliosis or deformity SKIN: No rashes CENTRAL NERVOUS SYSTEM: No focal deficits, tone is normal in all 4 extremities. EXTREMITIES: Right lower extremity is cold, pulseless even with Doppler, reduced mobility. Left groin hematoma is noted - Labs CBC & Chem 7: 09/16/23 11:24 09/16/23 04:00 Labs: Abnormal Lab Results - Last 24 Hours (Table) 09/15/23 09/15/23 09/16/23 Range/Units 16:08 22:14 01:10 WBC 16.2 H 14.9 H (3.8-10.6) k/uL RBC 4.17 L (4.30-5.90) m/uL Hgb 12.6 L (13.0-17.5) gm/dL Hct (39.0-53.0) % RDW 15.8 H 15.8 H (11.5-15.5) % Plt Count 72 L 68 L (150-450) k/uL Neutrophils # (1.3-7.7) k/uL Lymphocytes # (1.0-4.8) k/uL Sodium (137-145) mmol/L Chloride (98-107) mmol/L Carbon Dioxide (22-30) mmol/L BUN (9-20) mg/dL Creatinine (0.66-1.25) mg/dL Glucose (74-99) mg/dL POC Glucose (mg/dL) 127 H (70-110) mg/dL Total Bilirubin (0.2-1.3) mg/dL AST (17-59) U/L ALT (4-49) U/L Total Protein (6.3-8.2) g/dL Albumin (3.5-5.0) g/dL 09/16/23 09/16/23 09/16/23 Range/Units 01:20 04:00 11:24 WBC 12.1 H (3.8-10.6) k/uL RBC 3.52 L (4.30-5.90) m/uL Hgb 10.8 L (13.0-17.5) gm/dL Hct 33.9 L (39.0-53.0) % RDW 16.2 H (11.5-15.5) % Plt Count 63 L (150-450) k/uL Neutrophils # 10.8 H (1.3-7.7) k/uL Lymphocytes # 0.5 L (1.0-4.8) k/uL Sodium 136 L (137-145) mmol/L Chloride 113 H 113 H (98-107) mmol/L Carbon Dioxide 21 L 18 L (22-30) mmol/L BUN 21 H 21 H (9-20) mg/dL Creatinine 0.63 L (0.66-1.25) mg/dL Glucose 174 H 180 H (74-99) mg/dL POC Glucose (mg/dL) (70-110) mg/dL Total Bilirubin 1.4 H (0.2-1.3) mg/dL AST 101 H (17-59) U/L ALT 53 H (4-49) U/L Total Protein 4.6 L (6.3-8.2) g/dL Albumin 2.6 L (3.5-5.0) g/dL Microbiology - Last 24 Hours (Table) 09/13/23 05:00 Blood Culture - Preliminary Blood 09/13/23 05:00 Blood Culture - Preliminary Blood Assessment and Plan Assessment: Impression: Acute critical limb ischemia, History of severe peripheral arterial disease, with previous stenting the right SFA and stenting of a right popliteal arterial aneurysm Right lung nodule and associated mediastinal lymphadenopathy, suspicious for primary lung cancer and metastasis. Highly suspicious for bronchogenic carcinoma with mediastinal metastasis Acute COPD exacerbation, chest x-ray does not show any acute cardiopulmonary p rocess. No focal infiltrates or evidence of pneumonia. The previously mentioned right lower lung nodule redemonstrated. Acute hypoxemic respiratory failure, currently on 3 L/min nasal cannula, secon jame to above Chronic ongoing tobacco dependence, up to 2 packs/day History of diabetes mellitus History of hyperlipidemia History of hypertension Chronic atrial fibrillation, chronically anticoagulated on Xarelto History of factor V deficiency History of DVT/PE Obstructive sleep apnea, maintained on CPAP at bedtime Morbid obesity, with a BMI of 42.9 kg/m Recommendation: Continue to monitor in the ICU Vascular surgery is planning further intervention today In the meantime continue heparin this will be discontinued around 10 AM for further surgical intervention His pulmonary issues will be addressed at a later date on outpatient basis Will continue to follow Time with Patient: Less than 30
[2023-09-16] MEDS: HEPARIN SODIUM (1,000 UNIT/ML) 2,000 UNIT in SODIUM CHLORIDE 0.9% 1,000 ML IRRIGATION ONE (13:43)
[2023-09-16] MEDS: ceFAZolin 2 GM in SODIUM CHLORIDE 0.9% 500 ML 500 ML IRRIGATION ONE (13:43)
--- NOTE | 2023-09-16 15:32 | P.PN ---
Subjective Progress Note Date: 09/16/23 Patient is [id number] male admitted for peripheral arterial disease and patient will undergo intervention for this. Patient has severe pain in the right lower extremity, right lower extremity CTA showed occluded superficial femoral artery including the stent in the distal right superficial femoral a rtery occluded stent in the right popliteal occluded right calf artery arteries and moderate focal stenosis of origin of the right deep femoral artery. Patient is on 75 mg of Plavix and also Xarelto. Patient denies any chest pain was having shortness of breath and wheezing patient does have history of COPD continues to smoke. Patient was started on systemic steroids and additional treatments after which wheezing did improve. Vascular surgery evaluated the patient and planning on intervention for severe right lower extremity peripheral vascular disease. 09/14/2023 Patient is evaluated in follow-up today in the intensive care unit. He is status post Right lower extremity angiography with successful placement of ATP infusion cath in right popliteal artery and right SFA. Patient continues to report significant pain to his right lower extremity and his foot remains cool to palpation. Nursing staff was having difficulty with a Doppler pulse today to the right dorsalis pedis. Patient is requiring IV Dilaudid in addition to IV morphine for pain control. We would recommend to add Lyrica at this point for the neuropathic pain. He does report feeling less short of breath today does still have some faint scattered wheezing. 09/15/2023 Patient is evaluated today in follow up in the ICU. 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 Awaiting repeat angiography. Vascular services was consulted for evaluation. Continues with pain management and patient reports some improvement with added lyrica. Blood pressure remains elevated 151/100, 94% on 2L. Heart rate 103. 09/16/2023 Patient is evaluated today in follow up in the ICU. Patient returned to the [facility] and underwent thrombectomy and stenting of the right popliteal and right SFA. Patient during the sheath pull in the period following was moving around in the bed and has developed an 18.3 x 28 x 21.2 cm hematoma of the left groin. There is significant bruising noted today. He does continue to report significant lower back pain and is requiring IV pain medication. He is on Lyrica for the neuropathic pain to the right leg. His foot is cool today and still unable to palpate pulse in the dorsalis pedis. Vascular will see the patient and are considering further vascular intervention at this time. His whi te blood cell count is 12.1, hemoglobin 10.8, platelet count of 63. Sodium 136, chloride 113, BUN of 21, creatinine of 0.63. REVIEW OF SYSTEMS: CONSTITUTIONAL: No fever, no malaise, no fatigue. HEENT: No recent visual problems or hearing problems. Denied any sore throat. CARDIOVASCULAR: No chest pain, orthopnea, PND, no palpitations, no syncope. PULMONARY: , no hemoptysis. GASTROINTESTINAL: No diarrhea, no nausea, no vomiting, no abdominal pain. NEUROLOGICAL: No headaches, no weakness, no numbness. PHYSICAL EXAMINATION: GENERAL: The patient is alert and oriented x3, not in any acute distress. Well developed, well nourished. HEENT: Pupils are round and equally reacting to light. EOMI. No scleral icterus. No conjunctival pallor. Normocephalic, atraumatic. No pharyngeal erythema. No thyromegaly. CARDIOVASCULAR: S1 and S2 present. No murmurs, rubs, or gallops. PULMONARY: Expiratory wheezing which improved fairly good air entry to bilateral lower lung solis ABDOMEN: Soft, nontender, nondistended, normoactive bowel sounds. No palpable organomegaly. MUSCULOSKELETAL: No joint swelling or deformity. EXTREMITIES: As mentioned above NEUROLOGICAL: Gross neurological examination did not reveal any focal deficits. SKIN: No rashes. Assessment and plan -Severe peripheral artery disease with prior intervention of right lower extremity -Now with critical limb ischemia and is postoperative tPA infusion stenting of the right popliteal/FSA and balloon angioplasty of right anterior tibial and right posterior tibial artery. 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 Patient was started on systemic steroids and inhalation treatments -Lung cancer with mediastinal mets -Persistent atrial fibrillation on anticoagulation is being held on the outp atient basis for lung biopsy -Hyperlipidemia -Hypertension continues on metoprolol amlodipine added and PRN hydralazine. -History of factor V Leiden and DVT in the past -Type 2 diabetes mellitus on metformin which will be held as patient will undergo angiogram of the lower extremities patient will be on sliding scale insulin DVT prophylaxis: Patient is on IV heparin GI prophylaxis protonix Full Code The impression and plan of care has been dictated by Lila Elizondo, Nurse Practitioner as directed. Dr. Floyd MD I have performed a history and physical examination and medical decision making of this patient, discussed the same with the dictator, and agree with the dictators assessment and plan as written, documented as a scribe. Based on total visit time, I have performed more than 50% of this visit. Objective - Vital Signs Vital signs: Vital Signs Temp 98.5 F 09/16/23 12:00 Pulse 104 H 09/16/23 12:00 Resp 14 09/16/23 12:00 BP 117/85 09/16/23 12:00 Pulse Ox 96 09/16/23 12:00 FiO2 95 09/14/23 07:00 Intake & Output 09/15/23 09/16/23 09/16/23 18:59 06:59 18:59 Intake Total 147.003 7039 1523.167 Output Total 700 750 450 Balance 170.893 142 9903.167 Weight 110.4 kg Intake: IV 146 706 1620 Sodium Chloride 0.9% 1, 675 900 375 000 ml @ 75 mls/hr IV . [id number] [facility] Rx#:[id number] Intake, IV Titration 95.667 46.167 Amount Alteplase 10 mg In Sodium 95.667 Chloride 0.9% 90 ml @ 1 MG/HR 10 mls/hr IA .Q10H [facility] Rx#:[id number] Heparin Sod,Pork in 0.45% 46.167 NaCl 25,000 unit In 0.45 % NaCl 1 250ml.bag @ 9. 434 UNITS/KG/HR 10 mls/hr IV .Q24H [facility] Rx#: [id number] Oral 150 Output: Urine 700 750 450 Other: Voiding Method Urinal Urinal Urinal - Labs CBC & Chem 7: 09/16/23 11:24 09/16/23 04:00 Labs: Abnormal Lab Results - Last 24 Hours (Table) 09/15/23 09/15/23 09/16/23 Range/Units 16:08 22:14 01:10 WBC 16.2 H 14.9 H (3.8-10.6) k/uL RBC 4.17 L (4.30-5.90) m/uL Hgb 12.6 L (13.0-17.5) gm/dL Hct (39.0-53.0) % RDW 15.8 H 15.8 H (11.5-15.5) % Plt Count 72 L 68 L (150-450) k/uL Neutrophils # (1.3-7.7) k/uL Lymphocytes # (1.0-4.8) k/uL Sodium (137-145) mmol/L Chloride (98-107) mmol/L Carbon Dioxide (22-30) mmol/L BUN (9-20) mg/dL Creatinine (0.66-1.25) mg/dL Glucose (74-99) mg/dL POC Glucose (mg/dL) 127 H (70-110) mg/dL Total Bilirubin (0.2-1.3) mg/dL AST (17-59) U/L ALT (4-49) U/L Total Protein (6.3-8.2) g/dL Albumin (3.5-5.0) g/dL 09/16/23 09/16/23 09/16/23 Range/Units 01:20 04:00 11:24 WBC 12.1 H (3.8-10.6) k/uL RBC 3.52 L (4.30-5.90) m/uL Hgb 10.8 L (13.0-17.5) gm/dL Hct 33.9 L (39.0-53.0) % RDW 16.2 H (11.5-15.5) % Plt Count 63 L (150-450) k/uL Neutrophils # 10.8 H (1.3-7.7) k/uL Lymphocytes # 0.5 L (1.0-4.8) k/uL Sodium 136 L (137-145) mmol/L Chloride 113 H 113 H (98-107) mmol/L Carbon Dioxide 21 L 18 L (22-30) mmol/L BUN 21 H 21 H (9-20) mg/dL Creatinine 0.63 L (0.66-1.25) mg/dL Glucose 174 H 180 H (74-99) mg/dL POC Glucose (mg/dL) (70-110) mg/dL Total Bilirubin 1.4 H (0.2-1.3) mg/dL AST 101 H (17-59) U/L ALT 53 H (4-49) U/L Total Protein 4.6 L (6.3-8.2) g/dL Albumin 2.6 L (3.5-5.0) g/dL Microbiology - Last 24 Hours (Table) 09/13/23 05:00 Blood Culture - Preliminary Blood 09/13/23 05:00 Blood Culture - Preliminary Blood Assessment and Plan Time with Patient: Less than 30
[2023-09-16 16:02] LABS: Glucose,Whole Blood 124 mg/dL (70-110)
--- NOTE | 2023-09-16 16:16 | P.OP ---
Date of Procedure: 09/16/23 Description of Procedure: Preoperative diagnosis: Right lower extremity [place] 3 ischemia status post tPA thrombolysis, transluminal balloon angioplasty and stent Postoperative diagnosis: Same Procedure: Open thrombectomy right superficial femoral artery, popliteal artery, anterior tibial artery, peroneal artery, posterior tibial artery Endarterectomy and patch angioplasty of popliteal artery and tibioperoneal trunk 4 compartment fasciotomy Surgeon: Trina Ramirez D.O. EBL: 100 cc IV fluids: See records Urine output: See records Drains: None Complications: None immediately apparent Condition: Critical but stable condition Operative indication and findings: [Patient is a 73-year-old male with a previous right popliteal artery stent for potential aneurysmal disease that recently was occluded. Initiation with tPA thrombolysis was performed with significant improvement of flow and requiring repeat angioplasty and stent. It was felt to potentially be sufficient however through the evening patient had some coloration changes further of his foot and had diminished motor and sensory function therefore the decision was made to take him for an open thrombectomy of his popliteal and tibial vessels. There was some mild delay in this due to OR timing and anesthesia staffing. Risk and benefits were discussed with the patient who seemingly understood and was willing to proceed. He is also informed that this likely still will end up requiring some degree of amputation. Will attempt further revascularization at this time. He seemingly understands plan and is willing to proceed. Procedure in detail: Patient taken the operative suite and placed in supine position. The bilateral groins and right lower extremity were prepped and draped in usual sterile fashion. A preprocedure timeout performed, all parties were in agreement. Incision was made at the medial border of the tibia and carried down through the subcutaneous tissue to the fascia which was opened and carried down into the deep posterior compartment. The popliteal artery popliteal vein were identified. The gastrocnemius muscle was very well- developed and taut. Both muscles of the deep and superficial compartment appeared to be viable with adequate response. Once the artery was identified, Vesely was utilized to gain proximal control. Further dissection was performed in a meticulous manner to identify the anterior tibial, tibioperoneal trunk, posterior tibial and peroneal arteries. Each of which were encircled for control with vessel loop. Initially at the level of the popliteal artery just prior to the takeoff of the anterior tibial, a transverse arteriotomy was performed there was no evidence of inflow pulsatile bleeding therefore at this time a 3 Luiz was passed multiple passes through the proximal portion with return of bright red brisk blood flow. This area was then flushed with heparinized saline. Attention was then turned towards the outflow there was some difficulty and causing the course of direction of the Luiz catheter and there was some significant plaquing therefore at that point the decision was made to open further in a longitudinal fashion the popliteal artery down to the tibioperoneal trunk and onto the posterior tibial artery. An endarterectomy was performed at this level. The Luiz was then used to pass down the anterior tibial, peroneal and posterior tibial arteries. There was sluggish return of dark and blood after significant thrombus removal. Each was flushed easily with heparinized saline. Due to this there was felt to be patency of the vessels and an 8 x 80 patch was used to reapproximate the arteriotomy with 6-0 Prolene. Prior to completion of the patch all vessels were flushed. There was adequate pulsatile flow at the level of the patch as well as palpable pulse in the posterior tibial and peroneal vessel. Difficult to palpate the anterior tibial due to anatomy however there was multiphasic signal at these levels. At this point the foot itself appeared more reddened in color however no distal pulses or signals were identified. He appeared to have some degree of improving capillary refill at this point. The areas were then copiously irrigated. Completion 4 compartment fasciotomy of the lateral portion was performed in standard fashion. The lateral compartment muscles appeared to be bulging with opening. They appeared to be viable and contractile. The anterior compartment musculature did not appear to have adequate contractility. There is evidence of some hematoma at this level as well intramuscular. Wet-to-dry dressings were placed. Patient was transferred back to ICU in stable condition having tolerated the procedure well, he is remaining intubated per anesthesia recommendations at this time.
[2023-09-16 16:38] LABS: ABG Base Excess -2.4 mmol/L; ABG HCO3 24 mmol/L (21-25); ABG Oxygen Saturation 100.4 % (94-97); ABG PCO2 49 mmHg (35-45); ABG PO2 394 mmHg (83-108); ABG TCO2 26 mmol/L (19-24)
[2023-09-16 16:42] LABS: Allen Test Performed? no
--- NOTE | 2023-09-16 17:00 | XR ---
EXAMINATION TYPE: XR chest 1V DATE OF EXAM: 09/16/2023 COMPARISON: 09/13/2023 INDICATION: Tube placement difficulty breathing TECHNIQUE: Single frontal view of the chest is obtained. FINDINGS: The heart size is normal. The pulmonary vasculature is normal. The lungs are clear. Previous right lower lobe density may be obscured by overlying artifact. Follow -up is recommended. Endotracheal tube has been placed with tip located 3.2 cm above the lisy. IMPRESSION: 1. No acute pulmonary process.
--- NOTE | 2023-09-16 20:11 | XR ---
EXAMINATION TYPE: XR chest 1V confirm line plcmt DATE OF EXAM: 09/16/2023 8:00 PM CLINICAL INDICATION:Male, 73 years old with history of OG Placement confirmation; [facility] COMPARISON: Chest radiographs from 09/16/2023 TECHNIQUE: XR chest 1V confirm line plcmt Frontal view of the chest. FINDINGS: Lungs/Pleura: There is no evidence of pleural effusion, focal consolidation, or pneumothorax. Pulmonary vascularity: Unremarkable. Heart/mediastinum: Cardiomediastinal silhouette is unremarkable. Musculoskeletal: No acute osseous pathology. Other findings: None Lines/Tubes: Nasogastric tube with its distal tip and side-port projecting under the diaphragm. IMPRESSION: Nasogastric tube in appropriate placement.
[2023-09-16] MEDS: CHLORHEXIDINE GLUCONATE 15 ML CUP MUCOUS MEM SCH (21:17)
--- NOTE | 2023-09-16 22:04 | PN ---
PROGRESS NOTE SUBJECTIVE: Cecilio is a 73-year-old gentleman, who is admitted to hospital with acute right lower extremity ischemia. He underwent another aortogram with runoff yesterday. This was a third look. Dr. Nina did mechanical thrombectomy and stented the right popliteal and superficial femoral artery and also did balloon angioplasty of the anterior tibial and posterior tibial arteries. He continues to have evidence of right lower extremity ischemia. His foot is cold. Pulses are not palpable and has a cyanotic right big toe. Vascular Surgery had been consulted. PHYSICAL EXAMINATION: VITAL SIGNS: Heart rate is 100 beats per minute, blood pressure is 113/87, respiratory rate 18. CHEST: Reveals diminished air entry at the bases. HEART: Reveals first and second heart sounds. No gallop. EXTREMITIES: Reveal right lower extremity edema and palpable pulses. Acute limb ischemia. LABORATORY DATA: Creatinine of 0.6, potassium is 4.3. Hemoglobin is 12.6, platelet count is low at 68. ASSESSMENT AND PLAN: Critical limb ischemia involving the right lower extremity. The patient underwent thrombectomy, tPA infusion, and heparin. Currently on heparin. Continues to have limb ischemia. Vascular Surgery had been consulted. MMODL / IJN: [id number] /
[2023-09-17] LABS: Glucose,Whole Blood 117 mg/dL (70-110)
[2023-09-17 03:49] LABS: Anisocytosis Slight; Basophils % (A) 0 %; Eosinophils # (A) 0.1 k/uL (0-0.7); Eosinophils % (A) 1 %; HCT 28.9 % (39.0-53.0); Hypochromasia Slight; Lymphocytes # (A) 0.5 k/uL (1.0-4.8); Lymphocytes % (A) 6 %; MCH 30.2 pg (25.0-35.0); MCV 94.7 fL (80.0-100.0); Mean Platelet Volume 11.3; Monocytes # (A) 0.6 k/uL (0-1.0); Monocytes % (A) 6 %; Neutrophils # (A) 8.3 k/uL (1.3-7.7); Neutrophils % (A) 87 %; RBC 3.05 m/uL (4.30-5.90); RDW 16.1 % (11.5-15.5); WBC 9.6 k/uL (3.8-10.6)
[2023-09-17 04:02] LABS: HGB 9.2 gm/dL (13.0-17.5); Platelet Count 62 k/uL (150-450)
[2023-09-17 05:00] LABS: African American GFR (CKD) >90 (>60 ml/min/1.73 sqM); Anion Gap -1 mmol/L; Blood Urea Nitrogen 20 mg/dL (9-20); Calcium 7.9 mg/dL (8.4-10.2); Carbon Dioxide 24 mmol/L (22-30); Chloride 115 mmol/L (98-107); Glucose 119 mg/dL (74-99); Non-African American GFR(CKD) >90 (>60 ml/min/1.73 sqM); Potassium 4.2 mmol/L (3.5-5.1); Sodium 138 mmol/L (137-145)
[2023-09-17 05:27] LABS: ABG Base Excess 0.4 mmol/L; ABG HCO3 25 mmol/L (21-25); ABG Oxygen Saturation 99.3 % (94-97); ABG PCO2 39 mmHg (35-45); ABG PH 7.42 (7.35-7.45); ABG PO2 120 mmHg (83-108); ABG TCO2 26 mmol/L (19-24)
[2023-09-17 05:37] LABS: Glucose,Whole Blood 125 mg/dL (70-110)
--- NOTE | 2023-09-17 07:37 | P.PN ---
Progress Note - Text Progress Note Date: 09/16/23 Patient seen and examined now back in the ICU. Right lower extremity is improving and warm with improvement of capillary refill and coloration. There is a strong sounding at least biphasic DP signal noted. Dressings are clean and intact at this time.
--- NOTE | 2023-09-17 08:16 | XR ---
EXAMINATION TYPE: XR chest 1V DATE OF EXAM: 09/17/2023 COMPARISON: 09/16/2023 INDICATION: Tube placement TECHNIQUE: Single frontal view of the chest is obtained. FINDINGS: The heart size is mildly prominent. The pulmonary vasculature is normal. The lungs are clear. Endotracheal tube tip is 2.7 cm above the lisy. NG tube transverses the thorax tip in the mid abdom en. IMPRESSION: 1. Lines and catheters discussed above
--- NOTE | 2023-09-17 09:09 | P.PN ---
Subjective Progress Note Date: 09/17/23 Principal diagnosis: Right lower extremity ischemic leg Patient is seen and examined today in the ICU. He is currently intubated and sedated. Yesterday he underwent open thrombectomy of the right superficial femoral artery, popliteal artery, anterior tibial artery, peroneal artery, and posterior tibial artery with endarterectomy and patch angioplasty of the popliteal artery and tibioperoneal trunk with 4 compartment for fasciotomy. He is postop day #1. Following his surgical case yesterday it was reported patient had a DP signal, foot was pink and warm. This morning patient's right foot is currently cold, ischemic with no DP or PT signal present. Unsure timing of c hange in vascular status as no vascular surgeon was notified through the night. Attending note: Patient evaluated in the intensive care unit. He is sedated and on the mechanical ventilator. He is unable to answer questions or respond in any way shape or form. The right leg is clearly ischemic and mottled from the distal calf level down through the foot. The foot itself is cold. The muscles exposed by the medial fasciotomy appear relatively healthy however the muscles exposed by the lateral fasciotomy demonstrated evidence of nonviability. It is my understanding that Dr. Ramirez had spoken to the patient in great detail yesterday prior to her surgical intervention about the possibility to eventually need a below the knee or possible [id number] amputation. Apparently the patient had indicated his full understanding of same. He also indicated that he had no family or did not wish to have any 1 else notified in reference to his current medical condition/medical care. The situation is irreversible and the patient will require an amputation. Both Dr. Ramirez and I agreed to this point and will take the patient to the operating room for a below the knee amputation in spite of the patient's inability to give consent at this time. It is noted that he had given verbal understanding and consent to Dr. Ramirez prior to yesterday's surgical intervention. Objective - Vital Signs Vital signs: Vital Signs Temp 98.5 F 09/17/23 04:00 Pulse 81 09/17/23 07:00 Resp 16 09/17/23 07:00 BP 96/68 09/17/23 07:00 Pulse Ox 97 09/17/23 07:00 FiO2 40 09/17/23 05:29 Intake & Output 07/01/2909/17/23 09/17/23 18:59 06:59 18:59 Intake Total 6208.505 9475.349 Output Total 1200 1090 Balance 668.867 445.349 Weight 111.1 kg Intake: IV 1802 1011 A-line 36 Sodium Chloride 0.9% 1, 600 975 000 ml @ 75 mls/hr IV . [id number] [facility] Rx#:[id number] Intake, IV Titration 66.867 494.349 Amount Heparin Sod,Pork in 0.45% 183.264 NaCl 25,000 unit In 0.45 % NaCl 1 250ml.bag @ 18 UNITS/KG/HR 19.872 mls/hr IV .[id number] [facility] Rx#: [id number] Heparin Sod,Pork in 0.45% 46.167 NaCl 25,000 unit In 0.45 % NaCl 1 250ml.bag @ 9. 434 UNITS/KG/HR 10 mls/hr IV .Q24H [facility] Rx#: [id number] propofoL 1,000 mg In 20.700 311.085 Empty Bag 1 bag @ 15 MCG/ KG/MIN 9.936 mls/hr IV . Q10H4M [facility] Rx#:[id number] Other 30 Output: Gastric Drainage 150 Urine 1100 940 Estimated Blood Loss 100 Other: Voiding Method Indwelling Catheter Indwelling Catheter ABP, PAP, CO, CI - Last Documented Arterial Blood Pressure 105/62 - Exam General appearance: The patient is sedated and intubated HET: Head is normocephalic and atraumatic. Neck: Supple. Heart: Regular. Lungs: Equal expansion. Abdomen: Soft, nondistended. Extremities: Right lower extremity with nonpalpable pulses, no DP or PT signal present. Foot cold, mottled, with sluggish capillary refill. Right calf with dressing with noted saturation on lateral aspect. Left groin large hematoma with ecchymosis into pelvic region lower abdomen, scrotum, and left upper thigh. Neurological: Sedated and intubated. - Labs CBC & Chem 7: 09/17/23 03:39 09/17/23 03:39 Labs: Abnormal Lab Results - Last 24 Hours (Table) 09/16/23 09/16/23 09/16/23 Range/Units 11:24 16:00 16:36 WBC 12.1 H (3.8-10.6) k/uL RBC 3.52 L (4.30-5.90) m/uL Hgb 10.8 L (13.0-17.5) gm/dL Hct 33.9 L (39.0-53.0) % RDW 16.2 H (11.5-15.5) % Plt Count 63 L (150-450) k/uL Neutrophils # 10.8 H (1.3-7.7) k/uL Lymphocytes # 0.5 L (1.0-4.8) k/uL APTT (22.0-30.0) sec ABG pH 7.30 L (7.35-7.45) ABG pCO2 49 H (35-45) mmHg ABG pO2 394 H (83-108) mmHg ABG Total CO2 26 H (19-24) mmol/L ABG O2 Saturation 100.4 H (94-97) % Chloride (98-107) mmol/L Creatinine (0.66-1.25) mg/dL Glucose (74-99) mg/dL POC Glucose (mg/dL) 124 H (70-110) mg/dL Calcium (8.4-10.2) mg/dL 09/16/23 09/16/23 09/16/23 Range/Units 17:05 22:27 23:59 WBC (3.8-10.6) k/uL RBC (4.30-5.90) m/uL Hgb (13.0-17.5) gm/dL Hct (39.0-53.0) % RDW (11.5-15.5) % Plt Count (150-450) k/uL Neutrophils # (1.3-7.7) k/uL Lymphocytes # (1.0-4.8) k/uL APTT 34.4 H >200.0 H* (22.0-30.0) sec ABG pH (7.35-7.45) ABG pCO2 (35-45) mmHg ABG pO2 (83-108) mmHg ABG Total CO2 (19-24) mmol/L ABG O2 Saturation (94-97) % Chloride (98-107) mmol/L Creatinine (0.66-1.25) mg/dL Glucose (74-99) mg/dL POC Glucose (mg/dL) 117 H (70-110) mg/dL Calcium (8.4-10.2) mg/dL 09/17/23 09/17/23 09/17/23 Range/Units 03:39 03:39 05:22 WBC (3.8-10.6) k/uL RBC 3.05 L (4.30-5.90) m/uL Hgb 9.2 L D (13.0-17.5) gm/dL Hct 28.9 L (39.0-53.0) % RDW 16.1 H (11.5-15.5) % Plt Count 62 L (150-450) k/uL Neutrophils # 8.3 H (1.3-7.7) k/uL Lymphocytes # 0.5 L (1.0-4.8) k/uL APTT (22.0-30.0) sec ABG pH (7.35-7.45) ABG pCO2 (35-45) mmHg ABG pO2 120 H (83-108) mmHg ABG Total CO2 26 H (19-24) mmol/L ABG O2 Saturation 99.3 H (94-97) % Chloride 115 H (98-107) mmol/L Creatinine 0.57 L (0.66-1.25) mg/dL Glucose 119 H (74-99) mg/dL POC Glucose (mg/dL) (70-110) mg/dL Calcium 7.9 L (8.4-10.2) mg/dL 09/17/23 Range/Units 05:35 WBC (3.8-10.6) k/uL RBC (4.30-5.90) m/uL Hgb (13.0-17.5) gm/dL Hct (39.0-53.0) % RDW (11.5-15.5) % Plt Count (150-450) k/uL Neutrophils # (1.3-7.7) k/uL Lymphocytes # (1.0-4.8) k/uL APTT (22.0-30.0) sec ABG pH (7.35-7.45) ABG pCO2 (35-45) mmHg ABG pO2 (83-108) mmHg ABG Total CO2 (19-24) mmol/L ABG O2 Saturation (94-97) % Chloride (98-107) mmol/L Creatinine (0.66-1.25) mg/dL Glucose (74-99) mg/dL POC Glucose (mg/dL) 125 H (70-110) mg/dL Calcium (8.4-10.2) mg/dL Microbiology - Last 24 Hours (Table) 09/13/23 05:00 Blood Culture - Preliminary Blood 09/13/23 05:00 Blood Culture - Preliminary Blood Assessment and Plan Assessment: 1. Right lower extremity acute critical limb ischemia 2. Right SFA and popliteal artery occlusion 3. Postop day #1 open thrombectomy right SFA, popliteal artery, anterior tibial artery, peroneal artery and posterior tibial artery with endarterectomy and patch angioplasty of popliteal artery and tibioperoneal trunk. 4 compartment fasciotomy 4. Status post tPA infusion, stenting of right popliteal/SFA and balloon an gioplasty of right anterior tibial and right posterior tibial artery 5. Left groin hematoma 6. History of DVTs 7. History of popliteal artery stent 8. Factor V Leiden 9. Atrial fibrillation Plan: 1. Continue with pressure dressing to left groin 2. Continue with ICU care 3. Hold heparin prior to surgery 4. Patient will require below the knee amputation due to critical limb ischemia, this will be scheduled today 5. Continue with recommendations from cardiology Thank you for this consultation, we will continue to follow. The impression and plan of care has been dictated as directed. Dr. Whittaker I performed a history and examination of this patient, discussed the same with the dictator. I agree with the dictator's note ,documented as a scribe. Any a dditional findings or plans will be noted.
[2023-09-17] MEDS: PANTOPRAZOLE 40 MG/10 ML VIAL IV SCH (09:18)
[2023-09-17 12:02] LABS: Glucose,Whole Blood 114 mg/dL (70-110)
[2023-09-17] MEDS ORDERED: fentaNYL (PF) 50 MCG/ML 2 ML AMP ONE (13:35)
[2023-09-17] MEDS ORDERED: ceFAZolin 1 GM/50 ML BAG (PMX) ONE (13:35)
[2023-09-17] MEDS ORDERED: PHENYLEPHRINE-0.9% NACL SYG 1,000 MCG/10 ML SYRINGE ONE (13:35)
[2023-09-17] MEDS ORDERED: ROCURONIUM 10 MG/ML (5 ML VIAL) IV ONE (13:35)
[2023-09-17] MEDS ORDERED: MIDAZOLAM 2 MG/2 ML VIAL ONE (13:35)
[2023-09-17] MEDS: IV FLUID CONTINUATION 1,000 ML IV ONE (13:40)
--- NOTE | 2023-09-17 13:40 | PN ---
PROGRESS NOTE SUBJECTIVE: Cecilio is a 73-year-old gentleman, who was admitted to hospital with acute ischemic right leg and initially underwent tPA infusion and heparin without much improvement in his symptoms. Yesterday went for open endarterectomy with fasciotomy. There was some improvement in his pulse initially, but subsequently developed loss of pulse and continues to have ischemic leg and the plan currently is to perform amputation on him. After surgery they intubated and left him on the vent. CURRENT MEDICATIONS: Include, 1. Norvasc 10 daily. 2. Plavix. 3. Intravenous heparin. OBJECTIVE: VITAL SIGNS: Heart rate is 100 beats per minute, blood pressure is 110/70, respiratory rate is 18. CHEST: Reveals good air entry bilaterally. HEART: Reveals first and second heart sounds. No gallop. EXTREMITIES: Shows that right dorsalis pedis and posterior tibial pulses are not palpable. Right foot is ischemic, cyanotic and cold. LABORATORY DATA: Labs show that the hemoglobin is 9.2, platelet count is 62, potassium is 4.2, creatinine is 0.5. ASSESSMENT: 1. Acute ischemic leg involving right leg. 2. History of atrial fibrillation with controlled ventricular rate. PLAN: He will continue the heparin. We have been unsuccessful with both tPA and thrombectomy, and currently the plan is to perform amputation on him. MMODL / IJN: [id number] /
--- NOTE | 2023-09-17 13:41 | P.PN ---
Subjective Progress Note Date: 09/17/23 Principal diagnosis: Acute critical limb ischemia, Patient is a 74-year-old white male with past medical history significant for coronary artery disease, diabetes mellitus, hyperlipidemia, hypertension, COPD, chronic ongoing tobacco dependence, obstructive sleep apnea, lung nodules, atrial fibrillation, factor V, and severe peripheral peripheral vascular disease. Of note, patient has severe peripheral arterial disease and has underwent previous stenting of the right SFA, he is chronically maintained on dual antiplatelet therapy including Plavix. Also, chronically anticoagulated on Xarelto. 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 Recently, patient was being worked up for suspicious right lower lung nodule and mediastinal lymphadenopathy, he was supposedly going to have a lung biopsy on September 15, and was directed to hold his Plavix 5 days prior and Xarelto 2 days prior. Reportedly, stopped both of these medications 5 days prior. Subsequently, started to notice right leg pain starting 4 days ago. This progressively worsens, and became severe early yesterday morning. He could not use this extremity or walk. Finally, came to the emergency department for evaluation early yesterday morning. CT angiography of the right lower extremity demonstrated an occluded right SFA, including the p revious stent to the distal right SFA, stent to the right popliteal artery, as well as, occluded right calf arteries. There is moderate focal stenosis at the right deep femoral artery. Soft tissue swelling and fat stranding throughout the right foot, ankle, and right lower extremity leg. Yesterday evening, patient did undergo right lower extremity angiogram with successful placement of a tPA infusion catheter in the right popliteal artery and right SFA. On my evaluation, right foot remains cold and pulseless even with Doppler. Foot appears dusky in color. Patient does report severe right lower extremity pain and reduced mobility. Catheter directed tPA at 1 mg/h continuous. heparin also infusing at 500 units/h for catheter patency. No oozing or hematoma noted at left femoral sheath insertion site. CBC is unremarkable and hemoglobin is stable at 16.7 g/dL. Fibrinogen 283. CMP on arrival was fairly unremarkable. LFTs not elevated. Troponin 0.014. Normal saline infusing at 75 mL/h. Pain is being managed with a combination of as needed Dilaudid. Blood pressure is normotensive. Heart rhythm appears atrial fibrillation with controlled ventricular response of 80 to 100 bpm. Patient is currently fairly comfortable on 2 L/min nasal cannula, no respiratory distress. Patient states his breathing is fairly baseline. He continues to smoke 2 packs/day. Denies any infectious symptoms like change in his chronic cough, sputum production, fevers. Denies sick contacts. He has been started on a combination of DuoNebs and IV Solu- Medrol. He does have history of right lower lobe 2.3 cm pulmonary nodule. Recent PET scan done 08/20/2023 redemonstrates a posterior right lateral lung nodule with an SUV of 5.6, as well as, SUV avid mediastinal lymphadenopathy suspicious for metastasis. His scheduled lung biopsy, which will likely have to be rescheduled. Reportedly, plan is for patient to return to Home Health Clinician later this morning. Patient evaluated today on 09/15/2023, patient is basically about the same. Continues to have poor circulation down to the right foot, patient is complaining of pain, the right foot feels cold, no palpable pulses, no pulses noted in the dorsalis pedis or posterior tibial even with Doppler. Patient is going back to catheterization lab today, and Dr. Boucher will assess his tPA catheter, in the meantime he is recommending a vascular surgery consultation. Pulmonary solis no cough no wheezing no shortness of breath. Patient seems to be comfortable. On 2 L nasal cannula, O2 saturation is 94%. Patient remains on heparin at 500 units/h he is also still receiving alteplase via tPA catheter. Patient is going back to CV[facility] at 11:30 AM today WBC count is 14.1 hemoglobin 16.7 INR is 1.3 electrolytes are normal and renal profile is normal Patient was reevaluated today on 09/16/2023, remains in the ICU, remains on IV heparin, yesterday he underwent repeat angiogram, third look post tPA infusion he had mechanical thrombectomy from right SFA and right popliteal with stenting of the right popliteal/SFA and balloon angioplasty of the right anterior tibial and right posterior tibial artery by Dr. Boucher. Patient developed groin hematoma which is the access site, CT of the abdomen and pelvis reported large infiltrating hematoma along the anterior and lateral aspect of the left pelvis measuring 18.3 x 28 x 4.2. Continues to have pain and discomfort in the right lower extremity the foot is ischemic and cold to touch. Vascular surgery is planning right lower extremity open thrombectomy and possible right lower extremity fasciotomy. This will be likely done today. Pulmonary solis the patient has minimal shortness of breath, intermittent cough and wheezing, maintained on bronchodilators Patient was evaluated today on 09/17/2023, patient had his surgery yesterday, came back to the ICU intubated and mechanically ventilated, and he remains intubated at this point. He is on assist-control rate of 14 tidal volume 500 FiO2 40% and PEEP of 8 ABG showed a pO2 of 120 pCO2 39 pH of 7.42. Hence his FiO2 went down from 45% to 40%. Patient remains on heparin drip, remains on propofol at 40 mcg/kg/min, patient is on IV fluid at 2.9 normal saline running at 75 cc/h. Yesterday the patient underwent open thrombectomy of the right supe rficial femoral artery, popliteal artery anterior tibial artery and peroneal artery and posterior tibial artery with endarterectomy and patch angioplasty to the popliteal artery and tibioperoneal trunk with 4 compartments for fasciotomy. However this morning his foot went cold again, and seems to be ischemic. No evidence of dorsalis pedis or posterior tibial signal on Doppler. The timing of loss of pulse is not noted and is not clear, and is not clear to me as at what point the vascular surgery was notified about loss of pulse. Vascular surgery is considering below-knee amputation due to critical limb ischemia. And this will likely be done today Objective - Vital Signs Vital signs: Vital Signs Temp 98.8 F 09/17/23 12:00 Pulse 100 09/17/23 13:00 Resp 20 09/17/23 11:34 BP 103/72 09/17/23 13:00 Pulse Ox 97 09/17/23 13:00 FiO2 40 09/17/23 12:00 Intake & Output 09/16/23 09/17/23 09/17/23 18:59 06:59 18:59 Intake Total 6464.567 1009.349 718.696 Output Total 1200 1090 650 Balance 668.867 445.349 68.696 Weight 111.1 kg Intake: IV 1802 1011 468 A-line 36 18 Sodium Chloride 0.9% 1, 600 975 450 000 ml @ 75 mls/hr IV . [id number] [facility] Rx#:[id number] Intake, IV Titration 66.867 494.349 250.696 Amount Heparin Sod,Pork in 0.45% 183.264 61.051 NaCl 25,000 unit In 0.45 % NaCl 1 250ml.bag @ 18 UNITS/KG/HR 19.872 mls/hr IV .[id number] [facility] Rx#: [id number] Heparin Sod,Pork in 0.45% 46.167 NaCl 25,000 unit In 0.45 % NaCl 1 250ml.bag @ 9. 434 UNITS/KG/HR 10 mls/hr IV .Q24H [facility] Rx#: [id number] propofoL 1,000 mg In 20.700 311.085 189.645 Empty Bag 1 bag @ 15 MCG/ KG/MIN 9.936 mls/hr IV . Q10H4M [facility] Rx#:[id number] Other 30 Output: Gastric Drainage 150 Urine 1100 940 650 Estimated Blood Loss 100 Other: Voiding Method Indwelling Catheter Indwelling Catheter Indwelling Catheter ABP, PAP, CO, CI - Last Documented Arterial Blood Pressure 109/59 - Exam GENERAL EXAM: Alert, 73-year-old white male, intubated and mechanically ventilated HEAD: Normocephalic and atraumatic EYES: Normal reaction of pupils, equal size. NOSE: Clear with pink turbinates. THROAT: No erythema or exudates. NECK: No masses, no JVD. CHEST: No chest wall deformity. LUNGS: Diminished breath sound bilaterally no crackles rhonchi or wheezes CVS: S1 and S2 normal with no audible murmur, irregular rhythm. No extra heart sounds ABDOMEN: No hepatosplenomegaly, active bowel sounds, no guarding or rigidity. SPINE: No scoliosis or deformity SKIN: No rashes CENTRAL NERVOUS SYSTEM: Could not assess, patient is sedated. EXTREMITIES: Right lower extremity is cold, pulseless even with Doppler, reduced mobility. - Labs CBC & Chem 7: 09/17/23 03:39 09/17/23 03:39 Labs: Abnormal Lab Results - Last 24 Hours (Table) 09/16/23 09/16/23 09/16/23 Range/Units 16:00 16:36 17:05 RBC (4.30-5.90) m/uL Hgb (13.0-17.5) gm/dL Hct (39.0-53.0) % RDW (11.5-15.5) % Plt Count (150-450) k/uL Neutrophils # (1.3-7.7) k/uL Lymphocytes # (1.0-4.8) k/uL APTT 34.4 H (22.0-30.0) sec ABG pH 7.30 L (7.35-7.45) ABG pCO2 49 H (35-45) mmHg ABG pO2 394 H (83-108) mmHg ABG Total CO2 26 H (19-24) mmol/L ABG O2 Saturation 100.4 H (94-97) % Chloride (98-107) mmol/L Creatinine (0.66-1.25) mg/dL Glucose (74-99) mg/dL POC Glucose (mg/dL) 124 H (70-110) mg/dL Calcium (8.4-10.2) mg/dL 09/16/23 09/16/23 09/17/23 Range/Units 22:27 23:59 03:39 RBC 3.05 L (4.30-5.90) m/uL Hgb 9.2 L D (13.0-17.5) gm/dL Hct 28.9 L (39.0-53.0) % RDW 16.1 H (11.5-15.5) % Plt Count 62 L (150-450) k/uL Neutrophils # 8.3 H (1.3-7.7) k/uL Lymphocytes # 0.5 L (1.0-4.8) k/uL APTT >200.0 H* (22.0-30.0) sec ABG pH (7.35-7.45) ABG pCO2 (35-45) mmHg ABG pO2 (83-108) mmHg ABG Total CO2 (19-24) mmol/L ABG O2 Saturation (94-97) % Chloride (98-107) mmol/L Creatinine (0.66-1.25) mg/dL Glucose (74-99) mg/dL POC Glucose (mg/dL) 117 H (70-110) mg/dL Calcium (8.4-10.2) mg/dL 09/17/23 09/17/23 09/17/23 Range/Units 03:39 05:22 05:35 RBC (4.30-5.90) m/uL Hgb (13.0-17.5) gm/dL Hct (39.0-53.0) % RDW (11.5-15.5) % Plt Count (150-450) k/uL Neutrophils # (1.3-7.7) k/uL Lymphocytes # (1.0-4.8) k/uL APTT (22.0-30.0) sec ABG pH (7.35-7.45) ABG pCO2 (35-45) mmHg ABG pO2 120 H (83-108) mmHg ABG Total CO2 26 H (19-24) mmol/L ABG O2 Saturation 99.3 H (94-97) % Chloride 115 H (98-107) mmol/L Creatinine 0.57 L (0.66-1.25) mg/dL Glucose 119 H (74-99) mg/dL POC Glucose (mg/dL) 125 H (70-110) mg/dL Calcium 7.9 L (8.4-10.2) mg/dL 09/17/23 09/17/23 Range/Units 07:08 12:01 RBC (4.30-5.90) m/uL Hgb (13.0-17.5) gm/dL Hct (39.0-53.0) % RDW (11.5-15.5) % Plt Count (150-450) k/uL Neutrophils # (1.3-7.7) k/uL Lymphocytes # (1.0-4.8) k/uL APTT 98.5 H (22.0-30.0) sec ABG pH (7.35-7.45) ABG pCO2 (35-45) mmHg ABG pO2 (83-108) mmHg ABG Total CO2 (19-24) mmol/L ABG O2 Saturation (94-97) % Chloride (98-107) mmol/L Creatinine (0.66-1.25) mg/dL Glucose (74-99) mg/dL POC Glucose (mg/dL) 114 H (70-110) mg/dL Calcium (8.4-10.2) mg/dL Microbiology - Last 24 Hours (Table) 09/13/23 05:00 Blood Culture - Preliminary Blood 09/13/23 05:00 Blood Culture - Preliminary Blood Assessment and Plan Assessment: Impression: Acute critical limb ischemia, History of severe peripheral arterial disease, with previous stenting the right SFA and stenting of a right popliteal arterial aneurysm Right lung nodule and associated mediastinal lymphadenopathy, suspicious for primary lung cancer and metastasis. Highly suspicious for bronchogenic carcinoma with mediastinal metastasis Acute COPD exacerbation, chest x-ray does not show any acute cardiopulmonary process. No focal infiltrates or evidence of pneumonia. The previously mentioned right lower lung nodule redemonstrated. Acute hypoxemic respiratory failure, currently on 3 L/min nasal cannula, secondary to above Chronic ongoing tobacco dependence, up to 2 packs/day History of diabetes mellitus History of hyperlipidemia History of hypertension Chronic atrial fibrillation, chronically anticoagulated on Xarelto History of factor V deficiency History of DVT/PE Obstructive sleep apnea, maintained on CPAP at bedtime Morbid obesity, with a BMI of 42.9 kg/m Postop day #1 open thrombectomy right SFA, popliteal artery, anterior tibial artery, peroneal artery and posterior tibial artery with endarterectomy and patch angioplasty of popliteal artery and tibioperoneal trunk. 4 compartment fasciotomy Recommendation: Continue ventilatory support Vascular surgery is considering amputation and this ischemic limb probably today. Continue to monitor in the ICU No plans to wean at this point since surgery may be done today. Decisions regarding heparinization to be made by vascular surgery on the case for Patient is critically ill. Critical care time is over 30-minute Will continue to follow Time with Patient: Greater than 30
[2023-09-17] MEDS: SODIUM CHLORIDE 0.9% 100 ML with ceFAZolin 2,000 MG IV ONE (13:52)
[2023-09-17] MEDS: LACTATED RINGERS 1,000 ML IV ONE (14:40)
--- NOTE | 2023-09-17 15:51 | P.OP ---
Date of Procedure: 09/17/23 Preoperative Diagnosis: Irreversible ischemia right lower extremity. Postoperative Diagnosis: Same. Procedure(s) Performed: Right below the knee amputation. 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 This had been placed by cardiology sometime ago who had taken him to the [facility] and initiated thrombolysis. Yesterday the patient was taken to the operating room where a popliteal artery exploration and thrombectomy of the 3 tibial arteries was performed by Dr. Ramirez. Unfortunately while initially successful the patient demonstrated signs and symptoms of rethrombosis in spite of being on heparin. Yesterday prior to Dr. Ramirez's procedure she had spoken with the patient about the possibility of need for amputation should thrombectomy not be successful as hoped. Patient had remained intubated and in the ICU after his surgery and as such no direct verbal consent was able to be obtained from the patient today. Additionally the patient did not wish us to speak to any family/friends about his medical condition. Dr. Ramirez and I both agree that the patient's leg is nonsalvageable and will require below the knee amputation and a possibly above the knee amputation. As such the patient is now taken to the operating room for a below the knee amputation/[id number] amputation. Description of Procedure: Patient was brought the op room placed in supine position. His endotracheal tu be was maintained and was administered general anesthesia. Patient received 2 g of Ancef intravenously in the perioperative phase. The patient's right lower extremity was sterilely prepped and draped in usual manner. Approximately 10 cm distal to the tibial tuberosity transverse skin incision extended from the medial fasciotomy incision to the lateral fasciotomy incision. The incision was deepened through the subcutaneous tissues with electrocautery. The muscle groups surrounding the tibia were taken down off their attachments to the tibia. The periosteum was elevated and the bone transected with a power saw. The neurovascular bundle was identified. There is no pulse in the artery. The artery, vein and nerve were all separately clamped cut and ligated. The nerve was transected as far as proximally as possible. The fibula was then transected and the amputation completed with an amputation knife. The muscle groups generally appeared reasonably healthy/perfused in all nylon healthy appearing muscle was taken down. The tibia was beveled anteriorly. The posterior flap reached the anterior flap. The wound was copiously irrigated with antibiotic-containing solution.. No bleeding points were identified. A 1/2 inch drain was placed medially to laterally in the muscular level and fascia was closed with 3-0 Vicryl. Skin edges were reapproximated with skin sulaiman. The drain was quite mobile and easily moved [id number]. With the above findings noted the wound was then dressed first with Adaptic followed by fluffs, Curlex and a 4 inch Hua wrap as well as a knee immobilizer. Patient tolerated the procedure well and was returned to the ICU in stable condition.
[2023-09-17 16:35] LABS: Glucose,Whole Blood 134 mg/dL (70-110)
[2023-09-17 23:38] LABS: Glucose,Whole Blood 142 mg/dL (70-110)
[2023-09-17 23:43] LABS: Glucose,Whole Blood 145 mg/dL (70-110)
--- NOTE | 2023-09-18 00:24 | P.PN ---
Subjective Progress Note Date: 09/17/23 Patient is [id number] male admitted for peripheral arterial disease and patient will undergo intervention for this. Patient has severe pain in the right lower extremity, right lower extremity CTA showed occluded superficial femoral artery including the stent in the distal right superficial femoral a rtery occluded stent in the right popliteal occluded right calf artery arteries and moderate focal stenosis of origin of the right deep femoral artery. Patient is on 75 mg of Plavix and also Xarelto. Patient denies any chest pain was having shortness of breath and wheezing patient does have history of COPD continues to smoke. Patient was started on systemic steroids and additional treatments after which wheezing did improve. Vascular surgery evaluated the patient and planning on intervention for severe right lower extremity peripheral vascular disease. 09/14/2023 Patient is evaluated in follow-up today in the intensive care unit. He is status post Right lower extremity angiography with successful placement of ATP infusion cath in right popliteal artery and right SFA. Patient continues to report significant pain to his right lower extremity and his foot remains cool to palpation. Nursing staff was having difficulty with a Doppler pulse today to the right dorsalis pedis. Patient is requiring IV Dilaudid in addition to IV morphine for pain control. We would recommend to add Lyrica at this point for the neuropathic pain. He does report feeling less short of breath today does still have some faint scattered wheezing. 09/15/2023 Patient is evaluated today in follow up in the ICU. Patient returned to the [facility] and was found to have residual large right SFA thrombus and heparin was recommended to continue infusing overnight. Awaiting repeat angiography. Vascular services was consulted for evaluation. Continues with pain management and patient reports some improvement with added lyrica. Blood pressure remains elevated 151/100, 94% on 2L. Heart rate 103. 09/16/2023 Patient is evaluated today in follow up in the ICU. Patient returned to the [facility] and underwent thrombectomy and stenting of the right popliteal and right SFA. Patient during the sheath pull in the period following was moving around in the bed and has developed an 18.3 x 28 x 21.2 cm hematoma of the left groin. There is significant bruising noted today. He does continue to report significant lower back pain and is requiring IV pain medication. He is on Lyrica for the neuropathic pain to the right leg. His foot is cool today and still unable to palpate pulse in the dorsalis pedis. Vascular will see the patient and are considering further vascular intervention at this time. His i te blood cell count is 12.1, hemoglobin 10.8, platelet count of 63. Sodium 136, chloride 113, BUN of 21, creatinine of 0.63. 09/17/2023 Patient is evaluated today. He is currently intubated and sedated. Patient underwent open thrombectomy and fasciotomy yesterday. Today he will be taken for amputation right below the knee. Patient is on IV heparin. He is sedated with propofol. REVIEW OF SYSTEMS: Patient is vented PHYSICAL EXAMINATION: GENERAL: The patient is alert and oriented x3, not in any acute distress. Well developed, well nourished. HEENT: Pupils are round and equally reacting to light. EOMI. No scleral icterus. No conjunctival pallor. Normocephalic, atraumatic. No pharyngeal erythema. No thyromegaly. CARDIOVASCULAR: S1 and S2 present. No murmurs, rubs, or gallops. PULMONARY: Expiratory wheezing which improved fairly good air entry to bilateral lower lung solis ABDOMEN: Soft, nontender, nondistended, normoactive bowel sounds. No palpable organomegaly. MUSCULOSKELETAL: No joint swelling or deformity. EXTREMITIES: As mentioned above NEUROLOGICAL: Gross neurological examination did not reveal any focal deficits. SKIN: No rashes. Assessment and plan -Severe peripheral artery disease with prior intervention of right lower extremity -Now with critical limb ischemia and is postoperative tPA infusion stenting of the right popliteal/FSA and balloon angioplasty of right anterior tibial and right posterior tibial artery. Going for amputation right below the knee today. Patient is on IV heparin. 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 Patient was started on systemic steroids and inhalation treatments -Lung cancer with mediastinal mets -Persistent atrial fibrillation on anticoagulation is being held on the outpatient basis for lung biopsy -Hyperlipidemia -Hypertension continues on metoprolol amlodipine added and PRN hydralazine. -History of factor V Leiden and DVT in the past -Type 2 diabetes mellitus on metformin which will be held as patient will undergo angiogram of the lower extremities patient will be on sliding scale insulin DVT prophylaxis: Patient is on IV heparin GI prophylaxis protonix Full Code Plan Continue with mechanical ventilator per beef pluck trimmer On IV heparin Continue on IV solumedrol Monitor hematoma Repeat blood work in the AM The impression and plan of care has been dictated by Lila Elizondo Nurse Practitioner as directed. Dr. Floyd MD I have performed a history and physical examination and medical decision making of this patient, discussed the same with the dictator, and agree with the dictators assessment and plan as written, documented as a scribe. Based on total visit time, I have performed more than 50% of this visit. Objective - Vital Signs Vital signs: Vital Signs Temp 98.8 F 09/17/23 12:00 Pulse 100 09/17/23 13:00 Resp 20 09/17/23 12:00 BP 103/72 09/17/23 13:00 Pulse Ox 97 09/17/23 13:00 FiO2 40 09/17/23 12:00 Intake & Output 09/16/23 09/17/23 09/17/23 18:59 06:59 18:59 Intake Total 2516.440 6852.349 718.696 Output Total 1200 1090 650 Balance 668.867 445.349 68.696 Weight 111.1 kg Intake: IV 1802 1011 468 A-line 36 18 Sodium Chloride 0.9% 1, 600 975 450 000 ml @ 75 mls/hr IV . [id number] [facility] Rx#:[id number] Intake, IV Titration 66.867 494.349 250.696 Amount Heparin Sod,Pork in 0.45% 183.264 61.051 NaCl 25,000 unit In 0.45 % NaCl 1 250ml.bag @ 18 UNITS/KG/HR 19.872 mls/hr IV .[id number] [facility] Rx#: [id number] Heparin Sod,Pork in 0.45% 46.167 NaCl 25,000 unit In 0.45 % NaCl 1 250ml.bag @ 9. 434 UNITS/KG/HR 10 mls/hr IV .Q24H [facility] Rx#: [id number] propofoL 1,000 mg In 20.700 311.085 189.645 Empty Bag 1 bag @ 15 MCG/ KG/MIN 9.936 mls/hr IV . Q10H4M [facility] Rx#:[id number] Other 30 Output: Gastric Drainage 150 Urine 1100 940 650 Estimated Blood Loss 100 Other: Voiding Method Indwelling Catheter Indwelling Catheter Indwelling Catheter ABP, PAP, CO, CI - Last Documented Arterial Blood Pressure 109/59 - Labs CBC & Chem 7: 09/17/23 03:39 09/17/23 03:39 Labs: Abnormal Lab Results - Last 24 Hours (Table) 09/16/23 09/16/23 09/16/23 Range/Units 16:00 16:36 17:05 RBC (4.30-5.90) m/uL Hgb (13.0-17.5) gm/dL Hct (39.0-53.0) % RDW (11.5-15.5) % Plt Count (150-450) k/uL Neutrophils # (1.3-7.7) k/uL Lymphocytes # (1.0-4.8) k/uL APTT 34.4 H (22.0-30.0) sec ABG pH 7.30 L (7.35-7.45) ABG pCO2 49 H (35-45) mmHg ABG pO2 394 H (83-108) mmHg ABG Total CO2 26 H (19-24) mmol/L ABG O2 Saturation 100.4 H (94-97) % Chloride (98-107) mmol/L Creatinine (0.66-1.25) mg/dL Glucose (74-99) mg/dL POC Glucose (mg/dL) 124 H (70-110) mg/dL Calcium (8.4-10.2) mg/dL 09/16/23 09/16/23 09/17/23 Range/Units 22:27 23:59 03:39 RBC 3.05 L (4.30-5.90) m/uL Hgb 9.2 L D (13.0-17.5) gm/dL Hct 28.9 L (39.0-53.0) % RDW 16.1 H (11.5-15.5) % Plt Count 62 L (150-450) k/uL Neutrophils # 8.3 H (1.3-7.7) k/uL Lymphocytes # 0.5 L (1.0-4.8) k/uL APTT >200.0 H* (22.0-30.0) sec ABG pH (7.35-7.45) ABG pCO2 (35-45) mmHg ABG pO2 (83-108) mmHg ABG Total CO2 (19-24) mmol/L ABG O2 Saturation (94-97) % Chloride (98-107) mmol/L Creatinine (0.66-1.25) mg/dL Glucose (74-99) mg/dL POC Glucose (mg/dL) 117 H (70-110) mg/dL Calcium (8.4-10.2) mg/dL 09/17/23 09/17/23 09/17/23 Range/Units 03:39 05:22 05:35 RBC (4.30-5.90) m/uL Hgb (13.0-17.5) gm/dL Hct (39.0-53.0) % RDW (11.5-15.5) % Plt Count (150-450) k/uL Neutrophils # (1.3-7.7) k/uL Lymphocytes # (1.0-4.8) k/uL APTT (22.0-30.0) sec ABG pH (7.35-7.45) ABG pCO2 (35-45) mmHg ABG pO2 120 H (83-108) mmHg ABG Total CO2 26 H (19-24) mmol/L ABG O2 Saturation 99.3 H (94-97) % Chloride 115 H (98-107) mmol/L Creatinine 0.57 L (0.66-1.25) mg/dL Glucose 119 H (74-99) mg/dL POC Glucose (mg/dL) 125 H (70-110) mg/dL Calcium 7.9 L (8.4-10.2) mg/dL 09/17/23 09/17/23 Range/Units 07:08 12:01 RBC (4.30-5.90) m/uL Hgb (13.0-17.5) gm/dL Hct (39.0-53.0) % RDW (11.5-15.5) % Plt Count (150-450) k/uL Neutrophils # (1.3-7.7) k/uL Lymphocytes # (1.0-4.8) k/uL APTT 98.5 H (22.0-30.0) sec ABG pH (7.35-7.45) ABG pCO2 (35-45) mmHg ABG pO2 (83-108) mmHg ABG Total CO2 (19-24) mmol/L ABG O2 Saturation (94-97) % Chloride (98-107) mmol/L Creatinine (0.66-1.25) mg/dL Glucose (74-99) mg/dL POC Glucose (mg/dL) 114 H (70-110) mg/dL Calcium (8.4-10.2) mg/dL Microbiology - Last 24 Hours (Table) 09/13/23 05:00 Blood Culture - Preliminary Blood 09/13/23 05:00 Blood Culture - Preliminary Blood Assessment and Plan Time with Patient: Less than 30
[2023-09-18 04:38] LABS: Anisocytosis Slight; Basophils % (A) 0 %; Eosinophils % (A) 0 %; HCT 26.9 % (39.0-53.0); HGB 8.3 gm/dL (13.0-17.5); Hypochromasia Moderate; Lymphocytes # (A) 0.5 k/uL (1.0-4.8); Lymphocytes % (A) 6 %; MCH 29.3 pg (25.0-35.0); MCHC 30.7 g/dL (31.0-37.0); MCV 95.4 fL (80.0-100.0); Mean Platelet Volume 9.9; Monocytes # (A) 0.5 k/uL (0-1.0); Monocytes % (A) 5 %; Neutrophils # (A) 8.1 k/uL (1.3-7.7); Neutrophils % (A) 88 %; RBC 2.82 m/uL (4.30-5.90); RDW 16.4 % (11.5-15.5); WBC 9.2 k/uL (3.8-10.6)
[2023-09-18 04:41] LABS: African American GFR (CKD) >90 (>60 ml/min/1.73 sqM); Anion Gap -1 mmol/L; Blood Urea Nitrogen 19 mg/dL (9-20); Calcium 8.1 mg/dL (8.4-10.2); Carbon Dioxide 24 mmol/L (22-30); Chloride 117 mmol/L (98-107); Glucose 143 mg/dL (74-99); Non-African American GFR(CKD) >90 (>60 ml/min/1.73 sqM); Potassium 4.2 mmol/L (3.5-5.1); Sodium 140 mmol/L (137-145)
[2023-09-18 04:43] LABS: Platelet Count 81 k/uL (150-450)
[2023-09-18 05:14] LABS: ABG Base Excess -0.3 mmol/L; ABG HCO3 25 mmol/L (21-25); ABG Oxygen Saturation 99.5 % (94-97); ABG PCO2 40 mmHg (35-45); ABG PH 7.39 (7.35-7.45); ABG PO2 121 mmHg (83-108); ABG TCO2 26 mmol/L (19-24); Glucose,Whole Blood 150 mg/dL (70-110)
[2023-09-18 05:17] LABS: Allen Test Performed? no
--- NOTE | 2023-09-18 09:06 | XR ---
EXAMINATION TYPE: XR chest 1V DATE OF EXAM: 09/18/2023 COMPARISON: 09/17/2023 INDICATION: Tube placement TECHNIQUE: Single frontal view of the chest is obtained. FINDINGS: The heart size is normal. The pulmonary vasculature is normal. The lungs are clear. Endotracheal tube tip is above the lisy. Nasogastric tube tip is in the left upper quadrant of the abdomen. IMPRESSION: 1. No acute pulmonary process. 2. Lines and catheters discussed above.
--- NOTE | 2023-09-18 10:53 | P.PN ---
Subjective Progress Note Date: 09/18/23 Postop day #1, status post right below the knee amputation. Objective - Vital Signs Vital signs: Vital Signs Temp 97.7 F 09/18/23 08:00 Pulse 75 09/18/23 10:00 Resp 20 09/18/23 10:00 BP 105/82 09/18/23 10:00 Pulse Ox 98 09/18/23 10:00 FiO2 40 09/18/23 08:00 Intake & Output 09/17/23 09/18/23 09/18/23 18:59 06:59 18:59 Intake Total 2340.685 1259.560 632.693 Output Total 1315 1175 300 Balance 1025.685 84.560 332.693 Weight 111.1 kg 112.2 kg Intake: IV 1902 936 234 A-line 27 36 9 Sodium Chloride 0.9% 1, 675 900 225 000 ml @ 75 mls/hr IV . [id number] [facility] Rx#:[id number] Intake, IV Titration 438.685 323.560 328.693 Amount Heparin Sod,Pork in 0.45% 119.563 130.437 NaCl 25,000 unit In 0.45 % NaCl 1 250ml.bag @ 18 UNITS/KG/HR 19.872 mls/hr IV .[id number] [facility] Rx#: [id number] propofoL 1,000 mg In 319.122 323.560 198.256 Empty Bag 1 bag @ 15 MCG/ KG/MIN 9.936 mls/hr IV . Q10H4M [facility] Rx#:[id number] Tube Feeding 40 Other 30 Output: Urine 1215 1175 300 Estimated Blood Loss 100 Other: Voiding Method Indwelling Catheter Indwelling Catheter ABP, PAP, CO, CI - Last Documented Arterial Blood Pressure 119/61 - Exam Patient remains intubated and somewhat sedated. Weaning process is beginning. Surgical wound dressings show slight serosanguineous fluid, consistent with Vista drain placed in the wound. Dressings remain intact. - Labs CBC & Chem 7: 09/18/23 04:15 09/18/23 04:15 Labs: Abnormal Lab Results - Last 24 Hours (Table) 09/17/23 09/17/23 09/17/23 Range/Units 12:01 16:33 22:58 RBC (4.30-5.90) m/uL Hgb (13.0-17.5) gm/dL Hct (39.0-53.0) % MCHC (31.0-37.0) g/dL RDW (11.5-15.5) % Plt Count (150-450) k/uL Neutrophils # (1.3-7.7) k/uL Lymphocytes # (1.0-4.8) k/uL APTT 64.2 H (22.0-30.0) sec ABG pO2 (83-108) mmHg ABG Total CO2 (19-24) mmol/L ABG O2 Saturation (94-97) % Chloride (98-107) mmol/L Creatinine (0.66-1.25) mg/dL Glucose (74-99) mg/dL POC Glucose (mg/dL) 114 H 134 H (70-110) mg/dL Calcium (8.4-10.2) mg/dL 09/17/23 09/17/23 09/18/23 Range/Units 23:37 23:42 04:15 RBC 2.82 L (4.30-5.90) m/uL Hgb 8.3 L (13.0-17.5) gm/dL Hct 26.9 L (39.0-53.0) % MCHC 30.7 L (31.0-37.0) g/dL RDW 16.4 H (11.5-15.5) % Plt Count 81 L (150-450) k/uL Neutrophils # 8.1 H (1.3-7.7) k/uL Lymphocytes # 0.5 L (1.0-4.8) k/uL APTT (22.0-30.0) sec ABG pO2 (83-108) mmHg ABG Total CO2 (19-24) mmol/L ABG O2 Saturation (94-97) % Chloride (98-107) mmol/L Creatinine (0.66-1.25) mg/dL Glucose (74-99) mg/dL POC Glucose (mg/dL) 142 H 145 H (70-110) mg/dL Calcium (8.4-10.2) mg/dL 09/18/23 09/18/23 09/18/23 Range/Units 04:15 04:15 05:12 RBC (4.30-5.90) m/uL Hgb (13.0-17.5) gm/dL Hct (39.0-53.0) % MCHC (31.0-37.0) g/dL RDW (11.5-15.5) % Plt Count (150-450) k/uL Neutrophils # (1.3-7.7) k/uL Lymphocytes # (1.0-4.8) k/uL APTT 74.8 H (22.0-30.0) sec ABG pO2 121 H (83-108) mmHg ABG Total CO2 26 H (19-24) mmol/L ABG O2 Saturation 99.5 H (94-97) % Chloride 117 H (98-107) mmol/L Creatinine 0.62 L (0.66-1.25) mg/dL Glucose 143 H (74-99) mg/dL POC Glucose (mg/dL) (70-110) mg/dL Calcium 8.1 L (8.4-10.2) mg/dL 09/18/23 Range/Units 05:12 RBC (4.30-5.90) m/uL Hgb (13.0-17.5) gm/dL Hct (39.0-53.0) % MCHC (31.0-37.0) g/dL RDW (11.5-15.5) % Plt Count (150-450) k/uL Neutrophils # (1.3-7.7) k/uL Lymphocytes # (1.0-4.8) k/uL APTT (22.0-30.0) sec ABG pO2 (83-108) mmHg ABG Total CO2 (19-24) mmol/L ABG O2 Saturation (94-97) % Chloride (98-107) mmol/L Creatinine (0.66-1.25) mg/dL Glucose (74-99) mg/dL POC Glucose (mg/dL) 150 H (70-110) mg/dL Calcium (8.4-10.2) mg/dL Assessment and Plan Assessment: Postop day #1 status post right below the knee amputation. Plan: Surgically stable. Time with Patient: Less than 30
--- NOTE | 2023-09-18 11:25 | P.PN ---
Subjective Progress Note Date: 09/18/23 Principal diagnosis: Acute critical limb ischemia, Patient is a 74-year-old white male with past medical history significant for coronary artery disease, diabetes mellitus, hyperlipidemia, hypertension, COPD, chronic ongoing tobacco dependence, obstructive sleep apnea, lung nodules, atrial fibrillation, factor V, and severe peripheral peripheral vascular disease. Of note, patient has severe peripheral arterial disease and has underwent previous stenting of the right SFA, he is chronically maintained on dual antiplatelet therapy including Plavix. Also, chronically anticoagulated on Xarelto. 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 Recently, patient was being worked up for suspicious right lower lung nodule and mediastinal lymphadenopathy, he was supposedly going to have a lung biopsy on September 15, and was directed to hold his Plavix 5 days prior and Xarelto 2 days prior. Reportedly, stopped both of these medications 5 days prior. Subsequently, started to notice right leg pain starting 4 days ago. This progressively worsens, and became severe early yesterday morning. He could not use this extremity or walk. Finally, came to the emergency department for evaluation early yesterday morning. CT angiography of the right lower extremity demonstrated an occluded right SFA, including the p revious stent to the distal right SFA, stent to the right popliteal artery, as well as, occluded right calf arteries. There is moderate focal stenosis at the right deep femoral artery. Soft tissue swelling and fat stranding throughout the right foot, ankle, and right lower extremity leg. Yesterday evening, patient did undergo right lower extremity angiogram with successful placement of a tPA infusion catheter in the right popliteal artery and right SFA. On my evaluation, right foot remains cold and pulseless even with Doppler. Foot appears dusky in color. Patient does report severe right lower extremity pain and reduced mobility. Catheter directed tPA at 1 mg/h continuous. heparin also infusing at 500 units/h for catheter patency. No oozing or hematoma noted at left femoral sheath insertion site. CBC is unremarkable and hemoglobin is stable at 16.7 g/dL. Fibrinogen 283. CMP on arrival was fairly unremarkable. LFTs not elevated. Troponin 0.014. Normal saline infusing at 75 mL/h. Pain is being managed with a combination of as needed Dilaudid. Blood pressure is normotensive. Heart rhythm appears atrial fibrillation with controlled ventricular response of 80 to 100 bpm. Patient is currently fairly comfortable on 2 L/min nasal cannula, no respiratory distress. Patient states his breathing is fairly baseline. He continues to smoke 2 packs/day. Denies any infectious symptoms like change in his chronic cough, sputum production, fevers. Denies sick contacts. He has been started on a combination of DuoNebs and IV Solu- Medrol. He does have history of right lower lobe 2.3 cm pulmonary nodule. Recent PET scan done 08/20/2023 redemonstrates a posterior right lateral lung nodule with an SUV of 5.6, as well as, SUV avid mediastinal lymphadenopathy suspicious for metastasis. His scheduled lung biopsy, which will likely have to be rescheduled. Reportedly, plan is for patient to return to [facility] later this morning. Patient evaluated today on 09/15/2023, patient is basically about the same. Continues to have poor circulation down to the right foot, patient is complaining of pain, the right foot feels cold, no palpable pulses, no pulses noted in the dorsalis pedis or posterior tibial even with Doppler. Patient is going back to catheterization lab today, and Dr. Boucher will assess his tPA catheter, in the meantime he is recommending a vascular surgery consultation. Pulmonary solis no cough no wheezing no shortness of breath. Patient seems to be comfortable. On 2 L nasal cannula, O2 saturation is 94%. Patient remains on heparin at 500 units/h he is also still receiving alteplase via tPA catheter. Patient is going back to [facility] at 11:30 AM today WBC count is 14.1 hemoglobin 16.7 INR is 1.3 electrolytes are normal and renal profile is normal Patient was reevaluated today on 09/16/2023, remains in the ICU, remains on IV heparin, yesterday he underwent repeat angiogram, third look post tPA infusion he had mechanical thrombectomy from right SFA and right popliteal with stenting of the right popliteal/SFA and balloon angioplasty of the right anterior tibial and right posterior tibial artery by Dr. Boucher. Patient developed groin hematoma which is the access site, CT of the abdomen and pelvis reported large infiltrating hematoma along the anterior and lateral aspect of the left pelvis measuring 18.3 x 28 x 4.2. Continues to have pain and discomfort in the right lower extremity the foot is ischemic and cold to touch. Vascular surgery is planning right lower extremity open thrombectomy and possible right lower extremity fasciotomy. This will be likely done today. Pulmonary solis the patient has minimal shortness of breath, intermittent cough and wheezing, maintained on bronchodilators Patient was evaluated today on 09/17/2023, patient had his surgery yesterday, came back to the ICU intubated and mechanically ventilated, and he remains intubated at this point. He is on assist-control rate of 14 tidal volume 500 FiO2 40% and PEEP of 8 ABG showed a pO2 of 120 pCO2 39 pH of 7.42. Hence his FiO2 went down from 45% to 40%. Patient remains on heparin drip, remains on propofol at 40 mcg/kg/min, patient is on IV fluid at 2.9 normal saline running at 75 cc/h. Yesterday the patient underwent open thrombectomy of the right supe rficial femoral artery, popliteal artery anterior tibial artery and peroneal artery and posterior tibial artery with endarterectomy and patch angioplasty to the popliteal artery and tibioperoneal trunk with 4 compartments for fasciotomy. However this morning his foot went cold again, and seems to be ischemic. No evidence of dorsalis pedis or posterior tibial signal on Doppler. The timing of loss of pulse is not noted and is not clear, and is not clear to me as at what point the vascular surgery was notified about loss of pulse. Vascular surgery is considering below-knee amputation due to critical limb ischemia. And this will likely be done today Patient was reevaluated today on 09/18/23, patient underwent right below-knee amputation yesterday. He is back in the ICU, he is now on heparin drip, he is also on assist-control rate of 14 tidal volume 500 FiO2 40% PEEP of 8 ABG showed a pO2 of 121 pCO2 40 pH of 7.39. Patient is on propofol at 45 mcg/kg/min IV fluid at 75 cc/h he is also on heparin drip. Patient is sedated, however I am planning to hold sedation, awakened the patient, and give the patient a weaning trial as well as weaning parameters. If tolerated may proceed to extubation. No further surgical plans are scheduled at this point for this patient. Chest x-ray showed minimal basilar atelectasis, no evidence of congestive heart failure no pneumonia. WBC count is 9.2 hemoglobin 8.3 PTT is 74.8 electrolytes are normal renal profile is normal Objective - Vital Signs Vital signs: Vital Signs Temp 97.7 F 07/13/24 08:00 Pulse 83 09/18/23 11:00 Resp 20 09/18/23 11:00 BP 93/72 09/18/23 11:00 Pulse Ox 98 09/18/23 11:00 FiO2 40 09/18/23 08:00 Intake & Output 09/17/23 09/18/23 09/18/23 18:59 06:59 18:59 Intake Total 2340.685 1259.560 854.922 Output Total 1315 1175 525 Balance 1025.685 84.560 329.922 Weight 111.1 kg 112.2 kg Intake: IV 1902 936 390 A-line 27 36 15 Sodium Chloride 0.9% 1, 675 900 375 000 ml @ 75 mls/hr IV . [id number] [facility] Rx#:[id number] Intake, IV Titration 438.685 323.560 344.922 Amount Heparin Sod,Pork in 0.45% 119.563 130.437 NaCl 25,000 unit In 0.45 % NaCl 1 250ml.bag @ 18 UNITS/KG/HR 19.872 mls/hr IV .[id number] [facility] Rx#: [id number] propofoL 1,000 mg In 319.122 323.560 214.485 Empty Bag 1 bag @ 15 MCG/ KG/MIN 9.936 mls/hr IV . Q10H4M [facility] Rx#:[id number] Tube Feeding 90 Other 30 Output: Urine 1215 1175 525 Estimated Blood Loss 100 Other: Voiding Method Indwelling Catheter Indwelling Catheter ABP, PAP, CO, CI - Last Documented Arterial Blood Pressure 132/62 - Exam GENERAL EXAM: Alert, 73-year-old white male, intubated and mechanically ventilated HEAD: Normocephalic and atraumatic EYES: Normal reaction of pupils, equal size. NOSE: Clear with pink turbinates. THROAT: No erythema or exudates. NECK: No masses, no JVD. CHEST: No chest wall deformity. LUNGS: Clear throughout no crackles rhonchi or wheezes CVS: S1 and S2 normal with no audible murmur, irregular rhythm. No extra heart sounds ABDOMEN: No hepatosplenomegaly, active bowel sounds, no guarding or rigidity. SKIN: No rashes CENTRAL NERVOUS SYSTEM: Could not assess, patient is sedated. EXTREMITIES: Status post right below-knee amputation - Labs CBC & Chem 7: 09/18/23 04:15 09/18/23 04:15 Labs: Abnormal Lab Results - Last 24 Hours (Table) 09/17/23 09/17/23 09/17/23 Range/Units 12:01 16:33 22:58 RBC (4.30-5.90) m/uL Hgb (13.0-17.5) gm/dL Hct (39.0-53.0) % MCHC (31.0-37.0) g/dL RDW (11.5-15.5) % Plt Count (150-450) k/uL Neutrophils # (1.3-7.7) k/uL Lymphocytes # (1.0-4.8) k/uL APTT 64.2 H (22.0-30.0) sec ABG pO2 (83-108) mmHg ABG Total CO2 (19-24) mmol/L ABG O2 Saturation (94-97) % Chloride (98-107) mmol/L Creatinine (0.66-1.25) mg/dL Glucose (74-99) mg/dL POC Glucose (mg/dL) 114 H 134 H (70-110) mg/dL Calcium (8.4-10.2) mg/dL 09/17/23 09/17/23 09/18/23 Range/Units 23:37 23:42 04:15 RBC 2.82 L (4.30-5.90) m/uL Hgb 8.3 L (13.0-17.5) gm/dL Hct 26.9 L (39.0-53.0) % MCHC 30.7 L (31.0-37.0) g/dL RDW 16.4 H (11.5-15.5) % Plt Count 81 L (150-450) k/uL Neutrophils # 8.1 H (1.3-7.7) k/uL Lymphocytes # 0.5 L (1.0-4.8) k/uL APTT (22.0-30.0) sec ABG pO2 (83-108) mmHg ABG Total CO2 (19-24) mmol/L ABG O2 Saturation (94-97) % Chloride (98-107) mmol/L Creatinine (0.66-1.25) mg/dL Glucose (74-99) mg/dL POC Glucose (mg/dL) 142 H 145 H (70-110) mg/dL Calcium (8.4-10.2) mg/dL 09/18/23 09/18/23 09/18/23 Range/Units 04:15 04:15 05:12 RBC (4.30-5.90) m/uL Hgb (13.0-17.5) gm/dL Hct (39.0-53.0) % MCHC (31.0-37.0) g/dL RDW (11.5-15.5) % Plt Count (150-450) k/uL Neutrophils # (1.3-7.7) k/uL Lymphocytes # (1.0-4.8) k/uL APTT 74.8 H (22.0-30.0) sec ABG pO2 121 H (83-108) mmHg ABG Total CO2 26 H (19-24) mmol/L ABG O2 Saturation 99.5 H (94-97) % Chloride 117 H (98-107) mmol/L Creatinine 0.62 L (0.66-1.25) mg/dL Glucose 143 H (74-99) mg/dL POC Glucose (mg/dL) (70-110) mg/dL Calcium 8.1 L (8.4-10.2) mg/dL 09/18/23 Range/Units 05:12 RBC (4.30-5.90) m/uL Hgb (13.0-17.5) gm/dL Hct (39.0-53.0) % MCHC (31.0-37.0) g/dL RDW (11.5-15.5) % Plt Count (150-450) k/uL Neutrophils # (1.3-7.7) k/uL Lymphocytes # (1.0-4.8) k/uL APTT (22.0-30.0) sec ABG pO2 (83-108) mmHg ABG Total CO2 (19-24) mmol/L ABG O2 Saturation (94-97) % Chloride (98-107) mmol/L Creatinine (0.66-1.25) mg/dL Glucose (74-99) mg/dL POC Glucose (mg/dL) 150 H (70-110) mg/dL Calcium (8.4-10.2) mg/dL Assessment and Plan Assessment: Impression: Acute critical limb ischemia, multiple attempts to salvage the right foot failed by cardiology and by vascular surgery has the patient is status post right below-knee amputation done on 09/17/2023 History of severe peripheral arterial disease, with previous stenting the right SFA and stenting of a right popliteal arterial aneurysm Right lung nodule and associated mediastinal lymphadenopathy, suspicious for primary lung cancer and metastasis. Highly suspicious for bronchogenic carcinoma with mediastinal metastasis, patient will eventually require tissue diagnosis which is presently on hold Chronic ongoing tobacco dependence, up to 2 packs/day History of underlying COPD History of diabetes mellitus History of hyperlipidemia History of hypertension Chronic atrial fibrillation, chronically anticoagulated on Xarelto History of factor V deficiency History of DVT/PE Obstructive sleep apnea, maintained on CPAP at bedtime Morbid obesity, with a BMI of 42.9 kg/m Postop day #2 open thrombectomy right SFA, popliteal artery, anterior tibial artery, peroneal artery and posterior tibial artery with endarterectomy and patch angioplasty of popliteal artery and tibioperoneal trunk. 4 compartment fasciotomy postoperative postoperative day #1, right below-knee amputation Recommendation: Continue ventilatory support, however the patient will be awakened, will hold sedation, and will address for possible weaning today Continue present supportive care measures Will likely wean and extubate today. Continue to monitor in the ICU Continue bronchodilators Continue heparin Continue GI and DVT prophylaxis Patient is critically ill. Critical care time is over 30-minute Will continue to follow Time with Patient: Greater than 30
[2023-09-18 11:56] LABS: Glucose,Whole Blood 145 mg/dL (70-110)
--- NOTE | 2023-09-18 12:58 | PN ---
PROGRESS NOTE SUBJECTIVE: Cecilio is a 73-year-old gentleman, who was admitted to hospital with acute ischemic right leg and initially underwent tPA, heparin, and subsequently underwent thrombectomy unsuccessfully and yesterday underwent right below-knee amputation. He remains intubated on vent and is in the process of trying to wean him to extubate him. Blood pressure is well controlled. He is on Norvasc, Plavix, IV heparin, hydralazine, and Lopressor. PHYSICAL EXAMINATION: VITAL SIGNS: Heart rate is 75 beats per minute, blood pressure is 105/80, respiratory rate is 18. CHEST: Reveals occasional rhonchi bilaterally. HEART: Reveals first and second heart sounds. No gallop. EXTREMITIES: Reveals right below-knee amputation. ASSESSMENT: Acute ischemic right leg, status post amputation. PLAN: The patient will continue the IV heparin and hopefully will be extubated later today. MMODL / IJN: [id number] /
--- NOTE | 2023-09-18 15:10 | P.PN ---
Subjective Progress Note Date: 09/18/23 Patient is [id number] male admitted for peripheral arterial disease and patient will undergo intervention for this. Patient has severe pain in the right lower extremity, right lower extremity CTA showed occluded superficial femoral artery including the stent in the distal right superficial femoral a rtery occluded stent in the right popliteal occluded right calf artery arteries and moderate focal stenosis of origin of the right deep femoral artery. Patient is on 75 mg of Plavix and also Xarelto. Patient denies any chest pain was having shortness of breath and wheezing patient does have history of COPD continues to smoke. Patient was started on systemic steroids and additional treatments after which wheezing did improve. Vascular surgery evaluated the patient and planning on intervention for severe right lower extremity peripheral vascular disease. 09/14/2023 Patient is evaluated in follow-up today in the intensive care unit. He is status post Right lower extremity angiography with successful placement of ATP infusion cath in right popliteal artery and right SFA. Patient continues to report significant pain to his right lower extremity and his foot remains cool to palpation. Nursing staff was having difficulty with a Doppler pulse today to the right dorsalis pedis. Patient is requiring IV Dilaudid in addition to IV morphine for pain control. We would recommend to add Lyrica at this point for the neuropathic pain. He does report feeling less short of breath today does still have some faint scattered wheezing. 09/15/2023 Patient is evaluated today in follow up in the ICU. Patient returned to the [facility] [employer] [facility] and was found to have residual large right SFA thrombus and heparin was recommended to continue infusing overnight. Awaiting repeat angiography. Vascular services was consulted for evaluation. Continues with pain management and patient reports some improvement with added lyrica. Blood pressure remains elevated 151/100, 94% on 2L. Heart rate 103. 09/16/2023 Patient is evaluated today in follow up in the ICU. Patient returned to the Medical [facility] and underwent thrombectomy and stenting of the right popliteal and right SFA. Patient during the sheath pull in the period following was moving around in the bed and has developed an 18.3 x 28 x 21.2 cm hematoma of the left groin. There is significant bruising noted today. He does continue to report significant lower back pain and is requiring IV pain medication. He is on Lyrica for the neuropathic pain to the right leg. His foot is cool today and still unable to palpate pulse in the dorsalis pedis. Vascular will see the patient and are considering further vascular intervention at this time. His [facility] te blood cell count is 12.1, hemoglobin 10.8, platelet count of 63. Sodium 136, chloride 113, BUN of 21, creatinine of 0.63. 09/17/2023 Patient is evaluated today. He is currently intubated and sedated. Patient underwent open thrombectomy and fasciotomy yesterday. Today he will be taken for amputation right below the knee. Patient is on IV heparin. He is sedated with propofol. 09/18/2023 Patient is currently evaluated today in the intensive care unit. He remains on mechanical ventilator with an FiO2 out of 40%. Patient is sedated with propofol. He is postoperative day 1 right below the knee amputation secondary to critical limb ischemia. Patient remains on IV heparin infusion. He does continue a significant hematoma to the left groin. Patient is being hydrated normal saline running at 75 mL/h additionally he continues on IV Solu-Medrol 40 mg every 8 hours. Patient continues on updrafts [id number]. REVIEW OF SYSTEMS: Patient is vented PHYSICAL EXAMINATION: GENERAL: Currently intubated and sedated. Well developed, well nourished. HEENT: Pupils are round and equally reacting to light. EOMI. No scleral icterus. No conjunctival pallor. Normocephalic, atraumatic. No pharyngeal erythema. No thyromegaly. CARDIOVASCULAR: S1 and S2 present. No murmurs, rubs, or gallops. PULMONARY: Expiratory wheezing which improved fairly good air entry to bilateral lower lung solis ABDOMEN: Soft, nontender, nondistended, normoactive bowel sounds. No palpable organomegaly. MUSCULOSKELETAL: No joint swelling or deformity. EXTREMITIES: As mentioned above NEUROLOGICAL: Gross neurological examination did not reveal any focal deficits. SKIN: No rashes. Assessment and plan -Severe peripheral artery disease with prior intervention of right lower extremity -Now with critical limb ischemia and is postoperative tPA infusion stenting of the right popliteal/FSA and balloon angioplasty of right anterior tibial and right posterior tibial artery. S/P right BKA postoperative day #1. Patient is on IV heparin. 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 Patient was started on systemic steroids and inhalation treatments -Lung cancer with mediastinal mets -Persistent atrial fibrillation on anticoagulation is being held on the outpatient basis for lung biopsy -Hyperlipidemia -Hypertension continues on metoprolol amlodipine added and PRN hydralazine. -History of factor V Leiden and DVT in the past -Type 2 diabetes mellitus on metformin which will be held as patient will undergo angiogram of the lower extremities patient will be on sliding scale insulin DVT prophylaxis: Patient is on IV heparin GI prophylaxis protonix Full Code Plan Continue with mechanical ventilator per automotive painter helper On IV heparin Continue on IV solumedrol Monitor hematoma Repeat blood work in the AM The impression and plan of care has been dictated by Lila Elizondo, Nurse Practitioner as directed. Dr. Floyd MD I have performed a history and physical examination and medical decision making of this patient, discussed the same with the dictator, and agree with the dictators assessment and plan as written, documented as a scribe. Based on total visit time, I have performed more than 50% of this visit. Objective - Vital Signs Vital signs: Vital Signs Temp 97.7 F 09/18/23 08:00 Pulse 82 09/18/23 08:38 Resp 18 09/18/23 08:00 BP 99/68 09/18/23 08:00 Pulse Ox 97 09/18/23 08:00 FiO2 40 09/18/23 08:00 Intake & Output 09/17/23 09/18/23 09/18/23 18:59 06:59 18:59 Intake Total 2340.685 1259.560 462.976 Output Total 1315 1175 300 Balance 1025.685 84.560 162.976 Weight 111.1 kg 112.2 kg Intake: IV 1902 936 234 A-line 27 36 9 Sodium Chloride 0.9% 1, 675 900 225 000 ml @ 75 mls/hr IV . [id number] [facility] Rx#:[id number] Intake, IV Titration 438.685 323.560 158.976 Amount Heparin Sod,Pork in 0.45% 119.563 NaCl 25,000 unit In 0.45 % NaCl 1 250ml.bag @ 18 UNITS/KG/HR 19.872 mls/hr IV .[id number] [facility] Rx#: [id number] propofoL 1,000 mg In 319.122 323.560 158.976 Empty Bag 1 bag @ 15 MCG/ KG/MIN 9.936 mls/hr IV . Q10H4M [facility] Rx#:[id number] Tube Feeding 40 Other 30 Output: Urine 1215 1175 300 Estimated Blood Loss 100 Other: Voiding Method Indwelling Catheter Indwelling Catheter ABP, PAP, CO, CI - Last Documented Arterial Blood Pressure 120/63 - Labs CBC & Chem 7: 09/18/23 04:15 09/18/23 04:15 Labs: Abnormal Lab Results - Last 24 Hours (Table) 09/17/23 09/17/23 09/17/23 Range/Units 12:01 16:33 22:58 RBC (4.30-5.90) m/uL Hgb (13.0-17.5) gm/dL Hct (39.0-53.0) % MCHC (31.0-37.0) g/dL RDW (11.5-15.5) % Plt Count (150-450) k/uL Neutrophils # (1.3-7.7) k/uL Lymphocytes # (1.0-4.8) k/uL APTT 64.2 H (22.0-30.0) sec ABG pO2 (83-108) mmHg ABG Total CO2 (19-24) mmol/L ABG O2 Saturation (94-97) % Chloride (98-107) mmol/L Creatinine (0.66-1.25) mg/dL Glucose (74-99) mg/dL POC Glucose (mg/dL) 114 H 134 H (70-110) mg/dL Calcium (8.4-10.2) mg/dL 09/17/23 09/17/23 09/18/23 Range/Units 23:37 23:42 04:15 RBC 2.82 L (4.30-5.90) m/uL Hgb 8.3 L (13.0-17.5) gm/dL Hct 26.9 L (39.0-53.0) % MCHC 30.7 L (31.0-37.0) g/dL RDW 16.4 H (11.5-15.5) % Plt Count 81 L (150-450) k/uL Neutrophils # 8.1 H (1.3-7.7) k/uL Lymphocytes # 0.5 L (1.0-4.8) k/uL APTT (22.0-30.0) sec ABG pO2 (83-108) mmHg ABG Total CO2 (19-24) mmol/L ABG O2 Saturation (94-97) % Chloride (98-107) mmol/L Creatinine (0.66-1.25) mg/dL Glucose (74-99) mg/dL POC Glucose (mg/dL) 142 H 145 H (70-110) mg/dL Calcium (8.4-10.2) mg/dL 09/18/23 09/18/23 09/18/23 Range/Units 04:15 04:15 05:12 RBC (4.30-5.90) m/uL Hgb (13.0-17.5) gm/dL Hct (39.0-53.0) % MCHC (31.0-37.0) g/dL RDW (11.5-15.5) % Plt Count (150-450) k/uL Neutrophils # (1.3-7.7) k/uL Lymphocytes # (1.0-4.8) k/uL APTT 74.8 H (22.0-30.0) sec ABG pO2 121 H (83-108) mmHg ABG Total CO2 26 H (19-24) mmol/L ABG O2 Saturation 99.5 H (94-97) % Chloride 117 H (98-107) mmol/L Creatinine 0.62 L (0.66-1.25) mg/dL Glucose 143 H (74-99) mg/dL POC Glucose (mg/dL) (70-110) mg/dL Calcium 8.1 L (8.4-10.2) mg/dL 09/18/23 Range/Units 05:12 RBC (4.30-5.90) m/uL Hgb (13.0-17.5) gm/dL Hct (39.0-53.0) % MCHC (31.0-37.0) g/dL RDW (11.5-15.5) % Plt Count (150-450) k/uL Neutrophils # (1.3-7.7) k/uL Lymphocytes # (1.0-4.8) k/uL APTT (22.0-30.0) sec ABG pO2 (83-108) mmHg ABG Total CO2 (19-24) mmol/L ABG O2 Saturation (94-97) % Chloride (98-107) mmol/L Creatinine (0.66-1.25) mg/dL Glucose (74-99) mg/dL POC Glucose (mg/dL) 150 H (70-110) mg/dL Calcium (8.4-10.2) mg/dL Assessment and Plan Time with Patient: Less than 30
[2023-09-18 18:18] LABS: Glucose,Whole Blood 147 mg/dL (70-110)
[2023-09-18] MEDS: FORMOTEROL FUMARATE 20 MCG/2 ML NEBU INHALATION SCH (20:01)
[2023-09-18] MEDS: BUDESONIDE 1 MG/2 ML NEBU INHALATION SCH (20:01)
[2023-09-18 23:32] LABS: Glucose,Whole Blood 176 mg/dL (70-110)
[2023-09-19 05:16] LABS: ABG Base Excess 0.3 mmol/L; ABG HCO3 24 mmol/L (21-25); ABG Oxygen Saturation 99.6 % (94-97); ABG PCO2 36 mmHg (35-45); ABG PH 7.44 (7.35-7.45); ABG PO2 129 mmHg (83-108); ABG TCO2 25 mmol/L (19-24)
[2023-09-19 05:19] LABS: Allen Test Performed? no
[2023-09-19 05:45] LABS: Anisocytosis Slight; Basophils % (A) 0 %; Eosinophils # (A) 0.1 k/uL (0-0.7); Eosinophils % (A) 1 %; HCT 26.5 % (39.0-53.0); HGB 8.2 gm/dL (13.0-17.5); Hypochromasia Moderate; Lymphocytes # (A) 0.7 k/uL (1.0-4.8); Lymphocytes % (A) 8 %; MCH 29.8 pg (25.0-35.0); MCHC 30.9 g/dL (31.0-37.0); MCV 96.6 fL (80.0-100.0); Mean Platelet Volume 9.6; Monocytes # (A) 0.5 k/uL (0-1.0); Monocytes % (A) 6 %; Neutrophils # (A) 7.7 k/uL (1.3-7.7); Neutrophils % (A) 85 %; RBC 2.75 m/uL (4.30-5.90); RDW 16.4 % (11.5-15.5); WBC 9.1 k/uL (3.8-10.6)
[2023-09-19 05:46] LABS: Glucose,Whole Blood 146 mg/dL (70-110)
[2023-09-19 05:46] LABS: Platelet Count 124 k/uL (150-450)
[2023-09-19 05:53] LABS: African American GFR (CKD) >90 (>60 ml/min/1.73 sqM); Anion Gap 1 mmol/L; Blood Urea Nitrogen 21 mg/dL (9-20); Calcium 8.3 mg/dL (8.4-10.2); Carbon Dioxide 24 mmol/L (22-30); Chloride 117 mmol/L (98-107); Glucose 148 mg/dL (74-99); Non-African American GFR(CKD) >90 (>60 ml/min/1.73 sqM); Potassium 4.1 mmol/L (3.5-5.1); Sodium 142 mmol/L (137-145)
--- NOTE | 2023-09-19 07:52 | XR ---
EXAMINATION TYPE: XR chest 1V portable DATE OF EXAM: 09/19/2023 COMPARISON: 09/18/2023 HISTORY: SOB, Follow Up FINDINGS: Indwelling tubes and catheters are unchanged. Mild left basilar atelectasis suggested. Stable appearance of the cardio-mediastinal structures at this time. IMPRESSION: 1. Stable portable chest. Clinical correlation and follow up until resolution is recommended.
--- NOTE | 2023-09-19 09:26 | P.PN ---
Subjective Progress Note Date: 09/19/23 Patient seen and evaluated in the ICU. He is intubated and sedated currently. Per nursing patient will be attempted to wean today. No issues overnight Objective - Vital Signs Vital signs: Vital Signs Temp 98.9 F 09/19/23 04:00 Pulse 90 09/19/23 08:10 Resp 19 09/19/23 07:00 BP 109/82 09/19/23 07:00 Pulse Ox 98 09/19/23 07:00 FiO2 40 09/19/23 07:51 Intake & Output 09/18/23 09/19/23 09/19/23 18:59 06:59 18:59 Intake Total 2307.621 5028.358 113 Output Total 1485 1430 100 Balance 269.693 188.358 13 Weight 112.7 kg Intake: IV 936 936 78 A-line 36 36 3 Sodium Chloride 0.9% 1, 900 900 75 000 ml @ 75 mls/hr IV . [id number] [facility] Rx#:[id number] Intake, IV Titration 428.693 177.358 Amount Heparin Sod,Pork in 0.45% 130.437 NaCl 25,000 unit In 0.45 % NaCl 1 250ml.bag @ 18 UNITS/KG/HR 19.872 mls/hr IV .[id number] [facility] Rx#: [id number] propofoL 1,000 mg In 298.256 177.358 Empty Bag 1 bag @ 15 MCG/ KG/MIN 9.936 mls/hr IV . Q10H4M [facility] Rx#:[id number] Tube Feeding 300 415 35 Other 90 90 Output: Urine 1485 1430 100 Other: Voiding Method Indwelling Catheter Indwelling Catheter ABP, PAP, CO, CI - Last Documented Arterial Blood Pressure 139/61 - Exam Vented and sedated Right BKA site with dressings in place and clean. Left groin ecchymosis noted from previous hematoma - Labs CBC & Chem 7: 09/19/23 05:09 09/19/23 05:09 Labs: Abnormal Lab Results - Last 24 Hours (Table) 09/18/23 09/18/23 09/18/23 Range/Units 11:54 18:16 23:31 RBC (4.30-5.90) m/uL Hgb (13.0-17.5) gm/dL Hct (39.0-53.0) % MCHC (31.0-37.0) g/dL RDW (11.5-15.5) % Plt Count (150-450) k/uL Lymphocytes # (1.0-4.8) k/uL APTT (22.0-30.0) sec ABG pO2 (83-108) mmHg ABG Total CO2 (19-24) mmol/L ABG O2 Saturation (94-97) % Chloride (98-107) mmol/L BUN (9-20) mg/dL Creatinine (0.66-1.25) mg/dL Glucose (74-99) mg/dL POC Glucose (mg/dL) 145 H 147 H 176 H (70-110) mg/dL Calcium (8.4-10.2) mg/dL 09/19/23 09/19/23 09/19/23 Range/Units 05:09 05:09 05:09 RBC 2.75 L (4.30-5.90) m/uL Hgb 8.2 L (13.0-17.5) gm/dL Hct 26.5 L (39.0-53.0) % MCHC 30.9 L (31.0-37.0) g/dL RDW 16.4 H (11.5-15.5) % Plt Count 124 L D (150-450) k/uL Lymphocytes # 0.7 L (1.0-4.8) k/uL APTT 53.9 H (22.0-30.0) sec ABG pO2 (83-108) mmHg ABG Total CO2 (19-24) mmol/L ABG O2 Saturation (94-97) % Chloride 117 H (98-107) mmol/L BUN 21 H (9-20) mg/dL Creatinine 0.53 L (0.66-1.25) mg/dL Glucose 148 H (74-99) mg/dL POC Glucose (mg/dL) (70-110) mg/dL Calcium 8.3 L (8.4-10.2) mg/dL 09/19/23 09/19/23 Range/Units 05:14 05:45 RBC (4.30-5.90) m/uL Hgb (13.0-17.5) gm/dL Hct (39.0-53.0) % MCHC (31.0-37.0) g/dL RDW (11.5-15.5) % Plt Count (150-450) k/uL Lymphocytes # (1.0-4.8) k/uL APTT (22.0-30.0) sec ABG pO2 129 H (83-108) mmHg ABG Total CO2 25 H (19-24) mmol/L ABG O2 Saturation 99.6 H (94-97) % Chloride (98-107) mmol/L BUN (9-20) mg/dL Creatinine (0.66-1.25) mg/dL Glucose (74-99) mg/dL POC Glucose (mg/dL) 146 H (70-110) mg/dL Calcium (8.4-10.2) mg/dL Microbiology - Last 24 Hours (Table) 09/13/23 05:00 Blood Culture - Final Blood 09/13/23 05:00 Blood Culture - Final Blood Assessment and Plan Assessment: Postop day #2 right below-knee amputation secondary to critical limb ischemia Critical limb ischemia status post thrombolysis and attempt at revascularization Vent dependent respiratory failure Plan: spigit to place rigid dressing right lower extremity Continue current ICU care per ICU team Agree with wean
[2023-09-19] MEDS: FUROSEMIDE 10 MG/ML 2 ML VIAL IV ONE (09:44)
[2023-09-19 12:06] LABS: Glucose,Whole Blood 132 mg/dL (70-110)
--- NOTE | 2023-09-19 12:24 | P.PN ---
Subjective Progress Note Date: 09/19/23 Principal diagnosis: Acute critical limb ischemia, Patient is a 74-year-old white male with past medical history significant for coronary artery disease, diabetes mellitus, hyperlipidemia, hypertension, COPD, chronic ongoing tobacco dependence, obstructive sleep apnea, lung nodules, atrial fibrillation, factor V, and severe peripheral peripheral vascular disease. Of note, patient has severe peripheral arterial disease and has underwent previous stenting of the right SFA, he is chronically maintained on dual antiplatelet therapy including Plavix. Also, chronically anticoagulated on Xarelto. 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 Recently, patient was being worked up for suspicious right lower lung nodule and mediastinal lymphadenopathy, he was supposedly going to have a lung biopsy on September 15, and was directed to hold his Plavix 5 days prior and Xarelto 2 days prior. Reportedly, stopped both of these medications 5 days prior. Subsequently, started to notice right leg pain starting 4 days ago. This progressively worsens, and became severe early yesterday morning. He could not use this extremity or walk. Finally, came to the emergency department for evaluation early yesterday morning. CT angiography of the right lower extremity demonstrated an occluded right SFA, including the p revious stent to the distal right SFA, stent to the right popliteal artery, as well as, occluded right calf arteries. There is moderate focal stenosis at the right deep femoral artery. Soft tissue swelling and fat stranding throughout the right foot, ankle, and right lower extremity leg. Yesterday evening, patient did undergo right lower extremity angiogram with successful placement of a tPA infusion catheter in the right popliteal artery and right SFA. On my evaluation, right foot remains cold and pulseless even with Doppler. Foot appears dusky in color. Patient does report severe right lower extremity pain and reduced mobility. Catheter directed tPA at 1 mg/h continuous. heparin also infusing at 500 units/h for catheter patency. No oozing or hematoma noted at left femoral sheath insertion site. CBC is unremarkable and hemoglobin is stable at 16.7 g/dL. Fibrinogen 283. CMP on arrival was fairly unremarkable. LFTs not elevated. Troponin 0.014. Normal saline infusing at 75 mL/h. Pain is being managed with a combination of as needed Dilaudid. Blood pressure is normotensive. Heart rhythm appears atrial fibrillation with controlled ventricular response of 80 to 100 bpm. Patient is currently fairly comfortable on 2 L/min nasal cannula, no respiratory distress. Patient states his breathing is fairly baseline. He continues to smoke 2 packs/day. Denies any infectious symptoms like change in his chronic cough, sputum production, fevers. Denies sick contacts. He has been started on a combination of DuoNebs and IV Solu- Medrol. He does have history of right lower lobe 2.3 cm pulmonary nodule. Recent PET scan done 08/20/2023 redemonstrates a posterior right lateral lung nodule with an SUV of 5.6, as well as, SUV avid mediastinal lymphadenopathy suspicious for metastasis. His scheduled lung biopsy, which will likely have to be rescheduled. Reportedly, plan is for patient to return to [facility] later this morning. Patient evaluated today on 09/15/2023, patient is basically about the same. Continues to have poor circulation down to the right foot, patient is complaining of pain, the right foot feels cold, no palpable pulses, no pulses noted in the dorsalis pedis or posterior tibial even with Doppler. Patient is going back to catheterization lab today, and Dr. Boucher will assess his tPA catheter, in the meantime he is recommending a vascular surgery consultation. Pulmonary [facility] no cough no wheezing no shortness of breath. Patient seems to be comfortable. On 2 L nasal cannula, O2 saturation is 94%. Patient remains on heparin at 500 units/h he is also still receiving alteplase via tPA catheter. Patient is going back to [facility] at 11:30 AM today WBC count is 14.1 hemoglobin 16.7 INR is 1.3 electrolytes are normal and renal profile is normal Patient was reevaluated today on 09/16/2023, remains in the ICU, remains on IV heparin, yesterday he underwent repeat angiogram, third look post tPA infusion he had mechanical thrombectomy from right SFA and right popliteal with stenting of the right popliteal/SFA and balloon angioplasty of the right anterior tibial and right posterior tibial artery by Dr. Boucher. Patient developed groin hematoma which is the access site, CT of the abdomen and pelvis reported large infiltrating hematoma along the anterior and lateral aspect of the left pelvis measuring 18.3 x 28 x 4.2. Continues to have pain and discomfort in the right lower extremity the foot is ischemic and cold to touch. Vascular surgery is planning right lower extremity open thrombectomy and possible right lower extremity fasciotomy. This will be likely done today. Pulmonary [facility] the patient has minimal shortness of breath, intermittent cough and wheezing, maintained on bronchodilators Patient was evaluated today on 09/17/2023, patient had his surgery yesterday, came back to the ICU intubated and mechanically ventilated, and he remains intubated at this point. He is on assist-control rate of 14 tidal volume 500 FiO2 40% and PEEP of 8 ABG showed a pO2 of 120 pCO2 39 pH of 7.42. Hence his FiO2 went down from 45% to 40%. Patient remains on heparin drip, remains on propofol at 40 mcg/kg/min, patient is on IV fluid at 2.9 normal saline running at 75 cc/h. Yesterday the patient underwent open thrombectomy of the right supe rficial femoral artery, popliteal artery anterior tibial artery and peroneal artery and posterior tibial artery with endarterectomy and patch angioplasty to the popliteal artery and tibioperoneal trunk with 4 compartments for fasciotomy. However this morning his foot went cold again, and seems to be ischemic. No evidence of dorsalis pedis or posterior tibial signal on Doppler. The timing of loss of pulse is not noted and is not clear, and is not clear to me as at what point the vascular surgery was notified about loss of pulse. Vascular surgery is considering below-knee amputation due to critical limb ischemia. And this will likely be done today Patient was reevaluated today on 09/18/23, patient underwent right below-knee amputation yesterday. He is back in the ICU, he is now on heparin drip, he is also on assist-control rate of 14 tidal volume 500 FiO2 40% PEEP of 8 ABG showed a pO2 of 121 pCO2 40 pH of 7.39. Patient is on propofol at 45 mcg/kg/min IV fluid at 75 cc/h he is also on heparin drip. Patient is sedated, however I am planning to hold sedation, awakened the patient, and give the patient a weaning trial as well as weaning parameters. If tolerated may proceed to extubation. No further surgical plans are scheduled at this point for this patient. Chest x-ray showed minimal basilar atelectasis, no evidence of congestive heart failure no pneumonia. WBC count is 9.2 hemoglobin 8.3 PTT is 74.8 electrolytes are normal renal profile is normal Was evaluated today on 09/19/2023, patient is now postoperative day #2, underwent right below-knee amputation the day before yesterday. Remains on the ventilator, yesterday I tried to wean and extubate the patient, however the patient developed significant amount of secretions and he was gagging and coughing on the endotracheal tube, hence he had to be placed back on sedation, and could not wean and extubate. Today the patient seems to be [place], he is not in any distress, on mechanical ventilation, he is on assist-control rate 14 tidal volume 500 FiO2 40% and PEEP of 5 ABG showed a pO2 of 129 pCO2 36 pH of 7.44, hence I cut down his FiO2 down to 35%. Patient had a chest x-ray that showed no significant findings except for mild prominence of the interstitium, and he will receive Lasix 20 mg IV push x 1. His IV fluid was cut down to KVO. He still on heparin he still on propofol at 35 mg/kg/min, and I plan to hold propofol and give the patient a trial of weaning possibly today and possibly extubation. WBC count is 9.1 hemoglobin 8.2 PTT is 53.9, basic metabolic profile is normal BUN is 21 creatinine 0.53 Objective - Vital Signs Vital signs: Vital Signs Temp 99.9 F H 09/19/23 09:00 Pulse 82 09/19/23 11:22 Resp 20 09/19/23 11:00 BP 129/72 09/19/23 11:00 Pulse Ox 96 09/19/23 11:00 FiO2 35 09/19/23 11:10 Intake & Output 09/18/23 09/19/23 09/19/23 18:59 06:59 18:59 Intake Total 1872.000 3553.358 450.921 Output Total 1485 1430 1725 Balance 269.693 438.358 -1274.079 Weight 112.7 kg Intake: IV 936 936 195 A-line 36 36 15 Sodium Chloride 0.9% 1, 900 900 180 000 ml @ 75 mls/hr IV . [id number] [facility] Rx#:[id number] Intake, IV Titration 428.693 427.358 120.921 Amount Heparin Sod,Pork in 0.45% 130.437 250 NaCl 25,000 unit In 0.45 % NaCl 1 250ml.bag @ 18 UNITS/KG/HR 19.872 mls/hr IV .[id number] [facility] Rx#: [id number] propofoL 1,000 mg In 298.256 177.358 120.921 Empty Bag 1 bag @ 15 MCG/ KG/MIN 9.936 mls/hr IV . Q10H4M [facility] Rx#:[id number] Tube Feeding 300 415 105 Other 90 90 30 Output: Urine 1485 1430 1725 Other: Voiding Method Indwelling Catheter Indwelling Catheter ABP, PAP, CO, CI - Last Documented Arterial Blood Pressure 124/59 - Exam GENERAL EXAM: Alert, 73-year-old white male, intubated and mechanically ventilated HEAD: Normocephalic and atraumatic EYES: Normal reaction of pupils, equal size. NOSE: Clear with pink turbinates. THROAT: No erythema or exudates. NECK: No masses, no JVD. CHEST: No chest wall deformity. LUNGS: Clear throughout no crackles rhonchi or wheezes CVS: S1 and S2 normal with no audible murmur, irregular rhythm. No extra heart sounds ABDOMEN: No hepatosplenomegaly, active bowel sounds, no guarding or rigidity. SKIN: No rashes CENTRAL NERVOUS SYSTEM: Could not assess, patient is sedated. EXTREMITIES: Status post right below-knee amputation - Labs CBC & Chem 7: 09/19/23 05:09 09/19/23 05:09 Labs: Abnormal Lab Results - Last 24 Hours (Table) 09/18/23 09/18/23 09/19/23 Range/Units 18:16 23:31 05:09 RBC (4.30-5.90) m/uL Hgb (13.0-17.5) gm/dL Hct (39.0-53.0) % MCHC (31.0-37.0) g/dL RDW (11.5-15.5) % Plt Count (150-450) k/uL Lymphocytes # (1.0-4.8) k/uL APTT 53.9 H (22.0-30.0) sec ABG pO2 (83-108) mmHg ABG Total CO2 (19-24) mmol/L ABG O2 Saturation (94-97) % Chloride (98-107) mmol/L BUN (9-20) mg/dL Creatinine (0.66-1.25) mg/dL Glucose (74-99) mg/dL POC Glucose (mg/dL) 147 H 176 H (70-110) mg/dL Calcium (8.4-10.2) mg/dL 09/19/23 09/19/23 09/19/23 Range/Units 05:09 05:09 05:14 RBC 2.75 L (4.30-5.90) m/uL Hgb 8.2 L (13.0-17.5) gm/dL Hct 26.5 L (39.0-53.0) % MCHC 30.9 L (31.0-37.0) g/dL RDW 16.4 H (11.5-15.5) % Plt Count 124 L D (150-450) k/uL Lymphocytes # 0.7 L (1.0-4.8) k/uL APTT (22.0-30.0) sec ABG pO2 129 H (83-108) mmHg ABG Total CO2 25 H (19-24) mmol/L ABG O2 Saturation 99.6 H (94-97) % Chloride 117 H (98-107) mmol/L BUN 21 H (9-20) mg/dL Creatinine 0.53 L (0.66-1.25) mg/dL Glucose 148 H (74-99) mg/dL POC Glucose (mg/dL) (70-110) mg/dL Calcium 8.3 L (8.4-10.2) mg/dL 09/19/23 09/19/23 Range/Units 05:45 12:03 RBC (4.30-5.90) m/uL Hgb (13.0-17.5) gm/dL Hct (39.0-53.0) % MCHC (31.0-37.0) g/dL RDW (11.5-15.5) % Plt Count (150-450) k/uL Lymphocytes # (1.0-4.8) k/uL APTT (22.0-30.0) sec ABG pO2 (83-108) mmHg ABG Total CO2 (19-24) mmol/L ABG O2 Saturation (94-97) % Chloride (98-107) mmol/L BUN (9-20) mg/dL Creatinine (0.66-1.25) mg/dL Glucose (74-99) mg/dL POC Glucose (mg/dL) 146 H 132 H (70-110) mg/dL Calcium (8.4-10.2) mg/dL Microbiology - Last 24 Hours (Table) 09/13/23 05:00 Blood Culture - Final Blood 09/13/23 05:00 Blood Culture - Final Blood Assessment and Plan Assessment: Impression: Acute critical limb ischemia, multiple attempts to salvage the right foot failed by cardiology and by vascular surgery has the patient is status post right below-knee amputation done on 09/17/2023 History of severe peripheral arterial disease, with previous stenting the right SFA and stenting of a right popliteal arterial aneurysm Right lung nodule and associated mediastinal lymphadenopathy, suspicious for primary lung cancer and metastasis. Highly suspicious for bronchogenic carcinoma with mediastinal metastasis, patient will eventually require tissue diagnosis which is presently on hold patient was supposed to stop his Plavix 5 days prior to bronchoscopy and his Xarelto 2 days prior to bronchoscopy, however he stopped both medications 5 days prior to his anticipated bronchoscopy/Ion bronchoscopy and EBUS. And this is again presently on hold Chronic ongoing tobacco dependence, up to 2 packs/day History of underlying COPD History of diabetes mellitus History of hyperlipidemia History of hypertension Chronic atrial fibrillation, chronically anticoagulated on Xarelto History of factor V deficiency History of DVT/PE Obstructive sleep apnea, maintained on CPAP at bedtime Morbid obesity, with a BMI of 42.9 kg/m Postop day #3 open thrombectomy right SFA, popliteal artery, anterior tibial artery, peroneal artery and posterior tibial artery with endarterectomy and patch angioplasty of popliteal artery and tibioperoneal trunk. 4 compartment fasciotomy postoperative postoperative day #2, right below-knee amputation Recommendation: Continue ventilatory support, however the patient will be awakened, will hold sedation, and will address for possible weaning today Continue present supportive care measures Will give the patient a gentle diuresis Will hold propofol and address possibly weaning and weaning parameters today and if tolerated may even extubate Continue bronchodilators Continue heparin Continue GI and DVT prophylaxis Patient is critically ill. Critical care time is over 30-minute Will continue to follow Time with Patient: Greater than 30
[2023-09-19 13:06] LABS: ABG HCO3 27 mmol/L (21-25); ABG Oxygen Saturation 97.3 % (94-97); ABG PCO2 38 mmHg (35-45); ABG PH 7.46 (7.35-7.45); ABG PO2 82 mmHg (83-108); ABG TCO2 28 mmol/L (19-24)
[2023-09-19 13:11] LABS: Allen Test Performed? no
[2023-09-19] MEDS: NYSTATIN 100,000 UNIT/GM POWD 15 GM TOPICAL SCH (14:54)
--- NOTE | 2023-09-19 15:55 | P.PN ---
Subjective Progress Note Date: 09/19/23 Patient is [id number] male admitted for peripheral arterial disease and patient will undergo intervention for this. Patient has severe pain in the right lower extremity, right lower extremity CTA showed occluded superficial femoral artery including the stent in the distal right superficial femoral a rtery occluded stent in the right popliteal occluded right calf artery arteries and moderate focal stenosis of origin of the right deep femoral artery. Patient is on 75 mg of Plavix and also Xarelto. Patient denies any chest pain was having shortness of breath and wheezing patient does have history of COPD continues to smoke. Patient was started on systemic steroids and additional treatments after which wheezing did improve. Vascular surgery evaluated the patient and planning on intervention for severe right lower extremity peripheral vascular disease. 09/14/2023 Patient is evaluated in follow-up today in the intensive care unit. He is status post Right lower extremity angiography with successful placement of ATP infusion cath in right popliteal artery and right SFA. Patient continues to report significant pain to his right lower extremity and his foot remains cool to palpation. Nursing staff was having difficulty with a Doppler pulse today to the right dorsalis pedis. Patient is requiring IV Dilaudid in addition to IV morphine for pain control. We would recommend to add Lyrica at this point for the neuropathic pain. He does report feeling less short of breath today does still have some faint scattered wheezing. 09/15/2023 Patient is evaluated today in follow up in the ICU. Patient returned to the lab instructor and was found to have residual large right SFA thrombus and heparin was recommended to continue infusing overnight. Awaiting repeat angiography. Vascular services was consulted for evaluation. Continues with pain management and patient reports some improvement with added lyrica. Blood pressure remains elevated 151/100, 94% on 2L. Heart rate 103. 09/16/2023 Patient is evaluated today in follow up in the ICU. Patient returned to the General Production Worker and underwent thrombectomy and stenting of the right popliteal and right SFA. Patient during the sheath pull in the period following was moving around in the bed and has developed an 18.3 x 28 x 21.2 cm hematoma of the left groin. There is significant bruising noted today. He does continue to report significant lower back pain and is requiring IV pain medication. He is on Lyrica for the neuropathic pain to the right leg. His foot is cool today and still unable to palpate pulse in the dorsalis pedis. Vascular will see the patient and are considering further vascular intervention at this time. His [facility] blood cell count is 12.1, hemoglobin 10.8, platelet count of 63. Sodium 136, chloride 113, BUN of 21, creatinine of 0.63. 09/17/2023 Patient is evaluated today. He is currently intubated and sedated. Patient underwent open thrombectomy and fasciotomy yesterday. Today he will be taken for amputation right below the knee. Patient is on IV heparin. He is sedated with propofol. 09/18/2023 Patient is currently evaluated today in the intensive care unit. He remains on mechanical ventilator with an FiO2 out of 40%. Patient is sedated with propofol. He is postoperative day 1 right below the knee amputation secondary to critical limb ischemia. Patient remains on IV heparin infusion. He does continue a significant hematoma to the left groin. Patient is being hydrated normal saline running at 75 mL/h additionally he continues on IV Solu-Medrol 40 mg every 8 hours. Patient continues on [id number]. 09/19/2023 Patient is evaluated today resting in bed in the intensive care unit. Patient remains on mechanical ventilator and is currently intubated and sedated with propofol. Patient is postoperative day #2 right below the knee amputation secondary to critical limb ischemia. Patient remains on IV heparin. His hematoma to the left groin is soft and bruising is slightly improved however his scrotum remains quite ecchymotic. He continues on normal saline as well as IV Solu-Medrol. Repeat chest x-ray today reveals mild left basilar atelectasis. Significant ecchymosis to the left groin REVIEW OF SYSTEMS: Patient is vented PHYSICAL EXAMINATION: GENERAL: Currently intubated and sedated. Well developed, well nourished. Pale HEENT: Pupils are round and equally reacting to light. EOMI. No scleral icterus. No conjunctival pallor. Normocephalic, atraumatic. No pharyngeal erythema. No thyromegaly. CARDIOVASCULAR: S1 and S2 present. No murmurs, rubs, or gallops. PULMONARY: Expiratory wheezing which improved fairly good air entry to bilateral lower lung solis ABDOMEN: Soft, nontender, nondistended, normoactive bowel sounds. No palpable organomegaly. MUSCULOSKELETAL: No joint swelling or deformity. EXTREMITIES: As mentioned above NEUROLOGICAL: Gross neurological examination did not reveal any focal deficits. SKIN: No rashes. Oral is ecchymotic and swollen lower extremity edema is noted. Patient is now status post right BKA Assessment and plan -Severe peripheral artery disease with prior intervention of right lower extremity -Now with critical limb ischemia and is postoperative tPA infusion stenting of the right popliteal/FSA and balloon angioplasty of right anterior tibial and right posterior tibial artery. S/P right BKA postoperative day #2. Patient is on IV heparin. 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 Patient was started on systemic steroids and inhalation treatments -Lung cancer with mediastinal mets -Persistent atrial fibrillation on anticoagulation is being held on the outpatient basis for lung biopsy -Hyperlipidemia -Hypertension continues on metoprolol amlodipine added and PRN hydralazine. -History of factor V Leiden and DVT in the past -Type 2 diabetes mellitus on metformin which will be held as patient will undergo angiogram of the lower extremities patient will be on sliding scale insulin DVT prophylaxis: Patient is on IV heparin GI prophylaxis protonix Full Code Plan Continue with mechanical ventilator per rolls baker On IV heparin Continue on IV solumedrol Monitor hematoma And nystatin cream for the groin excoriation Patient received a dose of IV Lasix today Recommend to elevate the scrotal sac to help with edema show Repeat blood work in the AM The impression and plan of care has been dictated by Lila Elizondo, Nurse Practitioner as directed. Dr. Floyd MD I have performed a history and physical examination and medical decision making of this patient, discussed the same with the dictator, and agree with the dictators assessment and plan as written, documented as a scribe. Based on total visit time, I have performed more than 50% of this visit. Objective - Vital Signs Vital signs: Vital Signs Temp 98.9 F 09/19/23 04:00 Pulse 90 09/19/23 08:10 Resp 19 09/19/23 07:00 BP 109/82 09/19/23 07:00 Pulse Ox 98 09/19/23 07:00 FiO2 40 09/19/23 07:51 Intake & Output 09/18/23 09/19/23 09/19/23 18:59 06:59 18:59 Intake Total 1287.697 9495.358 113 Output Total 1485 1430 100 Balance 269.693 188.358 13 Weight 112.7 kg Intake: IV 936 936 78 A-line 36 36 3 Sodium Chloride 0.9% 1, 900 900 75 000 ml @ 75 mls/hr IV . [id number] [facility] Rx#:[id number] Intake, IV Titration 428.693 177.358 Amount Heparin Sod,Pork in 0.45% 130.437 NaCl 25,000 unit In 0.45 % NaCl 1 250ml.bag @ 18 UNITS/KG/HR 19.872 mls/hr IV .[id number] [facility] Rx#: [id number] propofoL 1,000 mg In 298.256 177.358 Empty Bag 1 bag @ 15 MCG/ KG/MIN 9.936 mls/hr IV . Q10H4M [facility]I Rx#:[id number] Tube Feeding 300 415 35 Other 90 90 Output: Urine 1485 1430 100 Other: Voiding Method Indwelling Catheter Indwelling Catheter ABP, PAP, CO, CI - Last Documented Arterial Blood Pressure 139/61 - Labs CBC & Chem 7: 09/19/23 05:09 09/19/23 05:09 Labs: Abnormal Lab Results - Last 24 Hours (Table) 09/18/23 09/18/23 09/18/23 Range/Units 11:54 18:16 23:31 RBC (4.30-5.90) m/uL Hgb (13.0-17.5) gm/dL Hct (39.0-53.0) % MCHC (31.0-37.0) g/dL RDW (11.5-15.5) % Plt Count (150-450) k/uL Lymphocytes # (1.0-4.8) k/uL APTT (22.0-30.0) sec ABG pO2 (83-108) mmHg ABG Total CO2 (19-24) mmol/L ABG O2 Saturation (94-97) % Chloride (98-107) mmol/L BUN (9-20) mg/dL Creatinine (0.66-1.25) mg/dL Glucose (74-99) mg/dL POC Glucose (mg/dL) 145 H 147 H 176 H (70-110) mg/dL Calcium (8.4-10.2) mg/dL 09/19/23 09/19/23 09/19/23 Range/Units 05:09 05:09 05:09 RBC 2.75 L (4.30-5.90) m/uL Hgb 8.2 L (13.0-17.5) gm/dL Hct 26.5 L (39.0-53.0) % MCHC 30.9 L (31.0-37.0) g/dL RDW 16.4 H (11.5-15.5) % Plt Count 124 L D (150-450) k/uL Lymphocytes # 0.7 L (1.0-4.8) k/uL APTT 53.9 H (22.0-30.0) sec ABG pO2 (83-108) mmHg ABG Total CO2 (19-24) mmol/L ABG O2 Saturation (94-97) % Chloride 117 H (98-107) mmol/L BUN 21 H (9-20) mg/dL Creatinine 0.53 L (0.66-1.25) mg/dL Glucose 148 H (74-99) mg/dL POC Glucose (mg/dL) (70-110) mg/dL Calcium 8.3 L (8.4-10.2) mg/dL 09/19/23 09/19/23 Range/Units 05:14 05:45 RBC (4.30-5.90) m/uL Hgb (13.0-17.5) gm/dL Hct (39.0-53.0) % MCHC (31.0-37.0) g/dL RDW (11.5-15.5) % Plt Count (150-450) k/uL Lymphocytes # (1.0-4.8) k/uL APTT (22.0-30.0) sec ABG pO2 129 H (83-108) mmHg ABG Total CO2 25 H (19-24) mmol/L ABG O2 Saturation 99.6 H (94-97) % Chloride (98-107) mmol/L BUN (9-20) mg/dL Creatinine (0.66-1.25) mg/dL Glucose (74-99) mg/dL POC Glucose (mg/dL) 146 H (70-110) mg/dL Calcium (8.4-10.2) mg/dL Microbiology - Last 24 Hours (Table) 09/13/23 05:00 Blood Culture - Final Blood 09/13/23 05:00 Blood Culture - Final Blood Assessment and Plan Time with Patient: Less than 30
--- NOTE | 2023-09-19 23:55 | PN ---
PROGRESS NOTE SUBJECTIVE: Cecilio is a 73-year-old gentleman who was admitted to hospital with acute right ischemic leg and after multiple efforts at salvaging the leg, underwent right below- knee amputation. This morning, he remains intubated and on vent. OBJECTIVE: VITAL SIGNS: Stable. CHEST: Reveals occasional rhonchi with good air entry bilaterally. HEART: Reveals first and second heart sounds. Irregular rhythm. ABDOMEN: Soft. EXTREMITIES: Reveal that the palpable pulses are palpable on the left leg. He had right below-knee amputation. LABS: Showed that the hemoglobin is 8.2, platelet count is 124, potassium is 4.1, and creatinine 0.5. ASSESSMENT: 1. Acute critical limb ischemia. 2. Atrial fibrillation. PLAN: Will continue the patient on IV heparin. ANASTASIIA / DEMIAN: [id number] /
[2023-09-20 05:11] LABS: Glucose,Whole Blood 113 mg/dL (70-110)
[2023-09-20 06:08] LABS: African American GFR (CKD) >90 (>60 ml/min/1.73 sqM); Anion Gap 4 mmol/L; Blood Urea Nitrogen 24 mg/dL (9-20); Calcium 8.7 mg/dL (8.4-10.2); Carbon Dioxide 25 mmol/L (22-30); Chloride 115 mmol/L (98-107); Glucose 110 mg/dL (74-99); Magnesium 2.2 mg/dL (1.6-2.3); Non-African American GFR(CKD) >90 (>60 ml/min/1.73 sqM); Potassium 4.1 mmol/L (3.5-5.1); Sodium 144 mmol/L (137-145)
[2023-09-20 06:16] LABS: Anisocytosis Slight; HCT 27.9 % (39.0-53.0); HGB 8.6 gm/dL (13.0-17.5); Hypochromasia Moderate; MCH 30.2 pg (25.0-35.0); MCV 97.3 fL (80.0-100.0); Macrocytosis Slight; Mean Platelet Volume 9.3; Platelet Count 157 k/uL (150-450); RBC 2.87 m/uL (4.30-5.90); RDW 16.2 % (11.5-15.5)
[2023-09-20 06:57] LABS: Metamyelocytes # (M) 0.13 k/uL (0); Metamyelocytes % 1 %; Myelocytes % 2 %; Neutrophils % (M) 83 %; Nucleated Red Blood Cells 3 /100 WBC (0-0); Total Cells Counted 200
[2023-09-20 06:58] LABS: Lymphocytes # (M) 1.51 k/uL (1.0-4.8); Monocytes # (M) 0.38 k/uL (0-1.0); Myelocytes # (M) 0.25 k/uL (0); Neutrophils # (M) 10.46 k/uL (1.3-7.7); WBC 12.6 k/uL (3.8-10.6)
[2023-09-20 07:00] LABS: Polychromasia Present
--- NOTE | 2023-09-20 07:31 | XR ---
EXAMINATION TYPE: XR chest 1V portable DATE OF EXAM: 09/20/2023 COMPARISON: 09/19/2023 INDICATION: Recent extubation, difficulty breathing TECHNIQUE: Single frontal view of the chest is obtained. FINDINGS: The heart size is normal. The pulmonary vasculature is normal. Some mild by basilar infiltrate may be present. Correlate for atelectasis. IMPRESSION: 1. Mild increased lung markings bilateral lung bases. Correlate for subsegmental atelectasis.
[2023-09-20] MEDS: HYDROcodone/APAP 5-325MG 1 EACH TAB PO PRN (08:50)
--- NOTE | 2023-09-20 09:52 | P.PN ---
Subjective Progress Note Date: 09/20/23 The patient is a 73-year-old male with past medical history of severe peripheral vascular disease. The patient underwent right below the knee amputation on 09/17/[address] Jones. Patient tolerated the procedure well. Patient was interviewed and examined resting comfortably in bed. He states he has some discomfort from his dressing change, but otherwise feels well. No trouble breathing. GENERAL: Well-appearing, well-nourished and in no acute distress. NECK: Supple without JVD or thyromegaly. LUNGS: Breath sounds diminished to auscultation bilaterally. Respiration equal and unlabored. No wheezes, rales or rhonchi. HEART: Irregular rate and rhythm without murmurs, rubs or gallops. S1 and S2 heard. EXTREMITIES: Normal range of motion, no edema. No clubbing or cyanosis. Right below the knee amputation TELEMETRY: Persistent atrial fibrillation IMPRESSION: Severe peripheral vascular disease Acute critical limb ischemia Status post right below the knee amputation PLAN: Transition the patient to oral anticoagulation when cleared by surgery No further recommendations from the cardiac standpoint Outpatient follow-up with primary tinsmith helper I am dictating on behalf of Dr Jose Rafael Moeller's history/physical and assessment/plan. Objective - Vital Signs Vital signs: Vital Signs Temp 98.4 F 09/20/23 08:00 Pulse 101 H 09/20/23 09:00 Resp 11 L 09/20/23 09:00 BP 117/95 09/20/23 09:00 Pulse Ox 96 09/20/23 09:00 FiO2 35 09/19/23 12:29 Intake & Output 09/19/23 09/20/23 09/20/23 18:59 06:59 18:59 Intake Total 554.921 143 26 Output Total 3960 1025 300 Balance -3405.079 -882 -274 Weight 109.6 kg Intake: IV 299 143 26 A-line 39 33 6 Sodium Chloride 0.9% 1, 260 110 20 000 ml @ 75 mls/hr IV . [id number] [facility] Rx#:[id number] Intake, IV Titration 120.921 Amount propofoL 1,000 mg In 120.921 Empty Bag 1 bag @ 15 MCG/ KG/MIN 9.936 mls/hr IV . Q10H4M [facility] Rx#:[id number] Tube Feeding 105 Other 30 Output: Urine 3960 1025 300 Other: Voiding Method Indwelling Catheter Indwelling Catheter Indwelling Catheter ABP, PAP, CO, CI - Last Documented Arterial Blood Pressure 126/66 - Labs CBC & Chem 7: 09/20/23 05:00 09/20/23 05:00 Labs: Abnormal Lab Results - Last 24 Hours (Table) 09/19/23 09/19/23 09/20/23 Range/Units 12:03 13:04 05:00 WBC (3.8-10.6) k/uL RBC (4.30-5.90) m/uL Hgb (13.0-17.5) gm/dL Hct (39.0-53.0) % RDW (11.5-15.5) % Neutrophils # (Manual) (1.3-7.7) k/uL Metamyelocytes # (Man) (0) k/uL Myelocytes # (Manual) (0) k/uL Nucleated RBCs (0-0) /100 WBC APTT 58.6 H (22.0-30.0) sec ABG pH 7.46 H (7.35-7.45) ABG pO2 82 L (83-108) mmHg ABG HCO3 27 H (21-25) mmol/L ABG Total CO2 28 H (19-24) mmol/L ABG O2 Saturation 97.3 H (94-97) % Chloride (98-107) mmol/L BUN (9-20) mg/dL Creatinine (0.66-1.25) mg/dL Glucose (74-99) mg/dL POC Glucose (mg/dL) 132 H (70-110) mg/dL 09/20/23 09/20/23 09/20/23 Range/Units 05:00 05:00 05:09 WBC 12.6 H (3.8-10.6) k/uL RBC 2.87 L (4.30-5.90) m/uL Hgb 8.6 L (13.0-17.5) gm/dL Hct 27.9 L (39.0-53.0) % RDW 16.2 H (11.5-15.5) % Neutrophils # (Manual) 10.46 H (1.3-7.7) k/uL Metamyelocytes # (Man) 0.13 H (0) k/uL Myelocytes # (Manual) 0.25 H (0) k/uL Nucleated RBCs 3 H (0-0) /100 WBC APTT (22.0-30.0) sec ABG pH (7.35-7.45) ABG pO2 (83-108) mmHg ABG HCO3 (21-25) mmol/L ABG Total CO2 (19-24) mmol/L ABG O2 Saturation (94-97) % Chloride 115 H (98-107) mmol/L BUN 24 H (9-20) mg/dL Creatinine 0.53 L (0.66-1.25) mg/dL Glucose 110 H (74-99) mg/dL POC Glucose (mg/dL) 113 H (70-110) mg/dL
--- NOTE | 2023-09-20 11:06 | P.PN ---
Subjective Progress Note Date: 09/20/23 Principal diagnosis: Right below the knee amputation. Patient is a 74-year-old white male with past medical history significant for coronary artery disease, diabetes mellitus, hyperlipidemia, hypertension, COPD, chronic ongoing tobacco dependence, obstructive sleep apnea, lung nodules, atrial fibrillation, factor V, and severe peripheral peripheral vascular disease. Of note, patient has severe peripheral arterial disease and has underwent previous stenting of the right SFA, he is chronically maintained on dual antiplatelet therapy including Plavix. Also, chronically anticoagulated on Xarelto. 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 Recently, patient was being worked up for suspicious right lower lung nodule and mediastinal lymphadenopathy, he was supposedly going to have a lung biopsy on September 15, and was directed to hold his Plavix 5 days prior and Xarelto 2 days prior. Reportedly, stopped both of these medications 5 days prior. Subsequently, started to notice right leg pain starting 4 days ago. This progressively worsens, and became severe early yesterday morning. He could not use this extremity or walk. Finally, came to the emergency department for evaluation early yesterday morning. CT angiography of the right lower extremity demonstrated an occluded right SFA, including the previous stent to the distal right SFA, stent to the right popliteal artery, as well as, occluded right calf arteries. There is moderate focal stenosis at the right deep femoral artery. Soft tissue swelling and fat stranding throughout the right foot, ankle, and right lower extremity leg. Yesterday evening, patient did undergo right lower extremity angiogram with successful placement of a tPA infusion catheter in the right popliteal artery and right SFA. On my evaluation, right foot remains cold and pulseless even with Doppler. Foot appears dusky in color. Patient does report severe right lower extremity pain and reduced mobility. Catheter directed tPA at 1 mg/h continuous. heparin also infusing at 500 units/h for catheter patency. No oozing or hematoma noted at left femoral sheath insertion site. CBC is unremarkable and hemoglobin is stable at 16.7 g/dL. Fibrinogen 283. CMP on arrival was fairly unremarkable. LFTs not elevated. Troponin 0.014. Normal saline infusing at 75 mL/h. Pain is being managed with a combination of as needed Dilaudid. Blood pressure is normotensive. Heart rhythm appears atrial fibrillation with controlled ventricular response of 80 to 100 bpm. Patient is currently fairly comfortable on 2 L/min nasal cannula, no respiratory distress. Patient states his breathing is fairly baseline. He continues to smoke 2 packs/day. Denies any infectious symptoms like change in his chronic cough, sputum production, fevers. Denies sick contacts. He has been started on a combination of DuoNebs and IV Solu- Medrol. He does have history of right lower lobe 2.3 cm pulmonary nodule. Recent PET scan done 08/20/2023 redemonstrates a posterior right lateral lung nodule with an SUV of 5.6, as well as, SUV avid mediastinal lymphadenopathy suspicious for metastasis. His scheduled lung biopsy, which will likely have to be rescheduled. Reportedly, plan is for patient to return to [facility] later this morning. Patient evaluated today on 09/15/2023, patient is basically about the same. Continues to have poor circulation down to the right foot, patient is complaining of pain, the right foot feels cold, no palpable pulses, no pulses noted in the dorsalis pedis or posterior tibial even with Doppler. Patient is going back to catheterization lab today, and Dr. Boucher will assess his tPA catheter, in the meantime he is recommending a vascular surgery consultation. Pulmonary [facility] no cough no wheezing no shortness of breath. Patient seems to be comfortable. On 2 L nasal cannula, O2 saturation is 94%. Patient remains on heparin at 500 units/h he is also still receiving alteplase via tPA catheter. Patient is going back to [facility] at 11:30 AM today WBC count is 14.1 hemoglobin 16.7 INR is 1.3 electrolytes are normal and renal profile is normal Patient was reevaluated today on 09/16/2023, remains in the ICU, remains on IV heparin, yesterday he underwent repeat angiogram, third look post tPA infusion he had mechanical thrombectomy from right SFA and right popliteal with stenting of the right popliteal/SFA and balloon angioplasty of the right anterior tibial and right posterior tibial artery by Dr. Boucher. Patient developed groin hematoma which is the access site, CT of the abdomen and pelvis reported large infiltrating hematoma along the anterior and lateral aspect of the left pelvis measuring 18.3 x 28 x 4.2. Continues to have pain and discomfort in the right lower extremity the foot is ischemic and cold to touch. Vascular surgery is planning right lower extremity open thrombectomy and possible right lower extremity fasciotomy. This will be likely done today. Pulmonary solis the patient has minimal shortness of breath, intermittent cough and wheezing, maintained on bronchodilators Patient was evaluated today on 09/17/2023, patient had his surgery yesterday, came back to the ICU intubated and mechanically ventilated, and he remains intubated at this point. He is on assist-control rate of 14 tidal volume 500 FiO2 40% and PEEP of 8 ABG showed a pO2 of 120 pCO2 39 pH of 7.42. Hence his FiO2 went down from 45% to 40%. Patient remains on heparin drip, remains on propofol at 40 mcg/kg/min, patient is on IV fluid at 2.9 normal saline running at 75 cc/h. Yesterday the patient underwent open thrombectomy of the right dunn perficial femoral artery, popliteal artery anterior tibial artery and peroneal artery and posterior tibial artery with endarterectomy and patch angioplasty to the popliteal artery and tibioperoneal trunk with 4 compartments for fasciotomy. However this morning his foot went cold again, and seems to be ischemic. No evidence of dorsalis pedis or posterior tibial signal on Doppler. The timing of loss of pulse is not noted and is not clear, and is not clear to me as at what point the vascular surgery was notified about loss of pulse. Vascular surgery is considering below-knee amputation due to critical limb ischemia. And this will likely be done today Patient was reevaluated today on 09/18/23, patient underwent right below-knee amputation yesterday. He is back in the ICU, he is now on heparin drip, he is also on assist-control rate of 14 tidal volume 500 FiO2 40% PEEP of 8 ABG showed a pO2 of 121 pCO2 40 pH of 7.39. Patient is on propofol at 45 mcg/kg/min IV fluid at 75 cc/h he is also on heparin drip. Patient is sedated, however I am planning to hold sedation, awakened the patient, and give the patient a weaning trial as well as weaning parameters. If tolerated may proceed to extubation. No further surgical plans are scheduled at this point for this patient. Chest x-ray showed minimal basilar atelectasis, no evidence of congestive heart failure no pneumonia. WBC count is 9.2 hemoglobin 8.3 PTT is 74.8 electrolytes are normal renal profile is normal Was evaluated today on 09/19/2023, patient is now postoperative day #2, underwent right below-knee amputation the day before yesterday. Remains on the ventilator, yesterday I tried to wean and extubate the patient, however the patient developed significant amount of secretions and he was gagging and coughing on the endotracheal tube, hence he had to be placed back on sedation, and could not wean and extubate. Today the patient seems to be [place], he is not in any distress, on mechanical ventilation, he is on assist-control rate 14 tidal volume 500 FiO2 40% and PEEP of 5 ABG showed a pO2 of 129 pCO2 36 pH of 7 .44, hence I cut down his FiO2 down to 35%. Patient had a chest x-ray that showed no significant findings except for mild prominence of the interstitium, and he will receive Lasix 20 mg IV push x 1. His IV fluid was cut down to KVO. He still on heparin he still on propofol at 35 mg/kg/min, and I plan to hold propofol and give the patient a trial of weaning possibly today and possibly extubation. WBC count is 9.1 hemoglobin 8.2 PTT is 53.9, basic metabolic profile is normal BUN is 21 creatinine 0.53 Progress note dated September 20, 2023. 73-year-old male seen today in room 267. The patient was admitted back on September 11, and on September 16, had a right below the knee amputation. He was admitted with a diagnosis of right lower extremity ischemia. The patient was intubated, and successfully extubated, on September 18. Currently, he is seen in room 267. He is on 2 L of oxygen. He is receiving IV heparin, and saline at KVO. The patient appears to be doing reasonably well. Current laboratory includes a white count 12.6, hemoglobin 8.6, hematocrit 27.9, and platelet count of 157,000. PTT is 58.6. Sodium 144, potassium 4.1, chlorides 115, CO2 25, BUN 24, creatinine 0.53. Calcium is 8.7. Magnesium is 2.2. Blood cultures are currently negative. Chest x-ray today shows basilar atelectasis. Objective - Vital Signs Vital signs: Vital Signs Temp 98.4 F 09/20/23 08:00 Pulse 91 09/20/23 10:44 Resp 18 09/20/23 10:44 BP 128/88 09/20/23 10:00 Pulse Ox 96 09/20/23 10:00 FiO2 35 09/19/23 12:29 Intake & Output 09/19/23 09/20/23 09/20/23 18:59 06:59 18:59 Intake Total 554.921 143 46 Output Total 3960 1025 500 Balance -3405.079 -882 -454 Weight 109.6 kg Intake: IV 299 143 46 A-line 39 33 6 Sodium Chloride 0.9% 1, 260 110 40 000 ml @ 75 mls/hr IV . [id number] [facility] Rx#:[id number] Intake, IV Titration 120.921 Amount propofoL 1,000 mg In 120.921 Empty Bag 1 bag @ 15 MCG/ KG/MIN 9.936 mls/hr IV . Q10H4M [facility] Rx#:[id number] Tube Feeding 105 Other 30 Output: Urine 3960 1025 500 Other: Voiding Method Indwelling Catheter Indwelling Catheter Indwelling Catheter ABP, PAP, CO, CI - Last Documented Arterial Blood Pressure 126/66 - Exam No acute distress, oriented 3. The patient is currently on 2 L of oxygen. HEENT examination is grossly unremarkable. Mucous membranes are moist. No oral lesions. Neck supple. Full range of motion. No adenopathy thyromegaly or neck vein distention. Cardiovascular examination reveals regular rhythm rate. S1-S2 normal. No S3 or S4. No discernible murmur noted. Lungs reveal clear breath sounds. Breath sounds are equal bilaterally. No adventitious lung sounds including wheezes rhonchi or crackles. Abdomen soft bowel sounds are heard. No masses or tenderness. Extremities are intact. No cyanosis clubbing or edema. Right below the knee amputation. Skin is without rash or lesion. Neurologic examination is brief but nonfocal. - Labs CBC & Chem 7: 09/20/23 05:00 09/20/23 05:00 Labs: Abnormal Lab Results - Last 24 Hours (Table) 09/19/23 09/19/23 09/20/23 Range/Units 12:03 13:04 05:00 WBC (3.8-10.6) k/uL RBC (4.30-5.90) m/uL Hgb (13.0-17.5) gm/dL Hct (39.0-53.0) % RDW (11.5-15.5) % Neutrophils # (Manual) (1.3-7.7) k/uL Metamyelocytes # (Man) (0) k/uL Myelocytes # (Manual) (0) k/uL Nucleated RBCs (0-0) /100 WBC APTT 58.6 H (22.0-30.0) sec ABG pH 7.46 H (7.35-7.45) ABG pO2 82 L (83-108) mmHg ABG HCO3 27 H (21-25) mmol/L ABG Total CO2 28 H (19-24) mmol/L ABG O2 Saturation 97.3 H (94-97) % Chloride (98-107) mmol/L BUN (9-20) mg/dL Creatinine (0.66-1.25) mg/dL Glucose (74-99) mg/dL POC Glucose (mg/dL) 132 H (70-110) mg/dL 09/20/23 09/20/23 09/20/23 Range/Units 05:00 05:00 05:09 WBC 12.6 H (3.8-10.6) k/uL RBC 2.87 L (4.30-5.90) m/uL Hgb 8.6 L (13.0-17.5) gm/dL Hct 27.9 L (39.0-53.0) % RDW 16.2 H (11.5-15.5) % Neutrophils # (Manual) 10.46 H (1.3-7.7) k/uL Metamyelocytes # (Man) 0.13 H (0) k/uL Myelocytes # (Manual) 0.25 H (0) k/uL Nucleated RBCs 3 H (0-0) /100 WBC APTT (22.0-30.0) sec ABG pH (7.35-7.45) ABG pO2 (83-108) mmHg ABG HCO3 (21-25) mmol/L ABG Total CO2 (19-24) mmol/L ABG O2 Saturation (94-97) % Chloride 115 H (98-107) mmol/L BUN 24 H (9-20) mg/dL Creatinine 0.53 L (0.66-1.25) mg/dL Glucose 110 H (74-99) mg/dL POC Glucose (mg/dL) 113 H (70-110) mg/dL Assessment and Plan Assessment: Postop day #3, status post right below the knee amputation, for critical right lower extremity ischemia. Routine postoperative ventilator management. Successful extubation, September 19, 2023. Right pulmonary nodule, suspicious for bronchogenic carcinoma. Severe peripheral artery disease, with previous stenting of the right SFA and right popliteal artery. Chronic and ongoing tobacco dependence. History of COPD. History of diabetes mellitus. History of hyperlipidemia. Benign essential hypertension. Chronic atrial fibrillation. History of factor V deficiency. History of DVT/pulmonary embolism. Obstructive sleep apnea syndrome. Morbid obesity. Plan: Plan dated September 20, 2023. The patient was successfully extubated yesterday. He continues in the intensive care unit. We encourage him to deep breathe, cough, clear secretions. The patient is currently on IV heparin. He is getting saline at KVO. He is on 2 L of oxygen. We will continue to follow make recommendations along the way. Labs, x-rays, and medications are reviewed. Prognosis is certainly guarded. Time with Patient: Greater than 30
[2023-09-20 12:06] LABS: Glucose,Whole Blood 160 mg/dL (70-110)
--- NOTE | 2023-09-20 12:12 | P.PN ---
Subjective Progress Note Date: 09/20/23 Principal diagnosis: Right lower extremity ischemic leg Patient is seen and examined today as a follow-up. He is postop day #3 for right [id number] amputation. Knee immobilizer in place. Patient is extubated. States pain is being well-managed. He has been afebrile. Hem oglobin 8.6 platelet count 157,000. He remains on IV heparin for atrial fibrillation. Objective - Vital Signs Vital signs: Vital Signs Temp 98.4 F 09/20/23 08:00 Pulse 98 09/20/23 08:15 Resp 18 09/20/23 08:15 BP 102/64 09/20/23 08:00 Pulse Ox 96 09/20/23 08:00 FiO2 35 09/19/23 12:29 Intake & Output 09/19/23 09/20/23 09/20/23 18:59 06:59 18:59 Intake Total 554.921 143 26 Output Total 3960 1025 300 Balance -3405.079 -882 -274 Weight 109.6 kg Intake: IV 299 143 26 A-line 39 33 6 Sodium Chloride 0.9% 1, 260 110 20 000 ml @ 75 mls/hr IV . [id number] [facility] Rx#:[id number] Intake, IV Titration 120.921 Amount propofoL 1,000 mg In 120.921 Empty Bag 1 bag @ 15 MCG/ KG/MIN 9.936 mls/hr IV . Q10H4M [facility] Rx#:[id number] Tube Feeding 105 Other 30 Output: Urine 3960 1025 300 Other: Voiding Method Indwelling Catheter Indwelling Catheter ABP, PAP, CO, CI - Last Documented Arterial Blood Pressure 125/85 - Exam General appearance: The patient is alert and oriented. HET: Head is normocephalic and atraumatic. Neck: Supple. Heart: Regular. Lungs: Equal expansion. Abdomen: Soft, nondistended. Extremities: Right lower extremity below the knee amputation with sulaiman well- approximated. [place] drain in place with small amount of serosanguineous drainage. Surrounding tissue pink, warm. Neurological: Alert and oriented. - Labs CBC & Chem 7: 09/20/23 05:00 09/20/23 05:00 Labs: Abnormal Lab Results - Last 24 Hours (Table) 09/19/23 09/19/23 09/20/23 Range/Units 12:03 13:04 05:00 WBC (3.8-10.6) k/uL RBC (4.30-5.90) m/uL Hgb (13.0-17.5) gm/dL Hct (39.0-53.0) % RDW (11.5-15.5) % Neutrophils # (Manual) (1.3-7.7) k/uL Metamyelocytes # (Man) (0) k/uL Myelocytes # (Manual) (0) k/uL Nucleated RBCs (0-0) /100 WBC APTT 58.6 H (22.0-30.0) sec ABG pH 7.46 H (7.35-7.45) ABG pO2 82 L (83-108) mmHg ABG HCO3 27 H (21-25) mmol/L ABG Total CO2 28 H (19-24) mmol/L ABG O2 Saturation 97.3 H (94-97) % Chloride (98-107) mmol/L BUN (9-20) mg/dL Creatinine (0.66-1.25) mg/dL Glucose (74-99) mg/dL POC Glucose (mg/dL) 132 H (70-110) mg/dL 09/20/23 09/20/23 09/20/23 Range/Units 05:00 05:00 05:09 WBC 12.6 H (3.8-10.6) k/uL RBC 2.87 L (4.30-5.90) m/uL Hgb 8.6 L (13.0-17.5) gm/dL Hct 27.9 L (39.0-53.0) % RDW 16.2 H (11.5-15.5) % Neutrophils # (Manual) 10.46 H (1.3-7.7) k/uL Metamyelocytes # (Man) 0.13 H (0) k/uL Myelocytes # (Manual) 0.25 H (0) k/uL Nucleated RBCs 3 H (0-0) /100 WBC APTT (22.0-30.0) sec ABG pH (7.35-7.45) ABG pO2 (83-108) mmHg ABG HCO3 (21-25) mmol/L ABG Total CO2 (19-24) mmol/L ABG O2 Saturation (94-97) % Chloride 115 H (98-107) mmol/L BUN 24 H (9-20) mg/dL Creatinine 0.53 L (0.66-1.25) mg/dL Glucose 110 H (74-99) mg/dL POC Glucose (mg/dL) 113 H (70-110) mg/dL Assessment and Plan Assessment: 1. Right lower extremity acute critical limb ischemia status post right below the knee amputation 2. Right SFA and popliteal artery occlusion 3. Status post open thrombectomy right SFA, popliteal artery, anterior tibial artery, peroneal artery and posterior tibial artery with endarterectomy and patch angioplasty of popliteal artery and tibioperoneal trunk. 4 compartment fasciotomy 4. Status post tPA infusion, stenting of right popliteal/SFA and balloon angioplasty of right anterior tibial and right posterior tibial artery 5. Left groin hematoma 6. History of DVTs 7. History of popliteal artery stent 8. Factor V Leiden 9. Atrial fibrillation Plan: 1. Continue with knee immobilizer 2. Referral for stump manager rn case and rigid dressing to [facility] 3. May resume oral anticoagulation 4. Recommend physical therapy 5. Continue with recommendations from cardiology Thank you for this consultation, patient is cleared from vascular surgery once otherwise medically stable. The impression and plan of care has been dictated as directed. Dr. Mccormack I performed a history and examination of this patient, discussed the same with the dictator. I agree with the dictator's note ,documented as a scribe. Any additional findings or plans will be noted.
--- NOTE | 2023-09-20 15:11 | P.PN ---
Subjective Progress Note Date: 09/20/23 Patient is [id number] male admitted for peripheral arterial disease and patient will undergo intervention for this. Patient has severe pain in the right lower extremity, right lower extremity CTA showed occluded superficial femoral artery including the stent in the distal right superficial femoral a rtery occluded stent in the right popliteal occluded right calf artery arteries and moderate focal stenosis of origin of the right deep femoral artery. Patient is on 75 mg of Plavix and also Xarelto. Patient denies any chest pain was having shortness of breath and wheezing patient does have history of COPD continues to smoke. Patient was started on systemic steroids and additional treatments after which wheezing did improve. Vascular surgery evaluated the patient and planning on intervention for severe right lower extremity peripheral vascular disease. 09/14/2023 Patient is evaluated in follow-up today in the intensive care unit. He is status post Right lower extremity angiography with successful placement of ATP infusion cath in right popliteal artery and right SFA. Patient continues to report significant pain to his right lower extremity and his foot remains cool to palpation. Nursing staff was having difficulty with a Doppler pulse today to the right dorsalis pedis. Patient is requiring IV Dilaudid in addition to IV morphine for pain control. We would recommend to add Lyrica at this point for the neuropathic pain. He does report feeling less short of breath today does still have some faint scattered wheezing. 09/15/2023 Patient is evaluated today in follow up in the ICU. 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 Awaiting repeat angiography. Vascular services was consulted for evaluation. Continues with pain management and patient reports some improvement with added lyrica. Blood pressure remains elevated 151/100, 94% on 2L. Heart rate 103. 09/16/2023 Patient is evaluated today in follow up in the ICU. Patient returned to the Full Time Staff Interpreter and underwent thrombectomy and stenting of the right popliteal and right SFA. Patient during the sheath pull in the period following was moving around in the bed and has developed an 18.3 x 28 x 21.2 cm hematoma of the left groin. There is significant bruising noted today. He does continue to report significant lower back pain and is requiring IV pain medication. He is on Lyrica for the neuropathic pain to the right leg. His foot is cool today and still unable to palpate pulse in the dorsalis pedis. Vascular will see the patient and are considering further vascular intervention at this time. His [facility] te blood cell count is 12.1, hemoglobin 10.8, platelet count of 63. Sodium 136, chloride 113, BUN of 21, creatinine of 0.63. 09/17/2023 Patient is evaluated today. He is currently intubated and sedated. Patient underwent open thrombectomy and fasciotomy yesterday. Today he will be taken for amputation right below the knee. Patient is on IV heparin. He is sedated with propofol. 09/18/2023 Patient is currently evaluated today in the intensive care unit. He remains on mechanical ventilator with an FiO2 out of 40%. Patient is sedated with propofol. He is postoperative day 1 right below the knee amputation secondary to critical limb ischemia. Patient remains on IV heparin infusion. He does continue a significant hematoma to the left groin. Patient is being hydrated normal saline running at 75 mL/h additionally he continues on IV Solu-Medrol 40 mg every 8 hours. Patient continues on [id number]. 09/19/2023 Patient is evaluated today resting in bed in the intensive care unit. Patient remains on mechanical ventilator and is currently intubated and sedated with propofol. Patient is postoperative day #2 right below the knee amputation secondary to critical limb ischemia. Patient remains on IV heparin. His hematoma to the left groin is soft and bruising is slightly improved however his scrotum remains quite ecchymotic. He continues on normal saline as well as IV Solu-Medrol. Repeat chest x-ray today reveals mild left basilar atelectasis. Significant ecchymosis to the left groin 09/20/2023 Patient is evaluated today in the intensive care unit. Patient has been successfully extubated. He is awake alert and oriented x 3. He is postoperative day #3 right below the knee amputation secondary to critical limb ischemia of the right leg. Patient remains on IV heparin and can be transition to oral anticoagulation per vascular. 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 He continues to report significant pain to his right lower extremity. Remains on a course of IV Dilaudid and started on the recall and will add Cymbalta for adjunct pain control. Blood work today reveals a white blood cell count of 17.1, sodium level of 142, potassium 4.5, BUN of 21, creatinine of 1.14. His blood glucose in the 130s. REVIEW OF Review of Systems Constitutional: Denied any fatigue denied any fever. Cardio vascular: denied any chest pain, palpitations Gastrointestinal: denied any nausea, vomiting, diarrhea Pulmonary: Denied any shortness of breath cough Neurologic denied any new focal deficits All inpatient medications were reviewed and appropriate changes in these medications as dictated in the interval history and assessment and plan. EXAMINATION: GENERAL: Currently intubated and sedated. Well developed, well nourished. Pale HEENT: Pupils are round and equally reacting to light. EOMI. No scleral icterus. No conjunctival pallor. Normocephalic, atraumatic. No pharyngeal erythema. No thyromegaly. CARDIOVASCULAR: S1 and S2 present. No murmurs, rubs, or gallops. PULMONARY: Expiratory wheezing which improved fairly good air entry to bilateral lower lung solis ABDOMEN: Soft, nontender, nondistended, normoactive bowel sounds. No palpable organomegaly. MUSCULOSKELETAL: No joint swelling or deformity. EXTREMITIES: As mentioned above NEUROLOGICAL: Gross neurological examination did not reveal any focal deficits. SKIN: No rashes. Oral is ecchymotic and swollen lower extremity edema is noted. Patient is now status post right BKA Assessment and plan -Severe peripheral artery disease with prior intervention of right lower extremity -Now with critical limb ischemia and is postoperative tPA infusion stenting of the right popliteal/FSA and balloon angioplasty of right anterior tibial and right posterior tibial artery. S/P right BKA postoperative day #2. Patient is on IV heparin. 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 Patient was started on systemic steroids and inhalation treatments -Lung cancer with mediastinal mets -Persistent atrial fibrillation on anticoagulation is being held on the outpatient basis for lung biopsy -Hyperlipidemia -Hypertension continues on metoprolol amlodipine added and PRN hydralazine. -History of factor V Leiden and DVT in the past -Type 2 diabetes mellitus on metformin which will be held as patient will undergo angiogram of the lower extremities patient will be on sliding scale insulin DVT prophylaxis: Patient is on IV heparin GI prophylaxis protonix Full Code Plan On IV heparin okay to transition to oral anticoagulation per cardiology Continue on IV solumedrol Monitor hematoma And nystatin cream for the groin excoriation Continues on IV Lasix daily Recommend to elevate the scrotal sac to help with edema show Repeat blood work in the AM Patient will be fitted for a stump judicial assistant and rigid dressing PT OT consultation The impression and plan of care has been dictated by Lila Elizondo, Nurse Practitioner as directed. Dr. Floyd MD I have performed a history and physical examination and medical decision making of this patient, discussed the same with the dictator, and agree with the dictators assessment and plan as written, documented as a scribe. Based on total visit time, I have performed more than 50% of this visit. Objective - Vital Signs Vital signs: Vital Signs Temp 98.4 F 09/20/23 08:00 Pulse 98 09/20/23 08:15 Resp 18 09/20/23 08:15 BP 102/64 09/20/23 08:00 Pulse Ox 96 09/20/23 08:00 FiO2 35 09/19/23 12:29 Intake & Output 09/19/23 09/20/23 09/20/23 18:59 06:59 18:59 Intake Total 554.921 143 26 Output Total 3960 1025 300 Balance -3405.079 -882 -274 Weight 109.6 kg Intake: IV 299 143 26 A-line 39 33 6 Sodium Chloride 0.9% 1, 260 110 20 000 ml @ 75 mls/hr IV . [id number] KEI Rx#:[id number] Intake, IV Titration 120.921 Amount propofoL 1,000 mg In 120.921 Empty Bag 1 bag @ 15 MCG/ KG/MIN 9.936 mls/hr IV . Q10H4M KEI Rx#:[id number] Tube Feeding 105 Other 30 Output: Urine 3960 1025 300 Other: Voiding Method Indwelling Catheter Indwelling Catheter ABP, PAP, CO, CI - Last Documented Arterial Blood Pressure 125/85 - Labs CBC & Chem 7: 09/20/23 05:00 09/20/23 05:00 Labs: Abnormal Lab Results - Last 24 Hours (Table) 09/19/23 09/19/23 09/20/23 Range/Units 12:03 13:04 05:00 WBC (3.8-10.6) k/uL RBC (4.30-5.90) m/uL Hgb (13.0-17.5) gm/dL Hct (39.0-53.0) % RDW (11.5-15.5) % Neutrophils # (Manual) (1.3-7.7) k/uL Metamyelocytes # (Man) (0) k/uL Myelocytes # (Manual) (0) k/uL Nucleated RBCs (0-0) /100 WBC APTT 58.6 H (22.0-30.0) sec ABG pH 7.46 H (7.35-7.45) ABG pO2 82 L (83-108) mmHg ABG HCO3 27 H (21-25) mmol/L ABG Total CO2 28 H (19-24) mmol/L ABG O2 Saturation 97.3 H (94-97) % Chloride (98-107) mmol/L BUN (9-20) mg/dL Creatinine (0.66-1.25) mg/dL Glucose (74-99) mg/dL POC Glucose (mg/dL) 132 H (70-110) mg/dL 09/20/23 09/20/23 09/20/23 Range/Units 05:00 05:00 05:09 WBC 12.6 H (3.8-10.6) k/uL RBC 2.87 L (4.30-5.90) m/uL Hgb 8.6 L (13.0-17.5) gm/dL Hct 27.9 L (39.0-53.0) % RDW 16.2 H (11.5-15.5) % Neutrophils # (Manual) 10.46 H (1.3-7.7) k/uL Metamyelocytes # (Man) 0.13 H (0) k/uL Myelocytes # (Manual) 0.25 H (0) k/uL Nucleated RBCs 3 H (0-0) /100 WBC APTT (22.0-30.0) sec ABG pH (7.35-7.45) ABG pO2 (83-108) mmHg ABG HCO3 (21-25) mmol/L ABG Total CO2 (19-24) mmol/L ABG O2 Saturation (94-97) % Chloride 115 H (98-107) mmol/L BUN 24 H (9-20) mg/dL Creatinine 0.53 L (0.66-1.25) mg/dL Glucose 110 H (74-99) mg/dL POC Glucose (mg/dL) 113 H (70-110) mg/dL Assessment and Plan Time with Patient: Less than 30
[2023-09-20] MEDS: RIVAROXABAN 20 MG TAB PO SCH (16:48)
[2023-09-20 17:45] LABS: Glucose,Whole Blood 139 mg/dL (70-110)
[2023-09-20 20:28] LABS: Glucose,Whole Blood 180 mg/dL (70-110)
[2023-09-20] MEDS: INSULIN ASPART (NovoLOG) 100 UNIT/ML VIAL SQ SCH (20:50)
[2023-09-21 06:14] LABS: Basophils % (A) 0 %; Eosinophils # (A) 0.1 k/uL (0-0.7); Eosinophils % (A) 0 %; HGB 8.6 gm/dL (13.0-17.5); Hypochromasia Marked; Lymphocytes # (A) 0.9 k/uL (1.0-4.8); Lymphocytes % (A) 6 %; MCH 29.7 pg (25.0-35.0); MCHC 29.8 g/dL (31.0-37.0); MCV 99.8 fL (80.0-100.0); Macrocytosis Slight; Mean Platelet Volume 9.2; Monocytes # (A) 0.8 k/uL (0-1.0); Monocytes % (A) 6 %; Neutrophils # (A) 11.6 k/uL (1.3-7.7); Neutrophils % (A) 86 %; Platelet Count 199 k/uL (150-450); RBC 2.91 m/uL (4.30-5.90); RDW 15.7 % (11.5-15.5); WBC 13.5 k/uL (3.8-10.6)
[2023-09-21 06:28] LABS: Glucose,Whole Blood 127 mg/dL (70-110)
[2023-09-21 06:49] LABS: African American GFR (CKD) >90 (>60 ml/min/1.73 sqM); Anion Gap 4 mmol/L; Blood Urea Nitrogen 21 mg/dL (9-20); Calcium 8.8 mg/dL (8.4-10.2); Carbon Dioxide 25 mmol/L (22-30); Chloride 111 mmol/L (98-107); Glucose 128 mg/dL (74-99); Non-African American GFR(CKD) >90 (>60 ml/min/1.73 sqM); Potassium 4.6 mmol/L (3.5-5.1); Sodium 140 mmol/L (137-145)
[2023-09-21] MEDS: metFORMIN 500 MG TAB PO SCH (09:20)
[2023-09-21] MEDS: DULoxetine HCL 30 MG CAPSULE.DR PO SCH ×2 (09:20→17:43)
--- NOTE | 2023-09-21 11:34 | P.PN ---
Subjective Progress Note Date: 09/21/23 Principal diagnosis: Right below the knee amputation. Patient is a 74-year-old white male with past medical history significant for coronary artery disease, diabetes mellitus, hyperlipidemia, hypertension, COPD, chronic ongoing tobacco dependence, obstructive sleep apnea, lung nodules, atrial fibrillation, factor V, and severe peripheral peripheral vascular disease. Of note, patient has severe peripheral arterial disease and has underwent previous stenting of the right SFA, he is chronically maintained on dual antiplatelet therapy including Plavix. Also, chronically anticoagulated on Xarelto. 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 Recently, patient was being worked up for suspicious right lower lung nodule and mediastinal lymphadenopathy, he was supposedly going to have a lung biopsy on September 15, and was directed to hold his Plavix 5 days prior and Xarelto 2 days prior. Reportedly, stopped both of these medications 5 days prior. Subsequently, started to notice right leg pain starting 4 days ago. This progressively worsens, and became severe early yesterday morning. He could not use this extremity or walk. Finally, came to the emergency department for evaluation early yesterday morning. CT angiography of the right lower extremity demonstrated an occluded right SFA, including the previous stent to the distal right SFA, stent to the right popliteal artery, as well as, occluded right calf arteries. There is moderate focal stenosis at the right deep femoral artery. Soft tissue swelling and fat stranding throughout the right foot, ankle, and right lower extremity leg. Yesterday evening, patient did undergo right lower extremity angiogram with successful placement of a tPA infusion catheter in the right popliteal artery and right SFA. On my evaluation, right foot remains cold and pulseless even with Doppler. Foot appears dusky in color. Patient does report severe right lower extremity pain and reduced mobility. Catheter directed tPA at 1 mg/h continuous. heparin also infusing at 500 units/h for catheter patency. No oozing or hematoma noted at left femoral sheath insertion site. CBC is unremarkable and hemoglobin is stable at 16.7 g/dL. Fibrinogen 283. CMP on arrival was fairly unremarkable. LFTs not elevated. Troponin 0.014. Normal saline infusing at 75 mL/h. Pain is being managed with a combination of as needed Dilaudid. Blood pressure is normotensive. Heart rhythm appears atrial fibrillation with controlled ventricular response of 80 to 100 bpm. Patient is currently fairly comfortable on 2 L/min nasal cannula, no respiratory distress. Patient states his breathing is fairly baseline. He continues to smoke 2 packs/day. Denies any infectious symptoms like change in his chronic cough, sputum production, fevers. Denies sick contacts. He has been started on a combination of DuoNebs and IV Solu- Medrol. He does have history of right lower lobe 2.3 cm pulmonary nodule. Recent PET scan done 08/20/2023 redemonstrates a posterior right lateral lung nodule with an SUV of 5.6, as well as, SUV avid mediastinal lymphadenopathy suspicious for metastasis. His scheduled lung biopsy, which will likely have to be rescheduled. Reportedly, plan is for patient to return to [facility] later this morning. Patient evaluated today on 09/15/2023, patient is basically about the same. Continues to have poor circulation down to the right foot, patient is complaining of pain, the right foot feels cold, no palpable pulses, no pulses noted in the dorsalis pedis or posterior tibial even with Doppler. Patient is going back to catheterization lab today, and Dr. Boucher will assess his tPA catheter, in the meantime he is recommending a vascular surgery consultation. Pulmonary [facility] no cough no wheezing no shortness of breath. Patient seems to be comfortable. On 2 L nasal cannula, O2 saturation is 94%. Patient remains on heparin at 500 units/h he is also still receiving alteplase via tPA catheter. Patient is going back to [facility] at 11:30 AM today WBC count is 14.1 hemoglobin 16.7 INR is 1.3 electrolytes are normal and renal profile is normal Patient was reevaluated today on 09/16/2023, remains in the ICU, remains on IV heparin, yesterday he underwent repeat angiogram, third look post tPA infusion he had mechanical thrombectomy from right SFA and right popliteal with stenting of the right popliteal/SFA and balloon angioplasty of the right anterior tibial and right posterior tibial artery by Dr. Boucher. Patient developed groin hematoma which is the access site, CT of the abdomen and pelvis reported large infiltrating hematoma along the anterior and lateral aspect of the left pelvis measuring 18.3 x 28 x 4.2. Continues to have pain and discomfort in the right lower extremity the foot is ischemic and cold to touch. Vascular surgery is planning right lower extremity open thrombectomy and possible right lower extremity fasciotomy. This will be likely done today. Pulmonary [facility] the patient has minimal shortness of breath, intermittent cough and wheezing, maintained on bronchodilators Patient was evaluated today on 09/17/2023, patient had his surgery yesterday, came back to the ICU intubated and mechanically ventilated, and he remains intubated at this point. He is on assist-control rate of 14 tidal volume 500 FiO2 40% and PEEP of 8 ABG showed a pO2 of 120 pCO2 39 pH of 7.42. Hence his FiO2 went down from 45% to 40%. Patient remains on heparin drip, remains on propofol at 40 mcg/kg/min, patient is on IV fluid at 2.9 normal saline running at 75 cc/h. Yesterday the patient underwent open thrombectomy of the right dunn perficial femoral artery, popliteal artery anterior tibial artery and peroneal artery and posterior tibial artery with endarterectomy and patch angioplasty to the popliteal artery and tibioperoneal trunk with 4 compartments for fasciotomy. However this morning his foot went cold again, and seems to be ischemic. No evidence of dorsalis pedis or posterior tibial signal on Doppler. The timing of loss of pulse is not noted and is not clear, and is not clear to me as at what point the vascular surgery was notified about loss of pulse. Vascular surgery is considering below-knee amputation due to critical limb ischemia. And this will likely be done today Patient was reevaluated today on 09/18/23, patient underwent right below-knee amputation yesterday. He is back in the ICU, he is now on heparin drip, he is also on assist-control rate of 14 tidal volume 500 FiO2 40% PEEP of 8 ABG showed a pO2 of 121 pCO2 40 pH of 7.39. Patient is on propofol at 45 mcg/kg/min IV fluid at 75 cc/h he is also on heparin drip. Patient is sedated, however I am planning to hold sedation, awakened the patient, and give the patient a weaning trial as well as weaning parameters. If tolerated may proceed to extubation. No further surgical plans are scheduled at this point for this patient. Chest x-ray showed minimal basilar atelectasis, no evidence of congestive heart failure no pneumonia. WBC count is 9.2 hemoglobin 8.3 PTT is 74.8 electrolytes are normal renal profile is normal Was evaluated today on 09/19/2023, patient is now postoperative day #2, underwent right below-knee amputation the day before yesterday. Remains on the ventilator, yesterday I tried to wean and extubate the patient, however the patient developed significant amount of secretions and he was gagging and coughing on the endotracheal tube, hence he had to be placed back on sedation, and could not wean and extubate. Today the patient seems to be [place], he is not in any distress, on mechanical ventilation, he is on assist-control rate 14 tidal volume 500 FiO2 40% and PEEP of 5 ABG showed a pO2 of 129 pCO2 36 pH of 7 .44, hence I cut down his FiO2 down to 35%. Patient had a chest x-ray that showed no significant findings except for mild prominence of the interstitium, and he will receive Lasix 20 mg IV push x 1. His IV fluid was cut down to KVO. He still on heparin he still on propofol at 35 mg/kg/min, and I plan to hold propofol and give the patient a trial of weaning possibly today and possibly extubation. WBC count is 9.1 hemoglobin 8.2 PTT is 53.9, basic metabolic profile is normal BUN is 21 creatinine 0.53 Progress note dated September 20, 2023. 73-year-old male seen today in room 267. The patient was admitted back on September 11, and on September 16, had a right below the knee amputation. He was admitted with a diagnosis of right lower extremity ischemia. The patient was intubated, and successfully extubated, on September 18. Currently, he is seen in room 267. He is on 2 L of oxygen. He is receiving IV heparin, and saline at KVO. The patient appears to be doing reasonably well. Current laboratory includes a white count 12.6, hemoglobin 8.6, hematocrit 27.9, and platelet count of 157,000. PTT is 58.6. Sodium 144, potassium 4.1, chlorides 115, CO2 25, BUN 24, creatinine 0.53. Calcium is 8.7. Magnesium is 2.2. Blood cultures are currently negative. Chest x-ray today shows basilar atelectasis. Progress note dated September 21, 2023. 74-year-old male seen again in room 267. The patient is resting comfortably in bed. The patient is on 3 L of oxygen by nasal cannula. He is getting saline at KVO. His Solu-Medrol be changed to prednisone 30 mg a day, in addition, his budesonide and formoterol updrafts will be changed to Symbicort 160/4.5, 2 puffs twice a day. Hopefully, we can transfer the patient to the general medical floor. Labs today include a white count 13.5, hemoglobin 8.6, hematocrit 29, platelet count 199,000. Sodium 140, potassium 4.6, chlorides 111, CO2 25, BUN 21, creatinine 0.49. Glucose is 127. Calcium is 8.8. Magnesium is 2.0. Blood cultures are currently negative. No chest x-ray today. Objective - Vital Signs Vital signs: Vital Signs Temp 98.2 F 09/21/23 08:00 Pulse 81 09/21/23 11:03 Resp 16 09/21/23 11:03 BP 129/87 09/21/23 10:00 Pulse Ox 98 09/21/23 10:00 FiO2 35 09/21/23 03:39 Intake & Output 09/20/23 09/21/23 09/21/23 18:59 06:59 18:59 Intake Total 846 110 40 Output Total 1650 1700 550 Balance -804 -1590 -510 Weight 109.6 kg 111.13 kg Intake: IV 96 110 40 A-line 6 Sodium Chloride 0.9% 1, 90 110 40 000 ml @ 75 mls/hr IV . [id number] [facility] Rx#:[id number] Intake, IV Titration 250 Amount Heparin Sod,Pork in 0.45% 250 NaCl 25,000 unit In 0.45 % NaCl 1 250ml.bag @ 18 UNITS/KG/HR 19.872 mls/hr IV .[id number] [facility] Rx#: [id number] Oral 500 Output: Urine 1650 1700 550 Other: Voiding Method Indwelling Catheter Indwelling Catheter Indwelling Catheter ABP, PAP, CO, CI - Last Documented Arterial Blood Pressure 126/66 - Exam No acute distress, oriented 3. The patient is currently on 3 L of oxygen. HEENT examination is grossly unremarkable. Mucous membranes are moist. No oral lesions. Neck supple. Full range of motion. No adenopathy thyromegaly or neck vein distention. Cardiovascular examination reveals regular rhythm rate. S1-S2 normal. No S3 or S4. No discernible murmur noted. Lungs reveal clear breath sounds. Breath sounds are equal bilaterally. No adventitious lung sounds including wheezes rhonchi or crackles. Abdomen soft bowel sounds are heard. No masses or tenderness. Extremities are intact. No cyanosis clubbing or edema. Right below the knee amputation. Skin is without rash or lesion. Neurologic examination is brief but nonfocal. - Labs CBC & Chem 7: 09/21/23 05:50 09/21/23 05:50 Labs: Abnormal Lab Results - Last 24 Hours (Table) 09/20/23 09/20/23 09/20/23 Range/Units 12:05 17:43 20:27 WBC (3.8-10.6) k/uL RBC (4.30-5.90) m/uL Hgb (13.0-17.5) gm/dL Hct (39.0-53.0) % MCHC (31.0-37.0) g/dL RDW (11.5-15.5) % Neutrophils # (1.3-7.7) k/uL Lymphocytes # (1.0-4.8) k/uL Chloride (98-107) mmol/L BUN (9-20) mg/dL Creatinine (0.66-1.25) mg/dL Glucose (74-99) mg/dL POC Glucose (mg/dL) 160 H 139 H 180 H (70-110) mg/dL 09/21/23 09/21/23 09/21/23 Range/Units 05:50 05:50 06:27 WBC 13.5 H (3.8-10.6) k/uL RBC 2.91 L (4.30-5.90) m/uL Hgb 8.6 L (13.0-17.5) gm/dL Hct 29.0 L (39.0-53.0) % MCHC 29.8 L (31.0-37.0) g/dL RDW 15.7 H (11.5-15.5) % Neutrophils # 11.6 H (1.3-7.7) k/uL Lymphocytes # 0.9 L (1.0-4.8) k/uL Chloride 111 H (98-107) mmol/L BUN 21 H (9-20) mg/dL Creatinine 0.49 L (0.66-1.25) mg/dL Glucose 128 H (74-99) mg/dL POC Glucose (mg/dL) 127 H (70-110) mg/dL Assessment and Plan Assessment: Postop day #4, status post right below the knee amputation, for critical right lower extremity ischemia. Routine postoperative ventilator management, successful extubation September 19, 2023. Right pulmonary nodule, suspicious for bronchogenic carcinoma. Severe peripheral artery disease, with previous stenting of the right SFA and right popliteal artery. Chronic and ongoing tobacco dependence. History of COPD. History of diabetes mellitus. History of hyperlipidemia. Benign essential hypertension. Chronic atrial fibrillation. History of factor V deficiency. History of DVT/pulmonary embolism. Obstructive sleep apnea syndrome. Morbid obesity. Plan: Plan dated September 20, 2023. The patient was successfully extubated yesterday. He continues in the intensive care unit. We encourage him to deep breathe, cough, clear secretions. The patient is currently on IV heparin. He is getting saline at KVO. He is on 2 L of oxygen. We will continue to follow make recommendations along the way. Labs, x-rays, and medications are reviewed. Prognosis is certainly guarded. Plan dated September 21, 2023. The patient is doing well. We will continue to follow the patient, make recommendations along the way. The patient is stable from my perspective to be transferred out of the unit. He is on 3 L of oxygen by nasal cannula. He is getting saline at KVO. Today we switch his Solu-Medrol to prednisone 30 mg a day, and changed to budesonide and formoterol updrafts, to Symbicort 160/4.5, 2 puffs twice a day. We will continue to follow. Prognosis is guarded. Labs, x- rays, and all medications are reviewed. Time with Patient: Less than 30
--- NOTE | 2023-09-21 11:39 | P.PN ---
Subjective Progress Note Date: 09/21/23 Principal diagnosis: Right lower extremity ischemic leg Patient seen and examined today as a follow-up. He postop day #4 of right below the knee amputation. He was seen by [facility] yesterday with stump line assembler applied. Pain has been well-managed. Objective - Vital Signs Vital signs: Vital Signs Temp 98.5 F 09/21/23 04:00 Pulse 97 09/21/23 08:05 Resp 20 09/21/23 08:05 BP 144/80 09/21/23 07:00 Pulse Ox 97 09/21/23 07:49 FiO2 35 09/21/23 03:39 Intake & Output 09/20/23 09/21/23 09/21/23 18:59 06:59 18:59 Intake Total 846 110 10 Output Total 1650 1700 150 Balance -804 -1590 -140 Weight 109.6 kg 111.13 kg Intake: IV 96 110 10 A-line 6 Sodium Chloride 0.9% 1, 90 110 10 000 ml @ 75 mls/hr IV . [id number] [facility] Rx#:[id number] Intake, IV Titration 250 Amount Heparin Sod,Pork in 0.45% 250 NaCl 25,000 unit In 0.45 % NaCl 1 250ml.bag @ 18 UNITS/KG/HR 19.872 mls/hr IV .[id number] [facility] Rx#: [id number] Oral 500 Output: Urine 1650 1700 150 Other: Voiding Method Indwelling Catheter Indwelling Catheter ABP, PAP, CO, CI - Last Documented Arterial Blood Pressure 126/66 - Exam General appearance: The patient is alert and oriented. HET: Head is normocephalic and atraumatic. Neck: Supple. Abdomen: Soft, nondistended. Extremities: Right lower extremity below the knee amputation with stump line assembler in place and knee immobilizer Neurological: Alert and oriented. - Labs CBC & Chem 7: 09/21/23 05:50 09/21/23 05:50 Labs: Abnormal Lab Results - Last 24 Hours (Table) 09/20/23 09/20/23 09/20/23 Range/Units 12:05 17:43 20:27 WBC (3.8-10.6) k/uL RBC (4.30-5.90) m/uL Hgb (13.0-17.5) gm/dL Hct (39.0-53.0) % MCHC (31.0-37.0) g/dL RDW (11.5-15.5) % Neutrophils # (1.3-7.7) k/uL Lymphocytes # (1.0-4.8) k/uL Chloride (98-107) mmol/L BUN (9-20) mg/dL Creatinine (0.66-1.25) mg/dL Glucose (74-99) mg/dL POC Glucose (mg/dL) 160 H 139 H 180 H (70-110) mg/dL 09/21/23 09/21/23 09/21/23 Range/Units 05:50 05:50 06:27 WBC 13.5 H (3.8-10.6) k/uL RBC 2.91 L (4.30-5.90) m/uL Hgb 8.6 L (13.0-17.5) gm/dL Hct 29.0 L (39.0-53.0) % MCHC 29.8 L (31.0-37.0) g/dL RDW 15.7 H (11.5-15.5) % Neutrophils # 11.6 H (1.3-7.7) k/uL Lymphocytes # 0.9 L (1.0-4.8) k/uL Chloride 111 H (98-107) mmol/L BUN 21 H (9-20) mg/dL Creatinine 0.49 L (0.66-1.25) mg/dL Glucose 128 H (74-99) mg/dL POC Glucose (mg/dL) 127 H (70-110) mg/dL Assessment and Plan Assessment: 1. Right lower extremity acute critical limb ischemia status post right below the knee amputation 2. Right SFA and popliteal artery occlusion 3. Status post open thrombectomy right SFA, popliteal artery, anterior tibial artery, peroneal artery and posterior tibial artery with endarterectomy and patch angioplasty of popliteal artery and tibioperoneal trunk. 4 compartment fasciotomy 4. Status post tPA infusion, stenting of right popliteal/SFA and balloon angiop lasty of right anterior tibial and right posterior tibial artery 5. Left groin hematoma 6. History of DVTs 7. History of popliteal artery stent 8. Factor V Leiden 9. Atrial fibrillation Plan: 1. Continue with knee immobilizer 2. Continue with daily dressing change with 4 x 4, Kerlix, stump line assembler and rigid dressing 3. May resume oral anticoagulation 4. Recommend physical therapy 5. Continue with recommendations from cardiology Thank you for this consultation, patient is cleared from vascular surgery once otherwise medically stable. We will sign off at this time. The impression and plan of care has been dictated as directed. Dr. Mccormack I performed a history and examination of this patient, discussed the same with the dictator. I agree with the dictator's note ,documented as a scribe. Any additional findings or plans will be noted.
[2023-09-21 11:44] LABS: Glucose,Whole Blood 133 mg/dL (70-110)
[2023-09-21 16:14] LABS: Glucose,Whole Blood 144 mg/dL (70-110)
[2023-09-21 19:41] LABS: Glucose,Whole Blood 112 mg/dL (70-110)
[2023-09-21] MEDS: SYMBICORT 160-4.5 MCG INHALER INHALATION SCH (20:08)
--- NOTE | 2023-09-21 21:18 | P.PN ---
Subjective Progress Note Date: 09/21/23 Patient is [id number] male admitted for peripheral arterial disease and patient will undergo intervention for this. Patient has severe pain in the right lower extremity, right lower extremity CTA showed occluded superficial femoral artery including the stent in the distal right superficial femoral a rtery occluded stent in the right popliteal occluded right calf artery arteries and moderate focal stenosis of origin of the right deep femoral artery. Patient is on 75 mg of Plavix and also Xarelto. Patient denies any chest pain was having shortness of breath and wheezing patient does have history of COPD continues to smoke. Patient was started on systemic steroids and additional treatments after which wheezing did improve. Vascular surgery evaluated the patient and planning on intervention for severe right lower extremity peripheral vascular disease. 09/14/2023 Patient is evaluated in follow-up today in the intensive care unit. He is status post Right lower extremity angiography with successful placement of ATP infusion cath in right popliteal artery and right SFA. Patient continues to report significant pain to his right lower extremity and his foot remains cool to palpation. Nursing staff was having difficulty with a Doppler pulse today to the right dorsalis pedis. Patient is requiring IV Dilaudid in addition to IV morphine for pain control. We would recommend to add Lyrica at this point for the neuropathic pain. He does report feeling less short of breath today does still have some faint scattered wheezing. 09/15/2023 Patient is evaluated today in follow up in the ICU. Patient returned to the label press operator and was found to have residual large right SFA thrombus and heparin was recommended to continue infusing overnight. Awaiting repeat angiography. Vascular services was consulted for evaluation. Continues with pain management and patient reports some improvement with added lyrica. Blood pressure remains elevated 151/100, 94% on 2L. Heart rate 103. 09/16/2023 Patient is evaluated today in follow up in the ICU. Patient returned to the Nurse Companion and underwent thrombectomy and stenting of the right popliteal and right SFA. Patient during the sheath pull in the period following was moving around in the bed and has developed an 18.3 x 28 x 21.2 cm hematoma of the left groin. There is significant bruising noted today. He does continue to report significant lower back pain and is requiring IV pain medication. He is on Lyrica for the neuropathic pain to the right leg. His foot is cool today and still unable to palpate pulse in the dorsalis pedis. Vascular will see the patient and are considering further vascular intervention at this time. His [facility] te blood cell count is 12.1, hemoglobin 10.8, platelet count of 63. Sodium 136, chloride 113, BUN of 21, creatinine of 0.63. 09/17/2023 Patient is evaluated today. He is currently intubated and sedated. Patient underwent open thrombectomy and fasciotomy yesterday. Today he will be taken for amputation right below the knee. Patient is on IV heparin. He is sedated with propofol. 09/18/2023 Patient is currently evaluated today in the intensive care unit. He remains on mechanical ventilator with an FiO2 out of 40%. Patient is sedated with propofol. He is postoperative day 1 right below the knee amputation secondary to critical limb ischemia. Patient remains on IV heparin infusion. He does continue a significant hematoma to the left groin. Patient is being hydrated normal saline running at 75 mL/h additionally he continues on IV Solu-Medrol 40 mg every 8 hours. Patient continues on [facility] [id number]. 09/19/2023 Patient is evaluated today resting in bed in the intensive care unit. Patient remains on mechanical ventilator and is currently intubated and sedated with propofol. Patient is postoperative day #2 right below the knee amputation secondary to critical limb ischemia. Patient remains on IV heparin. His hematoma to the left groin is soft and bruising is slightly improved however his scrotum remains quite ecchymotic. He continues on normal saline as well as IV Solu-Medrol. Repeat chest x-ray today reveals mild left basilar atelectasis. Significant ecchymosis to the left groin 09/20/2023 Patient is evaluated today in the intensive care unit. Patient has been successfully extubated. He is awake alert and oriented x 3. He is postoperative day #3 right below the knee amputation secondary to critical limb ischemia of the right leg. Patient remains on IV heparin and can be transition to oral anticoagulation per vascular. Patient will be getting stump cancer program consultant and rigid dressing today. He continues to report significant pain to his right lower extremity. Remains on a course of IV Dilaudid and started on the recall and will add Cymbalta for adjunct pain control. Blood work today reveals a white blood cell count of 17.1, sodium level of 142, potassium 4.5, BUN of 21, creatinine of 1.14. His blood glucose in the 130s. 09/21/2023 Patient is evaluated today in follow up on the medical floor. Patient has been transferred out of the ICU. He is postoperative day #4 right BKA. He will need subacute rehab. He has been transitioned to oral xarelto. He continues on IV dialudid, oral norco, lyrica and cymbalta for pain management. Hematoma to the left groin is improving. Labs today reveals a white blood cell count of 13.5, hgb 8.6, sodium 140, potassium 4.6, BUN 21, creatinine 0.49. REVIEW OF Review of Systems Constitutional: Denied any fatigue denied any fever. Cardio vascular: denied any chest pain, palpitations Gastrointestinal: denied any nausea, vomiting, diarrhea Pulmonary: Denied any shortness of breath cough Neurologic denied any new focal deficits All inpatient medications were reviewed and appropriate changes in these medications as dictated in the interval history and assessment and plan. EXAMINATION: GENERAL: Currently intubated and sedated. Well developed, well nourished. Pale HEENT: Pupils are round and equally reacting to light. EOMI. No scleral icterus. No conjunctival pallor. Normocephalic, atraumatic. No pharyngeal erythema. No thyromegaly. CARDIOVASCULAR: S1 and S2 present. No murmurs, rubs, or gallops. PULMONARY: Expiratory wheezing which improved fairly good air entry to bilateral lower lung solis ABDOMEN: Soft, nontender, nondistended, normoactive bowel sounds. No palpable organomegaly. MUSCULOSKELETAL: No joint swelling or deformity. EXTREMITIES: As mentioned above NEUROLOGICAL: Gross neurological examination did not reveal any focal deficits. SKIN: No rashes. Oral is ecchymotic and swollen lower extremity edema is noted. Patient is now status post right BKA Assessment and plan -Severe peripheral artery disease with prior intervention of right lower extremity -Now with critical limb ischemia and is postoperative tPA infusion stenting of the right popliteal/FSA and balloon angioplasty of right anterior tibial and right posterior tibial artery. S/P right BKA postoperative day #2. Patient is on IV heparin. 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 Patient was started on systemic steroids and inhalation treatments -Lung cancer with mediastinal mets -Persistent atrial fibrillation on anticoagulation is being held on the outpatient basis for lung biopsy -Hyperlipidemia -Hypertension continues on metoprolol amlodipine added and PRN hydralazine. -History of factor V Leiden and DVT in the past -Type 2 diabetes mellitus on metformin which will be held as patient will undergo angiogram of the lower extremities patient will be on sliding scale insulin DVT prophylaxis: Xarelto GI prophylaxis protonix Full Code Plan Started on oral xarelto Transitioned to oral prednisone Monitor hematoma And nystatin cream for the groin excoriation Lasix has been stopped. Recommend to elevate the scrotal sac to help with edema show Repeat blood work in the AM Patient will be fitted for a stump cancer program consultant and rigid dressing PT OT consultation patient will need subacute rehab on discharge. Patient has accepting facility but will need authorization which can be started he is close to discharge and possibly could go in the next 24 to 48 hours. The impression and plan of care has been dictated by Lila Elizondo Nurse Practitioner as directed. Dr. Floyd MD I have performed a history and physical examination and medical decision making of this patient, discussed the same with the dictator, and agree with the dictators assessment and plan as written, documented as a scribe. Based on total visit time, I have performed more than 50% of this visit. Objective - Vital Signs Vital signs: Vital Signs Temp 98.5 F 09/21/23 16:00 Pulse 88 09/21/23 20:22 Resp 20 09/21/23 17:00 BP 139/84 09/21/23 17:00 Pulse Ox 96 09/21/23 17:00 FiO2 35 09/21/23 03:39 Intake & Output 09/21/23 09/21/23 09/22/23 06:59 18:59 06:59 Intake Total 110 40 Output Total 1700 1475 Balance -1590 -1435 Weight 111.13 kg Intake: IV 110 40 Sodium Chloride 0.9% 1, 110 40 000 ml @ 75 mls/hr IV . [id number] [facility] Rx#:[id number] Output: Urine 1700 1475 Other: Voiding Method Indwelling Catheter Indwelling Catheter ABP, PAP, CO, CI - Last Documented Arterial Blood Pressure 126/66 - Labs CBC & Chem 7: 09/21/23 05:50 09/21/23 05:50 Labs: Abnormal Lab Results - Last 24 Hours (Table) 09/21/23 09/21/23 09/21/23 Range/Units 05:50 05:50 06:27 WBC 13.5 H (3.8-10.6) k/uL RBC 2.91 L (4.30-5.90) m/uL Hgb 8.6 L (13.0-17.5) gm/dL Hct 29.0 L (39.0-53.0) % MCHC 29.8 L (31.0-37.0) g/dL RDW 15.7 H (11.5-15.5) % Neutrophils # 11.6 H (1.3-7.7) k/uL Lymphocytes # 0.9 L (1.0-4.8) k/uL Chloride 111 H (98-107) mmol/L BUN 21 H (9-20) mg/dL Creatinine 0.49 L (0.66-1.25) mg/dL Glucose 128 H (74-99) mg/dL POC Glucose (mg/dL) 127 H (70-110) mg/dL 09/21/23 09/21/23 09/21/23 Range/Units 11:43 16:13 19:35 WBC (3.8-10.6) k/uL RBC (4.30-5.90) m/uL Hgb (13.0-17.5) gm/dL Hct (39.0-53.0) % MCHC (31.0-37.0) g/dL RDW (11.5-15.5) % Neutrophils # (1.3-7.7) k/uL Lymphocytes # (1.0-4.8) k/uL Chloride (98-107) mmol/L BUN (9-20) mg/dL Creatinine (0.66-1.25) mg/dL Glucose (74-99) mg/dL POC Glucose (mg/dL) 133 H 144 H 112 H (70-110) mg/dL Assessment and Plan Time with Patient: Less than 30
[2023-09-22 06:58] LABS: Glucose,Whole Blood 99 mg/dL (70-110)
[2023-09-22] MEDS: predniSONE 10 MG TAB PO SCH (10:00)
[2023-09-22 10:55] LABS: HGB 8.9 g/dL (13.0-17.0); MCH 29.1 pg (27.0-32.0); MCHC 30.7 g/dL (32.0-37.0); MCV 94.8 FL (80.0-97.0); NRBC Per 100 WBC 0.39 X 10*3/uL (0.00-0.01); Platelet Count 242 X 10*3/uL (140-440); RBC 3.06 X 10*6/uL (4.40-5.60); RDW 16.9 % (11.5-14.5); WBC 14.88 X 10*3/uL (4.50-10.00)
[2023-09-22 11:01] LABS: Calcium 8.8 mg/dL (8.7-10.3); Carbon Dioxide 24.3 mmol/L (21.6-31.8); Chloride 104 mmol/L (96-109); Glucose 91 mg/dL (70-110); Potassium 4.4 mmol/L (3.5-5.5); Sodium 140 mmol/L (135-145)
[2023-09-22 11:23] LABS: Lymphocytes # (M) 1.19 X 10*3/uL (0.90-5.00); Neutrophils % (M) 87 %; Nucleated Red Blood Cells 3 /100 WBCS
[2023-09-22 11:24] LABS: Basophils # (M) 0 X 10*3/uL (0.00-0.10); Eosinophils # (M) 0 X 10*3/uL (0.04-0.35); Myelocytes % 1 % (0-0); Neutrophils # (M) 12.95 X 10*3/uL (1.80-7.70)
[2023-09-22 12:03] LABS: Glucose,Whole Blood 120 mg/dL (70-110)
--- NOTE | 2023-09-22 14:55 | P.PN ---
Subjective Progress Note Date: 09/22/23 Patient is a 74-year-old white male with past medical history significant for coronary artery disease, diabetes mellitus, hyperlipidemia, hypertension, COPD, chronic ongoing tobacco dependence, obstructive sleep apnea, lung nodules, atrial fibrillation, factor V, and severe peripheral peripheral vascular disease. Of note, patient has severe peripheral arterial disease and has underwent previous stenting of the right SFA, he is chronically maintained on dual antiplatelet therapy including Plavix. Also, chronically anticoagulated on Xarelto. 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 Recently, patient was being worked up for suspicious right lower lung nodule and mediastinal lymphadenopathy, he was supposedly going to have a lung biopsy on September 15, and was directed to hold his Plavix 5 days prior and Xarelto 2 days prior. Reportedly, stopped both of these medications 5 days prior. Subsequently, started to notice right leg pain starting 4 days ago. This progressively worsens, and became severe early yesterday morning. He could not use this extremity or walk. Finally, came to the emergency department for evaluation early yesterday morning. CT angiography of the right lower extremity demonstrated an occluded right SFA, including the previous stent to the distal right SFA, stent to the right popliteal artery, as well as, occluded right calf arteries. There is moderate focal stenosis at the right deep femoral artery. Soft tissue swelling and fat stranding throughout the right foot, ankle, and right lower extremity leg. Yesterday evening, patient did undergo right lower extremity angiogram with successful placement of a tPA infusion catheter in the right popliteal artery and right SFA. On my evaluation, right foot remains cold and pulseless even with Doppler. Foot appears dusky in color. Patient does report severe right lower extremity pain and reduced mobility. Catheter directed tPA at 1 mg/h continuous. heparin also infusing at 500 units/h for catheter patency. No oozing or hematoma noted at left femoral sheath insertion site. CBC is unremarkable and hemoglobin is stable at 16.7 g/dL. Fibrinogen 283. CMP on arrival was fairly unremarkable. LFTs not elevated. Troponin 0.014. Normal saline infusing at 75 mL/h. Pain is being managed with a combination of as needed Dilaudid. Blood pressure is normotensive. Heart rhythm appears atrial fibrillation with controlled ventricular response of 80 to 100 bpm. Patient is currently fairly comfortable on 2 L/min nasal cannula, no respiratory distress. Patient states his breathing is fairly baseline. He continues to smoke 2 packs/day. Denies any infectious symptoms like change in his chronic cough, sputum production, fevers. Denies sick contacts. He has been started on a combination of DuoNebs and IV Solu- Medrol. He does have history of right lower lobe 2.3 cm pulmonary nodule. Recent PET scan done 08/20/2023 redemonstrates a posterior right lateral lung nodule with an SUV of 5.6, as well as, SUV avid mediastinal lymphadenopathy suspicious for metastasis. His scheduled lung biopsy, which will likely have to be rescheduled. Reportedly, plan is for patient to return to [facility] later this morning. Patient evaluated today on 09/15/2023, patient is basically about the same. Continues to have poor circulation down to the right foot, patient is complaining of pain, the right foot feels cold, no palpable pulses, no pulses noted in the dorsalis pedis or posterior tibial even with Doppler. Patient is going back to catheterization lab today, and Dr. Boucher will assess his tPA catheter, in the meantime he is recommending a vascular surgery consultation. Pulmonary [facility] no cough no wheezing no shortness of breath. Patient seems to be comfortable. On 2 L nasal cannula, O2 saturation is 94%. Patient remains on heparin at 500 units/h he is also still receiving alteplase via tPA catheter. Patient is going back to [facility] at 11:30 AM today WBC count is 14.1 hemoglobin 16.7 INR is 1.3 electrolytes are normal and renal profile is normal Patient was reevaluated today on 09/16/2023, remains in the ICU, remains on IV heparin, yesterday he underwent repeat angiogram, third look post tPA infusion he had mechanical thrombectomy from right SFA and right popliteal with stenting of the right popliteal/SFA and balloon angioplasty of the right anterior tibial and right posterior tibial artery by Dr. Boucher. Patient developed groin hematoma which is the access site, CT of the abdomen and pelvis reported large infiltrating hematoma along the anterior and lateral aspect of the left pelvis measuring 18.3 x 28 x 4.2. Continues to have pain and discomfort in the right lower extremity the foot is ischemic and cold to touch. Vascular surgery is planning right lower extremity open thrombectomy and possible right lower ext remity fasciotomy. This will be likely done today. Pulmonary solis the patient has minimal shortness of breath, intermittent cough and wheezing, maintained on bronchodilators Patient was evaluated today on 09/17/2023, patient had his surgery yesterday, came back to the ICU intubated and mechanically ventilated, and he remains intubated at this point. He is on assist-control rate of 14 tidal volume 500 FiO2 40% and PEEP of 8 ABG showed a pO2 of 120 pCO2 39 pH of 7.42. Hence his FiO2 went down from 45% to 40%. Patient remains on heparin drip, remains on propofol at 40 mcg/kg/min, patient is on IV fluid at 2.9 normal saline running at 75 cc/h. Yesterday the patient underwent open thrombectomy of the right superficial femoral artery, popliteal artery anterior tibial artery and peroneal artery and posterior tibial artery with endarterectomy and patch angioplasty to the popliteal artery and tibioperoneal trunk with 4 compartments for fasciotomy. However this morning his foot went cold again, and seems to be ischemic. No evidence of dorsalis pedis or posterior tibial signal on Doppler. The timing of loss of pulse is not noted and is not clear, and is not clear to me as at what point the vascular surgery was notified about loss of pulse. Vascular surgery is considering below-knee amputation due to critical limb ischemia. And this will likely be done today Patient was reevaluated today on 09/18/23, patient underwent right below-knee amputation yesterday. He is back in the ICU, he is now on heparin drip, he is also on assist-control rate of 14 tidal volume 500 FiO2 40% PEEP of 8 ABG showed a pO2 of 121 pCO2 40 pH of 7.39. Patient is on propofol at 45 mcg/kg/min IV fluid at 75 cc/h he is also on heparin drip. Patient is sedated, however I am planning to hold sedation, awakened the patient, and give the patient a weaning trial as well as weaning parameters. If tolerated may proceed to extubation. No further surgical plans are scheduled at this point for this patient. Chest x-ray showed minimal basilar atelectasis, no evidence of congestive heart failure no pneumonia. WBC count is 9.2 hemoglobin 8.3 PTT is 74.8 electrolytes are normal renal profile is normal Was evaluated today on 09/19/2023, patient is now postoperative day #2, underwent right below-knee amputation the day before yesterday. Remains on the ventilator, yesterday I tried to wean and extubate the patient, however the patient developed significant amount of secretions and he was gagging and coughing on the endotracheal tube, hence he had to be placed back on sedation, and could not wean and extubate. Today the patient seems to be [place], he is not in any distress, on mechanical ventilation, he is on assist-control rate 14 tidal volume 500 FiO2 40% and PEEP of 5 ABG showed a pO2 of 129 pCO2 36 pH of 7.44, hence I cut down his FiO2 down to 35%. Patient had a chest x-ray that showed no significant findings except for mild prominence of the interstitium, and he will receive Lasix 20 mg IV push x 1. His IV fluid was cut down to KVO. He still on heparin he still on propofol at 35 mg/kg/min, and I plan to hold propofol and give the patient a trial of weaning possibly today and possibly extubation. WBC count is 9.1 hemoglobin 8.2 PTT is 53.9, basic metabolic profile is normal BUN is 21 creatinine 0.53 Progress note dated September 20, 2023. 73-year-old male seen today in room 267. The patient was admitted back on September 11, and on September 16, had a right below the knee amputation. He was admitted with a diagnosis of right lower extremity ischemia. The patient was intubated, and successfully extubated, on September 18. Currently, he is seen in room 267. He is on 2 L of oxygen. He is receiving IV heparin, and saline at KVO. The patient appears to be doing reasonably well. Current laboratory includes a white count 12.6, hemoglobin 8.6, hematocrit 27.9, and platelet count of 157,000. PTT is 58.6. Sodium 144, potassium 4.1, chlorides 115, CO2 25, BUN 24, creatinine 0.53. Calcium is 8.7. Magnesium is 2.2. Blood cultures are currently negative. Chest x-ray today shows basilar atelectasis. Progress note dated September 21, 2023. 74-year-old male seen again in room 267. The patient is resting comfortably in bed. The patient is on 3 L of oxygen by nasal cannula. He is getting saline at KVO. His Solu-Medrol be changed to prednisone 30 mg a day, in addition, his bu desonide and formoterol updrafts will be changed to Symbicort 160/4.5, 2 puffs twice a day. Hopefully, we can transfer the patient to the general medical floor. Labs today include a white count 13.5, hemoglobin 8.6, hematocrit 29, platelet count 199,000. Sodium 140, potassium 4.6, chlorides 111, CO2 25, BUN 21, creatinine 0.49. Glucose is 127. Calcium is 8.8. Magnesium is 2.0. Blood cultures are currently negative. No chest x-ray today. The patient is seen today September 22, 2023 in follow-up on the regular medical floor. Postoperative day #5 of a right below the knee amputation. He is awake and alert in no acute distress. Resting fairly comfortably in bed. Maintaining good O2 saturations in the 90s on 4 L/min per nasal cannula. Has been afebrile. Hemodynamically stable. Blood cultures revealed no growth. White count 14.8. Hemoglobin 8.9. Platelets 242. Sodium 140. Potassium 4.4. Bicarb 24. BUN 21. Creatinine 0.7. Glucose 91. He remains on dual, prednisone taper. NicoDerm patch in place. Objective - Vital Signs Vital signs: Vital Signs Temp 97.9 F 09/22/23 12:52 Pulse 88 09/22/23 12:52 Resp 16 09/22/23 12:52 BP 100/65 09/22/23 12:52 Pulse Ox 98 09/22/23 12:52 FiO2 32 09/22/23 05:08 Intake & Output 09/21/23 09/22/23 09/22/23 18:59 06:59 18:59 Intake Total 40 400 1477 Output Total 8956 901 8006 Balance -1435 -300 377 Intake: IV 40 Sodium Chloride 0.9% 1, 40 000 ml @ 75 mls/hr IV . [id number] [facility] Rx#:[id number] Oral 400 1477 Output: Urine 9182 535 [id number] Other: Voiding Method Indwelling Catheter Urinal Incontinent # Voids 4 ABP, PAP, CO, CI - Last Documented Arterial Blood Pressure 126/66 - Exam GENERAL EXAM: Alert, pleasant 73-year-old male, resting in bed, on 4 L nasal cannula, comfortable in no apparent distress. HEAD: Normocephalic. EYES: Normal reaction of pupils, equal size. NOSE: Clear with pink turbinates. THROAT: No erythema or exudates. NECK: No masses, no JVD. CHEST: No chest wall deformity. LUNGS: Equal air entry with faint end expiratory wheeze, diminished. CVS: S1 and S2 normal with no audible murmur, regular rhythm. ABDOMEN: No hepatosplenomegaly, normal bowel sounds, no guarding or rigidity. SPINE: No scoliosis or deformity SKIN: No rashes CENTRAL NERVOUS SYSTEM: No focal deficits, tone is normal in all 4 extremities. 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 Knee immobilizer in place. No clubbing, no cyanosis. Peripheral pulses are intact. - Labs CBC & Chem 7: 09/22/23 05:38 09/22/23 05:42 Labs: Abnormal Lab Results - Last 24 Hours (Table) 09/21/23 09/21/23 09/22/23 Range/Units 16:13 19:35 05:38 WBC 14.88 H (4.50-10.00) X 10*3/uL RBC 3.06 L (4.40-5.60) X 10*6/uL Hgb 8.9 L (13.0-17.0) g/dL Hct 29.0 L (39.6-50.0) % MCHC 30.7 L (32.0-37.0) g/dL RDW 16.9 H (11.5-14.5) % Neutrophils # (Manual) 12.95 H (1.80-7.70) X 10*3/uL Eosinophils # (Manual) 0 L (0.04-0.35) X 10*3/uL NRBC/100 WBC Diff 0.39 H (0.00-0.01) X 10*3/uL BUN/Creatinine Ratio (12.00-20.00) Ratio POC Glucose (mg/dL) 144 H 112 H (70-110) mg/dL 09/22/23 09/22/23 Range/Units 05:42 12:01 WBC (4.50-10.00) X 10*3/uL RBC (4.40-5.60) X 10*6/uL Hgb (13.0-17.0) g/dL Hct (39.6-50.0) % MCHC (32.0-37.0) g/dL RDW (11.5-14.5) % Neutrophils # (Manual) (1.80-7.70) X 10*3/uL Eosinophils # (Manual) (0.04-0.35) X 10*3/uL NRBC/100 WBC Diff (0.00-0.01) X 10*3/uL BUN/Creatinine Ratio 30.00 H (12.00-20.00) Ratio POC Glucose (mg/dL) 120 H (70-110) mg/dL Assessment and Plan Assessment: Postop day #4, status post right below the knee amputation, for critical right lower extremity ischemia Routine postoperative ventilator management, successful extubation September 19, 2023 Right pulmonary nodule, suspicious for bronchogenic carcinoma Severe peripheral artery disease, with previous stenting of the right SFA and right popliteal artery Chronic and ongoing tobacco dependence History of COPD History of diabetes mellitus History of hyperlipidemia Benign essential hypertension Chronic atrial fibrillation History of factor V deficiency History of DVT/pulmonary embolism Obstructive sleep apnea syndrome Morbid obesity Plan: The plan patient was seen and evaluated Medications and labs reviewed Currently stable and on 4 L nasal cannula Titrate down the FiO2 as tolerated Increase use of the incentive spirometer Continue bronchodilators, steroids NicoDerm patch in place Educated regarding the importance of smoking cessation Plan is for subacute rehabilitation at discharge This patient was seen independently by the pulmonary nurse practitioner addressing pulmonary issues I have personally seen and examined the patient, performed the documentation and the assessment and plan as written. Number of minutes spent on the visit: 25.
[2023-09-22 17:01] LABS: Glucose,Whole Blood 155 mg/dL (70-110)
[2023-09-22 19:56] LABS: Glucose,Whole Blood 124 mg/dL (70-110)
--- NOTE | 2023-09-22 21:53 | P.PN ---
Subjective Progress Note Date: 09/22/23 Patient is [id number] male admitted for peripheral arterial disease and patient will undergo intervention for this. Patient has severe pain in the right lower extremity, right lower extremity CTA showed occluded superficial femoral artery including the stent in the distal right superficial femoral a rtery occluded stent in the right popliteal occluded right calf artery arteries and moderate focal stenosis of origin of the right deep femoral artery. Patient is on 75 mg of Plavix and also Xarelto. Patient denies any chest pain was having shortness of breath and wheezing patient does have history of COPD continues to smoke. Patient was started on systemic steroids and additional treatments after which wheezing did improve. Vascular surgery evaluated the patient and planning on intervention for severe right lower extremity peripheral vascular disease. 09/14/2023 Patient is evaluated in follow-up today in the intensive care unit. He is status post Right lower extremity angiography with successful placement of ATP infusion cath in right popliteal artery and right SFA. Patient continues to report significant pain to his right lower extremity and his foot remains cool to palpation. Nursing staff was having difficulty with a Doppler pulse today to the right dorsalis pedis. Patient is requiring IV Dilaudid in addition to IV morphine for pain control. We would recommend to add Lyrica at this point for the neuropathic pain. He does report feeling less short of breath today does still have some faint scattered wheezing. 09/15/2023 Patient is evaluated today in follow up in the ICU. 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 Awaiting repeat angiography. Vascular services was consulted for evaluation. Continues with pain management and patient reports some improvement with added lyrica. Blood pressure remains elevated 151/100, 94% on 2L. Heart rate 103. 09/16/2023 Patient is evaluated today in follow up in the ICU. Patient returned to the [facility] and underwent thrombectomy and stenting of the right popliteal and right SFA. Patient during the sheath pull in the period following was moving around in the bed and has developed an 18.3 x 28 x 21.2 cm hematoma of the left groin. There is significant bruising noted today. He does continue to report significant lower back pain and is requiring IV pain medication. He is on Lyrica for the neuropathic pain to the right leg. His foot is cool today and still unable to palpate pulse in the dorsalis pedis. Vascular will see the patient and are considering further vascular intervention at this time. His [facility] blood cell count is 12.1, hemoglobin 10.8, platelet count of 63. Sodium 136, chloride 113, BUN of 21, creatinine of 0.63. 09/17/2023 Patient is evaluated today. He is currently intubated and sedated. Patient underwent open thrombectomy and fasciotomy yesterday. Today he will be taken for amputation right below the knee. Patient is on IV heparin. He is sedated with propofol. 09/18/2023 Patient is currently evaluated today in the intensive care unit. He remains on mechanical ventilator with an FiO2 out of 40%. Patient is sedated with propofol. He is postoperative day 1 right below the knee amputation secondary to critical limb ischemia. Patient remains on IV heparin infusion. He does continue a significant hematoma to the left groin. Patient is being hydrated normal saline running at 75 mL/h additionally he continues on IV Solu-Medrol 40 mg every 8 hours. Patient continues on [facility] [id number]. 09/19/2023 Patient is evaluated today resting in bed in the intensive care unit. Patient remains on mechanical ventilator and is currently intubated and sedated with propofol. Patient is postoperative day #2 right below the knee amputation secondary to critical limb ischemia. Patient remains on IV heparin. His hematoma to the left groin is soft and bruising is slightly improved however his scrotum remains quite ecchymotic. He continues on normal saline as well as IV Solu-Medrol. Repeat chest x-ray today reveals mild left basilar atelectasis. Significant ecchymosis to the left groin 09/20/2023 Patient is evaluated today in the intensive care unit. Patient has been successfully extubated. He is awake alert and oriented x 3. He is postoperative day #3 right below the knee amputation secondary to critical limb ischemia of the right leg. Patient remains on IV heparin and can be transition to oral anticoagulation per vascular. 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 He continues to report significant pain to his right lower extremity. Remains on a course of IV Dilaudid and started on the recall and will add Cymbalta for adjunct pain control. Blood work today reveals a white blood cell count of 17.1, sodium level of 142, potassium 4.5, BUN of 21, creatinine of 1.14. His blood glucose in the 130s. 09/21/2023 Patient is evaluated today in follow up on the medical floor. Patient has been transferred out of the ICU. He is postoperative day #4 right BKA. He will need subacute rehab. He has been transitioned to oral xarelto. He continues on IV dialudid, oral norco, lyrica and cymbalta for pain management. Hematoma to the left groin is improving. Labs today reveals a white blood cell count of 13.5, hgb 8.6, sodium 140, potassium 4.6, BUN 21, creatinine 0.49. 09/22/2023 Patient is evaluated today on the medical floor. Patient is postoperative day #5 right BKA. Patient remains on oral xarelto. Patient continues on lyrica. [place] will be increased. Labs today reveal white blood cell count of 14.88, hgb 8.9. S odium 140, potassium 4.4, BUN 21, creatinine 0.7. REVIEW OF Review of Systems Constitutional: Denied any fatigue denied any fever. Cardio vascular: denied any chest pain, palpitations Gastrointestinal: denied any nausea, vomiting, diarrhea Pulmonary: Denied any shortness of breath cough Neurologic denied any new focal deficits All inpatient medications were reviewed and appropriate changes in these medications as dictated in the interval history and assessment and plan. EXAMINATION: GENERAL: Currently intubated and sedated. Well developed, well nourished. Pale HEENT: Pupils are round and equally reacting to light. EOMI. No scleral icterus. No conjunctival pallor. Normocephalic, atraumatic. No pharyngeal erythema. No thyromegaly. CARDIOVASCULAR: S1 and S2 present. No murmurs, rubs, or gallops. PULMONARY: Expiratory wheezing which improved fairly good air entry to bilateral lower lung [place] ABDOMEN: Soft, nontender, nondistended, normoactive bowel sounds. No palpable organomegaly. MUSCULOSKELETAL: No joint swelling or deformity. EXTREMITIES: As mentioned above NEUROLOGICAL: Gross neurological examination did not reveal any focal deficits. SKIN: No rashes. Oral is ecchymotic and swollen lower extremity edema is noted. Patient is now status post right BKA Assessment and plan -Severe peripheral artery disease with prior intervention of right lower extremity -Now with critical limb ischemia and is postoperative tPA infusion stenting of the right popliteal/FSA and balloon angioplasty of right anterior tibial and right posterior tibial artery. S/P right BKA postoperative day #4. Transitioned to xarelto. Left groin hematoma -Acute on chronic hypoxic and hypercapnic respiratory failure: Secondary to COPD exacerbation -Lung cancer with mediastinal mets -Persistent atrial fibrillation on anticoagulation is being held on the outpatient basis for lung biopsy -Hyperlipidemia -Hypertension continues on metoprolol amlodipine added and PRN hydralazine. -History of factor V Leiden and DVT in the past -Type 2 diabetes mellitus on metformin which will be held as patient will undergo angiogram of the lower extremities patient will be on sliding scale insulin DVT prophylaxis: Xarelto GI prophylaxis protonix Full Code Plan Started on oral xarelto Transitioned to oral prednisone Monitor hematoma And nystatin cream for the groin excoriation Lasix has been stopped. Recommend to elevate the scrotal sac to help with edema show Repeat blood work in the AM Patient will be fitted for a stump chicken handler and rigid dressing PT OT consultation patient will need subacute rehab on discharge. Patient has accepting facility but will need authorization which can be started he is close to discharge and possibly could go in the next 24 to 48 hours. The impression and plan of care has been dictated by Lila Elizondo, Nurse Practitioner as directed. Dr. Floyd MD I have performed a history and physical examination and medical decision making of this patient, discussed the same with the dictator, and agree with the dictators assessment and plan as written, documented as a scribe. Based on total visit time, I have performed more than 50% of this visit. Objective - Vital Signs Vital signs: Vital Signs Temp 98.2 F 09/22/23 07:02 Pulse 70 09/22/23 11:43 Resp 16 09/22/23 07:02 BP 102/65 09/22/23 07:02 Pulse Ox 93 L 09/22/23 07:02 FiO2 32 09/22/23 05:08 Intake & Output 09/21/23 09/22/23 09/22/23 18:59 06:59 18:59 Intake Total 40 400 237 Output Total 1475 700 Balance -1435 -300 237 Intake: IV 40 Sodium Chloride 0.9% 1, 40 000 ml @ 75 mls/hr IV . [id number] [facility] Rx#:[id number] Oral 400 237 Output: Urine 1475 700 Other: Voiding Method Indwelling Catheter Urinal Incontinent ABP, PAP, CO, CI - Last Documented Arterial Blood Pressure 126/66 - Labs CBC & Chem 7: 09/22/23 05:38 09/22/23 05:42 Labs: Abnormal Lab Results - Last 24 Hours (Table) 09/21/23 09/21/23 09/22/23 Range/Units 16:13 19:35 05:38 WBC 14.88 H (4.50-10.00) X 10*3/uL RBC 3.06 L (4.40-5.60) X 10*6/uL Hgb 8.9 L (13.0-17.0) g/dL Hct 29.0 L (39.6-50.0) % MCHC 30.7 L (32.0-37.0) g/dL RDW 16.9 H (11.5-14.5) % Neutrophils # (Manual) 12.95 H (1.80-7.70) X 10*3/uL Eosinophils # (Manual) 0 L (0.04-0.35) X 10*3/uL NRBC/100 WBC Diff 0.39 H (0.00-0.01) X 10*3/uL BUN/Creatinine Ratio (12.00-20.00) Ratio POC Glucose (mg/dL) 144 H 112 H (70-110) mg/dL 09/22/23 09/22/23 Range/Units 05:42 12:01 WBC (4.50-10.00) X 10*3/uL RBC (4.40-5.60) X 10*6/uL Hgb (13.0-17.0) g/dL Hct (39.6-50.0) % MCHC (32.0-37.0) g/dL RDW (11.5-14.5) % Neutrophils # (Manual) (1.80-7.70) X 10*3/uL Eosinophils # (Manual) (0.04-0.35) X 10*3/uL NRBC/100 WBC Diff (0.00-0.01) X 10*3/uL BUN/Creatinine Ratio 30.00 H (12.00-20.00) Ratio POC Glucose (mg/dL) 120 H (70-110) mg/dL Assessment and Plan Time with Patient: Less than 30
[2023-09-23 05:13] LABS: Appearance,Urine Clear (Clear); Bacteria,Urine Rare /hpf; Bilirubin,Urine Negative (Negative); Blood,Urine Trace (Negative); Color,Urine Light Yellow; Glucose,Urine (UA) Negative (Negative); Ketones,Urine Negative (Negative); Leukocyte Esterase,Urine Small (Negative); Mucus,Urine Rare /hpf; Nitrite,Urine Negative (Negative); Protein,Urine Negative (Negative); RBC,Urine 5 /hpf (0-5); Specific Gravity,Urine 1.013 (1.001-1.035); Squamous Epithelial Cell,Urine <1 /hpf (0-4); WBC,Urine 8 /hpf (0-5)
[2023-09-23 07:38] LABS: Glucose,Whole Blood 95 mg/dL (70-110)
[2023-09-23 08:43] LABS: HCT 28.1 % (39.6-50.0); HGB 8.7 g/dL (13.0-17.0); MCH 29.6 pg (27.0-32.0); MCV 95.6 FL (80.0-97.0); NRBC Per 100 WBC 0.27 X 10*3/uL (0.00-0.01); Platelet Count 251 X 10*3/uL (140-440); RBC 2.94 X 10*6/uL (4.40-5.60); WBC 11.92 X 10*3/uL (4.50-10.00)
[2023-09-23] MEDS: HYDROcodone/APAP 7.5-325MG 1 EACH TAB PO PRN (08:50)
[2023-09-23 08:57] LABS: BUN/Creat Ratio 28.83 Ratio (12.00-20.00); Blood Urea Nitrogen 17.3 mg/dL (9.0-27.0); Calcium 8.7 mg/dL (8.7-10.3); Carbon Dioxide 23.9 mmol/L (21.6-31.8); Chloride 103 mmol/L (96-109); Glucose 97 mg/dL (70-110); Potassium 4.9 mmol/L (3.5-5.5); Sodium 137 mmol/L (135-145)
[2023-09-23 08:58] LABS: Magnesium 1.9 mg/dL (1.5-2.4)
[2023-09-23 09:37] LABS: Basophils # (M) 0 X 10*3/uL (0.00-0.10); Eosinophils # (M) 0.24 X 10*3/uL (0.04-0.35); Lymphocytes # (M) 1.19 X 10*3/uL (0.90-5.00); Metamyelocytes % 3 % (0-0); Myelocytes % 2 % (0-0); Neutrophils % (M) 78 %; Nucleated Red Blood Cells 4 /100 WBCS; RBC Morphology Normal (Normal)
[2023-09-23 11:57] LABS: Glucose,Whole Blood 114 mg/dL (70-110)
--- NOTE | 2023-09-23 12:43 | P.PN ---
Subjective Progress Note Date: 09/23/23 Patient is a 74-year-old white male with past medical history significant for coronary artery disease, diabetes mellitus, hyperlipidemia, hypertension, COPD, chronic ongoing tobacco dependence, obstructive sleep apnea, lung nodules, atrial fibrillation, factor V, and severe peripheral peripheral vascular disease. Of note, patient has severe peripheral arterial disease and has underwent previous stenting of the right SFA, he is chronically maintained on dual antiplatelet therapy including Plavix. Also, chronically anticoagulated on Xarelto. 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 Recently, patient was being worked up for suspicious right lower lung nodule and mediastinal lymphadenopathy, he was supposedly going to have a lung biopsy on September 15, and was directed to hold his Plavix 5 days prior and Xarelto 2 days prior. Reportedly, stopped both of these medications 5 days prior. Subsequently, started to notice right leg pain starting 4 days ago. This progressively worsens, and became severe early yesterday morning. He could not use this extremity or walk. Finally, came to the emergency department for evaluation early yesterday morning. CT angiography of the right lower extremity demonstrated an occluded right SFA, including the previous stent to the distal right SFA, stent to the right popliteal artery, as well as, occluded right calf arteries. There is moderate focal stenosis at the right deep femoral artery. Soft tissue swelling and fat stranding throughout the right foot, ankle, and right lower extremity leg. Yesterday evening, patient did undergo right lower extremity angiogram with successful placement of a tPA infusion catheter in the right popliteal artery and right SFA. On my evaluation, right foot remains cold and pulseless even with Doppler. Foot appears dusky in color. Patient does report severe right lower extremity pain and reduced mobility. Catheter directed tPA at 1 mg/h continuous. heparin also infusing at 500 units/h for catheter patency. No oozing or hematoma noted at left femoral sheath insertion site. CBC is unremarkable and hemoglobin is stable at 16.7 g/dL. Fibrinogen 283. CMP on arrival was fairly unremarkable. LFTs not elevated. Troponin 0.014. Normal saline infusing at 75 mL/h. Pain is being managed with a combination of as needed Dilaudid. Blood pressure is normotensive. Heart rhythm appears atrial fibrillation with controlled ventricular response of 80 to 100 bpm. Patient is currently fairly comfortable on 2 L/min nasal cannula, no respiratory distress. Patient states his breathing is fairly baseline. He continues to smoke 2 packs/day. Denies any infectious symptoms like change in his chronic cough, sputum production, fevers. Denies sick contacts. He has been started on a combination of DuoNebs and IV Solu- Medrol. He does have history of right lower lobe 2.3 cm pulmonary nodule. Recent PET scan done 08/20/2023 redemonstrates a posterior right lateral lung nodule with an SUV of 5.6, as well as, SUV avid mediastinal lymphadenopathy suspicious for metastasis. His scheduled lung biopsy, which will likely have to be rescheduled. Reportedly, plan is for patient to return to [facility] later this morning. Patient evaluated today on 09/15/2023, patient is basically about the same. Continues to have poor circulation down to the right foot, patient is complaining of pain, the right foot feels cold, no palpable pulses, no pulses noted in the dorsalis pedis or posterior tibial even with Doppler. Patient is going back to catheterization lab today, and Dr. Boucher will assess his tPA catheter, in the meantime he is recommending a vascular surgery consultation. Pulmonary [facility] no cough no wheezing no shortness of breath. Patient seems to be comfortable. On 2 L nasal cannula, O2 saturation is 94%. Patient remains on heparin at 500 units/h he is also still receiving alteplase via tPA catheter. Patient is going back to [facility] at 11:30 AM today WBC count is 14.1 hemoglobin 16.7 INR is 1.3 electrolytes are normal and renal profile is normal Patient was reevaluated today on 09/16/2023, remains in the ICU, remains on IV heparin, yesterday he underwent repeat angiogram, third look post tPA infusion he had mechanical thrombectomy from right SFA and right popliteal with stenting of the right popliteal/SFA and balloon angioplasty of the right anterior tibial and right posterior tibial artery by Dr. Boucher. Patient developed groin hematoma which is the access site, CT of the abdomen and pelvis reported large infiltrating hematoma along the anterior and lateral aspect of the left pelvis measuring 18.3 x 28 x 4.2. Continues to have pain and discomfort in the right lower extremity the foot is ischemic and cold to touch. Vascular surgery is planning right lower extremity open thrombectomy and possible right lower ext remity fasciotomy. This will be likely done today. Pulmonary [facility] the patient has minimal shortness of breath, intermittent cough and wheezing, maintained on bronchodilators Patient was evaluated today on 09/17/2023, patient had his surgery yesterday, came back to the ICU intubated and mechanically ventilated, and he remains intubated at this point. He is on assist-control rate of 14 tidal volume 500 FiO2 40% and PEEP of 8 ABG showed a pO2 of 120 pCO2 39 pH of 7.42. Hence his FiO2 went down from 45% to 40%. Patient remains on heparin drip, remains on propofol at 40 mcg/kg/min, patient is on IV fluid at 2.9 normal saline running at 75 cc/h. Yesterday the patient underwent open thrombectomy of the right superficial femoral artery, popliteal artery anterior tibial artery and peroneal artery and posterior tibial artery with endarterectomy and patch angioplasty to the popliteal artery and tibioperoneal trunk with 4 compartments for fasciotomy. However this morning his foot went cold again, and seems to be ischemic. No evidence of dorsalis pedis or posterior tibial signal on Doppler. The timing of loss of pulse is not noted and is not clear, and is not clear to me as at what point the vascular surgery was notified about loss of pulse. Vascular surgery is considering below-knee amputation due to critical limb ischemia. And this will likely be done today Patient was reevaluated today on 09/18/23, patient underwent right below-knee amputation yesterday. He is back in the ICU, he is now on heparin drip, he is also on assist-control rate of 14 tidal volume 500 FiO2 40% PEEP of 8 ABG showed a pO2 of 121 pCO2 40 pH of 7.39. Patient is on propofol at 45 mcg/kg/min IV fluid at 75 cc/h he is also on heparin drip. Patient is sedated, however I am planning to hold sedation, awakened the patient, and give the patient a weaning trial as well as weaning parameters. If tolerated may proceed to extubation. No further surgical plans are scheduled at this point for this patient. Chest x-ray showed minimal basilar atelectasis, no evidence of congestive heart failure no pneumonia. WBC count is 9.2 hemoglobin 8.3 PTT is 74.8 electrolytes are normal renal profile is normal Was evaluated today on 09/19/2023, patient is now postoperative day #2, underwent right below-knee amputation the day before yesterday. Remains on the ventilator, yesterday I tried to wean and extubate the patient, however the patient developed significant amount of secretions and he was gagging and coughing on the endotracheal tube, hence he had to be placed back on sedation, and could not wean and extubate. Today the patient seems to be [place], he is not in any distress, on mechanical ventilation, he is on assist-control rate 14 tidal volume 500 FiO2 40% and PEEP of 5 ABG showed a pO2 of 129 pCO2 36 pH of 7.44, hence I cut down his FiO2 down to 35%. Patient had a chest x-ray that showed no significant findings except for mild prominence of the interstitium, and he will receive Lasix 20 mg IV push x 1. His IV fluid was cut down to KVO. He still on heparin he still on propofol at 35 mg/kg/min, and I plan to hold propofol and give the patient a trial of weaning possibly today and possibly extubation. WBC count is 9.1 hemoglobin 8.2 PTT is 53.9, basic metabolic profile is normal BUN is 21 creatinine 0.53 Progress note dated September 20, 2023. 73-year-old male seen today in room 267. The patient was admitted back on September 11, and on September 16, had a right below the knee amputation. He was admitted with a diagnosis of right lower extremity ischemia. The patient was intubated, and successfully extubated, on September 18. Currently, he is seen in room 267. He is on 2 L of oxygen. He is receiving IV heparin, and saline at KVO. The patient appears to be doing reasonably well. Current laboratory includes a white count 12.6, hemoglobin 8.6, hematocrit 27.9, and platelet count of 157,000. PTT is 58.6. Sodium 144, potassium 4.1, chlorides 115, CO2 25, BUN 24, creatinine 0.53. Calcium is 8.7. Magnesium is 2.2. Blood cultures are currently negative. Chest x-ray today shows basilar atelectasis. Progress note dated September 21, 2023. 74-year-old male seen again in room 267. The patient is resting comfortably in bed. The patient is on 3 L of oxygen by nasal cannula. He is getting saline at KVO. His Solu-Medrol be changed to prednisone 30 mg a day, in addition, his bu desonide and formoterol updrafts will be changed to Symbicort 160/4.5, 2 puffs twice a day. Hopefully, we can transfer the patient to the general medical floor. Labs today include a white count 13.5, hemoglobin 8.6, hematocrit 29, platelet count 199,000. Sodium 140, potassium 4.6, chlorides 111, CO2 25, BUN 21, creatinine 0.49. Glucose is 127. Calcium is 8.8. Magnesium is 2.0. Blood cultures are currently negative. No chest x-ray today. The patient is seen today September 22, 2023 in follow-up on the regular medical floor. Postoperative day #5 of a right below the knee amputation. He is awake and alert in no acute distress. Resting fairly comfortably in bed. Maintaining good O2 saturations in the 90s on 4 L/min per nasal cannula. Has been afebrile. Hemodynamically stable. Blood cultures revealed no growth. White count 14.8. Hemoglobin 8.9. Platelets 242. Sodium 140. Potassium 4.4. Bicarb 24. BUN 21. Creatinine 0.7. Glucose 91. He remains on dual, prednisone taper. NicoDerm patch in place. The patient is seen today September 23, 2023 in follow-up on the regular medical floor. Postoperative day #6 of a right below the knee amputation. He is currently sitting up in bed. Awake and alert in no acute distress. He is maintaining O2 saturations in the 90s on 3 L/min per nasal cannula. Normal saline at KVO. Blood cultures revealed no growth. White count 11.9. Hemoglobin 8.7. Platelets 251. Sodium 137. Potassium 4.9. Bicarb 24. BUN 17. Creatinine 0.6. Glucose 97. He remains on DuoNeb ventilations, Symbicort, prednisone taper. Anticoagulated with Xarelto. NicoDerm patch in place. Objective - Vital Signs Vital signs: Vital Signs Temp 97.4 F L 09/23/23 11:50 Pulse 81 09/23/23 11:50 Resp 16 09/23/23 11:50 BP 116/79 09/23/23 11:50 Pulse Ox 99 09/23/23 11:50 FiO2 32 09/23/23 04:21 Intake & Output 09/22/23 09/23/23 09/23/23 18:59 06:59 18:59 Intake Total 194 Output Total 1500 400 Balance 442 -400 Intake: IV 225 Sodium Chloride 0.9% 1, 225 000 ml @ 75 mls/hr IV . [id number] [facility] Rx#:[id number] Oral 1717 Output: Urine 1500 400 Other: Voiding Method Urinal External Catheter Incontinent # Voids 4 ABP, PAP, CO, CI - Last Documented Arterial Blood Pressure 126/66 - Exam GENERAL EXAM: Alert, 73-year-old male, resting in bed, on 3 L nasal cannula, in no apparent distress. HEAD: Normocephalic. EYES: Normal reaction of pupils, equal size. NOSE: Clear with pink turbinates. THROAT: No erythema or exudates. NECK: No masses, no JVD. CHEST: No chest wall deformity. LUNGS: Equal air entry with faint end expiratory wheeze, diminished. CVS: S1 and S2 normal with no audible murmur, regular rhythm. ABDOMEN: No hepatosplenomegaly, normal bowel sounds, no guarding or rigidity. SPINE: No scoliosis or deformity SKIN: No rashes CENTRAL NERVOUS SYSTEM: No focal deficits, tone is normal in all 4 extremities. 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 Knee immobilizer in place. Peripheral pulses are intact. - Labs CBC & Chem 7: 09/23/23 05:53 09/23/23 05:53 Labs: Abnormal Lab Results - Last 24 Hours (Table) 09/22/23 09/22/23 09/23/23 Range/Units 16:59 19:53 04:40 WBC (4.50-10.00) X 10*3/uL RBC (4.40-5.60) X 10*6/uL Hgb (13.0-17.0) g/dL Hct (39.6-50.0) % MCHC (32.0-37.0) g/dL RDW (11.5-14.5) % Neutrophils # (Manual) (1.80-7.70) X 10*3/uL NRBC/100 WBC Diff (0.00-0.01) X 10*3/uL BUN/Creatinine Ratio (12.00-20.00) Ratio POC Glucose (mg/dL) 155 H 124 H (70-110) mg/dL Urine Blood Trace H (Negative) Ur Leukocyte Esterase Small H (Negative) Urine WBC 8 H (0-5) /hpf Urine Bacteria Rare H (None) /hpf Urine Mucus Rare H (None) /hpf 09/23/23 09/23/23 09/23/23 Range/Units 05:53 05:53 11:56 WBC 11.92 H (4.50-10.00) X 10*3/uL RBC 2.94 L (4.40-5.60) X 10*6/uL Hgb 8.7 L (13.0-17.0) g/dL Hct 28.1 L (39.6-50.0) % MCHC 31.0 L (32.0-37.0) g/dL RDW 17.0 H (11.5-14.5) % Neutrophils # (Manual) 9.30 H (1.80-7.70) X 10*3/uL NRBC/100 WBC Diff 0.27 H (0.00-0.01) X 10*3/uL BUN/Creatinine Ratio 28.83 H (12.00-20.00) Ratio POC Glucose (mg/dL) 114 H (70-110) mg/dL Urine Blood (Negative) Ur Leukocyte Esterase (Negative) Urine WBC (0-5) /hpf Urine Bacteria (None) /hpf Urine Mucus (None) /hpf Assessment and Plan Assessment: Postop day #5, status post right below the knee amputation, for critical right lower extremity ischemia Routine postoperative ventilator management, successful extubation September 19, 2023 Right pulmonary nodule, suspicious for bronchogenic carcinoma Severe peripheral artery disease, with previous stenting of the right SFA and right popliteal artery Chronic and ongoing tobacco dependence History of COPD History of diabetes mellitus History of hyperlipidemia Benign essential hypertension Chronic atrial fibrillation History of factor V deficiency History of DVT/pulmonary embolism Obstructive sleep apnea syndrome Morbid obesity Plan: The plan patient was seen and evaluated Medications and labs reviewed Currently stable and on 3 L nasal cannula Titrate down the FiO2 as tolerated Increase use of the incentive spirometer Continue bronchodilators, steroids Plan is for subacute rehabilitation at discharge I have personally seen and examined the patient, performed the documentation and the assessment and plan as written. Number of minutes spent on the visit: 10.
[2023-09-23 13:51] VITALS: BMI 42.0
--- NOTE | 2023-09-23 16:54 | P.PN ---
Subjective Progress Note Date: 09/23/23 Patient is [id number] male admitted for peripheral arterial disease and patient will undergo intervention for this. Patient has severe pain in the right lower extremity, right lower extremity CTA showed occluded superficial femoral artery including the stent in the distal right superficial femoral a rtery occluded stent in the right popliteal occluded right calf artery arteries and moderate focal stenosis of origin of the right deep femoral artery. Patient is on 75 mg of Plavix and also Xarelto. Patient denies any chest pain was having shortness of breath and wheezing patient does have history of COPD continues to smoke. Patient was started on systemic steroids and additional treatments after which wheezing did improve. Vascular surgery evaluated the patient and planning on intervention for severe right lower extremity peripheral vascular disease. 09/14/2023 Patient is evaluated in follow-up today in the intensive care unit. He is status post Right lower extremity angiography with successful placement of ATP infusion cath in right popliteal artery and right SFA. Patient continues to report significant pain to his right lower extremity and his foot remains cool to palpation. Nursing staff was having difficulty with a Doppler pulse today to the right dorsalis pedis. Patient is requiring IV Dilaudid in addition to IV morphine for pain control. We would recommend to add Lyrica at this point for the neuropathic pain. He does report feeling less short of breath today does still have some faint scattered wheezing. 09/15/2023 Patient is evaluated today in follow up in the ICU. Patient returned to the biological lab technician and was found to have residual large right SFA thrombus and heparin was recommended to continue infusing overnight. Awaiting repeat angiography. Vascular services was consulted for evaluation. Continues with pain management and patient reports some improvement with added lyrica. Blood pressure remains elevated 151/100, 94% on 2L. Heart rate 103. 09/16/2023 Patient is evaluated today in follow up in the ICU. Patient returned to the Tip T[facility] and underwent thrombectomy and stenting of the right popliteal and right SFA. Patient during the sheath pull in the period following was moving around in the bed and has developed an 18.3 x 28 x 21.2 cm hematoma of the left groin. There is significant bruising noted today. He does continue to report significant lower back pain and is requiring IV pain medication. He is on Lyrica for the neuropathic pain to the right leg. His foot is cool today and still unable to palpate pulse in the dorsalis pedis. Vascular will see the patient and are considering further vascular intervention at this time. His [facility] te blood cell count is 12.1, hemoglobin 10.8, platelet count of 63. Sodium 136, chloride 113, BUN of 21, creatinine of 0.63. 09/17/2023 Patient is evaluated today. He is currently intubated and sedated. Patient underwent open thrombectomy and fasciotomy yesterday. Today he will be taken for amputation right below the knee. Patient is on IV heparin. He is sedated with propofol. 09/18/2023 Patient is currently evaluated today in the intensive care unit. He remains on mechanical ventilator with an FiO2 out of 40%. Patient is sedated with propofol. He is postoperative day 1 right below the knee amputation secondary to critical limb ischemia. Patient remains on IV heparin infusion. He does continue a significant hematoma to the left groin. Patient is being hydrated normal saline running at 75 mL/h additionally he continues on IV Solu-Medrol 40 mg every 8 hours. Patient continues on [id number]. 09/19/2023 Patient is evaluated today resting in bed in the intensive care unit. Patient remains on mechanical ventilator and is currently intubated and sedated with propofol. Patient is postoperative day #2 right below the knee amputation secondary to critical limb ischemia. Patient remains on IV heparin. His hematoma to the left groin is soft and bruising is slightly improved however his scrotum remains quite ecchymotic. He continues on normal saline as well as IV Solu-Medrol. Repeat chest x-ray today reveals mild left basilar atelectasis. Significant ecchymosis to the left groin 09/20/2023 Patient is evaluated today in the intensive care unit. Patient has been successfully extubated. He is awake alert and oriented x 3. He is postoperative day #3 right below the knee amputation secondary to critical limb ischemia of the right leg. Patient remains on IV heparin and can be transition to oral anticoagulation per vascular. 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 He continues to report significant pain to his right lower extremity. Remains on a course of IV Dilaudid and started on the recall and will add Cymbalta for adjunct pain control. Blood work today reveals a white blood cell count of 17.1, sodium level of 142, potassium 4.5, BUN of 21, creatinine of 1.14. His blood glucose in the 130s. 09/21/2023 Patient is evaluated today in follow up on the medical floor. Patient has been transferred out of the ICU. He is postoperative day #4 right BKA. He will need subacute rehab. He has been transitioned to oral xarelto. He continues on IV dialudid, oral norco, lyrica and cymbalta for pain management. Hematoma to the left groin is improving. Labs today reveals a white blood cell count of 13.5, hgb 8.6, sodium 140, potassium 4.6, BUN 21, creatinine 0.49. 09/22/2023 Patient is evaluated today on the medical floor. Patient is postoperative day #5 right BKA. Patient remains on oral xarelto. Patient continues on lyrica. [place] will be increased. Labs today reveal white blood cell count of 14.88, hgb 8.9. S odium 140, potassium 4.4, BUN 21, creatinine 0.7. 09/23/2023 Patient is evaluated in follow up today on the medical floor. He continues to have significant bruising to his left groin and flank. He is postoperative day #6 right BKA. He is on xarelto. He remains on combination of norco, lyrica, cymb chiara for pain management. He is pending authorization for rehab. White blood cell count 11.92, hgb 8.7, sodium 137, potassium 4.9, BUN 17.3, creatinine 0.6. REVIEW OF Review of Systems Constitutional: Denied any fatigue denied any fever. Cardio vascular: denied any chest pain, palpitations Gastrointestinal: denied any nausea, vomiting, diarrhea Pulmonary: Denied any shortness of breath cough Neurologic denied any new focal deficits All inpatient medications were reviewed and appropriate changes in these medications as dictated in the interval history and assessment and plan. EXAMINATION: GENERAL: Currently intubated and sedated. Well developed, well nourished. Pale HEENT: Pupils are round and equally reacting to light. EOMI. No scleral icterus. No conjunctival pallor. Normocephalic, atraumatic. No pharyngeal erythema. No thyromegaly. CARDIOVASCULAR: S1 and S2 present. No murmurs, rubs, or gallops. PULMONARY: Expiratory wheezing which improved fairly good air entry to bilateral lower lung solis ABDOMEN: Soft, nontender, nondistended, normoactive bowel sounds. No palpable organomegaly. MUSCULOSKELETAL: No joint swelling or deformity. EXTREMITIES: As mentioned above NEUROLOGICAL: Gross neurological examination did not reveal any focal deficits. SKIN: No rashes. Oral is ecchymotic and swollen lower extremity edema is noted. Patient is now status post right BKA Assessment and plan -Severe peripheral artery disease with prior intervention of right lower extremity -Now with critical limb ischemia and is postoperative tPA infusion stenting of the right popliteal/FSA and balloon angioplasty of right anterior tibial and right posterior tibial artery. S/P right BKA postoperative day #4. Transitioned to xarelto. Left groin hematoma -Acute on chronic hypoxic and hypercapnic respiratory failure: Secondary to COPD exacerbation -Lung cancer with mediastinal mets -Persistent atrial fibrillation on anticoagulation is being held on the outpatient basis for lung biopsy -Hyperlipidemia -Hypertension continues on metoprolol amlodipine added and PRN hydralazine. -History of factor V Leiden and DVT in the past -Type 2 diabetes mellitus on metformin which will be held as patient will undergo angiogram of the lower extremities patient will be on sliding scale insulin DVT prophylaxis: Xarelto GI prophylaxis protonix Full Code Plan Started on oral xarelto Transitioned to oral prednisone Monitor hematoma And nystatin cream for the groin excoriation Lasix has been stopped. Recommend to elevate the scrotal sac to help with edema show Repeat blood work in the AM Patient will be fitted for a stump sales hunter and rigid dressing PT OT consultation patient will need subacute rehab on discharge. Patient has accepting facility but will need authorization which can be started he is close to discharge and possibly could go in the next 24 to 48 hours. The impression and plan of care has been dictated by Lila Elizondo Nurse Practitioner as directed. Dr. Floyd MD I have performed a history and physical examination and medical decision making of this patient, discussed the same with the dictator, and agree with the dictators assessment and plan as written, documented as a scribe. Based on total visit time, I have performed more than 50% of this visit. Objective - Vital Signs Vital signs: Vital Signs Temp 97.4 F L 09/23/23 11:50 Pulse 80 09/23/23 15:15 Resp 16 09/23/23 11:50 BP 116/79 07/18/24 11:50 Pulse Ox 99 09/23/23 11:50 FiO2 32 09/23/23 04:21 Intake & Output 09/22/23 09/23/23 09/23/23 18:59 06:59 18:59 Intake Total 1942 60 Output Total 1500 400 600 Balance 442 -400 -540 Weight 107 kg 111.13 kg Intake: IV 225 Sodium Chloride 0.9% 1, 225 000 ml @ 75 mls/hr IV . [id number] [facility] Rx#:[id number] Intake, IV Titration 60 Amount Sodium Chloride 0.9% 1, 60 000 ml @ 75 mls/hr IV . [id number] [facility]I Rx#:[id number] Oral 1717 Output: Urine 1500 400 600 Other: Voiding Method Urinal External Catheter External Catheter Incontinent # Voids 4 ABP, PAP, CO, CI - Last Documented Arterial Blood Pressure 126/66 - Labs CBC & Chem 7: 09/23/23 05:53 09/23/23 05:53 Labs: Abnormal Lab Results - Last 24 Hours (Table) 09/22/23 09/22/23 09/23/23 Range/Units 16:59 19:53 04:40 WBC (4.50-10.00) X 10*3/uL RBC (4.40-5.60) X 10*6/uL Hgb (13.0-17.0) g/dL Hct (39.6-50.0) % MCHC (32.0-37.0) g/dL RDW (11.5-14.5) % Neutrophils # (Manual) (1.80-7.70) X 10*3/uL NRBC/100 WBC Diff (0.00-0.01) X 10*3/uL BUN/Creatinine Ratio (12.00-20.00) Ratio POC Glucose (mg/dL) 155 H 124 H (70-110) mg/dL Urine Blood Trace H (Negative) Ur Leukocyte Esterase Small H (Negative) Urine WBC 8 H (0-5) /hpf Urine Bacteria Rare H (None) /hpf Urine Mucus Rare H (None) /hpf 09/23/23 09/23/23 09/23/23 Range/Units 05:53 05:53 11:56 WBC 11.92 H (4.50-10.00) X 10*3/uL RBC 2.94 L (4.40-5.60) X 10*6/uL Hgb 8.7 L (13.0-17.0) g/dL Hct 28.1 L (39.6-50.0) % MCHC 31.0 L (32.0-37.0) g/dL RDW 17.0 H (11.5-14.5) % Neutrophils # (Manual) 9.30 H (1.80-7.70) X 10*3/uL NRBC/100 WBC Diff 0.27 H (0.00-0.01) X 10*3/uL BUN/Creatinine Ratio 28.83 H (12.00-20.00) Ratio POC Glucose (mg/dL) 114 H (70-110) mg/dL Urine Blood (Negative) Ur Leukocyte Esterase (Negative) Urine WBC (0-5) /hpf Urine Bacteria (None) /hpf Urine Mucus (None) /hpf Assessment and Plan Time with Patient: Less than 30
[2023-09-23 17:08] LABS: Glucose,Whole Blood 142 mg/dL (70-110)
[2023-09-23 20:19] LABS: Glucose,Whole Blood 123 mg/dL (70-110)
[2023-09-24 07:07] LABS: Glucose,Whole Blood 110 mg/dL (70-110)
[2023-09-24 07:43] VITALS: RESP 24
[2023-09-24 11:54] LABS: Glucose,Whole Blood 122 mg/dL (70-110)
--- NOTE | 2023-09-24 13:17 | P.PN ---
Subjective Progress Note Date: 09/24/23 Patient is a 74-year-old white male with past medical history significant for coronary artery disease, diabetes mellitus, hyperlipidemia, hypertension, COPD, chronic ongoing tobacco dependence, obstructive sleep apnea, lung nodules, atrial fibrillation, factor V, and severe peripheral peripheral vascular disease. Of note, patient has severe peripheral arterial disease and has underwent previous stenting of the right SFA, he is chronically maintained on dual antiplatelet therapy including Plavix. Also, chronically anticoagulated on Xarelto. 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 Recently, patient was being worked up for suspicious right lower lung nodule and mediastinal lymphadenopathy, he was supposedly going to have a lung biopsy on September 15, and was directed to hold his Plavix 5 days prior and Xarelto 2 days prior. Reportedly, stopped both of these medications 5 days prior. Subsequently, started to notice right leg pain starting 4 days ago. This progressively worsens, and became severe early yesterday morning. He could not use this extremity or walk. Finally, came to the emergency department for evaluation early yesterday morning. CT angiography of the right lower extremity demonstrated an occluded right SFA, including the previous stent to the distal right SFA, stent to the right popliteal artery, as well as, occluded right calf arteries. There is moderate focal stenosis at the right deep femoral artery. Soft tissue swelling and fat stranding throughout the right foot, ankle, and right lower extremity leg. Yesterday evening, patient did undergo right lower extremity angiogram with successful placement of a tPA infusion catheter in the right popliteal artery and right SFA. On my evaluation, right foot remains cold and pulseless even with Doppler. Foot appears dusky in color. Patient does report severe right lower extremity pain and reduced mobility. Catheter directed tPA at 1 mg/h continuous. heparin also infusing at 500 units/h for catheter patency. No oozing or hematoma noted at left femoral sheath insertion site. CBC is unremarkable and hemoglobin is stable at 16.7 g/dL. Fibrinogen 283. CMP on arrival was fairly unremarkable. LFTs not elevated. Troponin 0.014. Normal saline infusing at 75 mL/h. Pain is being managed with a combination of as needed Dilaudid. Blood pressure is normotensive. Heart rhythm appears atrial fibrillation with controlled ventricular response of 80 to 100 bpm. Patient is currently fairly comfortable on 2 L/min nasal cannula, no respiratory distress. Patient states his breathing is fairly baseline. He continues to smoke 2 packs/day. Denies any infectious symptoms like change in his chronic cough, sputum production, fevers. Denies sick contacts. He has been started on a combination of DuoNebs and IV Solu- Medrol. He does have history of right lower lobe 2.3 cm pulmonary nodule. Recent PET scan done 08/20/2023 redemonstrates a posterior right lateral lung nodule with an SUV of 5.6, as well as, SUV avid mediastinal lymphadenopathy suspicious for metastasis. His scheduled lung biopsy, which will likely have to be rescheduled. Reportedly, plan is for patient to return to [facility] later this morning. Patient evaluated today on 09/15/2023, patient is basically about the same. Continues to have poor circulation down to the right foot, patient is complaining of pain, the right foot feels cold, no palpable pulses, no pulses noted in the dorsalis pedis or posterior tibial even with Doppler. Patient is going back to catheterization lab today, and Dr. Boucher will assess his tPA catheter, in the meantime he is recommending a vascular surgery consultation. Pulmonary [facility] no cough no wheezing no shortness of breath. Patient seems to be comfortable. On 2 L nasal cannula, O2 saturation is 94%. Patient remains on heparin at 500 units/h he is also still receiving alteplase via tPA catheter. Patient is going back to [facility] at 11:30 AM today WBC count is 14.1 hemoglobin 16.7 INR is 1.3 electrolytes are normal and renal profile is normal Patient was reevaluated today on 09/16/2023, remains in the ICU, remains on IV heparin, yesterday he underwent repeat angiogram, third look post tPA infusion he had mechanical thrombectomy from right SFA and right popliteal with stenting of the right popliteal/SFA and balloon angioplasty of the right anterior tibial and right posterior tibial artery by Dr. Boucher. Patient developed groin hematoma which is the access site, CT of the abdomen and pelvis reported large infiltrating hematoma along the anterior and lateral aspect of the left pelvis measuring 18.3 x 28 x 4.2. Continues to have pain and discomfort in the right lower extremity the foot is ischemic and cold to touch. Vascular surgery is planning right lower extremity open thrombectomy and possible right lower ext remity fasciotomy. This will be likely done today. Pulmonary [facility] the patient has minimal shortness of breath, intermittent cough and wheezing, maintained on bronchodilators Patient was evaluated today on 09/17/2023, patient had his surgery yesterday, came back to the ICU intubated and mechanically ventilated, and he remains intubated at this point. He is on assist-control rate of 14 tidal volume 500 FiO2 40% and PEEP of 8 ABG showed a pO2 of 120 pCO2 39 pH of 7.42. Hence his FiO2 went down from 45% to 40%. Patient remains on heparin drip, remains on propofol at 40 mcg/kg/min, patient is on IV fluid at 2.9 normal saline running at 75 cc/h. Yesterday the patient underwent open thrombectomy of the right superficial femoral artery, popliteal artery anterior tibial artery and peroneal artery and posterior tibial artery with endarterectomy and patch angioplasty to the popliteal artery and tibioperoneal trunk with 4 compartments for fasciotomy. However this morning his foot went cold again, and seems to be ischemic. No evidence of dorsalis pedis or posterior tibial signal on Doppler. The timing of loss of pulse is not noted and is not clear, and is not clear to me as at what point the vascular surgery was notified about loss of pulse. Vascular surgery is considering below-knee amputation due to critical limb ischemia. And this will likely be done today Patient was reevaluated today on 09/18/23, patient underwent right below-knee amputation yesterday. He is back in the ICU, he is now on heparin drip, he is also on assist-control rate of 14 tidal volume 500 FiO2 40% PEEP of 8 ABG showed a pO2 of 121 pCO2 40 pH of 7.39. Patient is on propofol at 45 mcg/kg/min IV fluid at 75 cc/h he is also on heparin drip. Patient is sedated, however I am planning to hold sedation, awakened the patient, and give the patient a weaning trial as well as weaning parameters. If tolerated may proceed to extubation. No further surgical plans are scheduled at this point for this patient. Chest x-ray showed minimal basilar atelectasis, no evidence of congestive heart failure no pneumonia. WBC count is 9.2 hemoglobin 8.3 PTT is 74.8 electrolytes are normal renal profile is normal Was evaluated today on 09/19/2023, patient is now postoperative day #2, underwent right below-knee amputation the day before yesterday. Remains on the ventilator, yesterday I tried to wean and extubate the patient, however the patient developed significant amount of secretions and he was gagging and coughing on the endotracheal tube, hence he had to be placed back on sedation, and could not wean and extubate. Today the patient seems to be [place], he is not in any distress, on mechanical ventilation, he is on assist-control rate 14 tidal volume 500 FiO2 40% and PEEP of 5 ABG showed a pO2 of 129 pCO2 36 pH of 7.44, hence I cut down his FiO2 down to 35%. Patient had a chest x-ray that showed no significant findings except for mild prominence of the interstitium, and he will receive Lasix 20 mg IV push x 1. His IV fluid was cut down to KVO. He still on heparin he still on propofol at 35 mg/kg/min, and I plan to hold propofol and give the patient a trial of weaning possibly today and possibly extubation. WBC count is 9.1 hemoglobin 8.2 PTT is 53.9, basic metabolic profile is normal BUN is 21 creatinine 0.53 Progress note dated September 20, 2023. 73-year-old male seen today in room 267. The patient was admitted back on September 11, and on September 16, had a right below the knee amputation. He was admitted with a diagnosis of right lower extremity ischemia. The patient was intubated, and successfully extubated, on September 18. Currently, he is seen in room 267. He is on 2 L of oxygen. He is receiving IV heparin, and saline at KVO. The patient appears to be doing reasonably well. Current laboratory includes a white count 12.6, hemoglobin 8.6, hematocrit 27.9, and platelet count of 157,000. PTT is 58.6. Sodium 144, potassium 4.1, chlorides 115, CO2 25, BUN 24, creatinine 0.53. Calcium is 8.7. Magnesium is 2.2. Blood cultures are currently negative. Chest x-ray today shows basilar atelectasis. Progress note dated September 21, 2023. 74-year-old male seen again in room 267. The patient is resting comfortably in bed. The patient is on 3 L of oxygen by nasal cannula. He is getting saline at KVO. His Solu-Medrol be changed to prednisone 30 mg a day, in addition, his bu desonide and formoterol updrafts will be changed to Symbicort 160/4.5, 2 puffs twice a day. Hopefully, we can transfer the patient to the general medical floor. Labs today include a white count 13.5, hemoglobin 8.6, hematocrit 29, platelet count 199,000. Sodium 140, potassium 4.6, chlorides 111, CO2 25, BUN 21, creatinine 0.49. Glucose is 127. Calcium is 8.8. Magnesium is 2.0. Blood cultures are currently negative. No chest x-ray today. The patient is seen today September 22, 2023 in follow-up on the regular medical floor. Postoperative day #5 of a right below the knee amputation. He is awake and alert in no acute distress. Resting fairly comfortably in bed. Maintaining good O2 saturations in the 90s on 4 L/min per nasal cannula. Has been afebrile. Hemodynamically stable. Blood cultures revealed no growth. White count 14.8. Hemoglobin 8.9. Platelets 242. Sodium 140. Potassium 4.4. Bicarb 24. BUN 21. Creatinine 0.7. Glucose 91. He remains on dual, prednisone taper. NicoDerm patch in place. The patient is seen today September 23, 2023 in follow-up on the regular medical floor. Postoperative day #6 of a right below the knee amputation. He is currently sitting up in bed. Awake and alert in no acute distress. He is maintaining O2 saturations in the 90s on 3 L/min per nasal cannula. Normal saline at KVO. Blood cultures revealed no growth. White count 11.9. Hemoglobin 8.7. Platelets 251. Sodium 137. Potassium 4.9. Bicarb 24. BUN 17. Creatinine 0.6. Glucose 97. He remains on DuoNeb ventilations, Symbicort, prednisone taper. Anticoagulated with Xarelto. NicoDerm patch in place. The patient is seen today 09/24/2023 follow-up on the regular medical floor. Postoperative day #7 of a right below the knee amputation. He is resting comfortably in bed. Awake and alert in no acute distress. Maintaining good O2 saturations in the 90s on room air. Normal saline at KVO. glucose 122. He remains on DuoNeb inhalations, Symbicort and prednisone taper. NicoDerm patch in place. Anticoagulated with Xarelto. Objective - Vital Signs Vital signs: Vital Signs Temp 98.3 F 09/24/23 07:08 Pulse 80 09/24/23 12:06 Resp 24 09/24/23 07:08 BP 117/70 09/24/23 07:08 Pulse Ox 94 L 09/24/23 07:08 FiO2 32 09/23/23 04:21 Intake & Output 09/23/23 09/24/23 09/24/23 18:59 06:59 18:59 Intake Total 60 590 Output Total 600 2600 600 Balance - Weight 111.13 kg 105 kg Intake: Intake, IV Titration 60 Amount Sodium Chloride 0.9% 1, 60 000 ml @ 75 mls/hr IV . [id number] [facility] Rx#:[id number] Oral 590 Output: Urine 600 2600 600 Other: Voiding Method External Catheter External Catheter External Catheter ABP, PAP, CO, CI - Last Documented Arterial Blood Pressure 126/66 - Exam GENERAL EXAM: Alert, pleasant 73-year-old male, on 3 L nasal cannula, in no apparent distress. HEAD: Normocephalic. EYES: Normal reaction of pupils, equal size. NOSE: Clear with pink turbinates. THROAT: No erythema or exudates. NECK: No masses, no JVD. CHEST: No chest wall deformity. LUNGS: Equal air entry with faint end expiratory wheeze, diminished. CVS: S1 and S2 normal with no audible murmur, regular rhythm. ABDOMEN: No hepatosplenomegaly, normal bowel sounds, no guarding or rigidity. SPINE: No scoliosis or deformity SKIN: No rashes CENTRAL NERVOUS SYSTEM: No focal deficits, tone is normal in all 4 extremities. 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 Knee immobilizer in place. Peripheral pulses are intact. - Labs CBC & Chem 7: 09/23/23 05:53 09/23/23 05:53 Labs: Abnormal Lab Results - Last 24 Hours (Table) 09/23/23 09/23/23 09/24/23 Range/Units 17:07 20:18 11:53 POC Glucose (mg/dL) 142 H 123 H 122 H (70-110) mg/dL Assessment and Plan Assessment: Postop day #6, status post right below the knee amputation, for critical right lower extremity ischemia Routine postoperative ventilator management, successful extubation September 19, 2023 Right pulmonary nodule, suspicious for bronchogenic carcinoma Severe peripheral artery disease, with previous stenting of the right SFA and right popliteal artery Chronic and ongoing tobacco dependence History of COPD History of diabetes mellitus History of hyperlipidemia Benign essential hypertension Chronic atrial fibrillation History of factor V deficiency History of DVT/pulmonary embolism Obstructive sleep apnea syndrome Morbid obesity Plan: The plan patient was seen and evaluated Medications and labs reviewed Currently stable and on 3 L nasal cannula Continue bronchodilators, steroids Plan is for subacute rehabilitation at [facility] This patient was seen independently by the pulmonary nurse practitioner addressing pulmonary issues I have personally seen and examined the patient, performed the documentation and the assessment and plan as written. Number of minutes spent on the visit: 24.
[2023-09-24 13:37] VITALS: BP 118/76; TEMP 97.6
--- NOTE | 2023-09-24 15:06 | XR ---
EXAMINATION TYPE: XR chest 1V portable DATE OF EXAM: 09/24/2023 Comparison: 09/20/2023 Clinical History: 73-year-old male shortness of breath Findings: Heart mildly enlarged. Limited by lordotic positioning. Interstitial prominence. Mild patchy density at the left base with improving aeration. Impression: Mild cardiomegaly. Lordotic exam. Improving interstitium probably reflecting improving CHF/pulmonary vascular congestion compared to 09/20/2023. The patchy density at the left base is also improving.
[2023-09-24 15:26] VITALS: PULSE 76
--- NOTE | 2023-09-24 15:28 | P.DS ---
Providers Date of admission: 09/13/23 03:52 Expected date of discharge: 09/24/23 Attending physician: Connie France Consults: 09/13/23 18:57 Consult Physician Urgent Consulting Provider: Tj Mueller Consult Reason/Comments: COPD Do you want consulting provider notified?: Yes Primary care physician: Mayela Mckeon [facility] Course: Final diagnosis -Severe peripheral artery disease with prior intervention of right lower extremity -Now with critical limb ischemia and is postoperative tPA infusion stenting of the right popliteal/FSA and balloon angioplasty of right anterior tibial and right posterior tibial artery. S/P right BKA postoperative day #4. Transitioned to xarelto. Left groin hematoma -Acute on chronic hypoxic and hypercapnic respiratory failure: Secondary to COPD exacerbation -Lung cancer with mediastinal mets -Persistent atrial fibrillation on anticoagulation is being held on the outpatient basis for lung biopsy -Hyperlipidemia -Hypertension -History of factor V Leiden and DVT in the past -Type 2 diabetes mellitus DVT prophylaxis: Xarelto GI prophylaxis protonix Full Code Discharge disposition Patient is being discharged in a stable condition with guarded prognosis to [facility] in [place]. Patient will follow-up with Dr. Mckeon in the outpatient setting upon discharge. Patient is to continue with Current medications as mentioned below along with outpatient follow-up with vascular surgeryas scheduled. Total time taken is greater than 35 minutes. Hospital course This is a 73-year-old male who was recently admitted With Peripheral arterial disease of the right lower extremity showing an occluded superficial femoral artery including the stent that was occluded and patient is ultimately status post right BKA with multiple medical consultations following. Patient has been evaluated by vascular surgery and cleared for discharge and to continue with stump assurance manager and outpatient follow-up with vascular surgery. Patient does have a significantly large left groin hematoma that is improving and patient has been resumed on Xarelto per surgery. No active bleeding noted. Patient also with significant COPD and chronically wears oxygen outpatient will continue on DuoNeb treatments scheduled and as needed along with a prednisone taper to complete the course. Patient to continue with nystatin cream to the groin area and elevating the scrotum frequently while at rest as patient had significant swelling noted. Patient evaluated by physical therapy recommending rehab and patient is agreeable. Insurance authorization was obtained and patient has been accepted at [facility]. Please refer to other consultation notes for further HPI. Currently no reports of chest pain, shortness of breath, or palpitations. Patient is afebrile. No reports of nausea or vomiting and patient is tolerating diet. Patient will be Discharged to [facility] today.Guarded prognosis and high risk for readmissions given significant comorbidities. Physical exam: Gen: This is a 73-year-old male who is awake and alert and oriented 3, well- developed, elderly-appearing, obese HEENT: Head is atraumatic, normocephalic. Pupils equal, round. Sclerae is anicteric. NECK: Supple. No JVD. No lymphadenopathy. No thyromegaly. LUNGS: Diminished breath sounds bilaterally With some faint expiratory wheezes And course rhonchiNoted. No intercostal retractions. HEART: S1, S2 are muffled ABDOMEN: Soft.Obese Bowel sounds are present. No masses. No tenderness. EXTREMITIES: No pedal edema. No calf tenderness.Right BKA noted, left groin hematoma significant although improving NEUROLOGICAL: Patient is awake, alert and oriented x3. Cranial nerves 2 through 12 are grossly intact. Diffusely weak Please refer to medication reconciliation sheet for a list of medications. The impression and plan of care has been dictated by Dania Winkler, Nurse Practitioner as directed. Dr. Floyd MD I have performed a history and examination and MDM of this patient, discussed the same with the dictator, and agree with the dictator's assessment and plan as written ,documented as a scribe. Based on total visit time, I have performed more than 50% of the visit. Patient Condition at Discharge: Stable Plan - Discharge Summary Discharge Rx Participant: Yes New Discharge Prescriptions: New Ipratropium-Albuterol Nebulize [Duoneb 0.5 mg-3 mg/3 ml Soln] 3 ml INHALATION RT-QID PRN each PRN Reason: Shortness Of Breath Or Wheezing Nicotine 21Mg/24Hr Patch [Habitrol] 1 patch TRANSDERM DAILY patch HYDROcodone/APAP 7.5-325MG [[place] 7.5-325] 1 each PO Q6HR PRN #4 tab PRN Reason: Pain INSULIN ASPART (NovoLOG) [NovoLOG (formulary)] 0 unit SQ ACHS each Budesonide-Formot 160-4.5 Mcg [Symbicort 160-4.5 Mcg Inhaler] 2 puff INHALATION RT-BID each Acetaminophen Tab [Tylenol] 650 mg PO Q6HR PRN tab PRN Reason: Mild Pain Or Fever > 100.5 Benzocaine/Menthol Lozeng [Cepacol lozenge] 1 each MUCOUS MEM Q4HR PRN lozenge PRN Reason: Sore Throat DULoxetine HCL [Cymbalta] 30 mg PO DAILY cap Ipratropium-Albuterol Nebulize [Duoneb 0.5 mg-3 mg/3 ml Soln] 3 ml INHALATION RT-QID each Metoprolol Tartrate [Lopressor] 25 mg PO BID tab Nystatin 100,000 Unit/gm Powd [Mycostatin Powder] 1 applic TOPICAL BID each amLODIPine [Norvasc] 10 mg PO DAILY tab predniSONE 10 mg PO DIRECTED #30 tab Albuterol Nebulized [Ventolin Nebulized] 2.5 mg INHALATION RT-TID PRN ml PRN Reason: Bronchodilation Pregabalin [Lyrica] 75 mg PO BID 3 Days #6 cap Continue Clopidogrel Bisulfate [Plavix] 75 mg PO DAILY #90 tab Tamsulosin HCl [Flomax] 0.4 mg PO DAILY Albuterol Sulfate [Albuterol Sulfate Hfa] 2 puff PO RT-BID PRN PRN Reason: Shortness Of Breath Fluticasone/Umeclidin/Vilanter [Trelegy Ellipta 100-62.5-25] 1 puff INHALATION RT-DAILY Omeprazole [PriLOSEC] 20 mg PO DAILY Rivaroxaban [Xarelto] 20 mg PO DAILY Furosemide [Lasix] 20 mg PO DAILY metFORMIN HCL [Glucophage] 500 mg PO DAILY Discontinued HYDROcodone/APAP 10-325MG [[place] 10-325] 1 tab PO TID Ipratropium-Albuterol Nebulize [Duoneb 0.5 mg-3 mg/3 ml Soln] 3 ml INHALATION RT-QID PRN PRN Reason: Shortness Of Breath Metoprolol Tartrate [Lopressor] 25 mg PO DAILY Rosuvastatin Calcium [Crestor] 40 mg PO DAILY Discharge Medication List Clopidogrel Bisulfate [Plavix] 75 mg PO DAILY #90 tab 08/03/19 [Rx] Tamsulosin HCl [Flomax] 0.4 mg PO DAILY 09/05/19 [History] Albuterol Sulfate [Albuterol Sulfate Hfa] 2 puff PO RT-BID PRN 02/03/21 [History] Rivaroxaban [Xarelto] 20 mg PO DAILY 02/04/21 [History] Fluticasone/Umeclidin/Vilanter [Trelegy Ellipta 100-62.5-25] 1 puff INHALATION RT-DAILY 09/13/23 [History] Furosemide [Lasix] 20 mg PO DAILY 09/13/23 [History] Omeprazole [PriLOSEC] 20 mg PO DAILY 09/13/23 [History] metFORMIN HCL [Glucophage] 500 mg PO DAILY 09/13/23 [History] Acetaminophen Tab [Tylenol] 650 mg PO Q6HR PRN tab 09/24/23 [Rx] Albuterol Nebulized [Ventolin Nebulized] 2.5 mg INHALATION RT-TID PRN ml 09/24/23 [Rx] Benzocaine/Menthol Lozeng [Cepacol lozenge] 1 each MUCOUS MEM Q4HR PRN lozenge 09/24/23 [Rx] Budesonide-Formot 160-4.5 Mcg [Symbicort 160-4.5 Mcg Inhaler] 2 puff INHALATION RT-BID each 09/24/23 [Rx] DULoxetine HCL [Cymbalta] 30 mg PO DAILY cap 09/24/23 [Rx] HYDROcodone/APAP 7.5-325MG [[place] 7.5-325] 1 each PO Q6HR PRN #4 tab 09/24/23 [Rx] INSULIN ASPART (NovoLOG) [NovoLOG (formulary)] 0 unit SQ ACHS each 09/24/23 [Rx] Ipratropium-Albuterol Nebulize [Duoneb 0.5 mg-3 mg/3 ml Soln] 3 ml INHALATION RT-QID each 09/24/23 [Rx] Ipratropium-Albuterol Nebulize [Duoneb 0.5 mg-3 mg/3 ml Soln] 3 ml INHALATION RT-QID PRN each 09/24/23 [Rx] Metoprolol Tartrate [Lopressor] 25 mg PO BID tab 09/24/23 [Rx] Nicotine 21Mg/24Hr Patch [Habitrol] 1 patch TRANSDERM DAILY patch 09/24/23 [Rx] Nystatin 100,000 Unit/gm Powd [Mycostatin Powder] 1 applic TOPICAL BID each 09/24/23 [Rx] Pregabalin [Lyrica] 75 mg PO BID 3 Days #6 cap 09/24/23 [Rx] amLODIPine [Norvasc] 10 mg PO DAILY tab 09/24/23 [Rx] predniSONE 10 mg PO DIRECTED #30 tab 09/24/23 [Rx] Follow up Appointment(s)/Referral(s): Maco Whittaker DO [Doctor of Osteopathic Medicine] - 2 Weeks Mayela Mckeon MD [Primary Care Provider] - 1-2 days Patient Instructions/Handouts: How to Stop Smoking (DC), Cigarette Smoking and Your Health (GEN) Activity/Diet/Wound Care/Special Instructions: Activity as tolerated per recommendations from physical therapy Keep stump assurance manager in place, knee immobilizer. Wear rigid dressing as tolerated. No driving. ok to shower but no baths, pools, soaking in tubs to avoid risk of infection until cleared by surgeon. signs of infection ie: fever, rash, drainage from puncture site, swelling contact doctor or return to ER immediately. Heavy bleeding from surgical site apply firm direct pressure and return to ER. low sodium/low fat diet Recommend smoking cessation
[2023-09-24] MEDS: FUROSEMIDE 10 MG/ML 4 ML VIAL IV STA (15:35)
[2023-09-24 17:04] LABS: Glucose,Whole Blood 149 mg/dL (70-110)
--- NOTE | 2023-09-28 15:58 | CDI ---
Documentation Clarification Form Date: 09/28/2023 03:11:19 PM From: Andie Cooper RN CCDS Phone: [phone] Admit Date: 09/13/2023 03:52:00 AM Patient Name: Cecilio Paulino Visit Number: [id number] Discharge Date: 09/24/2023 06:30:00 PM ATTENTION: The Clinical Documentation Specialists (CDI) and [facility] Coding Staff appreciate your assistance in clarifying documentation. Please respond to the clarification below the line at the bottom and electronically sign. The CDI & [facility] Coding staff will review the response and follow-up if needed. Please note: Queries are made part of the Legal Health Record. If you have any questions, please contact the author of this message via ITS. Doctor: Jatinder Nina Groin hematoma is documented 09/15, Vascular surgery note and patient had TPA infusion, 09/12 09/14. Additional clarification is requested regarding the relationship, if any, that exists between the diagnosis and the procedure. Patients Admitting Diagnosis: Acute limb ischemia Post-Operative Diagnosis: Acute limb ischemia Procedure performed: Right lower extremity angiogram. Successful placement of tPA infusion catheter in the right popliteal artery and SFA. Ultrasound guided access of the left common femoral artery. History/Risk Factors: 73 year old male presents to the ED For severe pain in right lower extremity. Medical History: Atrial Fibrillaiton, Asthma, Factor V , CAD, DVT, Vascular disorder, DM2 and HTN. 09/12, HP. Clinical Indicators: CT Angio, 09/12: Occluded right superficial femoral artery, including occluded stent in the distal right superficial femoral artery. Occluded stent in the right popliteal artery. Occluded right calf arteries. Moderate focal stenosis at the origin of the right deep femoral artery. Soft tissue swelling and fat stranding throughout the right foot ankle and right lower leg. CT ABD Pelvis, 09/15: Hematoma total area measures the lateral and anterior left pelvis.Superiorly, this starts lateral to the left iliac crest and extends inferiorly and medially into the anteromedial aspect of the proximal left thigh as well as the right aspect of the scrotum.18.3 x 28 x 12.2 LABS: 09/12 PTT: 190.8, INR 1.3, PT 13.2, Fibrinogen 283: 09/13 INR 1.3, PT 13.7, Fibrinogen 154: 09/14 INR 1.3, PT 13.9, Fibrinogen 133. Alteplase, Recombinant IV 09/12 09/14 Heparin IV 09/12 09/19 Treatment: Monitor hematoma size, stopped Thrombolytics 09/18 and TPA 09/14, Monitoring Hgb, PTT, PT, INR and Fibrinogen. Pressure dressing to left groin. What relationship, if any, exists between the diagnosis of groin hematoma and the procedure: [ ] Groin hematoma is a complication of surgical procedure [ ] Groin hematoma is an expected outcome of the surgical procedure [ ] Groin hematoma is related to patients co-morbid condition(s) of TPA and thrombolytics & not a complication of the procedure [ ] Other please specify ____ [ ] Unable to determine (Template Last Revised: May 2020) MTDD
== END 2023-09-24 18:30 | DRG 239 ==
LOC: EC 22:27 → 3SCARD 09-13 03:52 → 2SICU 09-13 09:41 → 5NMEDONC 09-21 17:44
PROVIDERS: ADMIT Hospitalist; ATTEND Hospitalist
PROC: 5A09457 Assistance with Respiratory Ventilation, 24-96 Consecutive Hours, Continuous Positive Airway Pressure (ICD-10-PCS; 2023-09-13)
PROC: 3E05317 Introduction of Other Thrombolytic into Peripheral Artery, Percutaneous Approach (ICD-10-PCS; 2023-09-13)
PROC: 06HM33Z Insertion of Infusion Device into Right Femoral Vein, Percutaneous Approach (ICD-10-PCS; 2023-09-13)
PROC: B41F1ZZ Fluoroscopy of Right Lower Extremity Arteries using Low Osmolar Contrast (ICD-10-PCS; 2023-09-13)
PROC: 04U Lower Arteries, Supplement (ICD-10-PCS; 2023-09-16)
PROC: 04CP0ZZ Extirpation of Matter from Right Anterior Tibial Artery, Open Approach (ICD-10-PCS; 2023-09-16)
PROC: 04CR0ZZ Extirpation of Matter from Right Posterior Tibial Artery, Open Approach (ICD-10-PCS; 2023-09-16)
PROC: 04CK0ZZ Extirpation of Matter from Right Femoral Artery, Open Approach (ICD-10-PCS; 2023-09-16)
PROC: 04CM0ZZ Extirpation of Matter from Right Popliteal Artery, Open Approach (ICD-10-PCS; 2023-09-16)
PROC: 0J8N0ZZ Division of Right Lower Leg Subcutaneous Tissue and Fascia, Open Approach (ICD-10-PCS; 2023-09-16)
PROC: 04CT0ZZ Extirpation of Matter from Right Peroneal Artery, Open Approach (ICD-10-PCS; 2023-09-16)
PROC: 5A1945Z Respiratory Ventilation, 24-96 Consecutive Hours (ICD-10-PCS; 2023-09-16)
PROC: 0D9670Z Drainage of Stomach with Drainage Device, Via Natural or Artificial Opening (ICD-10-PCS; 2023-09-16)
PROC: B41F1ZZ Fluoroscopy of Right Lower Extremity Arteries using Low Osmolar Contrast (ICD-10-PCS; 2023-09-17)
PROC: 06HM33Z Insertion of Infusion Device into Right Femoral Vein, Percutaneous Approach (ICD-10-PCS; 2023-09-17)
PROC: 3E03317 Introduction of Other Thrombolytic into Peripheral Vein, Percutaneous Approach (ICD-10-PCS; 2023-09-17)
PROC: 3E0G76Z Introduction of Nutritional Substance into Upper GI, Via Natural or Artificial Opening (ICD-10-PCS; 2023-09-17)
PROC: 0Y6H0Z2 Detachment at Right Lower Leg, Mid, Open Approach (ICD-10-PCS; principal; 2023-09-17 14:00)
DX: T82.868A Thrombosis due to vascular prosthetic devices, implants and grafts, initial encounter (principal); J96.21 Acute and chronic respiratory failure with hypoxia; J96.22 Acute and chronic respiratory failure with hypercapnia; C78.1 Secondary malignant neoplasm of mediastinum; J44.1 Chronic obstructive pulmonary disease with (acute) exacerbation; I48.19 Other persistent atrial fibrillation; I48.92 Unspecified atrial flutter; C34.31 Malignant neoplasm of lower lobe, right bronchus or lung; D68.51 Activated protein C resistance; Z68.41 Body mass index [BMI] 40.0-44.9, adult; F03.93 Unspecified dementia, unspecified severity, with mood disturbance; F03.94 Unspecified dementia, unspecified severity, with anxiety; J98.11 Atelectasis; I74.3 Embolism and thrombosis of arteries of the lower extremities; E11.41 Type 2 diabetes mellitus with diabetic mononeuropathy; E11.51 Type 2 diabetes mellitus with diabetic peripheral angiopathy without gangrene; I70.221 Atherosclerosis of native arteries of extremities with rest pain, right leg; I72.4 Aneurysm of artery of lower extremity; E66.01 Morbid (severe) obesity due to excess calories; F32.A Depression, unspecified; I10 Essential (primary) hypertension; I25.10 Atherosclerotic heart disease of native coronary artery without angina pectoris; G47.33 Obstructive sleep apnea (adult) (pediatric); E78.5 Hyperlipidemia, unspecified; G57.93 Unspecified mononeuropathy of bilateral lower limbs; M54.50 Low back pain, unspecified; R32 Unspecified urinary incontinence; F17.210 Nicotine dependence, cigarettes, uncomplicated; Z71.6 Tobacco abuse counseling; Z79.02 Long term (current) use of antithrombotics/antiplatelets; Z79.51 Long term (current) use of inhaled steroids; Z79.84 Long term (current) use of oral hypoglycemic drugs; Z79.01 Long term (current) use of anticoagulants; Z79.891 Long term (current) use of opiate analgesic; Z79.899 Other long term (current) drug therapy; Z86.718 Personal history of other venous thrombosis and embolism; Z86.711 Personal history of pulmonary embolism; Z71.3 Dietary counseling and surveillance; Z59.819 Housing instability, housed unspecified; Z59.82 Transportation insecurity; Z74.09 Other reduced mobility; Y83.1 Surgical operation with implant of artificial internal device as the cause of abnormal reaction of the patient, or of later complication, without mention of misadventure at the time of the procedure; Z88.1 Allergy status to other antibiotic agents
CPT/HCPCS: 36415; 37184; 37211; 37213; 37214; 37226; 37228; 37232; 37252; 37253; 71045; 71046; 74177; 75710; 80048; 80053; 81001; 82565; 82805; 83605; 83735; 84484; 84520; 85025; 85027; 85384; 85610; 85730; 86850; 86900; 86901; 87040; 88304; 88311; 93005; 94002; 94003; 94640; 94660; 94760; 96365; 96366; 96368; 96375; 96376; 99291